=== PATIENT | female | born 1940 | race Caucasian/White ===

== ENCOUNTER 2020-02-23 18:15 | Emergency (ER) | payer MEDICARE, SELFPAY ==
[2020-02-23 18:31] VITALS: BP 157/77; PULSE 94; RESP 16; TEMP 36.9; O2SAT 96
--- NOTE | 2020-02-23 18:51 | ED.SKABFB ---
HPI - Skin/Abscess/Foreign Bdy General Chief complaint: Skin/Abscess/Foreign Body Stated complaint: right leg rash Time Seen by Provider: 02/23/20 18:40 Source: patient, family and RN notes reviewed Mode of arrival: wheelchair Limitations: dementia History of Present Illness HPI narrative: Son presents patient today complaining of wounds to the right lower leg that have been chronically present for the past 2 months. Patient states wounds initially started due to cat scratches, but son cannot confirm this. Patient has type 2 diabetes. Early on, patient contacted her PCP and was told to stop using the Vaseline and Neosporin, but were given no further instructions. Patient denies pain. MD complaint: other (Wounds) Related Data Home Medications Medication Instructions Recorded Confirmed aspirin 325 mg PO DAILY 02/23/20 02/23/20 cholecalciferol (vitamin D3) 125 mcg PO DAILY 02/23/20 02/23/20 [Vitamin D3] citalopram [Celexa] 10 mg PO DAILY 02/23/20 02/23/20 lutein 20 mg PO DAILY 02/23/20 02/23/20 metformin [Glucophage] 250 mg PO BID 02/23/20 02/23/20 simvastatin 20 mg PO DAILY 02/23/20 02/23/20 triamterene-hydrochlorothiazid 4 tablet PO DAILY 02/23/20 02/23/20 Allergies Allergy/AdvReac Type Severity Reaction Status Date / Time Penicillins Allergy Unknown Verified 02/23/20 18:46 Review of Systems Review of Systems: Narrative: CONSTITUTIONAL: Denies body aches, fever, chills, or sweats. EYES: Denies visual changes, redness, or discharge. ENT: Denies rhinorrhea, congestion, sore throat, or otalgia. CARDIOVASCULAR: Denies chest pain, palpitations, or edema. RESPIRATORY: Denies cough or dyspnea. GASTROINTESTINAL: Denies abdominal pain, nausea, vomiting, or diarrhea. GENITOURINARY: Denies dysuria or hematuria. SKIN: Denies rash, itching. + Wounds to the right lower leg MUSCULOSKELETAL: Denies back pain, joint pain, or myalgia. NEUROLOGIC: Denies headache, numbness, tingling, or weakness. PSYCH: Denies depression or anxiety. [facility] Past Medical History Medical History (Updated 02/23/20 @ 19:14 by HUE Barton, ) Depression Hypercholesterolemia Type 2 diabetes mellitus Social History Social History Gender identity (if verbalized by the patient): Female Comments At time of signature, I have reviewed and agree with nursing past medical, surgical, social and family history unless otherwise noted. Please see nursing chart for further information. There is no relevant family history pertinent to the presenting complaint Exam Narrative: Exam Narrative: GENERAL: Chronically ill-appearing, over-nourished, and in no acute distress. HEAD: Normocephalic, atraumatic. EYES: EOMI. No redness or drainage. Conjunctivae normal. ENT: Mucous membranes pink and moist. NECK: Normal AROM. CHEST: No respiratory distress. EXTREMITIES: Right lower leg: Multiple superficial open wounds with yellow purulent material. Some wounds are weeping clear yellow fluid. Patient has 1 small area of tenderness to the anterior mid lower leg, but is otherwise nontender. 2+ pitting throughout the lower leg. Distal sensation intact. Capillary refill normal. Pedal pulse normal. Left leg is also edematous and very dry. SKIN: Warm, dry, no rash. Capillary refill normal. Normal skin turgor. NEURO: No focal deficits. Alert and oriented x3. Gait steady. PSYCH: Normal affect. No signs of depression or anxiety. Course Vital Signs Vital signs: Vital Signs Temperature 98.4 F 02/23/20 18:31 Pulse Rate 94 02/23/20 18:31 Respiratory Rate 16 02/23/20 18:31 Blood Pressure 157/77 H 02/23/20 18:31 Pulse Oximetry 96 02/23/20 18:31 Temperature 98.4 F 02/23/20 18:31 Pulse Rate 94 02/23/20 18:31 Respiratory Rate 16 02/23/20 18:31 Blood Pressure 157/77 H 02/23/20 18:31 Pulse Oximetry 96 02/23/20 18:31 Reviewed. Pt has been instructed to follow up with her PCP regarding her elevated blood pressure today.
== END 2020-02-23 18:56 | disposition home or self-care (01) ==
PROVIDERS: Emergency Provider Nurse Practitioner
DX: L03.115 Cellulitis of right lower limb (principal); S81.801A Unspecified open wound, right lower leg, initial encounter; E78.00 Pure hypercholesterolemia, unspecified; E11.9 Type 2 diabetes mellitus without complications; F32.9 Major depressive disorder, single episode, unspecified; Z79.82 Long term (current) use of aspirin; Z79.84 Long term (current) use of oral hypoglycemic drugs; W55.03XA Scratched by cat, initial encounter
CPT/HCPCS: 87070; 87147; 87186; 87205; 99213; G0463

== ENCOUNTER 2020-05-05 12:10 | Emergency (ER) | payer MEDICARE, SELFPAY ==
--- NOTE | ~2020-05-05 | XR_ITS ---
EXAMINATION: XR chest 1V portable DATE: 05/05/2020 13:29 INDICATION: Shortness of breath. TECHNIQUE: A single frontal view of the chest was obtained. COMPARISON: None. FINDINGS: Sensitivity is decreased by obesity. The chest demonstrates clear lungs without pneumonia, pleural effusion, or pneumothorax. The heart size is normal. IMPRESSION: 1. No acute cardiopulmonary disease. Reviewed, dictated and finalized at location A.
[2020-05-05 12:15] VITALS: BP 157/79; PULSE 85; RESP 20; TEMP 36.6; O2SAT 97
--- NOTE | 2020-05-05 13:04 | ED.GENADULT ---
HPI - General Adult General Chief complaint: Extremity Injury, Lower Stated complaint: my legs are messed up Time Seen by Provider: 05/05/20 12:27 Source: patient and family Mode of arrival: ambulatory History of Present Illness HPI narrative: 79 years old white female, morbidly obese referred to our emergency room by her family physician because failure of lower extremity wound management over the last few months. Patient is asymptomatic, denying any new symptoms compared to the last few days or weeks. Patient reports chronic ulcerations and wounds of the lower extremity bilaterally with intermittent leaking clear fluid. History of diabetes, peripheral neuropathy and chronic stasis dermatitis. Related Data Home Medications Medication Instructions Recorded Confirmed aspirin 325 mg PO DAILY 02/23/20 02/23/20 cholecalciferol (vitamin D3) 125 mcg PO DAILY 02/23/20 02/23/20 [Vitamin D3] citalopram [Celexa] 10 mg PO DAILY 02/23/20 02/23/20 lutein 20 mg PO DAILY 02/23/20 02/23/20 metformin [Glucophage] 250 mg PO BID 02/23/20 02/23/20 simvastatin 20 mg PO DAILY 02/23/20 02/23/20 triamterene-hydrochlorothiazid 4 tablet PO DAILY 02/23/20 02/23/20 Allergies Allergy/AdvReac Type Severity Reaction Status Date / Time Penicillins Allergy Unknown Verified 05/05/20 13:15 Review of Systems Review of Systems: Narrative: CONSTITUTIONAL: Denies fever, chills, or sweats. EYES: Denies visual changes, redness, or discharge. ENT: Denies rhinorrhea, congestion, sore throat, or otalgia. CARDIOVASCULAR: Denies chest pain, palpitations, or edema. RESPIRATORY: Denies cough or dyspnea. GASTROINTESTINAL: Denies abdominal pain, nausea, vomiting, or diarrhea. GENITOURINARY: Denies dysuria or hematuria. SKIN: Denies rash or itching. MUSCULOSKELETAL: Denies back pain, joint pain, or myalgia. NEUROLOGIC: Denies headache, numbness, or weakness. PSYCHIATRIC: Denies anxiety or depression. [facility] Past Medical History Medical History Depression Hypercholesterolemia Type 2 diabetes mellitus Social History Social History (Updated 05/05/20 @ 13:07 by Gregorio Monge MD) Smoking status: Smoker, status unknown Alcohol intake: unknown Substance use: unknown Gender identity (if verbalized by the patient): Female Exam Narrative: Exam Narrative: General appearance: Well-developed, well-nourished Skin: Normal color. Lower extremity showed chronic stasis dermatitis with superficial ulcerations with different sizes, some of them covered with yellow crust, no active leaking of fluid at this time, no warmth, pink skin, no tenderness, 2+ edema Head: Normocephalic, nontraumatic Eyes: Clear conjunctiva ENT: Oropharynx normal, ears normal, nose normal Neck: Supple, nontender Chest and respiratory: Airway patent, no respiratory distress, no accessory muscle use Heart: Regular rate/rhythm Abdomen: Soft, nontender, no organomegaly, quiet bowel sounds Vascular: Normal peripheral pulses, normal capillary refill. Musculoskeletal: Normal range of motion, nontender back Neurologic: Alert and oriented ?3, FRAME FEEDER is normal as tested, no gross motor deficit Course Course Emergency Course: Stable Reevaluation(s) Reevaluation #1: Wound care nurse came to the emergency room, evaluated the patient and advised her to avoid salt, use compression stocking and keep leg elevated. And she needs to follow-up with wound care clinic of [facility] because patient does not have a family physician in our hospital. Date: 05/05/20 Time: 13:56 Vital Signs Vital signs: Vital Signs Temperature 36.6 C 05/05/20 12:15 Pulse Rate 85 05/05/20 12
[2020-05-05 13:08] LABS: Basophils Absolute Auto 0.1 K/mm3 (0.0-0.1); Basophils Percent Auto 0.4 % (0.2-1.2); Eosinophils Absolute Auto 0.2 K/mm3 (0-0.3); Eosinophils Percent Auto 1.6 % (0-4.4); Hematocrit 44.3 % (37.0-47.0); Hemoglobin 14.9 g/dL (12.0-15.0); Immature Granulocyte Absolute 0.11 K/mm3 (0.00-0.031); Immature Granulocyte Percent A 0.8 % (0-0.5); Lymphocytes Percent Auto 19.7 % (18.3-44.2); Mean Corpuscular HGB Conc 33.6 g/dl (32-36); Mean Corpuscular Volume 98.2 fl (80-100); Monocytes Absolute Auto 0.9 K/mm3 (0.1-0.6); Monocytes Percent Auto 6.3 % (2.6-8.5); Neutrophils Absolute Auto 9.8 K/mm3 (1.3-6.7); Neutrophils Percent Auto 71.2 % (45.5-73.1); Platelet Count Result 316 k/mm3 (150-375); Red Blood Count 4.51 M/mm3 (4.2-5.4); Red Cell Distribution Width 12.4 % (11.5-14.5); White Blood Count 13.7 K/mm3 (4.5-10.0)
[2020-05-05 13:20] LABS: Alanine Aminotransferase 20 U/L (4-35); Albumin Level 3.9 g/dL (3.5-5.1); Alkaline Phosphatase 72 U/L (38-126); Anion Gap 7 mmol/L (8-16); Aspartate Amino Transferase 28 U/L (14-36); Bilirubin,Total 0.7 mg/dL (0.2-1.3); Blood Urea Nitrogen 16 mg/dL (7-17); Calcium 9.5 mg/dL (8.4-10.2); Carbon Dioxide 28 mmol/L (22-30); Chloride 100 mmol/L (98-107); Estimated CRCL calculation 82 ml/min; Estimated Glomerular Filt Rate > 60; Glucose 145 mg/dL (65-105); Potassium 4.2 mmol/L (3.4-5.0); Sodium 135 mmol/L (137-145)
[2020-05-05 13:29] LABS: NT Pro B Type Natriuretic Pept 106 PG/ML (5-100)
[2020-05-05 14:08] VITALS: BP 156/65; PULSE 86; RESP 16; O2SAT 97
== END 2020-05-05 14:20 | disposition home or self-care (01) ==
PROVIDERS: Emergency Provider Emergency Medicine; PCP Family Medicine
DX: L97.902 Non-pressure chronic ulcer of unspecified part of unspecified lower leg with fat layer exposed (principal); F32.9 Major depressive disorder, single episode, unspecified; E78.5 Hyperlipidemia, unspecified; E11.9 Type 2 diabetes mellitus without complications; Z79.84 Long term (current) use of oral hypoglycemic drugs
CPT/HCPCS: 36415; 71045; 80053; 83880; 85025; 87040; 87077; 87186; 99283

== ENCOUNTER 2020-12-23 09:07 | Observation (INO) | payer MEDICARE, MEDICAID, SELFPAY ==
[2020-12-23] VITALS (38 sets, daily range): BP systolic 89–140; BP diastolic 49–90; PULSE 68–95; RESP 14–24; TEMP 35.9–36.8; O2SAT 92–100; BMI 42.3
--- NOTE | ~2020-12-23 | CT_ITS ---
EXAMINATION: CT foot LT wo con DATE: 12/25/2020 12:42 INDICATION: Pain and swelling at the left first metatarsal TECHNIQUE: Computed tomography (CT) of the left foot was performed without intravenous contrast. The dose-length product (DLP) was 466.06 mGy-cm. Automated exposure control and iterative reconstruction technique were employed. COMPARISON: None FINDINGS: No fracture is identified. Bone alignment is normal. There is mild osteoarthritis at the fi rst metatarsophalangeal joint. There is dorsal soft tissue swelling of the foot. IMPRESSION: 1. Soft tissue swelling of the foot without acute osseous findings identified. Reviewed, dictated and finalized at location A.
--- NOTE | ~2020-12-23 | CT_ITS ---
EXAMINATION: CT abdomen pelvis wo con DATE: 12/26/2020 09:47 INDICATION: Intermittent hematuria TECHNIQUE: Computed tomography (CT) of the abdomen and pelvis was performed without intravenous contr ast. The dose-length product (DLP) was 711.74 mGy-cm. Automated exposure control and iterative recons truction technique were employed. COMPARISON: None FINDINGS: Minimal dependent atelectasis is present in the lung bases. The heart size is normal. Stone s are present in the nondistended gallbladder. The liver, spleen, pancreas, and adrenal glands are no rmal. Within the limitations of noncontrast examination, the kidneys are unremarkable. No stones are identified in the kidneys, ureters, or bladder. There is no hydronephrosis or hydroureter. No patholo gically enlarged abdominal or pelvic lymph nodes are identified. There is no free intraperitoneal gas or evidence of bowel obstruction. The appendix is normal. There is mild lumbar spondylosis. There is enlargement of the uterus. A fat-containing umbilical hernia is noted. IMPRESSION: 1. No CT correlate for the patient's symptoms. 2. Uterine enlargement, likely related to fibroids. 3. Cholelithiasis. Reviewed, dictated and finalized at location B.
--- NOTE | ~2020-12-23 | CT_ITS ---
EXAMINATION: CT brain wo con, CT cervical spine wo con EXAM DATE: 12/23/2020 10:08 INDICATION: Dizziness, possible head injury. Right-sided neck pain. TECHNIQUE: Spiral CT of the head was performed without contrast. Axial, coronal and sagittal images were reviewed. Spiral CT of the cervical spine was performed without contrast. Axial images were rev iewed. Coronal and sagittal reformatted images were also reviewed. The dose-length product (DLP) fo r this examination was 605.33 (accession [id number]), 440.79 (accession [id number]) mGy-cm. The exposure was tailored according to patient size, and iterative reconstruction (ASIR) was used as additional dose reduction technique. There is no prior study for comparison. FINDINGS: HEAD CT: There is no acute intraparenchymal hemorrhage. No evidence of intraparenchymal brain mass l esion. No evidence of acute infarction. There is mild to moderate periventricular and subcortical hy podensity, nonspecific but probably related to small vessel ischemic disease. There is mild to mode rate prominence of the sulci and ventricles related to cerebral atrophy. There is intracranial francis tid arteriosclerosis. There is no mass effect or midline shift. There is no obstructive hydrocephal us suspected. There are no extra-axial collections. There are no acute calvarial fractures. The or bits are unremarkable. Left-sided scalp sebaceous cyst measuring 2 cm. The visualized sinuses and ma stoid air cells are well aerated. CERVICAL CT: There is no evidence of acute cervical fracture. The odontoid process is intact. Pre- dens space is normal. Prevertebral soft tissue is widened due to midline course of carotid arteries. There are no soft tissue abnormalities identified. There is no disc space widening or traumatic ve rtebral body subluxation suspected. Moderate to severe disc disease C5-T1. There is severe left-side d facet arthropathy C2-C5 with significant left neural foraminal stenosis at C4-5 more than C3-4. A detailed level by level evaluation of spondylosis can be added as addendum if requested. IMPRESSION: 1. No acute intracranial findings or cervical fracture. 2. Age-related intracranial findings. 3. Cervical spondylosis. Reviewed, dictated and finalized at location A. IMPRESSION: 1. No acute intracranial findings or cervical fracture. 2. Age-related intracranial findings. 3. Cervical spondylosis.
--- NOTE | ~2020-12-23 | US_ITS ---
EXAMINATION: US venous doppler LE EXAM DATE: 12/24/2020 12:54 INDICATION: Lower extremity swelling and pain. TECHNIQUE: Multiple grayscale, color flow and Doppler images of the lower extremity deep venous syste ms bilaterally were obtained and reviewed. There is no prior study for comparison. FINDINGS: Right side: The right common femoral, femoral and profunda veins demonstrate normal color flow, respi ratory variation, augmentation and compressibility. Compressibility, color flow confirmed within the right popliteal, posterior tibial, peroneal, and greater saphenous veins. Left side: The left common femoral, femoral and profunda veins demonstrate normal color flow, respira tory variation, augmentation and compressibility. Compressibility, color flow confirmed within the l eft popliteal, posterior tibial, peroneal, and greater saphenous veins. IMPRESSION: No lower extremity deep venous thrombosis bilaterally. Reviewed, dictated and finalized at location A.
--- NOTE | ~2020-12-23 | XR_ITS ---
EXAMINATION: XR shoulder RT min 2V EXAM DATE: 12/23/2020 10:24 INDICATION: Initial encounter following injury, with pain of the right shoulder. Fall. TECHNIQUE: The following right shoulder projections obtained: frontal projection with internal rotati on, frontal projection with external rotation, Grashey, and scapular Y view (4+ views). There is no prior study for comparison. FINDINGS: There are no acute right shoulder fractures or dislocations identified. There is no subcut aneous gas. The soft tissue is unremarkable. There are no radiopaque foreign bodies. There is mod erate acromioclavicular joint primary osteoarthritis. IMPRESSION: 1. Right shoulder exam without acute osseous findings. Reviewed, dictated and finalized at location A.
--- NOTE | ~2020-12-23 | XR_ITS ---
EXAMINATION: XR wrist RT min 3V DATE: 12/23/2020 10:24 INDICATION: Right wrist pain post fall TECHNIQUE: Posteroanterior, ulnar deviation, oblique, and lateral views of the right wrist were obtai anna. COMPARISON: none FINDINGS: Alignment is normal. No fracture. Mild polyarticular osteoarthritis including the distal radioulnar, midcarpal, triscaphe, first carpometacarpal and at all of the profiled metacarpophalangeal and interp halangeal joints. Soft tissue swelling about the distal forearm. IMPRESSION: 1. 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 No acute osseous abnormalit y. Reviewed, dictated and finalized at location B. IMPRESSION: 1. 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 No ac leesa osseous abnormality.
--- NOTE | ~2020-12-23 | XR_ITS ---
EXAMINATION: XR foot LT min 3V DATE: 12/23/2020 10:24 INDICATION: Left foot pain. TECHNIQUE: Dorsoplantar, two oblique and lateral views of the left foot were obtained. COMPARISON: None. FINDINGS: Prominent soft tissue swelling about the distal lower leg and extending over the dorsum of the foot. Bone alignment is normal. There is flattening of the articular surface at the head of the second meta tarsal with subtle underlying subarticular sclerosis consistent with chronic osteonecrosis (Freiberg infraction). No acute fracture. 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 Moderate-sized plantar calcaneal spur. Small enthesopathic ossicles at the distal Achilles tendon. IMPRESSION: 1. No acute osseous abnormality. 2. 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 3. Degenerative skeletal changes including minimal to mild polyarticular osteoarthritis in the mid an d forefoot and enthesopathic changes at the posterior calcaneus. Reviewed, dictated and finalized at location B. IMPRESSION: 1. No acute osseous abnormality. 2. 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 3. Degenerative skeletal changes including minimal to mild polyarticular osteoa rthritis in the mid and forefoot and enthesopathic changes at the posterior travis caneus.
--- NOTE | ~2020-12-23 | XR_ITS ---
EXAMINATION: XR foot RT min 3V EXAM DATE: 12/25/2020 08:22 INDICATION: Right foot swelling. TECHNIQUE: Right foot dorsoplantar, lateral and oblique projections obtained and reviewed. There is no prior study for comparison. FINDINGS: Right metatarsal bones unremarkable. There are no acute fractures or dislocations identifi ed. There is no subcutaneous gas. There is soft tissue swelling over the entire foot. There are no radiopaque foreign bodies. There are no bony erosions identified. There is mild polyarticular prim jeremias osteoarthritis. IMPRESSION: 1. Right foot exam without acute osseous findings. 2. Soft tissue swelling. Reviewed, dictated and finalized at location A.
--- NOTE | ~2020-12-23 | XR_ITS ---
EXAMINATION: XR chest 1V EXAM DATE: 12/23/2020 10:24 INDICATION: Dizziness, fall. TECHNIQUE: Portable AP frontal chest x-ray was obtained. Comparison is made to prior examination from 05/05/2020. FINDINGS: Some limitations from underpenetration. The lungs are clear. There are no pleural effusion s. The cardiomediastinal silhouette is within normal limits. There is no pneumothorax suspected. T he bones and soft tissues are unremarkable. IMPRESSION: No acute cardiopulmonary findings. Reviewed, dictated and finalized at location A.
--- NOTE | 2020-12-23 09:48 | ECG_ITS ---
Measurements Intervals [place] Rate: 83 P: 32 WA: 174 QRS: -11 QRSD: 106 T: 42 QT: 381 QTc: 448 Interpretive Statements SINUS RHYTHM INCOMPLETE RIGHT BUNDLE BRANCH BLOCK DELAYED PRECORDIAL R/S TRANSITION LOW QRS VOLTAGE IN PRECORDIAL LEADS BORDERLINE ECG Electronically Signed On 12-23-2020 10:52:31 CDT by Jesús Almaguer D.O.
--- NOTE | 2020-12-23 10:09 | ED.FALL ---
HPI - Fall General Chief Complaint: Fall Stated Complaint: Fall weakness Time Seen by Provider: 12/23/20 09:19 Source: patient Mode of arrival: EMS Limitations: no limitations History of Present Illness HPI Narrative: PAtient is a 80 year old female with history of DM, hyperlipidemia and hypertension who presents for evaluation of left foot pain , neck pain and right shoulder pain. She was trying to walk her dog but once she stepped on her left foot she had pain and she fell. She states the top of her left foot started hurting last night. She also has right shoulder pain, neck pain, right wrist pain after fall. She states she is unsure if she hit her head but she is having dizziness after her fall. She denies chest pain, nausea, vomiting, shortness of breath. Related Data Home Medications Medication Instructions Recorded Confirmed aspirin [Abdias Aspirin] 325 mg PO DAILY 02/23/20 12/23/20 citalopram [Celexa] 10 mg PO DAILY 02/23/20 12/23/20 lutein 20 mg PO DAILY 02/23/20 12/23/20 metformin [Glucophage] 1,000 mg PO BID 02/23/20 12/23/20 simvastatin 20 mg PO DAILY 02/23/20 12/23/20 triamterene-hydrochlorothiazid 4 tablet PO DAILY 02/23/20 12/23/20 oxybutynin chloride 5 mg PO BID 12/23/20 12/23/20 sitagliptin [Januvia] 100 mg PO DAILY 12/23/20 12/23/20 Allergies Allergy/AdvReac Type Severity Reaction Status Date / Time Penicillins Allergy Unknown Verified 12/23/20 16:35 Review of Systems Review of Systems: All systems reviewed & are unremarkable except as noted in HPI and below Constitutional: Constitutional: Denies chills and Denies fever(s) ENT: Denies sore throat Cardiovascular: Cardiovascular: Denies chest pain and Denies radiating jaw, neck or arm pain Respiratory: Respiratory: Denies cough and Denies dyspnea Gastrointestinal: Gastrointestinal: Denies abdominal pain, Denies nausea and Denies vomiting Musculoskeletal: Musculoskeletal: Reports back pain Integumentary/Breasts: Skin/Breast: Reports erythema Neurologic: Reports dizziness and Denies focal weakness [facility] Past Medical History Medical History (Updated 12/23/20 @ 17:59 by Sindi Pyle MD) Cataract Left eye Depression HTN (hypertension) with goal to be determined Hypercholesterolemia Type 2 diabetes mellitus Surgical History Surgical History (Updated 12/23/20 @ 17:33 by Natalie Erickson NP) History of arthroscopic knee surgery Repair of right knee cartilage Family History Family History (Updated 12/23/20 @ 17:35 by Natalie Erickson NP) Mother Acute myocardial infarction Several times Migraines Father Cancer Social History Social History (Updated 12/23/20 @ 17:35 by Natalie Erickson NP) Social History: The patient is single and lives with her son. 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 The patient stated she would choose her son as a durable power commercial real estate attorney for healthcare. The patient desires to be a full code. Lifelong nonsmoker does not use any alcohol marijuana or illicit drugs. Smoking status: Never smoker Second hand tobacco smoke exposure: No Alcohol intake: former Substance use: never Substance use type: does not use Gender identity (if verbalized by the patient): Female Spiritual care concerns: No Exam Const: General: alert Nutritional Appearance: obese Orientation/consciousness: patient oriented x3 HENMT: Head: normocephalic and atraumatic Face and sinus: normal facial exam, sinuses nontender and face symmetric Mouth: Yes Normal oral and palatal mucosa present, Yes lip normal, Yes oropharynx normal and Yes moist mucous membranes Throat: uvula midline Chest: Chest palpation & inspection: normal inspection of the chest Resp: Effort & Inspection: normal respiratory effort and no retractions Auscultation: clear to auscultation bilaterally Cardio: Rate: regular rate Rhythm: regular rhythm Heart sounds: no murmurs GI: GI Palp: Yes Soft to pa
[2020-12-23 10:54] LABS: Basophils Absolute Auto 0.1 K/mm3 (0.0-0.1); Basophils Percent Auto 0.4 % (0.2-1.2); Eosinophils Absolute Auto 0.4 K/mm3 (0-0.3); Hematocrit 46.7 % (37.0-47.0); Hemoglobin 15.7 g/dL (12.0-15.0); Immature Granulocyte Absolute 0.16 K/mm3 (0.00-0.031); Immature Granulocyte Percent A 0.8 % (0-0.5); Lymphocytes Percent Auto 6.7 % (18.3-44.2); Mean Corpuscular HGB Conc 33.6 g/dl (32-36); Mean Corpuscular Hemoglobin 32.5 pg (26-34); Mean Corpuscular Volume 96.7 fl (80-100); Mean Platelet Volume 9.9 fl (7.4-10.4); Neutrophils Absolute Auto 16.6 K/mm3 (1.3-6.7); Neutrophils Percent Auto 85.1 % (45.5-73.1); Platelet Count Result 273 k/mm3 (150-375); Red Blood Count 4.83 M/mm3 (4.2-5.4); Red Cell Distribution Width 13.4 % (11.5-14.5); White Blood Count 19.5 K/mm3 (4.5-10.0)
[2020-12-23 11:05] LABS: Uric Acid 9.2 mg/dL (2.5-7.5)
[2020-12-23 11:10] LABS: Alanine Aminotransferase 10 U/L (4-35); Albumin Level 4.2 g/dL (3.5-5.1); Alkaline Phosphatase 77 U/L (38-126); Anion Gap 6 mmol/L (8-16); Aspartate Amino Transferase 22 U/L (14-36); Bilirubin,Total 0.8 mg/dL (0.2-1.3); Blood Urea Nitrogen 21 mg/dL (7-17); CRP 5.1 mg/dL (<1.0); Calcium 9.7 mg/dL (8.4-10.2); Carbon Dioxide 31 mmol/L (22-30); Chloride 101 mmol/L (98-107); Estimated CRCL calculation 57 ml/min; Estimated Glomerular Filt Rate > 60; Glucose 167 mg/dL (65-105); Sodium 138 mmol/L (137-145)
[2020-12-23 11:13] LABS: INR 0.9; Partial Thromboplastin Time 25.8 SECONDS (22.3-36.8); Prothrombin Time 12.4 Seconds (11.1-14.7)
[2020-12-23 11:16] LABS: NT Pro B Type Natriuretic Pept 74 PG/ML (5-100)
[2020-12-23 11:36] LABS: Potassium 3.7 mmol/L (3.4-5.0)
[2020-12-23 12:38] LABS: Add Urine Microscopic? YES; Appearance Urine Cloudy (Clear); Bacteria Urine 4+ /hpf; Bilirubin Urine Negative (Negative); Blood Urine Negative (Negative); Color Urine Yellow (Yellow); Glucose Urine UA Negative (Negative); Ketones Urine Negative (Negative); Leukocyte Esterase Ur 1+ LEU/UL (Negative); Mucus Urine Rare /lpf; Nitrate Urine Negative (Negative); Protein Urine Negative (Negative); RBC Urine 0-2 /hpf (0-2); Specific Grav Ur 1.016 (1.001-1.035); Squamous Epithelial Cell Urine Occasional /hpf (Few); WBC Urine 16-20 /hpf
[2020-12-23] MEDS: LACTATED RINGERS 1,000 ML 999 ML IV CONT (12:39)
[2020-12-23] MEDS: INDOMETHACIN 25 MG CAPSULE PO ×2 (14:48→18:11)
--- NOTE | 2020-12-23 16:52 | PC.NURSE ---
This patient, Kimberly Rodriguez, was admitted to [facility]- on 12/23/2020 at 15:50. Patient/family oriented to hospital policies and general routines including ID bracelet, bed and alarms, visiting hours, pain management, procedures, bathroom and other care routines, personal items, smoking policy, room service/diet, and visiting hours. Information on how to activate the Rapid Response Team has been discussed. Patient/Family are encouraged to report perceived risks to care and to ask questions if they do not understand what they are told or what they should do.
--- NOTE | 2020-12-23 17:18 | PM.IMHP ---
H&P: HPI History of Present Illness Date/Time: 12/23/20 17:18Female patient who resides with her son. The patient does have a history of diabetes, hyperlipidemia and hypertension. The patient stated that her foot on the left side was hurting her all night she did not fall asleep until 3:00 a.m. this morning. The patient stated that she went to sleep and a lift chair. She stated she did not take anything for this left foot pain. The patient stated that this morning when she woke up she went to get up out of the chair to get the dog outside to the bathroom. However once the patient was lifted in the chair she said that she turned wrong and fell on the floor. She called for her son to come help her and he called for an ambulance. She complained of right shoulder pain, neck pain, and right wrist pain after the fall. She does not remember hitting her head. She did not feel dizzy before or after the fall. No nausea vomiting or diarrhea. No shortness of breath. The patient had no previous history of having gout. Her white count was noted to be 19.5 and she was positive for UTI. The patient was started on Rocephin. Her blood glucose is 167. A boot was applied to her left foot her CRP is 5.1 her left foot x-ray was read as 1. No acute osseous abnormality. 2. 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 3. Degenerative skeletal changes including minimal to mild polyarticular osteoarthritis in the mid and forefoot and enthesopathic changes at the posterior calcaneus. Ortho had been called concerning these readings and he suspected that the patient just has gout and that she may follow-up with him in the outpatient setting. The patient had been given indomethacin. Her chest x-ray was read as nothing acute. Wrist x-ray on the right was read as mild polyarticular osteoarthritis throughout the right wrist and hand no acute osseous abnormality. Shoulder x-ray was read as right shoulder exam without acute osseous findings. Head CT was read as nothing acute. She has cervical spondylosis and age-related intracranial findings. Cervical spine CT was read as nothing acute age-related intracranial finding cervical spondylosis. The patient was given IV Tylenol, lactated Ringer's Rocephin and indomethacin in the emergency room. The patient is being admitted to observation status on 12/23/2020. Chief Complaint: Left foot pain Review of Systems Review of Systems: All systems reviewed & are unremarkable except as noted in HPI and below Constitutional: Constitutional: Reports as per HPI and Reports no additional constitutional complaints Eyes: Eyes: Reports as per HPI and Reports no additional eye complaints ENT: Reports system reviewed and no additional complaints, except as documented and Reports Normal hearing present Cardiovascular: Cardiovascular: Reports no additional cardiovascular complaints Respiratory: Respiratory: Reports no additional respiratory complaints and Reports no additional respiratory complaints Gastrointestinal: Gastrointestinal: Reports as per HPI and Reports no additional gastrointestinal complaints Musculoskeletal: Musculoskeletal: Reports no additional musculoskeletal complaints Integumentary/Breasts: Skin/Breast: Reports system reviewed and no additional complaints, except as docu and Reports as per HPI Neurologic: Reports system reviewed and no additional complaints, except as documented, Reports as per HPI and Reports Normal hearing present Psychiatric: Psychiatric: Reports no additional psychiatric complaints and Reports as per HPI Endocrine: Endocrine: Reports no additional endocrine complaints Hematologic/Lymphatic: Hematologic/Lymphatic: Reports no additional hematologic/lymphatic complaints Allergic/Immunologic: Allergic/Immunologic: Reports no additional allergic/immunologic complaints [facility] Past Medical History Medical History (Updated 12/23/20
[2020-12-23 17:41] LABS: Glucose Point of Care 163 (65-105)
[2020-12-23] MEDS: OXYBUTYNIN CHLORIDE 5 MG TABLET PO (18:13)
[2020-12-23] MEDS: SIMVASTATIN 20 MG TABLET PO (20:37)
[2020-12-23] MEDS: CITALOPRAM HYDROBROMIDE 10 MG TABLET PO (20:37)
[2020-12-23 21:22] LABS: Glucose Point of Care 199 (65-105)
[2020-12-24 05:55] LABS: Basophils Absolute Auto 0.1 K/mm3 (0.0-0.1); Basophils Percent Auto 0.4 % (0.2-1.2); Eosinophils Absolute Auto 0.6 K/mm3 (0-0.3); Eosinophils Percent Auto 3.8 % (0-4.4); Hematocrit 40.5 % (37.0-47.0); Hemoglobin 13.7 g/dL (12.0-15.0); Immature Granulocyte Percent A 0.7 % (0-0.5); Lymphocytes Absolute Auto 2.14 K/mm3 (0.9-3.2); Lymphocytes Percent Auto 14.6 % (18.3-44.2); Mean Corpuscular HGB Conc 33.8 g/dl (32-36); Mean Corpuscular Volume 94.6 fl (80-100); Monocytes Absolute Auto 0.8 K/mm3 (0.1-0.6); Monocytes Percent Auto 5.7 % (2.6-8.5); Neutrophils Percent Auto 74.8 % (45.5-73.1); Platelet Count Result 227 k/mm3 (150-375); Red Blood Count 4.28 M/mm3 (4.2-5.4); Red Cell Distribution Width 13.2 % (11.5-14.5); White Blood Count 14.7 K/mm3 (4.5-10.0)
[2020-12-24 06:00] VITALS: BP 130/50; PULSE 67; RESP 18; TEMP 36.6; O2SAT 94
[2020-12-24 06:08] LABS: Alanine Aminotransferase 9 U/L (4-35); Albumin Level 3.7 g/dL (3.5-5.1); Alkaline Phosphatase 62 U/L (38-126); Anion Gap 3 mmol/L (8-16); Aspartate Amino Transferase 18 U/L (14-36); Bilirubin,Total 0.8 mg/dL (0.2-1.3); Blood Urea Nitrogen 22 mg/dL (7-17); Calcium 9.2 mg/dL (8.4-10.2); Carbon Dioxide 32 mmol/L (22-30); Chloride 101 mmol/L (98-107); Estimated CRCL calculation 51 ml/min; Estimated Glomerular Filt Rate > 60; Glucose 143 mg/dL (65-105); Potassium 3.3 mmol/L (3.4-5.0); Sodium 136 mmol/L (137-145); Uric Acid 9.2 mg/dL (2.5-7.5)
[2020-12-24 06:51] LABS: Hemoglobin A1C 6.5 % (<5.7)
[2020-12-24] MEDS: OXYBUTYNIN CHLORIDE 5 MG TABLET PO ×2 (08:04→16:50)
[2020-12-24] MEDS: INDOMETHACIN 25 MG CAPSULE PO ×3 (08:04→16:50)
[2020-12-24] MEDS: ENOXAPARIN 40 MG/0.4 ML SYRINGE SUB-Q (08:04)
[2020-12-24] MEDS: metFORMIN HCL 500 MG TABLET 1000 MG PO ×2 (08:04→16:50)
[2020-12-24] MEDS: HYDROcodone/acetaminophen (*CRX) 5-325 MG TABLET 1 TAB PO (08:09)
[2020-12-24 08:17] LABS: Glucose Point of Care 143 (65-105)
[2020-12-24 08:40] VITALS: PULSE 74; RESP 18; O2SAT 95
--- NOTE | 2020-12-24 11:17 | PM.IMPN ---
Progress Note: A&P Assessment and Plan (1) UTI (urinary tract infection): Code(s): N39.0 - Urinary tract infection, site not specified Status: Acute Assessment and Plan: Urinalysis w/ 4+ bacteria, leukocyte esterase, WBC. She notes increased urinary frequency. WBC elevated at 19,500 yesterday but improving. Preliminary cultures demonstrate >100,000 CFU gram negative bacilli. Continue IV ceftriaxone Await final urine and blood cultures (2) Gout: Code(s): M10.9 - Gout, unspecified Status: Acute Assessment and Plan: She notes acute onset of severe pain in the left foot/great toe. The right foot is also hurting. Uric acid elevated at 9.2. Continue indomethacin, treat for 5 days total Pantoprazole added since she is on NSAID Continue analgesics as needed (3) Hypercholesterolemia: Code(s): E78.00 - Pure hypercholesterolemia, unspecified Status: Chronic Assessment and Plan: LFTs are normal. Continue simvastatin (4) Depression: Code(s): F32.9 - Major depressive disorder, single episode, unspecified Status: Chronic Assessment and Plan: Mood is stable. Continue citalopram (5) Type 2 diabetes mellitus: Code(s): E11.9 - Type 2 diabetes mellitus without complications Status: Chronic Assessment and Plan: Hemoglobin A1c 6.5% 12/24/20. Blood sugars are at target. Continue ACHS glucose monitoring, sliding scale insulin, and hypoglycemia protocol Continue metformin and januvia (6) Hypertension: Code(s): I10 - Essential (primary) hypertension Status: Acute Assessment and Plan: Blood pressures are acceptable with some soft readings yesterday. Most recent 106/46. Furosemide and triamterene-HCTZ held due to soft pressures. Will monitor overnight and consider resuming tomorrow based on trend. (7) Osteonecrosis: Code(s): M87.9 - Osteonecrosis, unspecified Status: Acute Assessment and Plan: She notes acute onset of left foot pain two days ago and did not sleep all night due to the pain. The morning of 12/23, she suffered a mechanical fall. 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 Dr. Brown with orthopedic surgery was consulted from the emergency department and recommended outpatient follow-up which she will need to schedule at discharge Continue walking shoe (8) Fall: Code(s): W19.XXXA - Unspecified fall, initial encounter Status: Acute Assessment and Plan: Likely provoked by left foot pain from gout. Pt is also deconditioned. PT/OT evaluation appreciated Fall precautions Rehab placement anticipated Check plain films of the right foot (9) Leukocytosis: Code(s): D72.829 - Elevated white blood cell count, unspecified Status: Acute Assessment and Plan: Likely secondary to UTI. I do not see any evidence of lower extremity cellulitis on physical exam. Continue IV ceftriaxone for treatment of UTI Follow CBC daily Subjective Date/time seen: 12/24/20 11:17 Mrs. Rodriguez is a 80 y.o. female with PMH significant for hypertension, hyperlipidemia, and T2DM who is seen in follow-up for urinary tract infection and gout. She relates that she is doing a little bit better today. She still has pain in both feet but the pain is better compared to yesterday. Appetite is good. She denies chest pain and shortness of breath. She denies nausea, vomiting, and abdominal pain. She notes increased urinary frequency but denies dysuria. She denies dizziness and lightheadedness. She did get up to walk with PT today but her feet are still hurting. She is wearing the walking shoe. Review of Systems Review of Systems: All systems reviewed & are unremarkable except as noted in HPI and below
[2020-12-24 12:27] LABS: Glucose Point of Care 120 (65-105)
[2020-12-24 14:00] VITALS: BP 106/46; PULSE 68; RESP 20; TEMP 36.6; O2SAT 95
[2020-12-24 17:17] LABS: Glucose Point of Care 174 (65-105)
[2020-12-24] MEDS: PANTOPRAZOLE 40 MG TABLET PO (18:12)
[2020-12-24] MEDS: CITALOPRAM HYDROBROMIDE 10 MG TABLET PO (21:00)
[2020-12-24] MEDS: SIMVASTATIN 20 MG TABLET PO (21:00)
[2020-12-24 21:22] LABS: Glucose Point of Care 134 (65-105)
[2020-12-24 22:00] VITALS: BP 118/53; PULSE 72; RESP 18; TEMP 35.7; O2SAT 100
[2020-12-25 06:00] VITALS: BP 147/66; PULSE 83; RESP 18; TEMP 36.2; O2SAT 95
[2020-12-25 06:12] LABS: Basophils Absolute Auto 0.1 K/mm3 (0.0-0.1); Basophils Percent Auto 0.4 % (0.2-1.2); Eosinophils Absolute Auto 0.8 K/mm3 (0-0.3); Eosinophils Percent Auto 4.9 % (0-4.4); Hematocrit 41.5 % (37.0-47.0); Hemoglobin 13.9 g/dL (12.0-15.0); Immature Granulocyte Absolute 0.12 K/mm3 (0.00-0.031); Immature Granulocyte Percent A 0.7 % (0-0.5); Lymphocytes Percent Auto 18.1 % (18.3-44.2); Mean Corpuscular HGB Conc 33.5 g/dl (32-36); Mean Corpuscular Hemoglobin 31.7 pg (26-34); Mean Corpuscular Volume 94.5 fl (80-100); Mean Platelet Volume 10.1 fl (7.4-10.4); Monocytes Absolute Auto 0.7 K/mm3 (0.1-0.6); Monocytes Percent Auto 4.6 % (2.6-8.5); Neutrophils Absolute Auto 11.4 K/mm3 (1.3-6.7); Neutrophils Percent Auto 71.3 % (45.5-73.1); Platelet Count Result 257 k/mm3 (150-375); Red Blood Count 4.39 M/mm3 (4.2-5.4); Red Cell Distribution Width 13.1 % (11.5-14.5)
[2020-12-25 06:35] LABS: Anion Gap 7 mmol/L (8-16); Blood Urea Nitrogen 29 mg/dL (7-17); CRP 7.3 mg/dL (<1.0); Calcium 9.4 mg/dL (8.4-10.2); Carbon Dioxide 30 mmol/L (22-30); Chloride 101 mmol/L (98-107); Estimated CRCL calculation 43 ml/min; Estimated Glomerular Filt Rate 48; Glucose 139 mg/dL (65-105); Magnesium 1.5 mg/dL (1.6-2.3); Potassium 3.7 mmol/L (3.4-5.0); Sodium 138 mmol/L (137-145)
[2020-12-25 08:07] LABS: Glucose Point of Care 148 (65-105)
[2020-12-25] MEDS: ASPIRIN 81 MG ENTERIC TABLET PO (08:17)
[2020-12-25] MEDS: INDOMETHACIN 25 MG CAPSULE PO (08:17)
[2020-12-25] MEDS: OXYBUTYNIN CHLORIDE 5 MG TABLET PO ×2 (08:18→16:55)
[2020-12-25] MEDS: ENOXAPARIN 40 MG/0.4 ML SYRINGE SUB-Q (08:18)
[2020-12-25] MEDS: PANTOPRAZOLE 40 MG TABLET PO (08:18)
[2020-12-25] MEDS: metFORMIN HCL 500 MG TABLET 1000 MG PO (08:18)
[2020-12-25] MEDS: SODIUM CHLORIDE 0.9% IV 1,000 ML 75 ML IV CONT (08:59)
[2020-12-25] MEDS: MAGNESIUM OXIDE 400 MG TABLET PO (09:31)
[2020-12-25 11:56] LABS: Glucose Point of Care 104 (65-105)
--- NOTE | 2020-12-25 12:05 | P.PNIM_ITS ---
Progress Note: A&P Assessment and Plan (1) UTI (urinary tract infection): Code(s): N39.0 - Urinary tract infection, site not specified Status: Acute Assessment and Plan: Urinalysis w/ 4+ bacteria, leukocyte esterase, WBC. She notes increased urinary frequency. WBC elevated with slight increase from yesterday. Urine culture demonstrates Klebsiella pneumoniae susceptible to ceftriaxone. * Continue IV ceftriaxone (initiated 12/24/20) * Blood cultures are ordered with preliminary results demonstrating NGTD * She notes blood in the urine however urinalysis is negative for RBCs. Plan to repeat urinalysis. * Follow CBC daily (2) Gout: Code(s): M10.9 - Gout, unspecified Status: Acute Assessment and Plan: She notes acute onset of severe pain in the left foot/great toe. Uric acid elevated at 9.2. Pain has improved substantially with indomethacin. * Stop indomethacin and start colchicine due to increase in creatinine * Pantoprazole added due to NSAID therapy but will not likely need continued at discharge since NSAID discontinued * Start allopurinol for tomorrow * Continue analgesics as needed * She will need close outpatient follow-up (3) Leukocytosis: Code(s): D72.829 - Elevated white blood cell count, unspecified Status: Acute Assessment and Plan: Likely secondary to UTI. I do not see any evidence of lower extremity cellulitis on physical exam. Slight increase in WBC today. * Continue IV ceftriaxone for treatment of UTI * CT of the left foot ordered with results pending * Follow CBC daily (4) SAMANTHA (acute kidney injury): Code(s): N17.9 - Acute kidney failure, unspecified Status: Acute Assessment and Plan: Cr increased from 0.8 on admission to 1.1 today. May be secondary to NSAID therapy. She appears euvolemic and has chronic lower extremity edema. * Stop indomethacin (initiated for gout) * She was given gentle IV fluids. Will stop since she is eating and drinking well and has chronic lower extremity swelling. * Avoid nephrotoxins and renally dose medications * Continue to monitor with repeat BMP tomorrow (5) Hypertension: Code(s): I10 - Essential (primary) hypertension Status: Acute Assessment and Plan: Blood pressures reviewed and reasonable. Most recent 132/66. * Triamterene-HCTZ held initially due to soft pressure. Plan to resume for tomorrow if renal function has improved. (6) Hypercholesterolemia: Code(s): E78.00 - Pure hypercholesterolemia, unspecified Status: Chronic Assessment and Plan: LFTs are normal. * Continue simvastatin (7) Osteonecrosis: Code(s): M87.9 - Osteonecrosis, unspecified Status: Acute Assessment and Plan: She notes acute onset of left foot pain two days ago and did not sleep all night due to the pain. The morning of 12/23, she suffered a mechanical fall. 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 * Dr. Brown with orthopedic surgery was consulted from the emergency department and recommended outpatient follow-up which she will need to schedule at discharge * Continue walking shoe * CT of the left foot ordered with results pending (8) Depression: Code(s): F32.9 - Major depressive disorder, single episode, unspecified Status: Chronic Assessment and Plan: Mood is stable.
--- NOTE | 2020-12-25 12:05 | PM.IMPN ---
Progress Note: A&P Assessment and Plan (1) UTI (urinary tract infection): Code(s): N39.0 - Urinary tract infection, site not specified Status: Acute Assessment and Plan: Urinalysis w/ 4+ bacteria, leukocyte esterase, WBC. She notes increased urinary frequency. WBC elevated with slight increase from yesterday. Urine culture demonstrates Klebsiella pneumoniae susceptible to ceftriaxone. Continue IV ceftriaxone (initiated 12/24/20) Blood cultures are ordered with preliminary results demonstrating NGTD She notes blood in the urine however urinalysis is negative for RBCs. Plan to repeat urinalysis. Follow CBC daily (2) Gout: Code(s): M10.9 - Gout, unspecified Status: Acute Assessment and Plan: She notes acute onset of severe pain in the left foot/great toe. Uric acid elevated at 9.2. Pain has improved substantially with indomethacin. Stop indomethacin and start colchicine due to increase in creatinine Pantoprazole added due to NSAID therapy but will not likely need continued at discharge since NSAID discontinued Start allopurinol for tomorrow Continue analgesics as needed She will need close outpatient follow-up (3) Leukocytosis: Code(s): D72.829 - Elevated white blood cell count, unspecified Status: Acute Assessment and Plan: Likely secondary to UTI. I do not see any evidence of lower extremity cellulitis on physical exam. Slight increase in WBC today. Continue IV ceftriaxone for treatment of UTI CT of the left foot ordered with results pending Follow CBC daily (4) SAMANTHA (acute kidney injury): Code(s): N17.9 - Acute kidney failure, unspecified Status: Acute Assessment and Plan: Cr increased from 0.8 on admission to 1.1 today. May be secondary to NSAID therapy. She appears euvolemic and has chronic lower extremity edema. Stop indomethacin (initiated for gout) She was given gentle IV fluids. Will stop since she is eating and drinking well and has chronic lower extremity swelling. Avoid nephrotoxins and renally dose medications Continue to monitor with repeat BMP tomorrow (5) Hypertension: Code(s): I10 - Essential (primary) hypertension Status: Acute Assessment and Plan: Blood pressures reviewed and reasonable. Most recent 132/66. Triamterene-HCTZ held initially due to soft pressure. Plan to resume for tomorrow if renal function has improved. (6) Hypercholesterolemia: Code(s): E78.00 - Pure hypercholesterolemia, unspecified Status: Chronic Assessment and Plan: LFTs are normal. Continue simvastatin (7) Osteonecrosis: Code(s): M87.9 - Osteonecrosis, unspecified Status: Acute Assessment and Plan: She notes acute onset of left foot pain two days ago and did not sleep all night due to the pain. The morning of 12/23, she suffered a mechanical fall. 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 Dr. Brown with orthopedic surgery was consulted from the emergency department and recommended outpatient follow-up which she will need to schedule at discharge Continue walking shoe CT of the left foot ordered with results pending (8) Depression: Code(s): F32.9 - Major depressive disorder, single episode, unspecified Status: Chronic Assessment and Plan: Mood is stable. Continue citalopram (9) Type 2 diabetes mellitus: Code(s): E11.9 - Type 2 diabetes mellitus without complications Status: Chronic Assessment and Plan: Hemoglobin A1c 6.5% 12/24/20. Blood sugars are at target. Continue ACHS glucose monitoring, sliding scale insulin, and hypoglycemia protocol Hold metformin and januvia (10) Fall: Code(s): W19.XXXA - Unspecified fall, initial encounter Stat
[2020-12-25 14:00] VITALS: BP 132/66; PULSE 77; RESP 20; TEMP 36.3; O2SAT 97
[2020-12-25] MEDS: COLCHICINE 0.6 MG TABLET PO ×2 (14:26→20:13)
[2020-12-25 16:56] LABS: Glucose Point of Care 134 (65-105)
[2020-12-25 18:09] LABS: Add Urine Microscopic? YES; Appearance Urine Cloudy (Clear); Bacteria Urine Trace /hpf; Bilirubin Urine Negative (Negative); Blood Urine 2+ (Negative); Color Urine Yellow (Yellow); Glucose Urine UA Negative (Negative); Ketones Urine Negative (Negative); Leukocyte Esterase Ur 2+ LEU/UL (Negative); Mucus Urine Rare /lpf; Nitrate Urine Negative (Negative); Protein Urine 2+ mg/dL (Negative); RBC Urine 21-50 /hpf (0-2); Specific Grav Ur 1.012 (1.001-1.035); Squamous Epithelial Cell Urine Few /hpf (Few); Transitional Epi Cells Urine Rare /hpf (None Seen); Urobilinogen Urine Negative mg/dL (<2.0); WBC Urine 51-75 /hpf
[2020-12-25] MEDS: CITALOPRAM HYDROBROMIDE 10 MG TABLET PO (20:13)
[2020-12-25] MEDS: SIMVASTATIN 20 MG TABLET PO (20:13)
[2020-12-25 20:31] LABS: Glucose Point of Care 159 (65-105)
[2020-12-25 22:00] VITALS: BP 104/49; PULSE 65; RESP 20; TEMP 36.6; O2SAT 97
[2020-12-26 06:00] VITALS: BP 111/45; PULSE 78; RESP 20; TEMP 36.7; O2SAT 93
[2020-12-26 06:19] LABS: Basophils Absolute Auto 0.1 K/mm3 (0.0-0.1); Basophils Percent Auto 0.5 % (0.2-1.2); Eosinophils Absolute Auto 0.8 K/mm3 (0-0.3); Hematocrit 38.7 % (37.0-47.0); Hemoglobin 13.1 g/dL (12.0-15.0); Immature Granulocyte Absolute 0.11 K/mm3 (0.00-0.031); Immature Granulocyte Percent A 0.7 % (0-0.5); Lymphocytes Absolute Auto 2.82 K/mm3 (0.9-3.2); Lymphocytes Percent Auto 17.5 % (18.3-44.2); Mean Corpuscular HGB Conc 33.9 g/dl (32-36); Mean Corpuscular Hemoglobin 32.2 pg (26-34); Mean Corpuscular Volume 95.1 fl (80-100); Mean Platelet Volume 10.2 fl (7.4-10.4); Monocytes Absolute Auto 0.8 K/mm3 (0.1-0.6); Monocytes Percent Auto 5.1 % (2.6-8.5); Neutrophils Absolute Auto 11.5 K/mm3 (1.3-6.7); Neutrophils Percent Auto 71.2 % (45.5-73.1); Platelet Count Result 264 k/mm3 (150-375); Red Blood Count 4.07 M/mm3 (4.2-5.4); Red Cell Distribution Width 13.2 % (11.5-14.5); White Blood Count 16.1 K/mm3 (4.5-10.0)
[2020-12-26 06:35] LABS: Alanine Aminotransferase 9 U/L (4-35); Albumin Level 3.1 g/dL (3.5-5.1); Alkaline Phosphatase 67 U/L (38-126); Anion Gap 4 mmol/L (8-16); Aspartate Amino Transferase 17 U/L (14-36); Bilirubin,Total 0.3 mg/dL (0.2-1.3); Blood Urea Nitrogen 23 mg/dL (7-17); CRP 3.8 mg/dL (<1.0); Calcium 8.9 mg/dL (8.4-10.2); Carbon Dioxide 32 mmol/L (22-30); Chloride 105 mmol/L (98-107); Estimated CRCL calculation 51 ml/min; Estimated Glomerular Filt Rate > 60; Glucose 124 mg/dL (65-105); Magnesium 1.5 mg/dL (1.6-2.3); Potassium 3.4 mmol/L (3.4-5.0); Sodium 141 mmol/L (137-145)
[2020-12-26 07:54] LABS: Glucose Point of Care 126 (65-105)
[2020-12-26] MEDS: HYDROcodone/acetaminophen (*CRX) 5-325 MG TABLET 1 TAB PO (09:13)
[2020-12-26] MEDS: MAGNESIUM OXIDE 400 MG TABLET PO ×2 (09:15→18:12)
[2020-12-26] MEDS: COLCHICINE 0.6 MG TABLET PO (09:15)
[2020-12-26] MEDS: ASPIRIN 325 MG TABLET PO (09:15)
[2020-12-26] MEDS: allopurinoL 100 MG TABLET PO (09:16)
[2020-12-26] MEDS: PANTOPRAZOLE 40 MG TABLET PO (09:16)
[2020-12-26] MEDS: OXYBUTYNIN CHLORIDE 5 MG TABLET PO ×2 (09:16→18:12)
[2020-12-26] MEDS: ENOXAPARIN 40 MG/0.4 ML SYRINGE SUB-Q (09:16)
--- NOTE | 2020-12-26 09:32 | P.PNIM_ITS ---
Progress Note: A&P Assessment and Plan (1) UTI (urinary tract infection): Code(s): N39.0 - Urinary tract infection, site not specified Status: Acute Assessment and Plan: Urinalysis w/ 4+ bacteria, leukocyte esterase, WBC. She notes increased urinary frequency. WBC elevated with slight increase from yesterday. Urine culture demonstrates Klebsiella pneumoniae susceptible to ceftriaxone. * Continue IV ceftriaxone (initiated 12/24/20) * Blood cultures are ordered with preliminary results demonstrating NGTD * She notes blood in the urine however urinalysis is negative for RBCs. Plan to repeat urinalysis. * Follow CBC daily * URINE cultures pending. * WBC remained the same today = 16.0 and 16.1, but improved from admission or 19.5. * monitor I/Os (2) Gout: Code(s): M10.9 - Gout, unspecified Status: Acute Assessment and Plan: She notes acute onset of severe pain in the left foot/great toe. Uric acid elevated at 9.2. Pain has improved substantially with indomethacin. * Stop indomethacin and start colchicine due to increase in creatinine - Creatinine improved with this change. * Pantoprazole added due to NSAID therapy but will not likely need continued at discharge since NSAID discontinued * Start allopurinol for tomorrow * Continue analgesics as needed * She will need close outpatient follow-up (3) Leukocytosis: Code(s): D72.829 - Elevated white blood cell count, unspecified Status: Acute Assessment and Plan: Secondary to UTI, possibly to Cellulitis and/or Gout. Tenderness and redness to anterior LLE. WBC remained the same today = 16.0 and 16.1, but improved from admission or 19.5. She may need Vanc. - monitoring. Continue to monitor anterior of LLE and for pain improvement. * Continue IV ceftriaxone for treatment of UTI * CT of the left foot showed no osseous concerns. * Follow CBC daily (4) SAMANTHA (acute kidney injury): Code(s): N17.9 - Acute kidney failure, unspecified Status: Acute Assessment and Plan: Cr increased from 0.8 on admission to 1.1 today. May be secondary to NSAID therapy. She appears euvolemic and has chronic lower extremity edema. * Stop indomethacin (initiated for gout) * She was given gentle IV fluids. Will stop since she is eating and drinking well and has chronic lower extremity swelling. * Avoid nephrotoxins and renally dose medications * restarting HCTZ * Continue to monitor with repeat BMP tomorrow (5) Hypertension: Code(s): I10 - Essential (primary) hypertension Status: Acute Assessment and Plan: Blood pressures reviewed and reasonable. Most recent 132/66. * Triamterene-HCTZ held initially due to soft pressure. Plan to resume for tomorrow if renal function has improved. (6) Hypercholesterolemia: Code(s): E78.00 - Pure hypercholesterolemia, unspecified Status: Chronic Assessment and Plan: LFTs are normal. * Continue simvastatin (7) Osteonecrosis: Code(s): M87.9 - Osteonecrosis, unspecified Status: Acute Assessment and Plan: She notes acute onset of left foot pain two days ago and did not sleep all night due to the pain. The morning of 12/23, she suffered a mechanical fall. 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 * Dr. Brown with orthopedic surgery was consulted from the emergency department and recom
--- NOTE | 2020-12-26 09:32 | PM.IMPN ---
Progress Note: A&P Assessment and Plan (1) UTI (urinary tract infection): Code(s): N39.0 - Urinary tract infection, site not specified Status: Acute Assessment and Plan: Urinalysis w/ 4+ bacteria, leukocyte esterase, WBC. She notes increased urinary frequency. WBC elevated with slight increase from yesterday. Urine culture demonstrates Klebsiella pneumoniae susceptible to ceftriaxone. Continue IV ceftriaxone (initiated 12/24/20) Blood cultures are ordered with preliminary results demonstrating NGTD She notes blood in the urine however urinalysis is negative for RBCs. Plan to repeat urinalysis. Follow CBC daily URINE cultures pending. WBC remained the same today = 16.0 and 16.1, but improved from admission or 19.5. monitor I/Os (2) Gout: Code(s): M10.9 - Gout, unspecified Status: Acute Assessment and Plan: She notes acute onset of severe pain in the left foot/great toe. Uric acid elevated at 9.2. Pain has improved substantially with indomethacin. Stop indomethacin and start colchicine due to increase in creatinine - Creatinine improved with this change. Pantoprazole added due to NSAID therapy but will not likely need continued at discharge since NSAID discontinued Start allopurinol for tomorrow Continue analgesics as needed She will need close outpatient follow-up (3) Leukocytosis: Code(s): D72.829 - Elevated white blood cell count, unspecified Status: Acute Assessment and Plan: Secondary to UTI, possibly to Cellulitis and/or Gout. Tenderness and redness to anterior LLE. WBC remained the same today = 16.0 and 16.1, but improved from admission or 19.5. She may need Vanc. - monitoring. Continue to monitor anterior of LLE and for pain improvement. Continue IV ceftriaxone for treatment of UTI CT of the left foot showed no osseous concerns. Follow CBC daily (4) SAMANTHA (acute kidney injury): Code(s): N17.9 - Acute kidney failure, unspecified Status: Acute Assessment and Plan: Cr increased from 0.8 on admission to 1.1 today. May be secondary to NSAID therapy. She appears euvolemic and has chronic lower extremity edema. Stop indomethacin (initiated for gout) She was given gentle IV fluids. Will stop since she is eating and drinking well and has chronic lower extremity swelling. Avoid nephrotoxins and renally dose medications restarting HCTZ Continue to monitor with repeat BMP tomorrow (5) Hypertension: Code(s): I10 - Essential (primary) hypertension Status: Acute Assessment and Plan: Blood pressures reviewed and reasonable. Most recent 132/66. Triamterene-HCTZ held initially due to soft pressure. Plan to resume for tomorrow if renal function has improved. (6) Hypercholesterolemia: Code(s): E78.00 - Pure hypercholesterolemia, unspecified Status: Chronic Assessment and Plan: LFTs are normal. Continue simvastatin (7) Osteonecrosis: Code(s): M87.9 - Osteonecrosis, unspecified Status: Acute Assessment and Plan: She notes acute onset of left foot pain two days ago and did not sleep all night due to the pain. The morning of 12/23, she suffered a mechanical fall. 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 Dr. Brown with orthopedic surgery was consulted from the emergency department and recommended outpatient follow-up which she will need to schedule at discharge Continue walking shoe CT of the left foot with no osseous concerns (8) Depression: Code(s): F32.9 - Major depressive disorder, single episode, unspecified Status: Chronic Assessment and Plan: Mood is stable. Continue citalopram (9) Type 2 diabetes mellitus: Code(s): E11.9 - Type 2 diabetes mellitus without complic
[2020-12-26 13:12] LABS: Glucose Point of Care 180 (65-105)
[2020-12-26 14:00] VITALS: BP 94/71; PULSE 69; RESP 18; TEMP 36.1; O2SAT 97
[2020-12-26 17:34] LABS: Glucose Point of Care 133 (65-105)
[2020-12-26 19:42] LABS: SARS-CoV-2 RNA PCR Negative
[2020-12-26] MEDS: CITALOPRAM HYDROBROMIDE 10 MG TABLET PO (19:59)
[2020-12-26] MEDS: SIMVASTATIN 20 MG TABLET PO (19:59)
[2020-12-26 22:00] VITALS: BP 123/53; PULSE 69; RESP 20; TEMP 36.1; O2SAT 97
[2020-12-27 01:15] LABS: Glucose Point of Care 116 (65-105)
[2020-12-27 06:00] VITALS: BP 120/73; PULSE 79; RESP 18; TEMP 37.3; O2SAT 95
[2020-12-27 06:27] LABS: Basophils Absolute Auto 0.1 K/mm3 (0.0-0.1); Basophils Percent Auto 0.5 % (0.2-1.2); Eosinophils Absolute Auto 0.8 K/mm3 (0-0.3); Eosinophils Percent Auto 5.2 % (0-4.4); Immature Granulocyte Percent A 0.7 % (0-0.5); Lymphocytes Absolute Auto 2.52 K/mm3 (0.9-3.2); Lymphocytes Percent Auto 17.2 % (18.3-44.2); Mean Corpuscular HGB Conc 33.3 g/dl (32-36); Mean Corpuscular Volume 96.1 fl (80-100); Monocytes Absolute Auto 0.9 K/mm3 (0.1-0.6); Monocytes Percent Auto 6.4 % (2.6-8.5); Neutrophils Absolute Auto 10.2 K/mm3 (1.3-6.7); Platelet Count Result 263 k/mm3 (150-375); Red Blood Count 4.06 M/mm3 (4.2-5.4); Red Cell Distribution Width 13.2 % (11.5-14.5); White Blood Count 14.6 K/mm3 (4.5-10.0)
[2020-12-27 06:38] LABS: Alanine Aminotransferase 10 U/L (4-35); Albumin Level 3.3 g/dL (3.5-5.1); Alkaline Phosphatase 75 U/L (38-126); Anion Gap 1 mmol/L (8-16); Aspartate Amino Transferase 18 U/L (14-36); Bilirubin,Total 0.3 mg/dL (0.2-1.3); Blood Urea Nitrogen 19 mg/dL (7-17); Calcium 8.4 mg/dL (8.4-10.2); Carbon Dioxide 34 mmol/L (22-30); Chloride 104 mmol/L (98-107); Estimated CRCL calculation 51 ml/min; Estimated Glomerular Filt Rate > 60; Glucose 137 mg/dL (65-105); Potassium 3.6 mmol/L (3.4-5.0); Sodium 139 mmol/L (137-145)
[2020-12-27 08:28] LABS: Glucose Point of Care 135 (65-105)
[2020-12-27] MEDS: PANTOPRAZOLE 40 MG TABLET PO (08:44)
[2020-12-27] MEDS: ASPIRIN 325 MG TABLET PO (08:44)
[2020-12-27] MEDS: allopurinoL 100 MG TABLET PO (08:44)
[2020-12-27] MEDS: ENOXAPARIN 40 MG/0.4 ML SYRINGE SUB-Q (08:44)
[2020-12-27] MEDS: COLCHICINE 0.6 MG TABLET PO (08:44)
[2020-12-27] MEDS: MAGNESIUM OXIDE 400 MG TABLET PO ×2 (08:44→17:13)
[2020-12-27] MEDS: OXYBUTYNIN CHLORIDE 5 MG TABLET PO ×2 (08:45→17:13)
--- NOTE | 2020-12-27 10:59 | PM.IMPN ---
Progress Note: A&P Assessment and Plan (1) UTI (urinary tract infection): Code(s): N39.0 - Urinary tract infection, site not specified Status: Acute Assessment and Plan: Urinalysis w/ 4+ bacteria, leukocyte esterase, WBC. She noted increased urinary frequency. She is afebrile. Leukocytosis improving. Urine culture demonstrates Klebsiella pneumoniae susceptible to ceftriaxone. She received 3 doses of IV Rocephin. Will transition to Bactrim for concurrent coverage of UTI and cellulitis, based on susceptibility report Preliminary blood cultures with no growth to date. Monitor final cultures (2) Cellulitis of foot, left: Code(s): L03.116 - Cellulitis of left lower limb Status: Acute Assessment and Plan: She has increased erythema and edema of left foot and anterior mcdowell. Area is tender to palpation and slightly warm. She has been afebrile. CT of the left foot showed no osseous concerns. Leukocytosis is slowly improving. No purulent drainage or exudate. No evidence of abscess. Will begin Bactrim for concurrent coverage of UTI and cellulitis. Monitor clinically. Hopeful discharge home tomorrow on PO antibiotics if clinical improvement. (3) Gout: Code(s): M10.9 - Gout, unspecified Status: Acute Assessment and Plan: She noted acute onset of severe pain in the left foot/great toe. Uric acid elevated at 9.2. She had improvement in pain with indomethacin. Indomethacin discontinued due to increase in creatinine. Continue colchicine. Creatinine improved with this change. Continue allopurinol Analgesics available as needed She will need close outpatient follow-up (4) SAMANTHA (acute kidney injury): Code(s): N17.9 - Acute kidney failure, unspecified Status: Acute Assessment and Plan: Cr increased from 0.8 on admission to 1.1 on 12/25/20, which may have been secondary to NSAID therapy. She appears euvolemic and has chronic lower extremity edema. Renal function has returned to baseline. Indomethacin discontinued. Avoid nephrotoxins and renally dose medications Home HCTZ has been resumed as renal function has returned to baseline. Continue to monitor with daily BMP (5) Hypertension: Code(s): I10 - Essential (primary) hypertension Status: Acute Assessment and Plan: Blood pressures reviewed and reasonable. Most recent 120/73 Continue triamterene-HCTZ (6) Osteonecrosis: Code(s): M87.9 - Osteonecrosis, unspecified Status: Acute Assessment and Plan: She notes acute onset of left foot pain two days prior to presentation and did not sleep all night due to the pain. The morning of 12/23, she suffered a mechanical fall. 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 CT of left foot with no osseous concerns. Dr. Brown with orthopedic surgery was consulted from the emergency department and recommended outpatient follow-up. Will refer for outpatient follow-up at discharge Continue walking shoe (7) Type 2 diabetes mellitus: Code(s): E11.9 - Type 2 diabetes mellitus without complications Status: Chronic Assessment and Plan: Hemoglobin A1c 6.5% 12/24/20. Blood sugars are fairly well controlled Continue ACHS glucose monitoring, sliding scale insulin, and hypoglycemia protocol Hold metformin and januvia (8) Fall: Code(s): W19.XXXA - Unspecified fall, initial encounter Status: Acute Assessment and Plan: Likely provoked by left foot pain from gout. Pt is also deconditioned. No fracture of the right foot. PT/OT evaluation appreciated Fall precautions Planning for SNF at discharge. Care coordination following. (9) Lower extremity edema: Code(s): R60.0 - Localized edema Status: Acute Assessment
[2020-12-27] MEDS: hydroCHLOROthiazide 12.5 MG CAPSULE PO (11:23)
[2020-12-27 12:15] LABS: Glucose Point of Care 159 (65-105)
[2020-12-27 14:00] VITALS: BP 107/62; PULSE 71; RESP 18; TEMP 36.4; O2SAT 96
[2020-12-27 17:14] LABS: Glucose Point of Care 161 (65-105)
[2020-12-27] MEDS: CITALOPRAM HYDROBROMIDE 10 MG TABLET PO (20:54)
[2020-12-27] MEDS: SIMVASTATIN 20 MG TABLET PO (20:55)
[2020-12-27 21:12] LABS: Glucose Point of Care 172 (65-105)
[2020-12-27 22:00] VITALS: BP 147/89; PULSE 79; RESP 20; TEMP 36.3; O2SAT 97
[2020-12-27 22:50] VITALS: PULSE 67; O2SAT 96
[2020-12-28 06:00] VITALS: BP 136/69; PULSE 80; RESP 20; TEMP 36.6; O2SAT 94
[2020-12-28 06:20] LABS: Hematocrit 40.2 % (37.0-47.0); Hemoglobin 13.5 g/dL (12.0-15.0); Mean Corpuscular HGB Conc 33.6 g/dl (32-36); Mean Corpuscular Hemoglobin 32.1 pg (26-34); Mean Corpuscular Volume 95.7 fl (80-100); Mean Platelet Volume 9.9 fl (7.4-10.4); Platelet Count Result 277 k/mm3 (150-375); Red Cell Distribution Width 13.2 % (11.5-14.5); White Blood Count 14.1 K/mm3 (4.5-10.0)
[2020-12-28 06:33] LABS: Anion Gap 3 mmol/L (8-16); Blood Urea Nitrogen 19 mg/dL (7-17); Calcium 8.9 mg/dL (8.4-10.2); Carbon Dioxide 33 mmol/L (22-30); Chloride 104 mmol/L (98-107); Estimated CRCL calculation 51 ml/min; Estimated Glomerular Filt Rate > 60; Glucose 149 mg/dL (65-105); Magnesium 1.7 mg/dL (1.6-2.3); Potassium 3.6 mmol/L (3.4-5.0); Sodium 140 mmol/L (137-145)
[2020-12-28 07:54] LABS: Glucose Point of Care 175 (65-105)
[2020-12-28 08:03] VITALS: O2SAT 95
[2020-12-28] MEDS: hydroCHLOROthiazide 12.5 MG CAPSULE PO (09:55)
[2020-12-28] MEDS: PANTOPRAZOLE 40 MG TABLET PO (09:55)
[2020-12-28] MEDS: OXYBUTYNIN CHLORIDE 5 MG TABLET PO (09:55)
[2020-12-28] MEDS: MAGNESIUM OXIDE 400 MG TABLET PO (09:55)
[2020-12-28] MEDS: ASPIRIN 325 MG TABLET PO (09:55)
[2020-12-28] MEDS: ENOXAPARIN 40 MG/0.4 ML SYRINGE SUB-Q (09:55)
[2020-12-28] MEDS: allopurinoL 100 MG TABLET PO (09:56)
[2020-12-28] MEDS: COLCHICINE 0.6 MG TABLET PO (09:56)
[2020-12-28 11:29] LABS: Glucose Point of Care 207 (65-105)
--- NOTE | 2020-12-28 11:29 | PM.DS ---
DS: Admitting Diagnosis Admitting Diagnosis Admitting Diagnosis: Urinary tract infection DS: Discharge Diagnosis Discharge Diagnosis (1) UTI (urinary tract infection): Code(s): N39.0 - Urinary tract infection, site not specified Status: Acute Assessment and Plan: Presented with complaints of increased urinary frequency. Urinalysis w/ 4+ bacteria, leukocyte esterase, WBC. She was started on IV ceftriaxone. She remained afebrile. Leukocytosis slowly improved. Urine culture demonstrated growth of Klebsiella pneumoniae. Preliminary blood cultures with no growth to date and final cultures will be monitored. IV Rocephin was continued based on susceptibility reports and then was transitioned to Bactrim for concurrent coverage of cellulitis. She will continue a course of p.o. Bactrim as an outpatient. (2) Cellulitis of foot, left: Code(s): L03.116 - Cellulitis of left lower limb Status: Acute Assessment and Plan: Dorsum of left lateral foot. Area was tender to palpation with erythema and warmth. She remained afebrile. CT of the left foot showed dorsal soft tissue swelling without any acute osseous findings. No purulent drainage or exudate. No evidence of abscess formation. She was started on Bactrim and had prompt clinical improvement. She will continue Bactrim as an outpatient to complete a 7 day course of antibiotics. She was instructed to monitor the left foot daily for changes and follow-up with PCP for further evaluation (3) Gout: Code(s): M10.9 - Gout, unspecified Status: Acute Assessment and Plan: She noted acute onset of severe pain in the left foot/great toe. Uric acid was elevated at 9.2. She was started on indomethacin and had improvement in pain. Indomethacin was discontinued due to increase in creatinine levels, and at that time colchicine was started. Her creatinine improved with this change. Colchicine was discontinued at time of discharge as she had resolution of symptoms. She was initiated on allopurinol which she will continue. (4) SAMANTHA (acute kidney injury): Code(s): N17.9 - Acute kidney failure, unspecified Status: Acute Assessment and Plan: Cr increased from 0.8 on admission to 1.1 on 12/25/20, which was likely secondary to NSAID therapy. HCTZ was held at that time. Renal function returned to baseline. HCTZ was resumed. (5) Hypertension: Code(s): I10 - Essential (primary) hypertension Status: Acute Assessment and Plan: Blood pressures reviewed daily and were reasonably well controlled. Continue triamterene-HCTZ (6) Osteonecrosis: Code(s): M87.9 - Osteonecrosis, unspecified Status: Acute Assessment and Plan: She complained of acute onset of left foot pain two days prior to presentation, that began after a mechanical fall. 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 Foot CT reviewed which did not demonstrate any acute osseous findings. Case was discussed with orthopedic surgeon, Dr. Brown, who recommended outpatient follow-up. She has referred for outpatient appointment. Continue walking shoe. (7) Type 2 diabetes mellitus: Code(s): E11.9 - Type 2 diabetes mellitus without complications Status: Chronic Assessment and Plan: Hemoglobin A1c is 6.5% 12/24/20. Blood sugars were fairly well controlled and manage with sliding scale insulin during her stay. Continue home regimen of metformin and Januvia. (8) Fall: Code(s): W19.XXXA - Unspecified fall, initial encounter Status: Acute Assessment and Plan: Likely provoked by left foot pain from gout and likely deconditioning. No fracture of left or right foot. She was evaluated by PT/OT and will continue therapy at SNF. (9) Lower extremity [place]
[2020-12-28] MEDS: INSULIN ASPART (*BKC) 100 UNITS/ML SUB-Q (12:42)
[2020-12-28 14:00] VITALS: BP 119/63; PULSE 63; RESP 20; TEMP 36.9; O2SAT 99
== END 2020-12-28 16:11 ==
LOC: ANHED 09:46 → ANH3MEDSUR 15:22
PROVIDERS: Nurse Practitioner; Physician Assistant; Admitting Provider Internal Medicine; Emergency Provider General Practice; PCP Family Medicine; Visit Provider Physician Assistant
DX: N39.0 Urinary tract infection, site not specified (principal); B96.1 Klebsiella pneumoniae [K. pneumoniae] as the cause of diseases classified elsewhere; L03.116 Cellulitis of left lower limb; N17.9 Acute kidney failure, unspecified; M10.9 Gout, unspecified; M79.672 Pain in left foot; M87.9 Osteonecrosis, unspecified; D72.829 Elevated white blood cell count, unspecified; R42 Dizziness and giddiness; R60.0 Localized edema; I10 Essential (primary) hypertension; E78.00 Pure hypercholesterolemia, unspecified; E11.9 Type 2 diabetes mellitus without complications; F32.9 Major depressive disorder, single episode, unspecified; M25.511 Pain in right shoulder; M54.2 Cervicalgia; M25.531 Pain in right wrist; W18.39XA Other fall on same level, initial encounter; H26.9 Unspecified cataract; Z79.82 Long term (current) use of aspirin; Z79.84 Long term (current) use of oral hypoglycemic drugs
CPT/HCPCS: 36415; 70450; 71045; 72125; 73030; 73110; 73630; 73700; 74176; 80048; 80053; 81001; 82948; 83036; 83735; 83880; 84550; 85025; 85027; 85610; 85730; 86140; 87040; 87077; 87086; 87088; 87186; 93005; 93970; 96361; 96365; 96366; 96367; 96372; 96375; 96376; 97110; 97116; 97161; 97165; 97530; 97535; 99285; A9270; C9803; G0378; J0131; J0696; J1650; J1815; J7030; J7060; J7120; U0003; U0005

== ENCOUNTER 2021-07-26 08:23 | Emergency (ER) | payer MEDICARE, MEDICAID, SELFPAY ==
--- NOTE | ~2021-07-26 | US_ITS ---
EXAMINATION: US venous doppler LE RT DATE: 07/26/2021 10:18 INDICATION: Right lower limb swelling TECHNIQUE: Sutherland scale images without and with compression and Doppler images of the right lower extre mity veins were obtained. COMPARISON: 12/24/2020 FINDINGS: The right common femoral vein, profunda femoral vein, femoral vein, popliteal vein, peronea l trunk, posterior tibial veins, and greater saphenous vein are patent. IMPRESSION: 1. Patent right lower extremity veins. No evidence of deep venous thrombosis. Reviewed, dictated and finalized at location B. ON GRAPHICS ARTIST
--- NOTE | ~2021-07-26 | XR_ITS ---
XR foot RT min 3V 07/26/2021 09:39 Indication: Right foot pain Procedure: 4 views right foot Comparison: 12/25/2020 Findings: Mild osteoarthritis of the first MTP joint. Lisfranc joint intact. No erosive changes. Ther e are mild degenerative changes of multiple interphalangeal joints. No focal soft tissue abnormality. There is a degenerative calcaneal enthesophyte at the plantar surface. No foreign bodies. Mild diffu se soft tissue swelling. Impression: 1: Mild polyarticular osteoarthritis. Reviewed, dictated and finalized at location A. NE REPAIR SUPERVISOR Impression: 1: Mild polyarticular osteoarthritis.
[2021-07-26 08:32] VITALS: BP 131/55; PULSE 76; RESP 18; O2SAT 96
--- NOTE | 2021-07-26 09:37 | ED.EXTPRO ---
HPI - Extremity Problem General Chief complaint: Extremity Problem,Nontraumatic <Libra Chavira PA-C - Last Filed: 07/26/21 11:34> Stated complaint: leg redness/swelling <HALEY Pineda Last Filed: 07/26/21 11:34> Time Seen by Provider: 07/26/21 09:06 <HALEY Pineda Last Filed: 07/26/21 11:34> Source: patient <HALEY Pineda Last Filed: 07/26/21 11:34> Mode of arrival: EMS <HALEY Pineda Last Filed: 07/26/21 11:34> Limitations: no limitations <HALEY Pineda Last Filed: 07/26/21 11:34> History of Present Illness HPI Narrative: This is a 80-year-old female that presents to the emergency department for right great toe pain present over the last 2 days. Reports redness and swelling of the area. Does report history of gout. She has not been taking anything for pain. Also reports some redness and swelling of her right lower extremity. Denies fever, chest pain, or shortness of breath. <HALEY Pineda Last Filed: 07/26/21 11:34> Related Data Home medications: Home Medications Medication Instructions Recorded Confirmed aspirin [Abdias Aspirin] 325 mg PO DAILY 02/23/20 12/23/20 citalopram [Celexa] 10 mg PO DAILY 02/23/20 12/23/20 lutein 20 mg PO DAILY 02/23/20 12/23/20 metformin [Glucophage] 1,000 mg PO BID 02/23/20 12/23/20 simvastatin 20 mg PO DAILY 02/23/20 12/23/20 triamterene-hydrochlorothiazid 4 tablet PO DAILY 02/23/20 12/23/20 Januvia 100 mg PO DAILY 12/23/20 12/23/20 oxybutynin chloride 5 mg PO BID 12/23/20 12/23/20 <HALEY Pineda Last Filed: 07/26/21 11:34> Allergies/Adverse reactions: Allergies Allergy/AdvReac Type Severity Reaction Status Date / Time Penicillins Allergy Unknown Verified 12/23/20 16:35 <Libra Chavira PA-C - Last Filed: 07/26/21 11:34> Review of Systems Review of Systems: CONSTITUTIONAL: Denies fever CARDIOVASCULAR: Denies chest pain RESPIRATORY: Denies dyspnea. SKIN: Denies rash MUSCULOSKELETAL: Reports joint pain, and myalgia. NEUROLOGIC: Denies numbness <Libra Chavira PA-C - Last Filed: 07/26/21 11:34> All systems reviewed & are unremarkable except as noted in HPI and below <Libra Chavira PA-C - Last Filed: 07/26/21 11:34> [facility] Past Medical History Medical History: Medical History (Updated 07/26/21 @ 11:22 by Libra Chavira PA-C) Cataract Left eye Depression HTN (hypertension) with goal to be determined Hypercholesterolemia Type 2 diabetes mellitus <Libra Chaviar PA-C - Last Filed: 07/26/21 11:34> Surgical History Surgical History: Surgical History (Updated 12/23/20 @ 17:33 by Natalie Erickson NP) History of arthroscopic knee surgery Repair of right knee cartilage <Libra Chavira PA-C - Last Filed: 07/26/21 11:34> Family History Family History: Family History (Updated 12/23/20 @ 17:35 by Natalie Erickson NP) Mother Acute myocardial infarction Several times Migraines Father Cancer <Libra Chavira PA-C - Last Filed: 07/26/21 11:34> Social History Social History: Social History (Updated 12/23/20 @ 17:35 by Natalie Erickson NP) Social History: The patient is single and lives with her son. 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 The patient stated she would choose her son as a durable power contracts attorney for healthcare. The patient desires to be a full code. Lifelong nonsmoker does not use any alcohol marijuana or illicit drugs. Smoking status: Never smoker Second hand tobacco smoke exposure: No Alcohol intake: former Substance use: never Substance use type: does not use Gender identity (if verbalized by the patient): Female Spiritual care concerns: No <Libra Chavira PA-C - Last Filed: 07/26/21 11:34> Exam Narrative: GENERAL: Well-appearing, well-nourished, and in no acute distress. HEAD: Normocephalic, atraumatic. EYES: EOMI. CHEST: Clear to auscultati
[2021-07-26 09:38] LABS: Basophils Absolute Auto 0.1 K/mm3 (0.0-0.1); Basophils Percent Auto 0.5 % (0.2-1.2); Eosinophils Absolute Auto 0.5 K/mm3 (0-0.3); Eosinophils Percent Auto 2.7 % (0-4.4); Hematocrit 44.5 % (37.0-47.0); Hemoglobin 15.5 g/dL (12.0-15.0); Immature Granulocyte Absolute 0.13 K/mm3 (0.00-0.031); Immature Granulocyte Percent A 0.7 % (0-0.5); Lymphocytes Percent Auto 9.8 % (18.3-44.2); Mean Corpuscular HGB Conc 34.8 g/dl (32-36); Mean Corpuscular Hemoglobin 33.3 pg (26-34); Mean Corpuscular Volume 95.5 fl (80-100); Mean Platelet Volume 9.2 fl (7.4-10.4); Monocytes Absolute Auto 0.8 K/mm3 (0.1-0.6); Monocytes Percent Auto 4.4 % (2.6-8.5); Neutrophils Absolute Auto 15.1 K/mm3 (1.3-6.7); Neutrophils Percent Auto 81.9 % (45.5-73.1); Platelet Count Result 280 k/mm3 (150-375); Red Blood Count 4.66 M/mm3 (4.2-5.4); Red Cell Distribution Width 12.6 % (11.5-14.5); White Blood Count 18.4 K/mm3 (4.5-10.0)
[2021-07-26 09:54] LABS: Anion Gap 9 mmol/L (8-16); Blood Urea Nitrogen 20 mg/dL (7-17); CRP 1.1 mg/dL (<1.0); Calcium 10.2 mg/dL (8.4-10.2); Carbon Dioxide 28 mmol/L (22-30); Chloride 101 mmol/L (98-107); Estimated CRCL calculation 50 ml/min; Estimated Glomerular Filt Rate > 60; Glucose 123 mg/dL (65-110); Sodium 138 mmol/L (137-145); Uric Acid 8.2 mg/dL (2.5-7.5)
--- NOTE | 2021-07-26 09:55 | PC.NURSE ---
Pt gone to imaging
[2021-07-26] MEDS: COLCHICINE 0.6 MG TABLET 1.2 MG PO (10:20)
[2021-07-26] MEDS: INDOMETHACIN 25 MG CAPSULE PO (10:20)
[2021-07-26 10:28] LABS: Erythrocyte Sedimentation Rate 19 mm/hr (0-20)
--- NOTE | 2021-07-26 11:27 | PC.NURSE ---
Spoke with pt son(Shashi) updated him on status
[2021-07-26] MEDS: COLCHICINE 0.6 MG TABLET PO (12:10)
--- NOTE | 2021-07-26 12:50 | PC.NURSE ---
Informed son that pt is being discharged, son is on his way and bringing her correct size depends
[2021-07-26 12:54] VITALS: BP 124/70; PULSE 63; RESP 16
[2021-07-26 13:45] VITALS: TEMP 36.7
[2021-07-26 14:00] VITALS: BP 111/70; PULSE 63; RESP 16; TEMP 36.7; O2SAT 99
== END 2021-07-26 14:00 | disposition home or self-care (01) ==
PROVIDERS: Physician Assistant; Emergency Provider Emergency Medicine; PCP Family Medicine
DX: M10.9 Gout, unspecified (principal); L03.115 Cellulitis of right lower limb; M19.90 Unspecified osteoarthritis, unspecified site; F32.9 Major depressive disorder, single episode, unspecified; I10 Essential (primary) hypertension; E78.5 Hyperlipidemia, unspecified; E11.9 Type 2 diabetes mellitus without complications; Z79.84 Long term (current) use of oral hypoglycemic drugs
CPT/HCPCS: 36415; 73630; 80048; 84550; 85025; 85652; 86140; 93971; 99284; A9270

== ENCOUNTER 2021-09-29 10:32 | Outpatient (CLI) | payer MEDICARE, MEDICAID, SELFPAY ==
--- NOTE | ~2021-09-29 | CT_ITS ---
EXAMINATION: CT abdomen pelvis wo/w con EXAM DATE: 09/29/2021 11:41 INDICATION: Gross hematuria. TECHNIQUE: Spiral CT of the abdomen and pelvis was performed without contrast. The patient was then injected with small bolus intravenous Omnipaque 350, followed by delay of approximately 10 minutes to allow collecting system to opacify. A post contrast scan abdomen and pelvis was performed during inj ection of remaining contrast. A total of 130 cc intravenous contrast was administered. The dose-ester th product (DLP) for this examination was 2198.23 mGy-cm. The exposure was tailored according to pat ient size (auto mA exposure control), and iterative reconstruction (ASIR) was used as additional dose reduction technique. Comparison is made to prior examination from 12/26/2020. FINDINGS: Again there is fundal fibroid measuring 6.4 cm. Interval development of hypodensity which i s suspected to be abnormally thickened endometrium up to about 5 cm, could indicate cervical or endom etrial cancer; pelvic sonogram recommended. There is no hydronephrosis or nephrolithiasis. The kidne ys enhance symmetrically. There are no suspicious renal lesions. The calyces and opacified portions of ureters are unremarkable, without filling defects or focal suspicious strictures. The bladder is unremarkable. The liver, spleen, adrenal glands and pancreas are unremarkable. There are gallstones within an othe rwise unremarkable gallbladder. No evidence of obstructive biliary disease. There is no retroperito baldomero or pelvic lymphadenopathy. There is mild scattered arteriosclerotic disease. Small to moderate -sized umbilical fat-containing hernia. The appendix is normal. The stomach and small bowel are unremarkable. There is expected amount of c olonic stool. No free intraperitoneal gas. The heart is normal in size. There are no pericardial or pleural effusions. The lung bases are unremarkable. There are no osteoblastic or osteolytic les ions identified. IMPRESSION: 1. Severely thickened endometrium, could be endometrial or cervical cancer; pelvic sonogram recommen ded prior to histologic correlation. GOAT FARMER consult. 2. Large anterior myometrial fibroid. 3. Small to moderate-sized umbilical fat-containing hernia. 4. Cholelithiasis. Reviewed, dictated and finalized at location A. L VBA DEVELOPER IMPRESSION: 1. Severely thickened endometrium, could be endometrial or cervical cancer; pe lvic sonogram recommended prior to histologic correlation. GOAT FARMER consult. 2. Large anterior myometrial fibroid. 3. Small to moderate-sized umbilical fat-containing hernia. 4. Cholelithiasis.
[2021-09-29 11:21] LABS: Estimated Glomerular Filt Rate 53
== END 2021-09-29 10:33 | disposition home or self-care (01) ==
LOC: ANHIMG 10:33
PROVIDERS: PCP Family Medicine; Visit Provider Urology
DX: R31.0 Gross hematuria (principal); R93.89 Abnormal findings on diagnostic imaging of other specified body structures; D25.9 Leiomyoma of uterus, unspecified; K42.9 Umbilical hernia without obstruction or gangrene; K80.20 Calculus of gallbladder without cholecystitis without obstruction
CPT/HCPCS: 74178; Q9967

== ENCOUNTER 2022-01-25 12:24 | Outpatient (CLI) | payer MEDICARE, MEDICAID, SELFPAY ==
--- NOTE | ~2022-01-25 | US_ITS ---
EXAMINATION: US pelvic complete w TV DATE: 01/25/2022 13:55 INDICATION: Postmenopausal bleeding. TECHNIQUE: Multiple transabdominal and transvaginal sonographic images of the pelvis were obtained. COMPARISON: CT abdomen and pelvis 09/29/2021 FINDINGS: TRANSABDOMINAL ULTRASOUND: The uterus measures 13.4 x 7.6 x 7.6 cm. There is no free fluid in the pelvis. TRANSVAGINAL ULTRASOUND: The endometrial complex measures 5.3 cm in thickness. There is a 6.8 cm subserosal fibroid. The ovari es are not visualized. IMPRESSION: 1. Severely thickened endometrial complex suspicious for malignancy. 2. Subserosal fibroid. Reviewed, dictated and finalized at location A.
== END 2022-01-25 12:25 | disposition home or self-care (01) ==
PROVIDERS: PCP Family Medicine; Visit Provider Obstetrics & Gynecology
DX: N95.0 Postmenopausal bleeding (principal); D25.2 Subserosal leiomyoma of uterus
CPT/HCPCS: 76830; 76856

== ENCOUNTER 2022-03-27 17:03 | Emergency (ER) | payer MEDICARE, MEDICAID, SELFPAY ==
[2022-03-27] VITALS (8 sets, daily range): BP systolic 114–124; BP diastolic 63–82; PULSE 75–85; RESP 18; TEMP 36.8; O2SAT 93–96
--- NOTE | ~2022-03-27 | CT_ITS ---
EXAMINATION: CT brain wo con DATE: 03/27/2022 17:26 INDICATION: Syncope TECHNIQUE: Computed tomography (CT) of the head was performed without intravenous contrast. The dose- length product was 529.67 mGy-cm. Automated exposure control and iterative reconstruction technique w ere employed. COMPARISON: CT dated 12/23/2020 FINDINGS: No acute intracranial hemorrhage, infarction, mass or mass effect. Generalized atrophy. The re are scattered mild periventricular and subcortical white matter changes, most likely related to sm all vessel ischemic disease (microangiopathy). There is a left frontal scalp sebaceous cyst. There is intracranial atherosclerosis. Paranasal sinuses and mastoids are pneumatized. No depressed skull fra ctures. IMPRESSION: 1. No acute intracranial abnormality. 2: Chronic age-related findings. Reviewed, dictated and finalized at location A.
--- NOTE | ~2022-03-27 | XR_ITS ---
XR chest 1V DATE: 03/27/2022 17:33 INDICATION: Syncope TECHNIQUE: AP chest COMPARISON and 05/05/2020 portable AP chest radiographs FINDINGS: Normal heart size. There is mild aortic tortuosity. No hilar or mediastinal enlargement. No pulmonary infiltrate or consolidation, pleural effusion or pulmonary vascular congestion or pneumo thorax is detected. There is dextroscoliosis of the thoracic spine. Osteopenia. IMPRESSION: No active cardiopulmonary disease Reviewed, dictated and finalized at location A.
--- NOTE | ~2022-03-27 | CT_ITS ---
EXAMINATION: CT cervical spine wo con DATE: 03/27/2022 17:26 INDICATION: Neck pain after fall TECHNIQUE: Computed tomography (CT) of the cervical spine was performed without intravenous contrast. The dose-length product was 513 mGy-cm. Automated exposure control and iterative reconstruction tech Leapque were employed. COMPARISON: CT dated 12/23/2020 FINDINGS: there is advanced degenerative disc disease extending from C4-5 through T1-2. There is mode rate multilevel uncinate hypertrophy. Lung apices are unremarkable. No significant paraspinal soft ti ssue abnormality. Lung apices are normal. Craniovertebral junction is unremarkable. No evidence for p erched facet. Normal cervical lordosis. IMPRESSION: 1. No acute abnormality of the cervical spine. 2: Moderate cervical spondylosis. Reviewed, dictated and finalized at location A.
--- NOTE | 2022-03-27 17:10 | ECG_ITS ---
Measurements Intervals [place] Rate: 76 P: -1 RI: 154 QRS: -9 QRSD: 83 T: 43 QT: 396 QTc: 448 Interpretive Statements SINUS RHYTHM RSR' IN V1 OR V2, PROBABLY NORMAL VARIANT POOR R WAVE PROGRESSION, CONSIDER ANTEROLATERAL INFARCT MINIMAL Q WAVES- HIGH LATERAL LEADS ABNORMAL ECG Electronically Signed On 03-27-2022 21:22:51 CDT by Jesús Almaguer D.O.
--- NOTE | 2022-03-27 17:11 | ED.SYNCOPE ---
HPI - Syncope General Chief Complaint: Syncope Stated Complaint: glf hit head, on blood thinners - syncopal Time Seen by Provider: 03/27/22 17:03 History of Present Illness HPI narrative: 81-year-old female brought in by EMS secondary to syncopal episode. She was in [facility] for approximately 2 weeks and just got back to the half-way late last night. She was at the toilet had a syncopal episode woke up after having fallen off the toilet striking her head. Patient does not remember any events surrounding that. She is currently anticoagulated. She was treated at [facility] secondary to uterine cancer her hysterectomy. She is unsure what the follow-up treatment will be. This time she is complaining some mild dizziness and a headache as well as some pain to her neck. She not hit her chest and denies any chest pain or shortness of breath. Denies any pain to her extremities. She normally walks with a walker. Related Data Home Medications Medication Instructions Recorded Confirmed aspirin 325 mg tablet (Abdias 325 mg PO DAILY 02/23/20 01/02/22 Aspirin) citalopram 10 mg tablet (Celexa) 10 mg PO DAILY 02/23/20 01/02/22 metformin 500 mg tablet 1,000 mg PO BID 02/23/20 01/02/22 (Glucophage) simvastatin 20 mg tablet 20 mg PO DAILY 02/23/20 01/02/22 triamterene 37.5 4 tablet PO DAILY 02/23/20 01/02/22 mg-hydrochlorothiazide 25 mg tablet oxybutynin chloride 5 mg tablet 5 mg PO BID 12/23/20 01/02/22 sitagliptin 100 mg tablet (Januvia) 100 mg PO DAILY 12/23/20 01/02/22 Allergies Allergy/AdvReac Type Severity Reaction Status Date / Time Penicillins Allergy Unknown Verified 01/02/22 10:16 Review of Systems Review of Systems: CONSTITUTIONAL: Denies fever, chills, or sweats. EYES: Denies visual changes, redness, or discharge. ENT: Denies rhinorrhea, congestion, sore throat, or otalgia. CARDIOVASCULAR: Denies chest pain, palpitations, or edema. RESPIRATORY: Denies cough or dyspnea. GASTROINTESTINAL: Denies abdominal pain, nausea, vomiting, or diarrhea. GENITOURINARY: Denies dysuria or hematuria. SKIN: Denies rash or itching. MUSCULOSKELETAL: Denies back pain, joint pain, or myalgia. NEUROLOGIC: Complaining of a mild headache but denies any numbness or weakness to her arms or legs. PSYCHIATRIC: Denies anxiety or depression. PMFSH Past Medical History Medical History Abnormal vaginal bleeding in postmenopausal patient Cataract Left eye Depression HTN (hypertension) with goal to be determined Hypercholesterolemia Type 2 diabetes mellitus Uterine cancer Surgical History Surgical History History of arthroscopic knee surgery Repair of right knee cartilage Family History Family History Mother Acute myocardial infarction Several times Migraines Father Cancer Social History Social History Social History: The patient is single and lives with her son. 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 The patient stated she would choose her son as a durable power collections attorney for healthcare. The patient desires to be a full code. Lifelong nonsmoker does not use any alcohol marijuana or illicit drugs. Smoking status: Never smoker Second hand tobacco smoke exposure: No Alcohol intake: former Substance use: never Substance use type: does not use Gender identity (if verbalized by the patient): Female Spiritual care concerns: No Exam Narrative: APPEARANCE: Well appearing, no pain or distress, well-nourished. Patient is obese Head Normocephalic and atraumatic. EYES: PERRLA/EOMI, conjunctivae clear. NOSE: Normal with no drainage EARS:TMS clear with Sutherland, with good light reflex. THROAT: Pharynx clear, no exudate. NECK: Supple. No adenopathy, no masses. Mild tenderness to p
[2022-03-27 18:18] LABS: Basophils Absolute Auto 0.1 K/mm3 (0.0-0.1); Basophils Percent Auto 0.4 % (0.2-1.2); Eosinophils Absolute Auto 0.1 K/mm3 (0-0.3); Eosinophils Percent Auto 0.4 % (0-4.4); Hematocrit 39.2 % (37.0-47.0); Hemoglobin 12.5 g/dL (12.0-15.0); Immature Granulocyte Absolute 0.09 K/mm3 (0.00-0.031); Immature Granulocyte Percent A 0.5 % (0-0.5); Lymphocytes Absolute Auto 0.35 K/mm3 (0.9-3.2); Lymphocytes Percent Auto 1.9 % (18.3-44.2); Mean Corpuscular HGB Conc 31.9 g/dl (32-36); Mean Corpuscular Hemoglobin 32.7 pg (26-34); Mean Corpuscular Volume 102.6 fl (80-100); Mean Platelet Volume 9.2 fl (7.4-10.4); Monocytes Absolute Auto 0.5 K/mm3 (0.1-0.6); Monocytes Percent Auto 2.5 % (2.6-8.5); Neutrophils Absolute Auto 17.9 K/mm3 (1.3-6.7); Neutrophils Percent Auto 94.3 % (45.5-73.1); Platelet Count Result 429 k/mm3 (150-375); Red Blood Count 3.82 M/mm3 (4.2-5.4); White Blood Count 18.9 K/mm3 (4.5-10.0)
[2022-03-27] MEDS: SODIUM CHLORIDE 0.9% IV 1,000 ML 250 ML IV CONT (18:21)
[2022-03-27] MEDS: ONDANSETRON INJ 4 MG/2 ML VIAL IV PUSH (18:21)
[2022-03-27 18:28] LABS: Alanine Aminotransferase 28 U/L (6-35); Albumin Level 4.3 g/dL (3.5-5.1); Alkaline Phosphatase 100 U/L (38-126); Anion Gap 5 mmol/L (8-16); Aspartate Amino Transferase 26 U/L (14-36); Bilirubin,Total 0.3 mg/dL (0.2-1.3); Blood Urea Nitrogen 21 mg/dL (7-17); Calcium 9.7 mg/dL (8.4-10.2); Carbon Dioxide 29 mmol/L (22-30); Chloride 105 mmol/L (98-107); Estimated CRCL calculation 37 ml/min; Estimated Glomerular Filt Rate 43; Glucose 155 mg/dL (65-110); Potassium 4.5 mmol/L (3.4-5.0); Sodium 139 mmol/L (137-145)
--- NOTE | 2022-03-27 19:02 | PC.NURSE ---
Attempted to contact [facility] to notify of pt being returned. No answer
== END 2022-03-27 20:10 ==
PROVIDERS: Emergency Provider Emergency Medicine; PCP Family Medicine
DX: R55 Syncope and collapse (principal); S09.90XA Unspecified injury of head, initial encounter; C55 Malignant neoplasm of uterus, part unspecified; I10 Essential (primary) hypertension; E78.00 Pure hypercholesterolemia, unspecified; E11.9 Type 2 diabetes mellitus without complications; Z79.84 Long term (current) use of oral hypoglycemic drugs; Z79.82 Long term (current) use of aspirin; R94.31 Abnormal electrocardiogram [ECG] [EKG]; M47.812 Spondylosis without myelopathy or radiculopathy, cervical region; W18.11XA Fall from or off toilet without subsequent striking against object, initial encounter
CPT/HCPCS: 36415; 70450; 71045; 72125; 80053; 85025; 93005; 96365; 96375; 99284; J0131; J2405; J7030

== ENCOUNTER 2022-12-26 18:30 | Emergency (ER) | payer MEDICARE, MEDICAID, SELFPAY ==
[2022-12-26 19:06] VITALS: BP 143/63; PULSE 84; RESP 18; TEMP 36.6; O2SAT 99
[2022-12-26 19:43] LABS: Basophils Absolute Auto 0.1 K/mm3 (0.0-0.1); Basophils Percent Auto 0.6 % (0.2-1.2); Eosinophils Absolute Auto 0.5 K/mm3 (0-0.3); Eosinophils Percent Auto 5.2 % (0-4.4); Hematocrit 40.7 % (37.0-47.0); Hemoglobin 13.3 g/dL (12.0-15.0); Immature Granulocyte Absolute 0.04 K/mm3 (0.00-0.031); Immature Granulocyte Percent A 0.5 % (0-0.5); Lymphocytes Absolute Auto 2.19 K/mm3 (0.9-3.2); Lymphocytes Percent Auto 25.5 % (18.3-44.2); Mean Corpuscular HGB Conc 32.7 g/dl (32-36); Mean Corpuscular Hemoglobin 31.9 pg (26-34); Mean Corpuscular Volume 97.6 fl (80-100); Mean Platelet Volume 9.4 fl (7.4-10.4); Monocytes Absolute Auto 0.6 K/mm3 (0.1-0.6); Monocytes Percent Auto 6.8 % (2.6-8.5); Neutrophils Absolute Auto 5.3 K/mm3 (1.3-6.7); Neutrophils Percent Auto 61.4 % (45.5-73.1); Platelet Count Result 249 k/mm3 (150-375); Red Blood Count 4.17 M/mm3 (4.2-5.4); Red Cell Distribution Width 13.3 % (11.5-14.5); White Blood Count 8.6 K/mm3 (4.5-10.0)
[2022-12-26 19:53] LABS: Alanine Aminotransferase 16 U/L (6-35); Albumin Level 4.2 g/dL (3.5-5.1); Alkaline Phosphatase 68 U/L (38-126); Anion Gap 8 mmol/L (8-16); Aspartate Amino Transferase 18 U/L (14-36); Bilirubin,Total 0.5 mg/dL (0.2-1.3); Blood Urea Nitrogen 20 mg/dL (7-17); Calcium 9.6 mg/dL (8.4-10.2); Carbon Dioxide 30 mmol/L (22-30); Chloride 102 mmol/L (98-107); Estimated Glomerular Filt Rate 60; Glucose 118 mg/dL (65-110); Sodium 140 mmol/L (137-145)
[2022-12-26 19:54] LABS: INR 1.1; Prothrombin Time 14.1 Seconds (11.1-14.7)
[2022-12-27] VITALS (11 sets, daily range): BP systolic 133–145; BP diastolic 64–91; PULSE 70–89; RESP 12–21; O2SAT 94–100
--- NOTE | 2022-12-27 00:05 | ECG_ITS ---
Measurements Intervals [place] Rate: 72 P: 63 [place]: 195 QRS: -15 QRSD: 96 T: 36 QT: 386 QTc: 422 Interpretive Statements SINUS RHYTHM LOW-VOLTAGE QRS IN PRECORDIAL LEADS CANNOT RULE OUT LATERAL INFARCTION, AGE INDETERMINATE ABNORMAL ECG COMPARED TO ECG 03/27/2022 17:10:02 NO SIGNIFICANT CHANGES Electronically Signed On 12-28-2022 16:11:15 CDT by Mervin Gabriel M.D.
[2022-12-27 00:32] LABS: NT Pro B Type Natriuretic Pept < 20 pg/mL (19.9-100); Troponin I < 0.012 ng/mL (0.000-0.034)
--- NOTE | 2022-12-27 02:19 | ED.GENADULT ---
HPI - General Adult General Chief complaint: Extremity Problem,Nontraumatic Stated complaint: leg swelling Time Seen by Provider: 12/26/22 23:55 History of Present Illness HPI narrative: Patient 82-year-old female who presents the emergency department chief complaint of redness to lower extremities and weeping fluid from her lower extremities. The patient reports that she sleeps on a recliner and reports that she has noticed that her legs have become more red and have become swollen and have had some blisters that developed and weeping from the blisters. Patient denies fever denies trauma reports that she is on a DOAC for blood clots and has not missed any doses of her medication. Patient denies chest pain denies shortness of breath denies history of congestive heart failure. Patient does report that she has history of diabetes. Related Data Home Medications Medication Instructions Recorded Confirmed aspirin 325 mg tablet (Abdias 325 mg PO DAILY 02/23/20 01/02/22 Aspirin) citalopram 10 mg tablet (Celexa) 10 mg PO DAILY 02/23/20 01/02/22 metformin 500 mg tablet 1,000 mg PO BID 02/23/20 01/02/22 (Glucophage) simvastatin 20 mg tablet 20 mg PO DAILY 02/23/20 01/02/22 triamterene 37.5 4 tablet PO DAILY 02/23/20 01/02/22 mg-hydrochlorothiazide 25 mg tablet oxybutynin chloride 5 mg tablet 5 mg PO BID 12/23/20 01/02/22 sitagliptin phosphate 100 mg 100 mg PO DAILY 12/23/20 01/02/22 tablet (Januvia) Allergies Allergy/AdvReac Type Severity Reaction Status Date / Time Penicillins Allergy Unknown Verified 01/02/22 10:16 Review of Systems Review of Systems: A 10 system review of systems was completed on the patient and is negative except for what is stated in the HPI. Nursing and ancillary documentation was reviewed. [facility] Past Medical History Medical History Abnormal vaginal bleeding in postmenopausal patient Cataract Left eye Depression HTN (hypertension) with goal to be determined Hypercholesterolemia Type 2 diabetes mellitus Uterine cancer Surgical History Surgical History History of arthroscopic knee surgery Repair of right knee cartilage Family History Family History Mother Acute myocardial infarction Several times Migraines Father Cancer Social History Social History Social History: The patient is single and lives with her son. 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 The patient stated she would choose her son as a durable power assistant prosecuting attorney for healthcare. The patient desires to be a full code. Lifelong nonsmoker does not use any alcohol marijuana or illicit drugs. Smoking status: Never smoker Second hand tobacco smoke exposure: No Alcohol intake: former Substance use: never Substance use type: does not use Gender identity (if verbalized by the patient): Female Spiritual care concerns: No Exam Narrative: GENERAL: Well-appearing, well-nourished, and in no acute distress. HEAD: Normocephalic, atraumatic. EYES: PERRLA and EOMI. ENT: Nares clear, no rhinorrhea or epistaxis. Mucous membranes moist. NECK: Supple. CHEST: Clear to auscultation. No respiratory distress. HEART: Regular rate and rhythm. No murmur heard. Normal peripheral pulses. ABDOMEN: Soft, nontender, nondistended, normal active bowel sounds. EXTREMITIES: Normal range of motion. +1 edema. SKIN: Warm, dry, there is redness present to the lower extremities, this is below the knee there are some small blisters and weeping from the areas of erythema. There is no fluctuance there is no purulent drainage there is no necrotic tissue there is no subcutaneous emphysema.. NEURO: No focal deficits. Alert and oriented x3. PSYCH: Normal mood and affect. Course Vi
[2022-12-27] MEDS: DOXYCYCLINE HYCLATE 100 MG TABLET PO (02:42)
[2022-12-27] MEDS: FUROSEMIDE 20 MG TABLET PO (03:05)
== END 2022-12-27 03:50 | disposition home or self-care (01) ==
PROVIDERS: Emergency Medicine; Emergency Provider Emergency Medicine
DX: L03.116 Cellulitis of left lower limb (principal); L03.115 Cellulitis of right lower limb; I10 Essential (primary) hypertension; E78.00 Pure hypercholesterolemia, unspecified; E11.9 Type 2 diabetes mellitus without complications; F32.A Depression, unspecified; Z85.42 Personal history of malignant neoplasm of other parts of uterus; Z79.84 Long term (current) use of oral hypoglycemic drugs; Z79.82 Long term (current) use of aspirin; Z79.01 Long term (current) use of anticoagulants; R94.31 Abnormal electrocardiogram [ECG] [EKG]
CPT/HCPCS: 36415; 80053; 83880; 84484; 85025; 85610; 93005; 99284; A9270

== ENCOUNTER 2025-03-01 09:30 | Inpatient (IN) | payer MEDICARE, MEDICAID, SELFPAY ==
[2025-03-01] VITALS (10 sets, daily range): BP systolic 100–145; BP diastolic 44–81; PULSE 68–90; RESP 13–20; TEMP 35.9–36.7; O2SAT 92–97; BMI 45.8
--- NOTE | ~2025-03-01 | XR_ITS ---
XR chest 1V portable Ordering provider: Adriano Singh MD History: 84 years Female with . edema . Comparison: March 27, 2022 FINDINGS: MEDIASTINUM: The cardiac silhouette is not enlarged. LUNGS: No infiltrates, effusions or pneumothorax. OTHER: No free air under the diaphragm. Degenerative changes of the spine with dextroscoliosis. IMPRESSION: No acute cardiopulmonary pathology. Reviewed, dictated and finalized at location A.
--- NOTE | ~2025-03-01 | US_ITS ---
EXAMINATION: US venous doppler [facility] DATE: 03/01/2025 21:13 INDICATION: Edema TECHNIQUE: Grayscale ultrasound images without and with compression and Doppler ultrasound images of the bilateral lower extremity veins were obtained. COMPARISON: None. FINDINGS: The visualized portions of right common femoral vein, profunda (deep) femoral vein, femoral vein, pop liteal vein, and greater saphenous vein outflow are patent. The visualized portions of left common femoral vein, profunda femoral vein, femoral vein, popliteal v ein, and greater saphenous vein outflow are patent. IMPRESSION: 1. No deep venous thrombosis. Reviewed, dictated and finalized at location A.
--- NOTE | 2025-03-01 09:48 | ED_ITS ---
HPI - General Adult General Chief complaint: Fall Stated complaint: fall out of chair History of Present Illness HPI narrative: 84-year-old female with history of type 2-5 diabetes hypertension high, cholesterol, chronic lower extremity edema presenting to the emergency department from home for evaluation for having a slide from her wheelchair. Patient states that her piece that up from underneath her and she did land on her bottom. Patient denies striking head denies loss conscious. Patient states she has had worsening lower extremity edema. Patient denies any recent cough colds or fevers. Patient denies any pain or injury from the fall. Patient did not express any worsening weakness but states that she fell simply because her feet slipped out from beneath her. Alert and appropriate. Patient lives at home with her son and he is her primary caregiver. Related Data Home Medications ?Medication ?Instructions ?Recorded ?Confirmed ?Last Taken ?Type citalopram 10 mg tablet (Celexa) 10 mg PO DAILY 02/23/20 03/01/25 02/28/25 History metformin 500 mg tablet 1,000 mg PO BID 02/23/20 03/01/25 02/28/25 History (Glucophage) simvastatin 20 mg tablet 20 mg PO DAILY 02/23/20 03/01/25 02/28/25 History oxybutynin chloride 5 mg tablet 5 mg PO BID 12/23/20 03/01/25 02/28/25 History apixaban 5 mg tablet (Eliquis) 5 mg PO Q12H 03/01/25 03/01/25 02/28/25 History aspirin 81 mg capsule 81 mg PO DAILY 03/01/25 03/01/25 02/28/25 History carboxymethylcellulose sodium 0.5 1 drp EACH EYE BID dry eye 03/01/25 03/01/25 02/28/25 History % eye drops (Refresh Tears) Allergies Allergy/AdvReac Type Severity Reaction Status Date / Time Penicillins Allergy Unknown Verified 01/02/22 10:16 Review of Systems 2 Review of Systems: All systems reviewed & are unremarkable except as noted in HPI and below PMFSH Past Medical History Medical History Abnormal vaginal bleeding in postmenopausal patient Cataract Left eye Depression HTN (hypertension) with goal to be determined Hypercholesterolemia Type 2 diabetes mellitus Uterine cancer Surgical History Surgical History History of arthroscopic knee surgery Repair of right knee cartilage Family History Family History Mother Acute myocardial infarction Several times Migraines Father Cancer Social History Social History Social History: The patient is single and lives with her son. 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 The patient stated she would choose her son as a durable power slitter scorer cut off operator for healthcare. The patient desires to be a full code. Lifelong nonsmoker does not use any alcohol marijuana or illicit drugs. Smoking status: Never smoker Second hand tobacco smoke exposure: No Alcohol intake: former Substance use: never Substance use type: does not use Do You Feel Safe in your Home?: Yes Lack of Transportation: No Lack of Food: Never True Current Housing: I Have Housing Concerned About Future Housing: No Difficulty Paying Gas/Electric Bills: No Difficulty Paying for Meds: No Currently Unemployed: No Education: High School Diploma/GED Difficulty w/ Childcare or Family Care: No Gender identity (if verbalized by the patient): Female Spiritual care concerns: No Exam 2 Narrative: APPEARANCE: Unkempt appearing HEAD: normocephalic, atraumatic. EYES: PERRLA/EOMI, conjunctivae clear. NOSE: Normal no drainage EARS:TMS clear with good light reflex. THROAT: Pharynx clear, no exudate. NECK: Supple. No adenopathy, no masses. RESPIRATORY: Airway patent, respirations nonlabored. Clear to auscultation bilaterally, no rales, rhonchi, wheezing. CARDIOVASCULAR: Regular rate and rhythm without murmurs rubs or gallops. ABDOMINAL: Soft, nontender, nondistended, normal bowel sounds MUSCULOSKELETAL: Lower extremity edema NEURO: Alert. Cranial nerves II through XII intact. Grossly intact SKIN: Warm, dry. Normal Color Course Vital Signs Vital signs: Vital Signs Temperature 98.0 F 03/01/25 09:27 Pulse Rate 79 03/01/25 09:27 Respiratory Rate 20 03/01/25 09:27 Blood Pressure 145/81 H 03/01/25 09:27 Pulse Oximetry 94 03/01/25 09:27 Oxygen Delivery Room Air 06/16/25 09:27 Temperature 96.7 F L 03/01/25 14:00 Pulse Rate 90 03/01/25 14:00 Respiratory Rate 14 03/01/25 14:00 Blood Pressure 122/68 03/01/25 14:00 Pulse Oximetry 94 03/01/25 14:00 Oxygen Delivery Room Air 03/01/25 11:22 Medical Decision Making MDM Narrative Medical decision making narrative: 84-year-old female present to the emergency department for evaluation after having a slip from her wheelchair. Patient declined any injury but states she does have increased lower extremity swelling. Patient reports he does live at home with her son and he is her primary caregiver. Patient was unkempt upon arrival emergency department and did have a large amount of urine within her depends which she states she does change on her own. Patient is currently afebrile with no leukocytosis and hemoglobin of 14.2. Patient's INR is 1.2. No significant acute abnormalities on the patient's CMP. Patient's UA was positive for nitrates leukocyte esterase greater than 100 white blood cells +4 for bacteria. Chest x-ray showed no acute cardiopulmonary abnormality. Patient does have increased generalized weakness is unable to trans for herself at home. Patient is usually able stand and pivot. Patient is willing to be admitted for treatment but patient states she does not want to be discharged to a care facility. Care coordination order for home health was placed. Differential Diagnosis Differential Diagnosis: Failure to thrive, lymphedema, urinary tract infection, COVID, RSV, influenza, pneumonia, cellulitis, DVT Vital Signs Vital Signs: Vital Signs Temperature 98.0 F 03/01/25 09:27 Pulse Rate 79 03/01/25 09:27 Respiratory Rate 20 03/01/25 09:27 Blood Pressure 145/81 H 03/01/25 09:27 Pulse Oximetry 94 03/01/25 09:27 Oxygen Delivery Room Air 03/01/25 09:27 Temperature 96.7 F L 03/01/25 14:00 Pulse Rate 90 03/01/25 14:00 Respiratory Rate 14 03/01/25 14:00 Blood Pressure 122/68 03/01/25 14:00 Pulse Oximetry 94 03/01/25 14:00 Oxygen Delivery Room Air 03/01/25 11:22 Lab Data Lab results reviewed: Yes I reviewed the patient's lab results. 03/01/25 09:51 03/01/25 09:51 Labs: Lab Results 03/01/25 03/01/25 03/01/25 Range/Units 09:51 10:00 10:22 WBC 7.8 (4.5-10.0) K/mm3 RBC 4.32 (4.2-5.4) M/mm3 Hgb 14.2 (12.0-15.0) g/dL Hct 43.4 (37.0-47.0) % MCV 100.5 H (80-100) fl MCH 32.9 (26-34) pg MCHC 32.7 (32-36) g/dl RDW 12.3 (11.5-14.5) % Plt Count 248 (150-375) k/mm3 MPV 9.3 (7.4-10.4) fl Immature Gran % (Auto) 0.4 (0-0.5) % Neut % (Auto) 66.6 (45.5-73.1) % Lymph % (Auto) 23.3 (18.3-44.2) % [place] % (Auto) 5.9 (2.6-8.5) % Eos % (Auto) 3.2 (0-4.4) % Baso % (Auto) 0.6 (0.2-1.2) % Lymph # (Auto) 1.82 (0.9-3.2) K/mm3 [place] # (Auto) 0.5 (0.1-0.6) K/mm3 Eos # (Auto) 0.3 (0-0.3) K/mm3 Baso # (Auto) 0.1 (0.0-0.1) K/mm3 Abs Immat Gran (auto) 0.03 (0.00-0.031) K/mm3 Absolute Neuts (auto) 5.2 (1.3-6.7) K/mm3 Absolute Nucleated RBC 0.000 (0.0-0.012) K/mm3 Nucleated RBC % 0.0 (0.0-0.2) % PT 15.4 H (11.1-14.7) Seconds INR 1.2 APTT 32.8 (22.3-36.8) Seconds Sodium 138 (137-145) mmol/L Potassium 4.5 (3.4-5.0) mmol/L Chloride 103 (98-107) mmol/L Carbon Dioxide 26 (22-30) mmol/L Anion Gap 9 (4-12) mmol/L BUN 15 D (7-17) mg/dL Creatinine 0.99 (0.7-1.0) mg/dL Estim Creat Clear Calc 50 ml/min Estimated GFR 54 L (59 - ) Glucose 140 H (65-110) mg/dL Hemoglobin A1c 6.6 H (<5.7) % Calcium 9.6 (8.4-10.2) mg/dL Total Bilirubin 0.6 (0.2-1.3) mg/dL AST 21 (14-36) U/L ALT 17 (6-35) U/L Alkaline Phosphatase 60 (38-126) U/L NT-Pro-B Natriuret Pep < 20 (19.9-100) pg/mL Total Protein 7.2 (6.3-8.2) g/dL Albumin 4.1 (3.5-5.1) g/dL Urine Color Yellow (Yellow) Urine Appearance Cloudy H (Clear) Urine pH 5.5 (5.0-9.0) Ur Specific [place] 1.012 (1.001-1.035) Urine Protein Trace (Negative) mg/dL Urine Glucose (UA) Negative (Negative) mg/dL Urine Ketones Negative (Negative) mg/dL Ur Blood (Man) Trace (Negative) Urine Nitrate Positive H (Negative) Urine Bilirubin Negative (Negative) Urine Urobilinogen 1.0 (<2.0) mg/dL Add Ur Microanalysis Reviewed Leukocyte Esterase Rfl 3+ H (Negative) CECIL/UL Urine RBC 0-2 (0-2) /hpf Urine WBC >100 H (0-3) /hpf Ur Squamous Epith Cells None seen (Few) /hpf Urine Bacteria 4+ H /hpf Urine Casts 3-5 Influenza A (RT-PCR) Negative (Negative) Influenza B (RT-PCR) Negative (Negative) RSV (RT-PCR) Negative (Negative) SARS-CoV-2 RNA (RT-PCR) Negative (Negative) Imaging Data Radiologist's impression: Impressions Chest X-Ray 03/01/25 10:21 IMPRESSION: No acute cardiopulmonary pathology. Discharge Plan Discharge Clinical Impression: Acute UTI, Adult failure to thrive Patient Disposition: Still a Patient Condition: Serious
[2025-03-01 09:59] LABS: Basophils Absolute Auto 0.1 K/mm3 (0.0-0.1); Basophils Percent Auto 0.6 % (0.2-1.2); Eosinophils Absolute Auto 0.3 K/mm3 (0-0.3); Eosinophils Percent Auto 3.2 % (0-4.4); Hematocrit 43.4 % (37.0-47.0); Hemoglobin 14.2 g/dL (12.0-15.0); Immature Granulocyte Absolute 0.03 K/mm3 (0.00-0.031); Immature Granulocyte Percent A 0.4 % (0-0.5); Lymphocytes Absolute Auto 1.82 K/mm3 (0.9-3.2); Lymphocytes Percent Auto 23.3 % (18.3-44.2); Mean Corpuscular HGB Conc 32.7 g/dl (32-36); Mean Corpuscular Hemoglobin 32.9 pg (26-34); Mean Corpuscular Volume 100.5 fl (80-100); Mean Platelet Volume 9.3 fl (7.4-10.4); Monocytes Absolute Auto 0.5 K/mm3 (0.1-0.6); Monocytes Percent Auto 5.9 % (2.6-8.5); Neutrophils Absolute Auto 5.2 K/mm3 (1.3-6.7); Neutrophils Percent Auto 66.6 % (45.5-73.1); Platelet Count Result 248 k/mm3 (150-375); Red Blood Count 4.32 M/mm3 (4.2-5.4); Red Cell Distribution Width 12.3 % (11.5-14.5); White Blood Count 7.8 K/mm3 (4.5-10.0)
--- NOTE | 2025-03-01 10:03 | PC.NURSE ---
this RN and tech were doing a cath on pt and changing her depends when noticed bilateral posterior bruising to pt thighs. pt also had a small wound on her L labia majora. pt depends from home was soaked in urine, this RN asked pt who helps take care of her at home, pt said her son and [id number], this RN asked pt when the last time her family changed her depends and pt says she changes her own depends and changed it last night as the last time it was changed
[2025-03-01 10:10] LABS: Alanine Aminotransferase 17 U/L (6-35); Albumin Level 4.1 g/dL (3.5-5.1); Alkaline Phosphatase 60 U/L (38-126); Anion Gap 9 mmol/L (4-12); Aspartate Amino Transferase 21 U/L (14-36); Bilirubin,Total 0.6 mg/dL (0.2-1.3); Blood Urea Nitrogen 15 mg/dL (7-17); Calcium 9.6 mg/dL (8.4-10.2); Carbon Dioxide 26 mmol/L (22-30); Chloride 103 mmol/L (98-107); Estimated CRCL calculation 50 ml/min; Estimated Glomerular Filt Rate 54; Glucose 140 mg/dL (65-110); Potassium 4.5 mmol/L (3.4-5.0); Sodium 138 mmol/L (137-145); Total Protein 7.2 g/dL (6.3-8.2)
[2025-03-01 10:11] LABS: INR 1.2; Prothrombin Time 15.4 Seconds (11.1-14.7)
[2025-03-01 10:12] LABS: Partial Thromboplastin Time 32.8 Seconds (22.3-36.8)
[2025-03-01 10:17] LABS: Add Urine Microscopic? YES; Appearance Urine Cloudy (Clear); Bacteria Urine 4+ /hpf; Bilirubin Urine Negative (Negative); Blood Urine Trace (Negative); Color Urine Yellow (Yellow); Glucose Urine UA Negative (Negative); Ketones Urine Negative (Negative); Leukocyte Esterase Ur 3+ LEU/UL (Negative); Need Manual Microscopic Reviewed; Nitrate Urine Positive (Negative); Protein Urine Trace mg/dL (Negative); RBC Urine 0-2 /hpf (0-2); Specific Grav Ur 1.012 (1.001-1.035); Squamous Epithelial Cell Urine None Seen /hpf (Few); WBC Urine >100 /hpf (0-3); pH Urine 5.5 (5.0-9.0)
[2025-03-01 10:19] LABS: NT Pro B Type Natriuretic Pept < 20 pg/mL (19.9-100)
--- OUTSIDE RECORDS SUMMARY | 2025-03-01 10:50 | XMS_ITS | Encounter Summary ---
Author Organization [facility] Healthcare Address [address] [place] [address] Care Team Providers Care Plaster Block Layer Name Role Phone Denice Santiago Primary Care Provider + Encounter Details Date Type Department Care Team (Late st Contact Info) Description 06/12/2022 Completion of Therapy [facility] Advanced Medicine Radiation Oncology [facility] [place] [address] Brooklynn Torres MD [address] [facility] [address] [place] [address] Social History Tobacco Use Types Packs/Day Years Used Date Smoking Tobacco: Never Smokeless Tobacco: Never AUDIT-C Answer Date Recorded Q1: How often do you have a drink containing alcohol? Never 03/15/2022 Q2: How many drinks containi ng alcohol do you have on a typical day when you are drinking? Patient does not drink Q3: How often do you have si x or more drinks on one occasion? Never 03/15/2022 Comments No Sex and Gender Information Value Date Recorded Sex Assigned at Not on file Legal Sex Female 10:30 AM CDT Gender Identity Not on file Sexual Orientation Not on file documented as of this encounter Progress Notes * Frank Anthony MD PhD - 06/12/2022 11:59 PM CDT Radiation Oncologist: No care steam drier operator to display Primary Care Physician: Denice Santiago PA Medical Oncologist: No care steam drier operator to display Surgeon: No care steam drier operator to display Referring Provider: No ref. provider found Date of Service: 06/12/2022 RADIATION ONCOLOGY COMPLETION OF THERAPY (COT) Identifying Data: Cancer Staging Adenocarcinoma of endometrium (CMS/HCC) (HCC) Staging form: Corpus Uteri - Carcinoma and Carcinosarcoma, AJCC 8th Edition - Pathologic stage from 03/15/2022: FIGO Stage IB (pT1b, pN0, cM0) - Unsigned 81 y.o. 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 Arellano showing 6.5 cm, grade 1 tumor (invasive adenocarcinoma with focal squamous differentiation), 8/15 cm MMI, focal LVSI, superficial lower uterine segment involvement, MMR deficient, 0/3 LN, pT1bN0 cM0. Surgery was complicated by PE requiring AC with Eliquis. Plan: VC 12 Gy x 3 Treatment Delivered: Start Date: 05/29/22 End Date: 06/12/22 Radiation Treatments No active radiation treatments to show. Radiation Treatments No historical radiation treatments to show. HDR Brachytherapy, Vaginal Cylinder Fraction 1 of 3 (1200 cGy of 3600 cGy) Fraction 2 of 3 (2400 cGy of 3600 cGy) Fraction 3 of 3 (3600 cGy of 3600 cGy) Concurrent Therapy: None Pain Plan: RAD ONC PAIN PLAN: The patient's pain is currently being managed by [facility]. Tolerance to Treatment: Ms. Rodriguez tolerated the treatment well. Disposition: Follow up in clinic in 6 weeks. Post treatment skin care instructions given. Patient was instructed to call with any concerns prior to scheduled follow up visit. No care steam drier operator to display supervised the patient???s radiation treatment as summarized. Frank Anthony MD, PhD Radiation Oncology Resident 07/15/2022 7:15 PM Cosigned by Brooklynn Torres MD at 07/16/2022 12:06 PM CDT Associated attestation - Brooklynn Torres MD - 07/16/2022 12:06 PM CDT Kimberly Rodriguez was evaluated with the resident, Dr. Anthony, throughout the course of treatmentalong with my colleagues, and agree with the resident???s note. The patient will follow-up as scheduled and call with any questions or concerns in the interim. Brooklynn Torres MD 07/16/2022 12:06 PM documented in this encounter Plan of Treatment Not on file documented as of this encounter Visit Diagnoses Not on filedocumented in this encounter Care Teams Plaster Block Layer Relationship Specialty Start Date End Date Denice Santiago PA PCP - General Physician Cardiac Rehabilitation Program Director 07/13/21 documented as of this encounter
--- OUTSIDE RECORDS SUMMARY | 2025-03-01 10:50 | XMS_ITS | Encounter Summary ---
Author Organization [facility] Address [address] [place] [address] Phone Care Team Providers Care Sponge Fisherman Name Role Phone Denice Santiago Primary Care Provider + Encounter Details Date Type Department Care Team (Latest Contact Info) Description 03/21/2022 Orders Only [facility] SLEEP Scanning, Provider Social History Tobacco Use Types Packs/Day Years [...] on file documented as of this encounter Plan of Treatment Not on file documented as of this encounter Procedures Procedure Name Priority Date/Time Associated Diagnosis Comments SLEEP LAB/STUDY - RESULT 03/21/2022 12:00 AM CDT documented in this encounter Results * SLEEP LAB/STUDY - RESULT (03/21/2022 12:00 AM CDT) us Provider Scanning Final Result documented in this encounter Visit Diagnoses Not on filedocumented in this encounter Care Teams Sponge Fisherman Relationship Specialty Start Date End Date Dneice Santiago PA PCP - General Physician Pipe Caulker 07/13/21 documented as of this encounter
--- OUTSIDE RECORDS SUMMARY | 2025-03-01 10:50 | XMS_ITS | Clinical Summary ---
Author Organization [facility] Virtual Care Address [facility] [place] [address] Phone Care Team Providers Care Machinist Helper Name Role Phone Denice Santiago Primary Care Provider + Allergies Active Allergy Reactions Criticality Noted Date Comments Penicillins Unknown 07/28/2021 Medications metFORMIN (GLUCOPHAGE) 500 mg tabletIndications: type 2 diabetes mellitus Take 1 tablet (500 mg total) by mouth 2 (two) times a day with meals Active aspirin 325 mg tabletIndications: prevention of thrombosis Take 1 tablet (325 mg total) by mouth every morning Active citalopram (CeleXA) 10 mg tabletIndications: Generalized Anxiety Disorder Take 1 tablet (10 mg total) by mouth every morning Active simvastatin (ZOCOR) 20 mg tabletIndications: hyperlipidemia Take 1 tablet (20 mg total) by mouth nightly Active triamterene-hydroC HLOROthiazide (MAXZIDE,DYAZIDE) 37.5-25 mg per tablet/capsule Take 1 tablet/capsule by mouth every morning Active oxybutynin (DITROPAN) 5 mg tabletIndications: Increased Urinary Frequency Take 1 tablet (5 mg total) by mouth 2 (two) times a day Active Refresh Liquigel 1 % ophthalmic liquid gel dropsIndications:D ry Eye Administer 1 drop into both eyes 4 (four) times a day 07/31/20 21 Active acetaminophen (TYLENOL) 500 mg tablet Take 2 tablets (1,000 mg total) by mouth every 6 (six) hours as needed for pain 20 tablet 03/15/20 22 Active Additional Information Patient not taking.Reported on 01/11/2023 polyethylene glycol (MIRALAX) 17 gram packetIndications: constipation Take 1 packet (17 g total) by mouth 2 (two) times a day 60 packet 3 03/15/20 22 Active Additional Information Patient not taking.Reported on 01/11/2023 diphenhydrAMINE-zi nc acetate creamIndications:P ruritus of Skin Apply topically 2 (two) times a day as needed for itching 28.4 g 03/26/20 22 Active ondansetron ODT (ZOFRAN-ODT) 4 mg disintegrating tabletIndications: Nausea and Vomiting Take 1 tablet (4 mg total) by mouth every 6 (six) hours as needed for nausea or vomiting 30 tablet 03/26/20 22 Active Additional Information Patient not taking.Reported on 01/11/2023 docusate sodium (COLACE) 100 mg capsuleIndications :constipation Take 1 capsule (100 mg total) by mouth 2 (two) times a day 60 capsule 3 03/26/20 22 Active Additional Information Patient not taking.Reported on 01/11/2023 oxyCODONE (ROXICODONE) 5 mg immediate release tabletIndications: Pain Take 1 tablet (5 mg total) by mouth every 4 (four) hours as needed for pain 15 tablet 03/26/20 22 Active Additional Information Patient not taking.Reported on 01/11/2023 furosemide (LASIX) 20 mg tablet 04/13/20 Active Januvia 100 mg tablet 04/13/20 Active Eliquis 5 mg tabletIndications: Pulmonary embolism, unspecified chronicity, unspecified pulmonary embolism type, unspecified whether acute cor pulmonale present (HCC) TAKE 1 TABLET BY MOUTH TWICE A DAY 60 tablet 11 04/13/20 24 Active Active Problems Problem Noted Date Diagnosed Date Mild recurrent major depression 10/04/2022 01/11/2023 Urinary incontinence 10/02/2022 01/11/2023 Encounter for postoperative care 03/15/2022 Adenocarcinoma of endometrium 02/27/2022 Cancer Staging:Pathologic stage from 03/15/2022:FIGO Stage IB(pT1b, pN0, cM0) - Unsigned Postmenopausal bleeding 02/09/2022 Overview (02/09/2022): Added automatically from request for surgery [id number] Vaginal bleeding 02/09/2022 Overview (03/23/2022): Added automatically from request for surgery [id number] Edema of both lower extremities 08/17/2021 Assessment & Plan (08/17/2021 1:08 PM POLITICAL SCIENCE INSTRUCTOR): Impression: Chronic lower extremity edema and associated hyperpigmentation with recurrent ulcerations and soft tissue infections. She is minimally ambulatory, morbidly obese Plan: Will formally evaluate her lower extremity venous vasculature to evaluate for edema source. In the interim I recommended daily compression regimen with Tubigrip and Piter wrap for edema control and ulcer prevention. Patient to follow-up in 6 weeks for re-evaluation and discussion of test results. Other hyperlipidemia 08/17/2021 Assessment & Plan (08/17/2021 1:07 PM POLITICAL SCIENCE INSTRUCTOR): Impression: Stable chronic hyperlipidemia. Plan: Medications reviewed I recommend continuing daily statin regimen as directed by patient's primary care physician. Diabetes mellitus 03/17/2018 Essential hypertension 03/17/2018 Resolved Problems Problem Noted Date Diagnosed Date Resolved Date Varicose veins of bilateral lower extremities with pain 08/17/2021 08/17/2021 Encounters Date Type Department Care Team Description 01/15/2025 Telephone Obstetrics and Gynecology Clinic [address] [facility] 3rd Floor [address] [place] [address] Sienna Covarrubias RN from Last 3 Months Immunizations Immunization Administration Dates Next Due Influenza, Quadrivalent, Hig h Dose, Preservative Free, Intrr 07/11/2021 Influenza, Quadrivalent, Spl it, Preservative Free, Intramuscular 06/23/2018 Pneumococcal Conjugate PCV 13 08/26/2017 Pneumococcal Polysaccharide PPV23 10/20/2018 Surgical History Surgery Date Site/Laterality Comments NO PAST SURGERIES Medical History Medical History Date Comments DM (diabetes mellitus) (HCC) HTN (hypertension) Bleeding disorder Family History Medical History Relation Name Comments Alcohol abuse Father Heart attack Mother Heart disease Mother Hypertension Mother Anesthesia problems Neg Hx Relation Name Status Comments Father Mother Social History Tobacco Use Types Packs/Day Years Used Date Smoking Tobacco: Never Smokeless Tobacco: Never Tobacco Cessation:Counseling Given: Not Answered AUDIT-C Answer Date Recorded Q1: How often [...] on file Sexual Orientation Not on file Obstetrics History Para Term AB IAB SAB Ectopic Multiple Livin g Live Births Date Outcome GA Total Labor Labor/10/19 Weight Sex Type Anes PTL Onelia A1 A5 Name Clin Term Last Filed Vital Signs Vital Sign Reading Time Taken Comments Blood Pressure 130/84 01/11/2023 4:26 PM CDT Pulse 71 01/11/2023 4:26 PM CDT Temperature 36.9 C (98.5 F) 01/11/2023 4:26 PM CDT Respiratory Rate 18 01/11/2023 4:26 PM CDT Oxygen Saturation 93% 01/11/2023 4:26 PM CDT Inhaled Oxygen Concentration - - Weight 102.3 kg (225 lb 9.6 oz) 022 10:15 AM CDT Height 152.4 cm (5') 05/15/2022 12:03 PM CDT Body Mass Index 44.06 05/15/2022 12:03 PM CDT Plan of Treatment Health Maintenance Due Date Last Done Comments Albumin Creatinine Ratio, Urine 1942 Depression Screening 1942 Dilated Eye Exam 1942 Foot Exam 1942 Lipid Panel 1942 DTaP/Tdap/Td Vaccine (1 - Tdap) 1953 Hepatitis B Screening 1960 Zoster Vaccine (1 of 2) 1992 Well Visit 65+ 2007 Hemoglobin A1C 08/25/2022 02/23/2022 eGFR 03/25/2023 03/25/2022, 07/0 05/2022, 03/23/2022, Additional history exists Fall Risk Assessment 05/15/2023 05/15/2022, 03/26/20 Covid-19 Vaccine (3 - 2023-2 5 season) 2024 02/02/2021, 01/25/2021 Osteoporosis Screening-Bone Density Scan 06/07/2024 06/07/2022 Influenza Vaccine (Season Ended) 2025 07/11/20 21, 06/23/2018 Pneumococcal vaccine 65+ Completed 10/20/2018, 08/16 Procedures Procedure Name Priority Date/Time Associated Diagnosis Comments EGFR Routine 03/25/2022 9:38 PM CDT POCT HEMOGLOBIN A1C Routine 02/23/2022 2 :29 PM CDT from Last 3 Months or Most Recently Relevant to Health Maintenance Results * (ABNORMAL) eGFR (03/25/2022 9:38 PM CDT) eGFR 41(L) 90 - 130 mL/min/1. [address] Comment: Interpretive Data Reference Interval Normal >/= 90 mL/min/1.73m2 Mildly decreased* 60 - 89 mL/min/1.73m2 Mildly to moderately decreased 45 - 59 mL/min/1.73m2 Moderately to severely decreased 30 - 44 mL/min/1.73m2 Severely decreased 15 - 29 mL/min/1.73m2 Kidney Failure < 15 mL/min/1.73m2 *Relative to young adult level Estimated glomerular filtration rate is determined by the 2020 CKD-EPI equation recommended by the National Kidney Foundation (A Unifying Approach to GFR Estimation: Recommendations of the NKF-ASK Task Force on Reassessing the Inclusion of Race in Diagnosing Kidney Disease, JASN 2020). The CKD-EPI equation should not be used for patients with unstable renal function and has not been validated in children and those over 70. Current interpretive data was last reviewed 2021. Blood 03/25/2022 9:38 PM CDT 03/25/2022 10:17 PM CDT Mamta Arellano MD LAB BLOOD ORDERABLES Fi nal Result Performing Organization Address City/State/[facility] de Phone Number [facility] Department [place] [address] * POCT hemoglobin A1c (02/23/2022 2:29 PM CDT) Hgb A1C, POC 5.6 4.0 - 5.6 % [facility] Est Average Gluc POC 114 mg/dL [facility] Comment: The ADA recommends reporting an estimated Average Glucose (eAG) with all Hemoglobin A1c results using the equation derived from a study of 507 normal and diabetic adults. Minority populations were underrepresented and children were not included. (Diabetes Care 31:1520-3465, 2008). The eAG is not equivalent to a fasting glucose. Blood 02/23/2022 2:29 PM CDT 02/23/2022 2:29 PM CDT us Notinfile Unknown POINT OF CARE TEST ORDERABLES Final Result Performing Organization Address [facility] de Phone Number [facility] Department [place] [address] from Last 3 Months or Most Recently Relevant to Health Maintenance Insurance [facility] IDPA [employer] [place] [address] Advance Directives For more information, please contact: [phone] * Full Code (Latest Code Status on File) Date Activated Date Inactivated Comments 03/15/2022 7:47 PM 03/27/2022 3:43 AM Care Teams Machinist Helper Relationship Specialty Start Date End Date Denice Santiago PA PCP - General Physician Peer Educator 07/13/21
--- OUTSIDE RECORDS SUMMARY | 2025-03-01 10:50 | XMS_ITS | CONTINUITY OF CARE DOCUMENT ---
Author Name pepper pabon Address Unknown Organization [facility] Address [id number] [place] [address] [address] [place] [address] Phone [phone] Care Team Providers Care Microbiological Analyst Name Role Phone Reynold ESPINOSA, Juliana Unavailable MERLINE GAXIOLA MD Unavailable MERLINE GAXIOLA MD Unavailable INSURANCE PROVIDERS Payer name Policy type / Coverage type [place] red libertarian ID [facility] [facility] Other [id number]
--- OUTSIDE RECORDS SUMMARY | 2025-03-01 10:50 | XMS_ITS ---
Author Organization [facility] Virtual Care Address [address] [place] [address] Phone Care Team Providers Care Automotive Parts Counterperson Name Role Phone Denice Santiago Primary Care Provider + Active Problems Problem Noted Date Diagnosed Date Mild recurrent major depression 10/04/2022 01/11/2023 Urinary incontinence 10/02/2022 01/11/2023 Encounter for postoperative care 03/15/2022 Adenocarcinoma of endometrium 02/27/2022 Cancer Staging:Pathologic stage from 03/15/2022:FIGO Stage IB(pT1b, pN0, cM0) - Unsigned Postmenopausal bleeding 02/09/2022 Overview (02/09/2022): Added automatically from request for surgery [id number] Vaginal bleeding 02/09/2022 Overview (03/23/2022): Added automatically from request for surgery [id number] Edema of both lower extremities 08/17/2021 Assessment & Plan (08/17/2021 1:08 PM WATCH LEADER): Impression: Chronic lower extremity edema and associated [...] 08/17/2021 Assessment & Plan (08/17/2021 1:07 PM WATCH LEADER): Impression: Stable chronic hyperlipidemia. Plan: Medications reviewed I recommend continuing daily statin regimen as directed by patient's primary care physician. Diabetes mellitus 03/17/2018 Essential hypertension 03/17/2018 Current Treatment and Therapy Plans No current plan information found. Past Treatment and Therapy Plans No past plan information found. Lifetime Dose Tracking * Chemical Lifetime Dose Automatic Entry Manual Entr y DLP 706 mGycm 706 mGycm 0 mGycm Resolved Problems Problem Noted Date Diagnosed Date Resolved Date Varicose veins of bilateral lower extremities with pain 08/17/2021 08/17/2021
--- OUTSIDE RECORDS SUMMARY | 2025-03-01 10:50 | XMS_ITS | Clinical Summary ---
Author Organization [facility] Address [facility] [place] [address] Care Team Providers Care Pipe Smoking Machine Offbearer Name Role Phone Reina Luna MD Primary Care Provider [phone] Denice Santiago PA-C Unavailable [phone] Social History Tobacco Use Types Packs/Day Years Used Date Smoking Tobacco: Never Assessed Comments Unknown Sex and Gender Information Value Date Recorded Sex Assigned at Not on file Legal Sex Female 9:21 AM CDT Gender Identity Not on file Sexual Orientation Not on file Plan of Treatment Health Maintenance Due Date Last Done Comments DTaP, Tdap and Td Vaccines ( 1 - Tdap) 1961 Zoster Vaccines (1 of 2) 1992 Annual Medicare Wellness Visit 2007 Dexa Scan (General) 2007 RSV Immunization or 60+ Years (1 - 1-dose 75+ series) 2017 Pneumococcal Vaccine: 50+ Ye ars (2 of 2 - PPSV23) 08/26/2018 08/26/2017 COVID-19 Vaccine ( - 2023-2 5 season) 2024 Meningococcal B Vaccine Aged Out No l onger eligible based on patient's age to complete this topic Meningococcal Vaccine Aged Out No naya latasha eligible based on patient's age to complete this topic RSV Immunizations Under 20 Months Aged Out No longer eligible based on patient's age to complete this topic Insurance AET[employer] Care Teams Pipe Smoking Machine Offbearer Relationship Specialty Start Date End Date Reina Luna MD [facility] [address] [place] [address] PCP - General FAMILY PRACTICE 05/06/20 Denice Santiago PA-C [facility] [place] [address] NURSE PRACTITIONER 05/12/20
--- OUTSIDE RECORDS SUMMARY | 2025-03-01 10:50 | XMS_ITS | Referral Summary ---
Author Organization [facility] Virtual Care Address [address] [place] [address] Phone Care Team Providers Care Field Scout Name Role Phone Denice Santiago Primary Care Provider + Encounters Date Type Department Care Team Description 01/15/2025 Telephone Obstetrics and Gynecology Clinic [address] [facility] Outpatient Health 3rd Floor [address] [place] [address] Sienna Covarrubias RN from Last 3 Months Allergies Active Allergy Reactions Criticality Noted Date [...] 01/11/2023 furosemide (LASIX) 20 mg tablet 04/13/20 22 Active Januvia 100 mg tablet 04/13/20 22 Active Eliquis 5 mg tabletIndications: Pulmonary embolism, [...] (02/09/2022): Added automatically from request for surgery [id number] Vaginal bleeding 02/09/2022 Overview (03/23/2022): Added automatically from request for surgery [id number] Edema of both lower extremities 08/17/2021 Assessment & Plan (08/17/2021 1:08 PM METAL CAN INSPECTOR): Impression: Chronic lower extremity edema and associated [...] 08/17/2021 Assessment & Plan (08/17/2021 1:07 PM METAL CAN INSPECTOR): Impression: Stable chronic hyperlipidemia. Plan: Medications reviewed I recommend continuing daily statin regimen as directed by patient's primary care physician. Diabetes mellitus 03/17/2018 Essential hypertension 03/17/2018 Resolved Problems Problem Noted Date Diagnosed Date Resolved Date Varicose veins of bilateral lower extremities with pain 08/17/2021 08/17/2021 Immunizations Immunization Administration Dates Next Due Influenza, Quadrivalent, Hig h Dose, Preservative Free, Intrr 07/11/2021 Influenza, Quadrivalent, Spl it, Preservative Free, Intramuscular 06/23/2018 Pneumococcal Conjugate PCV 13 08/26/2017 Pneumococcal Polysaccharide PPV23 10/20/2018 Social History Tobacco Use Types Packs/Day Years [...] on file Sexual Orientation Not on file Last Filed Vital Signs Vital Sign Reading [...] 05/15/2022 12:03 PM CDT Plan of Treatment Not on file Procedures Procedure Name Priority Date/Time Associated Diagnosis Comments EGFR Routine 03/25/2022 9:38 PM CDT POCT HEMOGLOBIN A1C Routine 02/23/2022 2 :29 PM CDT from Last 3 Months or Most Recently Relevant to Health Maintenance Results * (ABNORMAL) eGFR (03/25/2022 9:38 PM CDT) eGFR 41(L) 90 - 130 mL/min/1. 73 m2 [facility] Comment: Interpretive Data Reference Interval Normal >/= [...] of Race in Diagnosing Kidney Disease, JASN 202). The CKD-EPI equation should not be used for patients with unstable renal function and has not been validated in children and those over 70. Current interpretive data was last reviewed 2021. Blood 03/25/2022 9:38 PM CDT 03/25/2022 10:17 PM CDT Mamta Arellano MD LAB BLOOD ORDERABLES Fi nal Result Performing Organization Address [facility] de Phone Number [facility] [place] [address] * POCT hemoglobin A1c (02/23/2022 2:29 PM CDT) Hgb A1C, POC 5.6 4.0 - 5.6 % [facility] Est Average Gluc POC 114 mg/dL [facility] Comment: The ADA recommends reporting an estimated Average Glucose (eAG) with all Hemoglobin A1c results using the equation derived from a study of 507 normal and diabetic adults. Minority populations were underrepresented and children were not included. (Diabetes Care 31:5435-8031, 2008). The eAG is not equivalent to a fasting glucose. Blood 02/23/2022 2:29 PM CDT 02/23/2022 2:29 PM CDT us Notinfile Unknown POINT OF CARE TEST ORDERABLES Final Result Performing Organization Address City/[facility] Co de Phone Number [facility] [place] [address] from Last 3 Months or Most Recently Relevant to Health Maintenance Insurance [employer] [facility] IDPA AETNA MEDICARE GOLD IDPA AETNA MEDICARE GOLD IDPA Advance Directives For more information, please contact: [phone] * Full Code (Latest Code Status on File) Date Activated Date Inactivated Comments 03/15/2022 7:47 PM 03/27/2022 3:43 AM Care Teams Field Scout Relationship Specialty Start Date End Date Denice Santiago PA PCP - General Physician Lean Manufacturing Specialist 07/13/21
--- OUTSIDE RECORDS SUMMARY | 2025-03-01 10:50 | XMS_ITS | Data Portability ---
Author Organization [facility] Christine [facility] Address [address] [place] [address] Care Team Providers Care Assistant Family Teacher Name Role Phone ANNAMARIE PUCKETT Primary Care Provider [phone] Assessment Encounter Date Assessment Date Assessment LastModified by Organization Details LastModified Time 12/24/2024 12/24/2024 Kimberly is here following up on chronic conditions. She is very limited in her walking in self-care. Family members are helping her with bathing and toileting. She is sedentary mostly today. I discussed with family importance of considering putting her in a care facility that will best meet her needs. They have a hard time moving her out of the house for appointments due to her immobility. Not available 01/15/2025 05:58:14 Plan of Treatment Reminders Order Date Submit Date Provider Last Modified By Organization Details Last Modified Time Details Appointments ANY 30 2024 03:45P KAM LUCIA Not available Not available Not available Lab HbA1c (hemoglob in A1c), blood 2024 025 JADEN Gruber, [address], [place], [address], 12/26/2024 09:38:41 lipid panel, serum 2024 025 JADEN Gruber, [address], [place], [address], 12/26/2024 09:38:39 CMP, serum or plasma 2024 025 JADEN Labradha, [address], [place], [address], 12/26/2024 09:38:40 albumin/c reatinine , mass ratio, urine 2024 025 JADENFRANCISCO J Ruffin, [address], [place], [address], 12/26/2024 09:38:38 HbA1c (hemoglob in A1c), blood 2022 023 [email or web address] In-Office Order, Internal Use Only DO Not Attach Compendium DO Not Attach Compendium, Do Not Delete/merge, [id number] 01/02/2023 09:15:48 albumin/c reatinine , mass ratio, urine 2021 022 JADEN Gruber, [address], [place], [address], 05/29/2022 16:12:00 HbA1c (hemoglob in A1c), blood 2021 022 JADEN Gruber, [address], [address], [place], [address], 05/29/2022 16:12:01 lipid panel, serum 2021 022 JADEN Gruber, [address], [place], [address], 05/29/2022 16:11:59 CMP, serum or plasma 2021 022 JADEN Gruber, [address], [place], [address], 05/29/2022 16:11:58 [facility]erral [facility] [address], [place], [address], 12/25/2024 14:20:38 wound care referral 2024 025 [email or web address] [facility], [facility], [place], [address], 01/07/2025 08:09:33 gynecolog ic oncologis t referral [address] [facility] [facility] Oncology, [facility], [place], [address], 12/24/2024 17:41:05 wound care referral 2022 023 [facility], [facility], [place], [address], 03/01/2023 09:22:37 wound care referral 2022 023 [facility], [facility], [place], [address], 04/02/2023 08:45:34 Procedures None recorded. Surgeries None recorded. Imaging DEXA 2021 022 [facility], [address], [address] [address], [place], [address], 06/07/2022 11:25:26 Medication Orders citalopra m 10 mg tablet [address] [facility]armacy #[id number], [address], [place], [address], 10/02/2022 12:28:41 oxybutyni n chloride 5 mg tablet [address]/Pharmacy #[id number], [address], [place], [address], 10/04/2022 19:31:03 Patient TargetsNo targets recorded. Patient Instructions Encounter Date Encounter Id Patient Instructions Last Modified By Organization Details Last Modified Time 05/28/2022 [id number] A healthy lifestyle: care instructions Not available 06/07/2022 11:08:16 Reason for Referral Referring Physician: General Dre Schroeder, Encounter Date: 01/01/2023 Referring Physician: General Dre Schroeder, Encounter Date: 02/05/2023 Referring Physician: General Dre Schroeder, Encounter Date: 12/24/2024 Gynecologic Oncologist Refer ral for Endometrial carcinoma Referring Physician: General Dre Lechuga, Encounter Date: 12/24/2024 Physical Therapist Referral for Difficulty walking Referring Physician: Annamarie Puckett Dam Attendant, Encounter Date: 12/24/2024 Results Created Date Observation Date Name Description Value Unit Range Abnormal Flag Note LastModifiedBy Organization Detail LastModifiedTime 05/28/20 22 05/29/2022 COMP. METAB OLIC PANEL (14) glucose 99 mg/dL 65-99 Not Available [facility] ([facility]) [address] [place], [address], 05/29/2022 16:11:58 05/28/20 22 05/29/2022 COMP. METAB OLIC PANEL (14) BUN 22 mg/dL 8-27 Not Available [facility] ([facility]) [address] [place], [address], 05/29/2022 16:11:58 05/28/20 22 05/29/2022 COMP. METAB OLIC PANEL (14) creatinine 0.97 mg/dL 0.57-1 .00 Not Available [facility] ([facility]) [address] [place], [address], 05/29/2022 16:11:58 05/28/20 22 05/29/2022 COMP. METAB OLIC PANEL (14) eGFR 59 mL/mi n/1.7 3 >59 below low normal Not Available [facility] ([facility]) [address] [place], [address], 05/29/2022 16:11:58 05/28/20 22 05/29/2022 COMP. METAB OLIC PANEL (14) BUN/creatini ne ratio 23 12-28 Not Available [facility] ([facility]) [address] [place], [address], 05/29/2022 16:11:58 05/28/20 22 05/29/2022 COMP. METAB OLIC PANEL (14) sodium 140 mmol/ L 134-14 4 Not Available [facility] ([facility]) [address] [place], [address], 05/29/2022 16:11:58 05/28/20 22 05/29/2022 COMP. METAB OLIC PANEL (14) potassium 4.3 mmol/ L 3.5-5. 2 Not Available [facility] ([facility]) [address] [place], [address], 05/29/2022 16:11:58 05/28/20 22 05/29/2022 COMP. METAB OLIC PANEL (14) chloride 100 mmol/ L 96-106 Not Available [facility] ([facility]) [address] [place], [address], 05/29/2022 16:11:58 05/28/20 22 05/29/2022 COMP. METAB OLIC PANEL (14) carbon dioxide, total 27 mmol/ L 20-29 Not Available [facility] ([facility]) [address] [place], [address], 05/29/2022 16:11:58 05/28/20 22 05/29/2022 COMP. METAB OLIC PANEL (14) calcium 10.0 mg/dL 8.7-10 .3 Not Available [facility] ([facility]) [address] [place], [address], 05/29/2022 16:11:58 05/28/20 22 05/29/2022 COMP. METAB OLIC PANEL (14) protein, total 6.9 g/dL 6.0-8. 5 Not Available [facility] ([facility]) [address] [facility] [place], [address], 05/29/2022 16:11:58 05/28/20 22 05/29/2022 COMP. METAB OLIC PANEL (14) albumin 4.1 g/dL 3.7-4. 7 Not Available [facility] ([facility]) [address] [facility], [place], [address], 05/29/2022 16:11:58 05/28/20 22 05/29/2022 COMP. METAB OLIC PANEL (14) globulin, total 2.8 g/dL 1.5-4. 5 Not Available [facility] ([facility]) [address], [place], [address], 05/29/2022 16:11:58 05/28/20 22 05/29/2022 COMP. METAB OLIC PANEL (14) A/G ratio 1.5 1.2-2. 2 Not Available [facility] ([facility]) [address] [facility] [place], [address], 05/29/2022 16:11:58 05/28/20 22 05/29/2022 COMP. METAB OLIC PANEL (14) bilirubin, total 0.2 mg/dL 0.0-1. 2 Not Available [facility] ([facility]) [address] [facility] [place], [address], 05/29/2022 16:11:58 05/28/20 22 05/29/2022 COMP. METAB OLIC PANEL (14) alkaline phosphatase 80 IU/L 44-121 Not Available [facility] ([facility]) [address] [facility], [place], [address], 05/29/2022 16:11:58 05/28/20 22 05/29/2022 COMP. METAB OLIC PANEL (14) AST (SGOT) 11 IU/L 0-40 Not Available [facility] ([facility]) [address] [facility], [place], [address], 05/29/2022 16:11:58 05/28/20 22 05/29/2022 COMP. METAB OLIC PANEL (14) ALT (SGPT) 9 IU/L 0-32 Not Available [facility] ([facility]) [address] [facility], [place], [address], 05/29/2022 16:11:58 05/28/20 22 05/29/2022 LIPID PANEL cholesterol, total 184 mg/dL 100-19 9 Not Available [facility] ([facility]) [address] [place], [address], 05/29/2022 16:11:59 05/28/20 22 05/29/2022 LIPID PANEL triglyceride s 155 mg/dL 0-149 above high normal Not Available [facility] ([facility]) [address] [place], [address], 05/29/2022 16:11:59 05/28/20 22 05/29/2022 LIPID PANEL HDL cholesterol 65 mg/dL >39 Not Available [facility] ([facility]) [address] [facility], [place], [address], 05/29/2022 16:11:59 05/28/20 22 05/29/2022 LIPID PANEL VLDL cholesterol travis 27 mg/dL 5-40 Not Available [facility] ([facility]) [address] [place], [address], 05/29/2022 16:11:59 05/28/20 22 05/29/2022 LIPID PANEL LDL chol calc ([facility]) 92 mg/dL 0-99 Not Available [facility] ([facility]) [address] [place], [address], 05/29/2022 16:11:59 05/28/20 22 05/29/2022 LIPID PANEL 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 No urine speci men recei vanessa. 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 6 above high normal Predi abete s: 5.7 - 6.4 Diabe axel: >6.4 Glyce nikolai contr ol for adult s with diabe axel: <7.0 Not Available [facility] ([facility]) [address] [facility], [place], [address], 05/29/2022 16:12:01 05/28/20 22 05/29/2022 SPECI MEN STATU S REPOR T specimen status report TNP Test not perfo rmed. No urine speci men recei vanessa. TEST: [id number] Album in/Cr eatin ine Ratio ,Urin e Not Available [facility] ([facility]) [address] [place], [address], 05/29/2022 16:12:04 01/02/20 23 01/01/2023 HbA1c (hemo globi n A1c), blood HbA1c 5.9 Not Available In-Office Order Internal Use Only DO Not Attach Compendium DO Not Attach Compendium, Do Not Delete/merge, [id number] 01/01/2023 16:25:21 12/25/19 25 12/26/2024 ALBUM IN/CR EATIN INE RATIO ,URIN E creatinine, urine - mg/dL Test not perfo rmed. No urine speci men recei vanessa. Not Available [facility] ([facility]) [address] [facility], [place], [address], 12/26/2024 09:38:38 12/25/19 25 12/26/2024 ALBUM IN/CR EATIN INE RATIO ,URIN E albumin, urine - Test not perfo rmed Not Available [facility] ([facility]) [address] [place], [address], 12/26/2024 09:38:38 12/25/19 25 12/26/2024 LIPID PANEL cholesterol, total 167 mg/dL 100-19 9 Not Available [facility] ([facility]) [address] [place], [address], 12/26/2024 09:38:39 12/25/19 25 12/26/2024 LIPID PANEL triglyceride s 203 mg/dL 0-149 above high normal Not Available [facility] ([facility]) [address] [facility], [place], [address], 12/26/2024 09:38:39 12/25/19 25 12/26/2024 LIPID PANEL HDL cholesterol 62 mg/dL >39 Not Available [facility] ([facility]) [address] [place], [address], 12/26/2024 09:38:39 12/25/19 25 12/26/2024 LIPID PANEL VLDL cholesterol travis 33 mg/dL 5-40 Not Available [facility] ([facility]) [address] [facility], [place], [address], 12/26/2024 09:38:39 12/25/19 25 12/26/2024 LIPID PANEL LDL chol calc ([facility]) 72 mg/dL 0-99 Not Available [facility] ([facility]) [address] [place], [address], 12/26/2024 09:38:39 12/25/19 25 12/26/2024 COMP. METAB OLIC PANEL (14) glucose 180 mg/dL 70-99 above high normal Not Available [facility] ([facility]) [address] [place], [address], 12/26/2024 09:38:40 12/25/19 25 12/26/2024 COMP. METAB OLIC PANEL (14) BUN 14 mg/dL 8-27 Not Available [facility] ([facility]) [address] [place], [address], 12/26/2024 09:38:40 12/25/19 25 12/26/2024 COMP. METAB OLIC PANEL (14) creatinine 1.10 mg/dL 0.57-1 .00 above high normal Not Available [facility] ([facility]) [address] [place], [address], 12/26/2024 09:38:40 12/25/19 25 12/26/2024 COMP. METAB OLIC PANEL (14) eGFR 50 mL/mi n/1.7 3 >59 below low normal Not Available [facility] ([facility]) [address] [place], [address], 12/26/2024 09:38:40 12/25/19 25 12/26/2024 COMP. METAB OLIC PANEL (14) BUN/creatini ne ratio 13 12-28 Not Available [facility] ([facility]) [address] [place], [address], 12/26/2024 09:38:40 12/25/19 25 12/26/2024 COMP. METAB OLIC PANEL (14) sodium 141 mmol/ L 134-14 4 Not Available [facility] ([facility]) [address] [facility], [place], [address], 12/26/2024 09:38:40 12/25/19 25 12/26/2024 COMP. METAB OLIC PANEL (14) potassium 3.8 mmol/ L 3.5-5. 2 Not Available [facility] ([facility]) [address] [facility], [place], [address], 12/26/2024 09:38:40 12/25/19 25 12/26/2024 COMP. METAB OLIC PANEL (14) chloride 103 mmol/ L 96-106 Not Available [facility] ([facility]) [address] [facility], [place], [address], 12/26/2024 09:38:40 12/25/19 25 12/26/2024 COMP. METAB OLIC PANEL (14) carbon dioxide, total 22 mmol/ L 20-29 Not Available [facility] ([facility]) [address] [place], [address], 12/26/2024 09:38:40 12/25/19 25 12/26/2024 COMP. METAB OLIC PANEL (14) calcium 9.5 mg/dL 8.7-10 .3 Not Available [facility] ([facility]) [address] [facility], [place], [address], 12/26/2024 09:38:40 12/25/19 25 12/26/2024 COMP. METAB OLIC PANEL (14) protein, total 6.8 g/dL 6.0-8. 5 Not Available [facility] ([facility]) [address] [place], [address], 12/26/2024 09:38:40 12/25/19 25 12/26/2024 COMP. METAB OLIC PANEL (14) albumin 4.1 g/dL 3.7-4. 7 Not Available [facility] ([facility]) [address] [place], [address], 12/26/2024 09:38:40 12/25/19 25 12/26/2024 COMP. METAB OLIC PANEL (14) globulin, total 2.7 g/dL 1.5-4. 5 Not Available [facility] ([facility]) [address] [place], [address], 12/26/2024 09:38:40 12/25/19 25 12/26/2024 COMP. METAB OLIC PANEL (14) bilirubin, total 0.4 mg/dL 0.0-1. 2 Not Available [facility] ([facility]) [address] [place], [address], 12/26/2024 09:38:40 12/25/19 25 12/26/2024 COMP. METAB OLIC PANEL (14) alkaline phosphatase 73 IU/L 44-121 Not Available [facility]) [address] [place], [address], 12/26/2024 09:38:40 12/25/19 25 12/26/2024 COMP. METAB OLIC PANEL (14) AST (SGOT) 10 IU/L 0-40 Not Available [facility] ([facility]) [address] [place], [address], 12/26/2024 09:38:40 12/25/19 25 12/26/2024 COMP. METAB OLIC PANEL (14) ALT (SGPT) 10 IU/L 0-32 Not Available [facility] ([facility]) [address] [place], [address], 12/26/2024 09:38:40 12/25/19 25 12/26/2024 HEMOG LOBIN A1C hemoglobin A1C 7.6 % 4.8-5. 6 above high normal Predi abete s: 5.7 - 6.4 Diabe axel: >6.4 Glyce nikolai contr ol for adult s with diabe axel: <7.0 Not Available [facility] ([facility]) [address] [facility], [place], [address], 12/26/2024 09:38:41 Result Notes None recorded. 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 KAM LECHUGA Attn: Accounting ,[address] [place], [address] , [place] [facility] 3 19:33:39 Venous stasis ulcer with edema of right lower leg 1970534053263 9106 Active 2022 KAM LECHUGA Attn: Accounting ,[address] [facility], [place], [address] , [place] [facility] 3 16:25:32 Venous stasis ulcer with edema of left lower leg [id number] 9101 Active 2022 KAM LECHUGA Attn: Accounting ,[address] [facility], [place], [address] , [place] [facility] 3 16:25:32 Problem Notes Documentation Provider Name and Address Organization Details Recorded Time This document () was received from [email or web address], [email or web address] Newsy on 06/21/2022 through Direct Message along with the following message body content: Patient Name: KIMBERLY REED Patient : 1940. Patient . Kia najera, [facility] 06/25/2022 12:25:07 Medical Equipment None Reported. Allergies Allergen ID Allergen Name Allergen Category Reaction Reaction Severity Criticality Documentation Date Start Date Code Code System Note Provider Name and Address Organization Details Recorded Time 642395 Product containin g penicilli n (product) medicatio n Not available Not available Not available 03/17/2018 78657 8001 SNOMED Terri Giron MA null, [place] - [facility] 8 12:10:38 980786 oxybutyni n medicatio n Not available Not available Not available 12/30/2019 21471 RxNorm Faye Gibson MA null, [place] - [facility] 0 12:16:55 Medications Name Sig Start Date Stop Date Status Note LastModified by Organization Details LastModified Time Prescript ion - Prior Authoriza tion Request active Not Available Not Available Not Available furosemid e 40 mg tablet 07/11 completed Not Available Not Available Not Available metformin 500 mg tablet TAKE 2 TABLETS BY MOUTH TWICE A DAY 2024 active Not Available Not Available Not Avai lable potassium chloride ER 10 mEq capsule,e xtended release TAKE 1 CAPSULE BY MOUTH EVERY DAY 03/09 completed Not Available Not Available Not Available doxycycli ne hyclate 100 mg capsule TAKE 1 CAPSULE BY MOUTH TWICE A DAY active Not Available Not Available No t Available oxybutyni n chloride ER 10 mg tablet,ex tended release 24 hr TAKE 1 TABLET BY MOUTH EVERY DAY 03/09 completed Not Available Not Available Not Available aspirin 325 mg tablet Take 1 tablet every day by oral route. active Not Available Not Available No t Available ofloxacin 0.3 % eye drops INSTILL 1 DROP INTO AFFECTED EYE(S) BY OPHTHALM IC ROUTE 4 TIMES PER DAY 01/01 completed Not Available Not Available Not Available citalopra m 10 mg tablet TAKE 1 TABLET BY MOUTH EVERY DAY active Not Available Not Available No t Available potassium chloride ER 10 mEq tablet,ex tended release 07/11 completed Not Available Not Available Not Available allopurin ol 100 mg tablet TAKE 1 TABLET BY MOUTH EVERY DAY 07/11 completed Not Available Not Available Not Available sulfameth oxazole 800 mg-trimet hoprim 160 mg tablet TAKE 1 TABLET BY MOUTH EVERY 12 HOURS 05/28 completed Not Available Not Available Not Available acetamino phen 500 mg tablet TAKE 2 TABLETS BY MOUTH EVERY 6 HOURS NEEDED FOR PAIN 05/28 completed Not Available Not Available Not Available triamcino lone acetonide 0.1 % topical cream 03/17 completed Not Available Not Available Not Available prednisol one acetate 1 % eye drops,her[employer] pension INSTILL 1 DROP INTO LEFT EYE 4 TIMES PER DAY 05/28 completed Not Available Not Available Not Available OneTouch Ultra Test strips USE TO TEST TWICE DAILY active Not Available Not Available No t Available simvastat in 20 mg tablet TAKE 1 TABLET BY MOUTH EVERY DAY IN THE EVENING active Not Available Not Available No t Available metformin 1,000 mg tablet TAKE 1 TABLET BY MOUTH TWICE DAILY 06/30 completed Not Available Not Available Not Available hydrochlo rothiazid e 12.5 mg capsule 05/16 completed Not Available Not Available Not Available docusate sodium 100 mg capsule TAKE 1 CAPSULE BY MOUTH TWICE A DAY active Not Available Not Available No t Available oxybutyni n chloride ER 5 mg tablet,ex tended release 24 hr TAKE 1 TABLET BY MOUTH EVERY DAY 08/18 completed Not Available Not Available Not Available triamtere ne 37.5 mg-hydroc hlorothia zide 25 mg tablet TAKE 1 TABLET BY MOUTH EVERY DAY active Not Available Not Available No t Available lisinopri l 5 mg tablet Take 1 tablet every day by oral route for 90 days. 04/28 completed Not Available Not Available Not Available hydrochlo rothiazid e 25 mg tablet 07/11 completed Not Available Not Available Not Available furosemid e 20 mg tablet TAKE 1 TABLET BY MOUTH EVERY DAY IN THE MORNING active Not Available Not Available No t Available colchicin e 0.6 mg tablet 05/28 completed Not Available Not Available Not Available oxybutyni n chloride 5 mg tablet TAKE 1 TABLET BY MOUTH TWICE A DAY X90 DAYS active Not Available Not Available No t Available ondansetr on 4 mg disintegr ating tablet DISSOLVE 1 TABLET ON TONGUE EVERY 6 HOURS NEEDED FOR NAUSEA AND VOMITING 01/01 completed Not Available Not Available Not Available doxycycli ne hyclate 100 mg tablet TAKE 1 TABLET BY MOUTH TWICE DAILY active Not Available Not Available No t Available gentamici n 0.1 % topical ointment 10/02 completed Wound Care-Dr. Naresh Mandel Not Available Not Available Not Available oxycodone 5 mg tablet TAKE 1 TABLET BY MOUTH ONCE EVERY 4 HOURS NEEDED FOR PAIN 06/04 completed Not Available Not Available Not Available Refresh Liquigel 1 % eye liquid gel drops INSTILL 1 DROP INTO THE AFFECTED EYE(S) 4 TIMES DAILY active Not Available Not Available No t Available enoxapari n 30 mg/0.3 mL subcutane ous syringe INJECT THE CONTENTS OF 1 SYRINGE SUBCUTAN EOUSLY EVERY DAY 05/28 completed Not Available Not Available Not Available Magnesium (oxide/AA chelate) 300 mg capsule Take 1 capsule every day by oral route. 07/11 completed Not Available Not Available Not Available Alcohol Prep Pads 03/17 completed Not Available Not Available Not Available nitrofura ntoin monohydra te/macroc rystals 100 mg capsule TAKE 1 CAPSULE BY MOUTH EVERY 12 HOURS FOR 5 DAYS 05/28 completed Not Available Not Available Not Available lutein 20 mg capsule Take 1 capsule every day by oral route. 02/24 completed Not Available Not Available Not Available Januvia 50 mg tablet TAKE 2 TABLETS BY MOUTH EVERY DAY 05/28 completed Not Available Not Available Not Available Januvia 100 mg tablet TAKE 1 TABLET BY MOUTH EVERY DAY. MUST MAKE OFFICE APPOINTM ENT FOR REFILLS active Not Available Not Available No t Available hydrochlo rothiazid e 12.5 mg tablet TAKE 1 TABLET BY MOUTH EVERY DAY IN THE MORNING 03/09 completed Not Available Not Available Not Available Prevnar 13 (PF) 0.5 mL intramusc ular syringe 03/17 completed Not Available Not Available Not Available lutein 20 mg tablet Take 1 mg every day by oral route in the morning. active Not Available Not Available No t Available Eliquis 5 mg tablet TAKE 1 TABLET BY MOUTH TWICE A DAY active Not Available Not Available No t Available Fluzone High-Dose [id number] (PF) 180 mcg/0.5 mL intramusc ular syringe 03/17 completed Not Available Not Available Not Available OneTouch Ultra Blue Test Strip USE TO TEST BLOOD SUGAR TWICE DAILY active Not Available Not Available No t Available OneTouch Ultra2 Meter active Not Available Not Available Not Available OneTouch Delica Plus Lancet 33 gauge USE TO TEST TWICE DAILY active Not Available Not Available No t Available Flucelvax Quad 60 mcg (15 mcg x 4)/0.5 mL intramusc ular susp PHARMACY ADMINIST ERED 03/03 completed Not Available Not Available Not Available Vitals Date Recorded Body height Body mass index (BMI) Body weight Heart rate Oxygen saturation Oxygen saturation in Arterial blood by Pulse oximetry Systolic blood pressure Diastolic blood pressure Provider Name and Address Organization Details Last Updated DateTime 5 157.48 cm 49.8 kg/m2 611095. 22 g 84 /min 94 % 94 % 152 mm[Hg] 91 mm[Hg] Faye Gibson MA [facility] 5 17:04:42 Date Recorded Body height Heart rate Oxygen saturation Oxygen saturation in Arterial blood by Pulse oximetry Body mass index (BMI) Body weight Systolic blood pressure Diastolic blood pressure Provider Name and Address Organization Details Last Updated DateTime 3 157.48 cm 71 /min 95 % 95 % 46.2 kg/m2 524368. 08 g 124 mm[Hg] 70 mm[Hg] KAM LECHUGA Attn: Frankie phan,[address] [place], [address], [place] - [facility] 3 16:08:41 Date Recorded Body height Body mass index (BMI) Body weight Heart rate Oxygen saturation Oxygen saturation in Arterial blood by Pulse oximetry Systolic blood pressure Diastolic blood pressure Provider Name and Address Organization Details Last Updated DateTime 3 157.48 cm 49.2 kg/m2 926104. 35 g 71 /min 93 % 93 % 134 mm[Hg] 72 mm[Hg] Faye Gibson MA [place] [facility] 3 15:51:25 Date Recorded Body height Body mass index (BMI) Body weight Heart rate Oxygen saturation Oxygen saturation in Arterial blood by Pulse oximetry Systolic blood pressure Diastolic blood pressure Provider Name and Address Organization Details Last Updated DateTime 2 157.48 cm 41.4 kg/m2 806197. 68 g 72 /min 95 % 95 % 126 mm[Hg] 76 mm[Hg] Faye Gibson MA [place] [facility] 2 11:08:26 Social History Question Answer Notes LastModified by SocialPandasat ion Details LastModified Time Tobacco Smoking Status Never Smoker Not Available [facility]2020 03:39:30 Do You Have An Advance Directive? Yes Information not available 10/26/2020 Do You Have A Basement? No Information not available 10/26/2020 Is Blood Transfusion Acceptable In An Emergency? No Information not available 10/26/2020 What Is Your Level Of Caffeine Consumption? None Hasn't For A Long Time. Information not available 10/26/2020 Are You A Caregiver? No Information not available 10/26/2020 How Much Tobacco Do You Chew? None [id number] Information not available 07/19/2020 In The 14 Days Before Symptom Onset, Have You Had Close Contact With A Laboratory-confi rmed COVID-19 While That Case Was Ill? No Information not available 10/26/2020 In The 14 Days Before Symptom Onset, Have You Had Close Contact With A Person Who Is Under Investigation For COVID-19 While That Person Was Ill? No Information not available 10/26/2020 Have You Been To An Area Known To Be High Risk For COVID-19? No Information not available 10/26/2020 What Type Of Diet Are You Following? REGULAR Information not available 10/26/2020 Have You Processed Blood Or Body Fluids From An Ebola Virus Disease Patient Without Appropriate PPE? No Information not available 10/26/2020 Do You Reside In Or Have You Traveled To An Area Where Ebola Virus Transmission Is Active? No Information not available 10/26/2020 What Is The Highest Grade Or Level Of School You Have Completed Or The Highest Degree You Have Received? [id number] Information not available 10/26/2020 Have There Been Any Changes To Your Family Or Social Situation? No Information not available 10/26/2020 What Is The Fluoride Status Of Your Home? Unknown Information not available 10/26/2020 Are There Any Guns Present In Your Home? No Information not available 10/26/2020 Which Of Your Hands Is Dominant? Right Information not available 10/26/2020 Have You Recently Or Are You Planning To Travel To An Area With Zika Virus? No Information not available 10/26/2020 Where Do You Live? SingleLevelHouse Information not available 10/26/2020 Live Alone Or With Others? With Others [email or web address] Information not available 05/16/2020 Do You Have A High School Diploma Or Higher Education? Yes Information not available 10/26/2020 Do You Sometimes Have To Miss Your Medical Appointments Due To Difficult Getting Transportation? No Information not available 10/26/2020 Do You Feel Unfairly Treated Due To Things Such As Race, Age, Gender, Disability Or Some Other Reason? No Information not available 10/26/2020 Do You Feel Physically And Emotionally Safe While Living At Home? Yes Information not available 10/26/2020 Do You Feel Physically And Emotionally Safe In Your Neighborhood Or Other Public Places? Yes Information not available 10/26/2020 How Long Have You Lived There? 60 Years. Information not available 10/26/2020 Do You Have A Medical Power Of Data Processing Clerk? Yes Information not available 10/26/2020 What Was The Date Of Your Most Recent Tobacco Screening? 07/11/2021 Information not available 07/11/2021 Do You Have Any Pets? Yes 1 Dog, 2 Kittens, 2 Birds. Information not available 10/26/2020 What Is Your Relationship Status? Single Information not available 03/03/2021 Do You Use Your Seat Belt Or Car Seat Routinely? Yes Information not available 10/26/2020 Are You Sexually Active? No Information not available 03/03/2021 Do You Have Smoke And Carbon Monoxide Detectors In Your Home? Yes Information not available 03/03/2021 Are You Passively Exposed To Smoke? No Information not available 10/26/2020 Are There Any Smokers In Your House? Yes Information not available 10/26/2020 How Much Tobacco Do You Smoke? No [id number] Information not available 07/19/2020 General Stress Level Low Information not available 05/05/2020 Has Tobacco Cessation Counseling Been Provided? Yes Information not available 10/26/2020 On What Date Was Tobacco Cessation Counseling Provided? 07/11/2021 Information not available 07/11/2021 How Many Years Have You Smoked Tobacco? 0 [id number] Information not available 07/19/2020 Have You Recently Traveled Abroad? No Information not available 10/26/2020 Do You Have Difficulty Walking Or Climbing Stairs? Yes Information not available 10/26/2020 Do You Have Any Dietary Restrictions? No Information not available 10/26/2020 Sex: Female Functional Status Question Answer Note LastModified by Organizat ion Details LastModified Time Do you use any illicit or recreational drugs? No Information not available 03/03/2021 What is your level of alcohol consumption? None [id number] Information not available 07/19/2020 Do you or have you ever used smokeless tobacco? Never used smokeless tobacco [id number] Information not available 07/19/2020 Are you currently employed? No [id number] Information not available 07/19/2020 Have you been exposed to heavy metals? No Information not available 10/26/2020 Have you been exposed to chemicals or toxins? No Information not available 10/26/2020 Do you have transportation difficulties? Yes Information not available 10/26/2020 Are you able to walk? YESLIMIT Information not available 10/26/2020 Are you able to care for yourself? No [id number] Information n ot available 07/19/2020 Do you have difficulty dressing or bathing? Yes Bathing, ladkurt comes in and helps her bathe. Information not available 10/26/2020 Do you or have you ever used e-cigarettes or vape? Never used electronic cigarettes [id number] Information not available 07/19/2020 Mental Status Question Answer Note LastModified by Organizat ion Details LastModified Time Do you feel stressed (tense, restless, nervous, or anxious, or unable to sleep at night)? [id number] Yes, due to her chair issues. Sleeps in chair. Information not available 10/26/2020 Do you have difficulty concentrating, remembering or making decisions? No Information not available 10/26/2020 Family History Relationship Description Onset Age of this Age Resolved Age Notes LastModified by Organization Details LastModified Time Father Alcoholism [email or web address] Not availa ble 03/17/2018 12:13:05 Mother Cerebrovascu lar accident [email or web address] Not available 10/2017 12:13:16 Mother Heart disease [email or web address] Not available 2017 12:13:28 Mother Hypertensive disorder [email or web address] Not available 2017 12:13:48 Medical History Condition Response Coronary Artery Disease N Other N Atrial Fibrillation N High Blood Pressure Y Depression Y COPD N Blood Clots N Anxiety Disorder N Muscle, Joint, or Bone Problems N Acid Reflux (GERD) N Cancer N Stroke N High Cholesterol N Liver Disease N Headaches N Kidney or Bladder Problems Y Thyroid Problems N GI Problems N Skin Problems N Anemia N Heart Attack (NM) N Diabetes Y Seizures/Epilepsy N Asthma N Allergies N Hepatitis N Heart Failure N Osteoporosis N Gynecological HistoryNo gynecological history recorded. Obstetrics History GPAL:G 0 P 0 0 0 0 Immunizations Vaccine Type Date Status Note Provider Nam e and Address Organization Details Recorded Time COVID-19, mRNA, LNP-S, PF, 100 mcg/0.5mL dose or 50 mcg/0.25mL dose 1 completed Denise Rubio RN null, [place] - [facility] 03/03/2021 15:35:13 Influenza, split virus, quadrivalent, PF 8 completed Not Available [facility] 10/03/2019 02:47:59 pneumococcal polysaccharide PPV23 9 completed Not Available [facility] 10/03/2019 02:49:09 Influenza, high-dose, quadrivalent, PF 1 completed Faye Gibson MA null, [place] - [facility] 07/11/2021 17:19:42 Pneumococcal conjugate PCV 13 7 completed ISMAEL Bustamante NP Attn: [employer] [place], [address], [facility] [place] 06/23/2018 11:57:41 Past Encounters Encounter ID Performer Location Encounter Start Date Encounter Closed Date Diagnosis/Indication Diagnosis SNOMED-CT Code Diagnosis ICD10 Code Diagnosis Note [id number] ISMAEL Bustamante NP [facility] [address] [place] [address] 03/17/2018 11:48:25 03/24/2018 17:29:49 Diabetes mellitus 03763482 E11.9 -Obtain labs Edema of l ower extremity 194547922 R60.0 -Check BNP Increased frequency of urination 158158576 R35.0 -Urine dipstick with leukocytes -Send urine for culture -Discussed kegal excercises [id number] ISMAEL Bustamante NP [facility] [address] [place] [address] 04/28/2018 11:39:04 04/28/2018 15:52:12 Edema of lower extremity 870490688 R60.0 -D/c lisinopril due to cough-D/c lasix due to increased urination- Start HCTZ-F/u 1 month Diabetes mellitus 038392 09 E11.9 -Continue metformin [id number] ISMAEL Bustamante NP [facility] [address] [place] [address] 05/26/2018 11:31:38 05/26/2018 17:06:47 Urinary incontinence 567111945 R32 - UA negative-S tart oxybutynin as directed-F /u 1 month Edema of l ower extremity 250114203 R60.0 -Continue HCTZ-BNP neg-Compre ssion stockings, avoid sodium, elevate BLE Muscle weakness 85814853 M62.81 -Start home health PT [id number] ISMAEL Bustamante NP [facility] [address] [place] [address] 06/23/2018 10:37:29 06/23/2018 12:10:22 Urinary incontinence 939625564 R32 -Increase oxybutynin as directed-F /u 3 month Edema of l ower extremity 657506707 R60.0 -Continue HCTZ-BNP neg-Compre ssion stockings, avoid sodium, elevate BLE Muscle weakness 78347994 M62.81 -Pt has home health physical therapy coming to home-Repor ts improvemen t with physical strength [id number] ISMAEL Bustamante NP [facility] [address] [place] [address] 08/18/2018 10:07:15 08/18/2018 11:15:03 Edema of lower extremity 058400469 R60.0 -D/c HCTZ-F/u 2 weeks to assess if dizziness has improved-C ontinue compressio n stockings, avoid sodium, elevate BLE [id number] ISMAEL Bustamante NP [facility] [address] [place] [address] 10/20/2018 10:06:56 10/20/2018 10:52:56 Type 2 diabetes mellitus 01444466 E11.9 -Obtain labs-Mark nue medication s-DM diet and exercise Active or passive immunization 273267304 Z23 [id number] Reina Luna MD [facility] [address] [place] [address] 03/09/2019 09:58:30 03/14/2019 13:20:56 Diabetes mellitus 43122103 E11.59 Hypertriglyceridemia 302 741554 E78.1 Bladder mu scle dysfunction - overactive 624049046 N32.81 Mild recur rent major depression 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 refill on metformin. - f/u in 3 months- continue DM diet- increase walking as tolerated to increase physical activity Dysuria 47715612 R30.9 Patient having blood in urine when she wiped. She is to see gynecology to r/o telephone operator sources of blood. She says blood is from urine. afebrile, BP 134/68.- *Not enough urine collected for culture-UA postive for nitrates and blood.- take macrobid 2x day x 5 days- f/u in one week Mild recur rent major depression 36050494 F33.0 Patient states medication was making her drowsy in the morning so she quit taking it. She would like to try taking it at night - continue medication as prescribed but try at night time- if SI/HI develop please go to ER and notify office- f/u in 4-6 weeks or prn [id number] KAM LECHUGA [facility] [address] [place] [address] 02/25/2020 09:18:05 02/26/2020 06:25:33 Diabetes mellitus 95223757 E11.9 Last A1C controlled at 6.7. refill on metformin. patient has not been complaint with diet, checking sugars or f/u appointmen ts. - check sugars daily; goal fasting <130 and 1-2 hours after meal <180. call office if sugars falling under 70. Patient aware of hypoglycem ia symptoms. - discussed diet: avoid sugars, pasta, tortillas, bread, rice, potatoes - Excercise 30 min 5x week - diabetic eye exam - foot exam at next visit- f/u in 3 months Mild recur rent major depression 21063747 F33.0 Patient doing well on medication . No side effects. will refill - continue medication as prescribed but try at night time- if SI/HI develop please go to ER and notify office- f/u in 4-6 weeks or prn Hypertriglyceridemia 302 838339 E78.1 refill. Essential hypertension 71862069 I10 refill. Needs office visit to check BP as she does not check at home Advised to check BP regularly with a goal of <140/90, if BP consistent ly >140/90, advised to contact clinic Discussed DASH diet Advised weight loss and diet is best way to control BP Advised 30 minutes of exercise minimum daily Advised tobacco, alcohol, caffeine all increase BP Advised goal for BP is <140/90 Cellulitis 802700798 L03 .90 patient went to urgent care on the for skin wound on leg. She is on day 3 of doxycyclin e and states leg is looking a little better. tolerating antibiotic well. - keep area clean- continue medication as prescribed - if fever, chills, streaks go back to urgent care of f/u here [id number] KAM LECHUGA [facility] [address] [place] [address] 05/05/2020 12:06:50 05/05/2020 20:40:40 Cellulitis of lower limb 563482415 L03.119 patient sent to hospital due to bilateral swelling of legs, erythema, weeping ulcers. Need to r/o DVT. [id number] KAM LECHUGA [facility] [address] [place] [address] 05/16/2020 13:50:03 05/17/2020 14:28:32 Diabetes mellitus 45226684 E11.59 Last A1C controlled at 11, not WNL and has improved to 7.9 today. refill on metformin. patient has not been complaint with diet, checking sugars or f/u appointmen ts. - adding januvia 100mg qd,- check sugars daily; goal fasting <130 and 1-2 hours after meal <180. call office if sugars falling under 70. Patient aware of hypoglycem ia symptoms. - discussed diet: avoid sugars, pasta, tortillas, bread, rice, potatoes - Excercise 30 min 5x week - diabetic eye exam - foot exam at next visit- f/u in 1 month Venous sta sis ulcer with edema of right lower leg [id number] 9729082 L97.836 [id number] KAM LECHUGA [facility] [address] [place] [address] 06/30/2020 15:26:22 07/01/2020 13:06:34 Gouty arthritis of great toe 04120798 M10.9 PAtient started having pain on left first toe this week casuing her to wake up during the night. Touching the toe hurt and it was swollen and red. Her vascular doctor massaged it and it feels much better. Currently at level 0/10 pain. -f/u prn- low purine diet [id number] KAM LECHUGA [facility] [address] [place] [address] 10/26/2020 08:00:26 10/27/2020 20:08:55 Difficulty standing from sitting 492562988 R26.89 Patient presents for new chair lift Patient uses electric recliner to her help her get up from sitting position. without help she has been unable to get out of chair on her own. Her current chair is no longer working. It taked help from one person and about 20 minutes to get her up on her feet from sitting. patient has moderate edema of lower edema and needs to keep legs elevated as much as possible. without chair she cannot be independen t. - recliner chair- chair would greatly help patient and family members taking care of patient Edema of l ower extremity 716562926 R60.0 patient has moderate edema of lower edema and needs to keep legs elevated as much as possible to avoid ulceration s similar to that of last year. [id number] KAM LECHUGA [facility] [address] [place] [address] 03/03/2021 08:01:53 03/10/2021 12:14:29 Difficulty walking 799013789 R26.2 Patient recently came home from [facility] facility where she received PT. She is now home and able to move around with her walker. Painless hematuria 8000 R31.9 patient continues having heamturia [id number] KAM LECHUGA [facility] [address] [place] [address] 07/11/2021 11:04:49 07/12/2021 10:44:08 Painless hematuria 605711348 R31.9 patient continues having heamturia? uncertain of where blood is coming from. Unable to perform exam today. given urology order to son today. Labs obtained. Diabetes mellitus 788743 09 E11.59 Last A1C 7.9 on 04/2020. refill on metformin. patient has been complaint with diet, checking sugars but not f/u appointmen ts. medication regiment: metformin 500mg two tabs bid, januvia 100mg, simvastati n 20mg, compliant - check sugars daily; goal fasting <130 and 1-2 hours after meal <180. call office if sugars falling under 70. Patient aware of hypoclycem ic symptoms. - discussed diet: avoid sugars, pasta, tortillas, bread, rice, potatoes - exercise 30 min 5x week - diabetic eye exam - foot exam at next visit- f/u in 3 months Essential hypertension 51972029 I10 BP 110/66, wnl medication regiment: triametere ne 27.5-hcz 25- compliaint Advised to check BP regularly with a goal of <140/90, if BP consistent ly >140/90, advised to contact clinic Discussed DASH diet Advised weight loss and diet is best way to control BP Advised 30 minutes of exercise minimum daily Advised tobacco, alcohol, caffeine all increase BP Advised goal for BP is <140/90 Abnormal u terine bleeding 5658806933 9100 N93.9 Patient with possible abnormal vaginal bleeding. Does not know where blood is coming from. We tried to get patient on exam table today but she was unable to due to mobility and patient balance. She needs to be seen by obgyn with better access to exam table. Sent referral today and given to nikolas, her son. Also gave number to [facility] to see who can get her in sooner. Ordered US. 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 se nile cataract 372065764 H25.13 [id number] Danika Banerjee MD [facility] [address] [place] [address] 09/27/2021 12:28:00 09/28/2021 15:42:10 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 8131376908 77236 H16.213 Abnormal r etraction of bilateral eyelids 3806287402 2007488 H02.535 Punctal ectropion 675223 001 H02.109 Nuclear se nile cataract 476760338 H25.13 Ectropion of lower eyelid with retraction 742186033 H02.918 [id number] Jg cramer MD [facility] [address] [place] [address] 01/08/2022 11:36:29 01/10/2022 07:49:58 Viral pharyngitis 5516677 B34.9 PVx2 daysa/w dry coughpain with swallowing family member with similar sxincreasi ng fluid intakehas not tried any meds for symptomstr ial NSAIDS for sore throat, throat lozenges, cough drops/medi cinef/u in 4 days if symptoms don't improve Patient was advised to go to the ED for worsening signs or symptoms including chest pain, SOB, fever, or unable to keep down food or liquids. - Drink lots of fluids, water, gatorade.- Run a cool-mist humidifier in your room at night.- For sore throat, gargle warm salt water.- Get extra rest and do not over-exert yourself.- Do not mix multiple medication s with similar ingredient s (for instance Theraflu Non-drowsy and Tylenol Sinus). Doubling up on acetaminop hen and/or decongesta nts such as pseudephed rine can be dangerous. - Robitussin DM at bed time only (if cough keeps you awake) (and if not or on SSRI antidepres sants. [id number] KAM LECHUGA [facility] [address] [place] [address] 05/28/2022 10:56:04 06/07/2022 12:32:38 Diabetes mellitus 81443611 E11.59 Last A1C 7.9 on 04/2020. refill on metformin. patient has been complaint with diet, checking sugars but not f/u appointmen ts. medication regiment: metformin 500mg two tabs bid, januvia 100mg, simvastati n 20mg, compliant - check sugars daily; goal fasting <130 and 1-2 hours after meal <180. call office if sugars falling under 70. Patient aware of hypoclycem ic symptoms. - discussed diet: avoid sugars, pasta, tortillas, bread, rice, potatoes - exercise 30 min 5x week - diabetic eye exam - foot exam at next visit- f/u in 3 months Difficulty walking 69745 2003 R26.2 patient would benefit from wheelchair as she has trouble moving around house. She has to be helped in shower and transferri ng her there would be helpful. would also help her get to appointmen ts. Morbid obesity 095598750 E66.01 Osteoporosis 94871100 M8 1.0 [id number] KAM LECHUGA [facility] [address] [place] [address] 10/02/2022 11:26:35 10/08/2022 14:57:27 Urinary incontinence 928774927 R32 incontinen ce. uses [employer] [facility].has been going on for >5 years90 supplies Bladder mu scle dysfunction - overactive 670127189 N32.81 Mild recur rent major depression 39204989 F33.0 Patient doing well on medication . No side effects. will refill - continue medication as prescribed but try at night time- if SI/HI develop please go to ER and notify office- f/u in 4-6 weeks or prn [id number] KAM LECHUGA [facility] [address] [place] [address] 01/01/2023 15:49:06 01/01/2023 17:10:56 Prediabetes 139540934 R73.03 controlled Venous sta sis ulcer with edema of right lower leg 0212991259 7915662 L97.919 b/l venous stasis ulcers, weeping. Did go to ER and was treated with abx. She has seen improvemen t PEX: b/l ulcers with drainage. - encouraged wound care- continue wrapping- elevate legs- control DM- F/U 3 weeks Venous sta sis ulcer with edema of left lower leg 6444044599 5699181 L97.929 as above [id number] KAM LECHUGA [facility] [address] [place] [address] 02/05/2023 15:34:43 02/12/2023 14:44:02 Venous stasis ulcer with edema of right lower leg 8994197440 1059616 L97.919 b/l venous stasis ulcers, weeping. Did go to ER and was treated with abx. She has seen improvemen t PEX: b/l ulcers with drainage. - encouraged wound care- continue wrapping- elevate legs- control DM- F/U 3 weeks Venous sta sis ulcer with edema of left lower leg 6033818278 0447260 L97.929 as above [id number] Yvon Mendez MD [facility] [address] [place] [address] 12/24/2024 16:47:24 01/15/2025 07:27:20 Diabetes mellitus 32032908 E11.59 Last A1C 7.6% (01/2025) 7.9% (04/2020). refill on metformin. Kimberly has not been compliant with glucose checks, diet, or follow up appointmen ts. medication regiment: metformin 500mg two tabs bid, januvia 100mg, simvastati n 20mg, compliant - check sugars daily; goal fasting <130 and 1-2 hours after meal <180. call office if sugars falling under 70. Patient aware of hypoclycem ic symptoms. - discussed diet: avoid sugars, pasta, tortillas, bread, rice, potatoes - exercise 30 min 5x week - diabetic eye exam - foot exam at next visit- f/u in 3 months Edema of l ower extremity [id number] R60.0 patient has moderate edema of lower edema and needs to keep legs elevated as much as possible. We will also be important to continue compressio n socks today on examinatio n she has weeping wounds on bilateral legs on the left side the wounds are shallow with clear fluid drainage but are mostly in her posterior leg and in her Popliteal space. Wound referral is given to family today. Difficulty walking [id number] R26.2 patient would benefit from wheelchair as she has trouble moving around house. She has to be helped in shower and transferri ng her there would be helpful. would also help her get to appointmen ts. After discussion with family they agree to physical therapy to help strengthen her legs and allow her to be more independen t. We will order a wheelchair with elevated leg rests as she has edema when sitting for long periods of time. Kimberly was examined today and she does not have a decubitus ulcer on her backside from sitting all day. It will be important to have patient stand up for periods of time to avoid ulcers. Endometrial carcinoma 25 [id number] C54.1 Patient has a history of endometria l carcinoma and has not follow up with her gynecologi st. Distressed to family home for note is to go to follow up visits. I will place referral as it has been more than 2 years since she has been back. Health Concerns Section Related Observation LastModified by Organization Detai ls LastModified Time None Recorded Concern Status LastModified by Organization Details LastModified Time None Recorded Advance Directives Directive Y: Payers Insurance Date Sequence Insurance Name Policy Number Policy Núñez Covered Member ID Núñez Member ID Guarantor Name 12/24/2024 1 [facility] Kimberly Rodriguez [id number] Kimberly Rodriguez 01/15/2025 1 [employer] (MEDICARE REPLACEMENT/A DVANTAGE - HMO) [id number] Kimberly Rodriguez [id number] Kimberly Rodriguez 12/24/2024 1 [facility] (MEDICARE REPLACEMENT HMO) [id number] Kimberly Rodriguez [id number] Kimberly Rodriguez 02/29/2020 2 *SELF PAY* Jose Rodriguez Notes Date Note Type Note Provider Name and Address Organization Details Recorded Time 05/28/2022 text/html Kimberly is a 81 Y O F presenting for F/U on cancer stage 1B gr1 endometrial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
[2025-03-01 11:09] LABS: Influenza A QL RT-PCR Negative (Negative); Influenza B QL RT-PCR Negative (Negative); RSV RNA, RT-PCR Negative (Negative); SARS-CoV-2 RNA PCR Negative (Negative)
--- NOTE | 2025-03-01 12:52 | ADMGEN ---
This patient, Kimberly Rodriguez, was admitted to [facility] Surg Room 314-02 at 1155. Patient/family oriented to hospital policies and general routines including ID bracelet, bed and alarms, visiting hours, pain management, procedures, bathroom and other care routines, personal items, smoking policy, room service/diet, and visiting hours. Information on how to activate the Rapid Response Team has been discussed. Patient/Family are encouraged to report perceived risks to care and to ask questions if they do not understand what they are told or what they should do.
--- NOTE | 2025-03-01 15:30 | PM.IMHP ---
H&P: HPI History of Present Illness Date/Time: 03/01/25 15:30 Chief Complaint: weakness Narrative: 84-year-old female with history of type 2-5 diabetes hypertension high, cholesterol, chronic lower extremity edema presenting to the emergency department from home for evaluation for having a slide from her wheelchair. Patient states that her piece that up from underneath her and she did land on her bottom. Patient denies striking head denies loss conscious. Patient states she has had worsening lower extremity edema. Patient denies any recent cough colds or fevers. Patient denies any pain or injury from the fall. Patient did not express any worsening weakness but states that she fell simply because her feet slipped out from beneath her. Alert and appropriate. Patient lives at home with her son and he is her primary caregiver. Review of Systems Review of Systems: - CONSTITUTIONAL: Denies weight loss, fever and chills. Generalized weakness - HEENT: Denies changes in vision and hearing - RESPIRATORY: Denies SOB and cough. - CV: Denies palpitations and CP. - GI: Denies abdominal pain, nausea, vomiting and diarrhea. - : Denies dysuria and urinary frequency. - MSK: Denies myalgia and joint pain. - SKIN: Denies rash and pruritus. - NEUROLOGICAL: Denies headache and syncope. Reports fall - PSYCHIATRIC: Denies recent changes in mood. Denies anxiety and depression. FORMERLY [facility], [facility] Past Medical History Medical History Abnormal vaginal bleeding in postmenopausal patient Cataract Left eye Depression HTN (hypertension) with goal to be determined Hypercholesterolemia Type 2 diabetes mellitus Uterine cancer Surgical History Surgical History History of arthroscopic knee surgery Repair of right knee cartilage Family History Family History Mother Acute myocardial infarction Several times Migraines Father Cancer Social History Social History Social History: The patient is single and lives with her son. 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 The patient stated she would choose her son as a durable power county attorney for healthcare. The patient desires to be a full code. Lifelong nonsmoker does not use any alcohol marijuana or illicit drugs. Smoking status: Never smoker Second hand tobacco smoke exposure: No Alcohol intake: former Substance use: never Substance use type: does not use Do You Feel Safe in your Home?: Yes Lack of Transportation: No Lack of Food: Never True Current Housing: I Have Housing Concerned About Future Housing: No Difficulty Paying Gas/Electric Bills: No Difficulty Paying for Meds: No Currently Unemployed: No Education: High School Diploma/GED Difficulty w/ Childcare or Family Care: No Gender identity (if verbalized by the patient): Female Spiritual care concerns: No Meds Home Medications and Allergies Home Medications ?Medication ?Instructions ?Recorded ?Confirmed ?Type citalopram 10 mg tablet (Celexa) 10 mg PO DAILY 02/23/20 03/01/25 History metformin 500 mg tablet 1,000 mg PO BID 02/23/20 03/01/25 History (Glucophage) simvastatin 20 mg tablet 20 mg PO DAILY 02/23/20 03/01/25 History oxybutynin chloride 5 mg tablet 5 mg PO BID 12/23/20 03/01/25 History apixaban 5 mg tablet (Eliquis) 5 mg PO Q12H 03/01/25 03/01/25 History aspirin 81 mg capsule 81 mg PO DAILY 03/01/25 03/01/25 History carboxymethylcellulose sodium 0.5 1 drp EACH EYE BID dry eye 03/01/25 03/01/25 History % eye drops (Refresh Tears) Allergies Allergy/AdvReac Type Severity Reaction Status Date / Time Penicillins Allergy Unknown Verified 01/02/22 10:16 Vital Signs Vital Signs - 24 hr 03/01/25 09:27 03/01/25 09:35 03/01/25 10:04 Temperature 98.0 F Pulse Rate 79 81 73 Respiratory Rate 20 17 16 Blood Pressure 145/81 H 145/81 H 114/80 Pulse Oximetry 94 96 92 Oxygen Delivery Room Air 03/01/25 10:31 03/01/25 11:14 03/01/25 11:22 Temperature Pulse Rate 77 68 Respiratory Rate 15 13 Blood Pressure 139/75 125/62 Pulse Oximetry 95 97 93 Oxygen Delivery Room Air 03/01/25 11:29 Temperature Pulse Rate 69 Respiratory Rate 18 Blood Pressure 125/62 Pulse Oximetry 93 Oxygen Delivery Exam Narrative: APPEARANCE: Well appearing, no pain, no distress, well-nourished. HEAD: normocephalic, atraumatic. EYES: PERRLA/EOMI, conjunctivae clear. NOSE: Normal no drainage EARS:TMS clear with good light reflex. THROAT: Pharynx clear, no exudate. NECK: Supple. No adenopathy, no masses. RESPIRATORY: Airway patent, respirations nonlabored. Clear to auscultation bilaterally, no rales, rhonchi, wheezing. CARDIOVASCULAR: Regular rate and rhythm without murmurs rubs or gallops. ABDOMINAL: Soft, nontender, nondistended, normal bowel sounds MUSCULOSKELETAL: Lower extremity edema NEURO: Alert. Cranial nerves II through XII intact. Grossly intact SKIN: Warm, dry. Normal Color H&P: Results Labs Labs: Short CBC 03/01/25 Range/Units 09:51 WBC 7.8 (4.5-10.0) K/mm3 Hgb 14.2 (12.0-15.0) g/dL Hct 43.4 (37.0-47.0) % Plt Count 248 (150-375) k/mm3 BMP 03/01/25 09:51 Sodium 138 Potassium 4.5 Chloride 103 Carbon Dioxide 26 BUN 15 D Creatinine 0.99 Glucose 140 H Calcium 9.6 Liver Function 03/01/25 Range/Units 09:51 Total Bilirubin 0.6 (0.2-1.3) mg/dL AST 21 (14-36) U/L ALT 17 (6-35) U/L Alkaline Phosphatase 60 (38-126) U/L Albumin 4.1 (3.5-5.1) g/dL Urine 03/01/25 Range/Units 10:00 Urine Color Yellow (Yellow) Urine Appearance Cloudy H (Clear) Urine pH 5.5 (5.0-9.0) Ur Specific [place] 1.012 (1.001-1.035) Urine Protein Trace (Negative) mg/dL Urine Glucose (UA) Negative (Negative) mg/dL Assessment and Plan Assessment and plan (1) Depression: Code(s): F32.9 - Major depressive disorder, single episode, unspecified Status: Chronic (2) Hypertension: Code(s): I10 - Essential (primary) hypertension Status: Acute (3) Hypercholesterolemia: Code(s): E78.00 - Pure hypercholesterolemia, unspecified Status: Chronic (4) Type 2 diabetes mellitus: Code(s): E11.9 - Type 2 diabetes mellitus without complications Status: Chronic (5) Adult failure to thrive: Code(s): R62.7 - Adult failure to thrive Status: Acute (6) UTI (urinary tract infection): Code(s): N39.0 - Urinary tract infection, site not specified Status: Acute (7) Gout: Qualifiers: Chronicity: acute Gout etiology: unspecified cause Gout site: toe Laterality: right Qualified Code(s): M10.9 - Gout, unspecified Code(s): M10.9 - Gout, unspecified Status: Acute (8) Fall: Code(s): W19.XXXA - Unspecified fall, initial encounter Status: Acute (9) Lower extremity edema: Code(s): R60.0 - Localized edema Status: Acute Plan 84-year-old female with history of type 2-5 diabetes hypertension hyperlipidemia, chronic lower extremity edema presenting to the emergency department from home for evaluation for having a slide from her wheelchair. Patient states that her piece that up from underneath her and she did land on her bottom. Patient denies striking head denies loss of consciousness. Patient states she has had worsening lower extremity edema. Patient denies any recent cough colds or fevers. Patient denies any pain or injury from the fall. Patient did not express any worsening weakness but states that she fell simply because her feet slipped out from beneath her. Alert and appropriate. Patient lives at home with her son and he is her primary caregiver. In the ED her vitals were stable. Laboratory evaluation showed no leukocytosis hemoglobin of 14.2 INR was 1.2 Chem panel was unremarkable. BNP less than 20 urinalysis with more than 100 urine WBC 3 +leukocyte esterase. Suggestive UTI. Chest x-ray showed no acute cardiopulmonary abnormality. She is admitted in the setting for further treatment Generalized weakness Fall UTI Hypertension Hyperlipidemia Type 2 diabetes Chronic lower extremity edema no reported history of congestive heart failure History of uterine cancer DVT prophylaxis on apixaban apixaban for unclear reason. Code status full code Hospitalist MIPS Advance Care Plan I have confirmed that the patient's Advanced Care Plan is present, code status is documented, or surrogate decision maker is listed in patient medical record.: Yes Medication Reconciliation I have utilized all available resources to obtain, update and review the patients current medications (includes all prescriptions, OTC, herbals, cannabis, and nutritional supplements).: Yes
[2025-03-01 16:38] LABS: Hemoglobin A1C 6.6 % (<5.7)
[2025-03-01] MEDS: metFORMIN HCL 500 MG TABLET 1000 MG PO (17:18)
[2025-03-01] MEDS: oxyBUTYnin CHLORIDE 5 MG TABLET PO (17:18)
[2025-03-01 17:22] LABS: Glucose Point of Care 189 mg/dl (65-105)
[2025-03-01 20:12] LABS: Glucose Point of Care 166 mg/dl (65-105)
[2025-03-01] MEDS: APIXABAN 5 MG TABLET PO (21:48)
[2025-03-02 06:00] VITALS: BP 116/52; PULSE 79; RESP 13; TEMP 36.6; O2SAT 93
[2025-03-02 07:35] LABS: Glucose Point of Care 184 mg/dl (65-105)
[2025-03-02] MEDS: metFORMIN HCL 500 MG TABLET 1000 MG PO ×2 (09:07→16:43)
[2025-03-02] MEDS: APIXABAN 5 MG TABLET PO ×2 (09:07→21:27)
[2025-03-02] MEDS: CITALOPRAM HYDROBROMIDE 10 MG TABLET PO (09:08)
[2025-03-02] MEDS: SIMVASTATIN 20 MG TABLET PO (09:08)
[2025-03-02] MEDS: oxyBUTYnin CHLORIDE 5 MG TABLET PO ×2 (09:08→16:43)
[2025-03-02] MEDS: ASPIRIN 81 MG ENTERIC TABLET PO (09:08)
--- NOTE | 2025-03-02 11:57 | PM.IMPN ---
Progress Note: A&P Assessment and Plan (1) Depression: Code(s): F32.9 - Major depressive disorder, single episode, unspecified Status: Chronic (2) Hypertension: Code(s): I10 - Essential (primary) hypertension Status: Acute (3) Hypercholesterolemia: Code(s): E78.00 - Pure hypercholesterolemia, unspecified Status: Chronic (4) Type 2 diabetes mellitus: Code(s): E11.9 - Type 2 diabetes mellitus without complications Status: Chronic (5) Adult failure to thrive: Code(s): R62.7 - Adult failure to thrive Status: Acute (6) UTI (urinary tract infection): Code(s): N39.0 - Urinary tract infection, site not specified Status: Acute (7) Gout: Qualifiers: Chronicity: acute Gout etiology: unspecified cause Gout site: toe Laterality: right Qualified Code(s): M10.9 - Gout, unspecified Code(s): M10.9 - Gout, unspecified Status: Acute (8) Fall: Code(s): W19.XXXA - Unspecified fall, initial encounter Status: Acute (9) Lower extremity edema: Code(s): R60.0 - Localized edema Status: Acute Plan 84-year-old female with history of type 2-5 diabetes hypertension hyperlipidemia, chronic lower extremity edema presenting to the emergency department from home for evaluation for having a slide from her wheelchair. Patient states that her piece that up from underneath her and she did land on her bottom. Patient denies striking head denies loss of consciousness. Patient states she has had worsening lower extremity edema. Patient denies any recent cough colds or fevers. Patient denies any pain or injury from the fall. Patient did not express any worsening weakness but states that she fell simply because her feet slipped out from beneath her. Alert and appropriate. Patient lives at home with her son and he is her primary caregiver. In the ED her vitals were stable. Laboratory evaluation showed no leukocytosis hemoglobin of 14.2 INR was 1.2 Chem panel was unremarkable. BNP less than 20 urinalysis with more than 100 urine WBC 3 +leukocyte esterase. Suggestive UTI. Chest x-ray showed no acute cardiopulmonary abnormality. She is admitted in the setting for further treatment Generalized weakness PT OT to see Fall UTI on ceftriaxone. Follow urine culture Hypertension Hyperlipidemia Type 2 diabetes Chronic lower extremity edema no reported history of congestive heart failure venous duplex negative for DVT History of a DVT as reported by the patient. On chronic anticoagulation with apixaban History of uterine cancer DVT prophylaxis on apixaban Code status full code Subjective Date/time seen: 03/02/25 11:57 Interval history: No new complaints. Denies any chest pain or shortness of breath. Review of Systems Review of Systems: All systems reviewed & are unremarkable except as noted in HPI and below Exam Narrative: APPEARANCE: Well appearing, no pain, no distress, well-nourished. HEAD: normocephalic, atraumatic. EYES: PERRLA/EOMI, conjunctivae clear. NOSE: Normal no drainage EARS:TMS clear with good light reflex. THROAT: Pharynx clear, no exudate. NECK: Supple. No adenopathy, no masses. RESPIRATORY: Airway patent, respirations nonlabored. Clear to auscultation bilaterally, no rales, rhonchi, wheezing. CARDIOVASCULAR: Regular rate and rhythm without murmurs rubs or gallops. ABDOMINAL: Soft, nontender, nondistended, normal bowel sounds MUSCULOSKELETAL: Lower extremity edema NEURO: Alert. Cranial nerves II through XII intact. Grossly intact SKIN: Warm, dry. Normal Color Objective Data Vital Signs Vital Signs: Vital Signs - 24 hr 03/01/25 13:00 03/01/25 14:00 03/01/25 20:00 Temperature 96.7 F L Pulse Rate 90 Respiratory Rate 14 Blood Pressure 122/68 Pulse Oximetry 94 94 Oxygen Delivery Room Air Room Air 03/01/25 21:00 03/02/25 06:00 03/02/25 08:00 Temperature 97.7 F 97.9 F Pulse Rate 79 79 Respiratory Rate 14 13 Blood Pressure 100/44 L 116/52 L Pulse Oximetry 94 93 Oxygen Delivery Room Air 03/02/25 09:26 03/02/25 09:50 Temperature Pulse Rate Respiratory Rate Blood Pressure Pulse Oximetry Oxygen Delivery Room Air Room Air Intake/Output Intake/Output: Intake & Output 02/27/25 02/28/25 03/01/25 03/02/25 23:59 23:59 23:59 23:59 Intake Total 450 800 Output Total 75 900 Balance 375 -100 Meds/Results Medications: Active Medications Generic Name Dose Route Start Last Admin Trade Name Freq PRN Reason Stop Dose Admin Apixaban 5 mg 03/01/25 21:00 03/02/25 09:07 Apixaban 5 Mg Tablet PO 5 mg Q12H KEITH Administration Artificial Tears 1 drop 03/01/25 15:49 Artificial Tears Ophth Soln 15 Ml Bottle EACH EYE BID PRN Dry Eye(s) Aspirin 81 mg 03/02/25 09:00 03/02/25 09:08 Aspirin 81 Mg Enteric Tablet PO 81 mg QAM KEITH Administration Citalopram Hydrobromide 10 mg 03/02/25 09:00 03/02/25 09:08 Citalopram Hydrobromide 10 Mg Tablet PO 10 mg DAILY KEITH Administration Dextrose 12.5 gm 03/01/25 15:54 Dextrose 50% 25 Gm/50 Ml Syringe IV PUSH PRN PRN Hypoglycemia Protocol Glucagon 1 mg 03/01/25 15:54 Glucagon For Inj 1 Mg Vial IM PRN PRN Hypoglycemia Protocol Glucose 15 gm 03/01/25 15:54 Glucose Oral Gel 15 Gm Of Glucse In 37.5 Gm Tube PO PRN PRN Hypoglycemia Protocol Ceftriaxone Sodium 1 gm in 50 mls @ 100 mls/hr 03/02/25 09:00 03/02/25 09:08 Rocephin 1 Gm/Ns 50 Ml IVPB 100 mls/hr Q24H KEITH Administration Dextrose 1,000 mls @ 100 mls/hr 03/01/25 15:54 Dextrose 5% 1,000 Ml IVPB PRN PRN Hypoglycemia Protocol Insulin Aspart 2 - 5 units 03/01/25 17:00 03/02/25 08:36 Insulin Aspart (*Bkc) 100 Units/Ml SUB-Q Not Given TIDWM KEITH Protocol Insulin Aspart 1 - 2 units 03/01/25 21:00 03/01/25 21:49 Insulin Aspart (*Bkc) 100 Units/Ml SUB-Q Not Given HS KEITH Protocol Metformin HCl 1,000 mg 03/01/25 17:00 03/02/25 09:07 Metformin Hcl 500 Mg Tablet PO 1,000 mg BID KEITH Administration Oxybutynin Chloride 5 mg 03/01/25 17:00 03/02/25 09:08 Oxybutynin Chloride 5 Mg Tablet PO 5 mg BID KEITH Administration Simvastatin 20 mg 03/02/25 09:00 03/02/25 09:08 Simvastatin 20 Mg Tablet PO 20 mg DAILY KEITH Administration Radiology Results: ITS Impressions Chest X-Ray 03/01/25 10:21 IMPRESSION: No acute cardiopulmonary pathology. Venous Doppler Study 03/01/25 21:14 IMPRESSION: 1. No deep venous thrombosis. Labs Labs: Laboratory Results - last 24 hr 03/01/25 03/01/25 03/01/25 09:51 16:55 19:58 POC Capillary Glucose 189 H 166 H Hemoglobin A1c 6.6 H 03/02/25 07:30 POC Capillary Glucose 184 H Hemoglobin A1c
[2025-03-02 12:06] LABS: Glucose Point of Care 148 mg/dl (65-105)
[2025-03-02 14:00] VITALS: BP 129/81; PULSE 96; RESP 18; TEMP 36.7; O2SAT 96
[2025-03-02 16:37] LABS: Glucose Point of Care 160 mg/dl (65-105)
[2025-03-02 20:39] LABS: Glucose Point of Care 178 mg/dl (65-105)
[2025-03-02 21:20] VITALS: O2SAT 94
[2025-03-02 21:28] VITALS: BP 142/77; PULSE 91; RESP 20; TEMP 36.6; O2SAT 94
[2025-03-03] MEDS: ACETAMINOPHEN 500 MG TABLET 1000 MG PO (01:54)
[2025-03-03 05:39] VITALS: BP 123/69; PULSE 72; RESP 20; TEMP 36.8; O2SAT 95
[2025-03-03 07:51] LABS: Glucose Point of Care 160 mg/dl (65-105)
[2025-03-03] MEDS: oxyBUTYnin CHLORIDE 5 MG TABLET PO ×2 (08:50→17:12)
[2025-03-03] MEDS: ASPIRIN 81 MG ENTERIC TABLET PO (08:50)
[2025-03-03] MEDS: SIMVASTATIN 20 MG TABLET PO (08:50)
[2025-03-03] MEDS: metFORMIN HCL 500 MG TABLET 1000 MG PO ×2 (08:50→17:12)
[2025-03-03] MEDS: APIXABAN 5 MG TABLET PO ×2 (08:50→20:52)
[2025-03-03] MEDS: CITALOPRAM HYDROBROMIDE 10 MG TABLET PO (08:50)
--- NOTE | 2025-03-03 10:41 | P.CDI_ITS ---
CDI Query Clarification Request Patient with a BMI of 45.8 please provide a diagnosis to accompany this finding: * Overweight * Obesity * Morbid Obesity * Other/Unknown <Narda Andrade RN - Last Filed: 03/03/25 10:41> Clarified Diagnosis Clarified Diagnosis: * Morbid Obesity <Mykel Torrez MD - Last Filed: 03/03/25 11:18>
--- NOTE | 2025-03-03 10:41 | WPDCDIQUERY2 ---
CDI Query Clarification Request Patient with a BMI of 45.8 please provide a diagnosis to accompany this finding: Overweight Obesity Morbid Obesity Other/Unknown <Narda Andrade RN - Last Filed: 03/03/25 10:41> Clarified Diagnosis Clarified Diagnosis: Morbid Obesity <Mykel Torrez MD - Last Filed: 03/03/25 11:18>
[2025-03-03 11:57] LABS: Glucose Point of Care 134 mg/dl (65-105)
[2025-03-03 14:00] VITALS: BP 142/63; PULSE 79; RESP 20; TEMP 36.5; O2SAT 95
[2025-03-03 17:10] LABS: Glucose Point of Care 131 mg/dl (65-105)
--- NOTE | 2025-03-03 18:07 | PM.IMPN ---
Progress Note: A&P Assessment and Plan (1) Depression: Code(s): F32.9 - Major depressive disorder, single episode, unspecified Status: Chronic (2) Hypertension: Code(s): I10 - Essential (primary) hypertension Status: Acute (3) Hypercholesterolemia: Code(s): E78.00 - Pure hypercholesterolemia, unspecified Status: Chronic (4) Type 2 diabetes mellitus: Code(s): E11.9 - Type 2 diabetes mellitus without complications Status: Chronic (5) Adult failure to thrive: Code(s): R62.7 - Adult failure to thrive Status: Acute (6) UTI (urinary tract infection): Code(s): N39.0 - Urinary tract infection, site not specified Status: Acute (7) Gout: Qualifiers: Chronicity: acute Gout etiology: unspecified cause Gout site: toe Laterality: right Qualified Code(s): M10.9 - Gout, unspecified Code(s): M10.9 - Gout, unspecified Status: Acute (8) Fall: Code(s): W19.XXXA - Unspecified fall, initial encounter Status: Acute (9) Lower extremity edema: Code(s): R60.0 - Localized edema Status: Acute Plan 84-year-old female with history of type 2-5 diabetes hypertension hyperlipidemia, chronic lower extremity edema presenting to the emergency department from home for evaluation for having a slide from her wheelchair. Patient states that her piece that up from underneath her and she did land on her bottom. Patient denies striking head denies loss of consciousness. Patient states she has had worsening lower extremity edema. Patient denies any recent cough colds or fevers. Patient denies any pain or injury from the fall. Patient did not express any worsening weakness but states that she fell simply because her feet slipped out from beneath her. Alert and appropriate. Patient lives at home with her son and he is her primary caregiver. Fall Slipped from a chair no Loss of consciousness Continue PT/OT UTI on ceftriaxone Urine culture grew E coli sensitive to Rocephin Hypertension Hyperlipidemia Type 2 diabetes Chronic lower extremity edema no reported history of congestive heart failure venous duplex negative for DVT History of a DVT as reported by the patient. On chronic anticoagulation with apixaban History of uterine cancer DVT prophylaxis on apixaban Code status full code Subjective Date/time seen: 03/03/25 18:07 Interval history: comfortbale at bedside Review of Systems Review of Systems: All systems reviewed & are unremarkable except as noted in HPI and below Exam Narrative: APPEARANCE: Well appearing, no pain, no distress, well-nourished. HEAD: normocephalic, atraumatic. EYES: PERRLA/EOMI, conjunctivae clear. NOSE: Normal no drainage EARS:TMS clear with good light reflex. THROAT: Pharynx clear, no exudate. NECK: Supple. No adenopathy, no masses. RESPIRATORY: Airway patent, respirations nonlabored. Clear to auscultation bilaterally, no rales, rhonchi, wheezing. CARDIOVASCULAR: Regular rate and rhythm without murmurs rubs or gallops. ABDOMINAL: Soft, nontender, nondistended, normal bowel sounds MUSCULOSKELETAL: Lower extremity edema NEURO: Alert. Cranial nerves II through XII intact. Grossly intact SKIN: Warm, dry. Normal Color Objective Data Vital Signs Vital Signs: Vital Signs - 24 hr 03/02/25 20:00 03/02/25 21:20 03/02/25 21:28 Temperature 97.8 F Pulse Rate 91 Respiratory Rate 20 Blood Pressure 142/77 H Pulse Oximetry 94 94 Oxygen Delivery Room Air Room Air 03/03/25 05:39 03/03/25 08:00 03/03/25 14:00 Temperature 98.2 F 97.7 F Pulse Rate 72 79 Respiratory Rate 20 20 Blood Pressure 123/69 142/63 H Pulse Oximetry 95 95 Oxygen Delivery Room Air Intake/Output Intake/Output: Intake & Output 02/28/25 03/01/25 03/02/25 03/03/25 23:59 23:59 23:59 23:59 Intake Total 450 1250 798 Output Total 75 1700 1200 Balance 778 -[phone] -784 Meds/Results Medications: Active Medications Generic Name Dose Route Start Last Admin Trade Name Freq PRN Reason Stop Dose Admin Acetaminophen 650 mg 03/03/25 01:45 Acetaminophen 325 Mg Tablet PO Q4H PRN Pain Rated 1-7 or Fever Hydrocodone Bitart/Acetaminophen 1 tab 03/03/25 01:45 Hydrocodone/Acetaminophen (*Crx) 5-325 Mg Tablet PO Q4H PRN Pain Rated 8-10 Apixaban 5 mg 03/01/25 21:00 03/03/25 08:50 Apixaban 5 Mg Tablet PO 5 mg Q12H KEITH Administration Artificial Tears 1 drop 03/01/25 15:49 Artificial Tears Ophth Soln 15 Ml Bottle EACH EYE BID PRN Dry Eye(s) Aspirin 81 mg 03/02/25 09:00 03/03/25 08:50 Aspirin 81 Mg Enteric Tablet PO 81 mg QAM KEITH Administration Cefdinir 300 mg 03/04/25 09:00 Cefdinir 300 Mg Capsule PO 03/05/25 21:01 Q12HR KEITH Citalopram Hydrobromide 10 mg 03/02/25 09:00 03/03/25 08:50 Citalopram Hydrobromide 10 Mg Tablet PO 10 mg DAILY KEITH Administration Dextrose 12.5 gm 03/01/25 15:54 Dextrose 50% 25 Gm/50 Ml Syringe IV PUSH PRN PRN Hypoglycemia Protocol Glucagon 1 mg 03/01/25 15:54 Glucagon For Inj 1 Mg Vial IM PRN PRN Hypoglycemia Protocol Glucose 15 gm 03/01/25 15:54 Glucose Oral Gel 15 Gm Of Glucse In 37.5 Gm Tube PO PRN PRN Hypoglycemia Protocol Dextrose 1,000 mls @ 100 mls/hr 03/01/25 15:54 Dextrose 5% 1,000 Ml IVPB PRN PRN Hypoglycemia Protocol Insulin Aspart 2 - 5 units 03/01/25 17:00 03/03/25 17:11 Insulin Aspart (*Bkc) 100 Units/Ml SUB-Q Not Given TIDWM COUNTS INCLUDE 234 BEDS AT THE [facility] Protocol Insulin Aspart 1 - 2 units 03/01/25 21:00 03/02/25 21:34 Insulin Aspart (*Bkc) 100 Units/Ml SUB-Q Not Given HS COUNTS INCLUDE 234 BEDS AT THE [facility] Protocol Metformin HCl 1,000 mg 03/01/25 17:00 03/03/25 17:12 Metformin Hcl 500 Mg Tablet PO 1,000 mg BID KEITH Administration Oxybutynin Chloride 5 mg 03/01/25 17:00 03/03/25 17:12 Oxybutynin Chloride 5 Mg Tablet PO 5 mg BID KEITH Administration Simvastatin 20 mg 03/02/25 09:00 03/03/25 08:50 Simvastatin 20 Mg Tablet PO 20 mg DAILY KEITH Administration Radiology Results: ITS Impressions Chest X-Ray 03/01/25 10:21 IMPRESSION: No acute cardiopulmonary pathology. Venous Doppler Study 03/01/25 21:14 IMPRESSION: 1. No deep venous thrombosis. Labs Labs: Laboratory Results - last 24 hr 03/02/25 03/03/25 03/03/25 20:36 07:42 11:52 POC Capillary Glucose 178 H 160 H 134 H 03/03/25 17:05 POC Capillary Glucose 131 H
[2025-03-03 20:00] VITALS: PULSE 79; RESP 20; O2SAT 95
[2025-03-03 20:45] LABS: Glucose Point of Care 178 mg/dl (65-105)
[2025-03-03] MEDS: HYDROcodone/acetaminophen (*CRX) 5-325 MG TABLET 1 TAB PO (20:52)
[2025-03-03 21:48] VITALS: BP 130/53; PULSE 76; RESP 20; TEMP 36.6; O2SAT 94
[2025-03-04 05:56] VITALS: BP 139/68; PULSE 77; RESP 16; TEMP 36.5; O2SAT 92
[2025-03-04 08:05] LABS: Glucose Point of Care 140 mg/dl (65-105)
[2025-03-04] MEDS: APIXABAN 5 MG TABLET PO (09:14)
[2025-03-04] MEDS: SIMVASTATIN 20 MG TABLET PO (09:14)
[2025-03-04] MEDS: CITALOPRAM HYDROBROMIDE 10 MG TABLET PO (09:14)
[2025-03-04] MEDS: CEFDINIR 300 MG CAPSULE PO (09:14)
[2025-03-04] MEDS: oxyBUTYnin CHLORIDE 5 MG TABLET PO (09:14)
[2025-03-04] MEDS: metFORMIN HCL 500 MG TABLET 1000 MG PO (09:14)
[2025-03-04] MEDS: ASPIRIN 81 MG ENTERIC TABLET PO (09:14)
[2025-03-04 11:56] LABS: Glucose Point of Care 140 mg/dl (65-105)
--- NOTE | 2025-03-04 13:12 | PM.DS ---
DS: Admitting Diagnosis Discharge Date 03/04/25 Admitting Diagnosis weakness DS: Discharge Diagnosis Discharge Diagnosis (1) Fall: Code(s): W19.XXXA - Unspecified fall, initial encounter Status: Acute (2) UTI (urinary tract infection): Code(s): N39.0 - Urinary tract infection, site not specified Status: Acute DS: Summary Hospital Course Hospital Course: 84-year-old female with history of type 2-5 diabetes hypertension hyperlipidemia, chronic lower extremity edema presenting to the emergency department from home for evaluation for having a slide from her wheelchair and landed on her bottom. Patient denies striking head denies loss of consciousness. Patient was amanged for UTI, urine culture grew E coli pansensitive, treat with Rocpehin and discharged on Cefdinir 2 more days. Also PT/OT was consulted, evaluated patient and recommended SNF. Patient discharged to SNF, f/u with PCP in 3-5 days Time Spent with Patient Time attestation: Total time spent providing and/or coordinating discharge services: DS: Data Data Completed and Pending Labs on day of discharge: Labs from last 24 hours 03/04/25 03/04/25 03/03/25 11:53 07:54 19:44 POC Capillary Glucose 140 H 140 H 178 H 03/03/25 17:05 POC Capillary Glucose 131 H Preliminary micro results at discharge 03/01/25 11:08 Blood Culture - Preliminary Blood 03/01/25 10:57 Blood Culture - Preliminary Blood Discharge Plan Discharge Attending physician on discharge: Mykel Torrez Discharging Clinician: Mykel Torrez Anticipated Discharge Date/Time: 03/04/25 13:07 Patient Disposition: SNF Activity: as tolerated Diet: as tolerated and diabetic Patient Instructions: Antibiotic Form, Apixaban (By mouth) Patient Language: Kinyarwanda Stand Alone Forms: General Discharge Information Follow-up/Referrals: Jack,KAM Simpson [Primary Care Provider] - (F/u with PCP in 3-5 days ) Discharge Medications: New cefdinir 300 mg Capsule 300 mg PO Q12HR 2 Days Qty: 4 0RF Continued metformin [Glucophage] 500 mg Tablet 1,000 mg PO BID citalopram [Celexa] 10 mg Tablet 10 mg PO DAILY Rx Instructions: PM-Bedtime simvastatin 20 mg Tablet 20 mg PO DAILY Rx Instructions: PM-Bedtime Eliquis 5 mg tablet 5 mg PO Q12H aspirin 81 mg capsule 81 mg PO DAILY carboxymethylcellulose sodium [Refresh Tears] 0.5 % drops 1 drp EACH EYE BID oxybutynin chloride 5 mg Tablet 5 mg PO BID Date of admission: 03/02/25 14:41 Primary Care Provider: JackDenice Admitting Provider: Allen Ambrocio Attending physician on admission: Allen Ambrocio Condition: Serious
== END 2025-03-04 14:35 | DRG 690 ==
LOC: ANHED 10:05 → ANH3MEDSUR 11:40
PROVIDERS: Admitting Provider Internal Medicine; Emergency Provider Emergency Medicine; PCP Physician Assistant; Visit Provider Internal Medicine
DX: N39.0 Urinary tract infection, site not specified (principal); Z68.42 Body mass index [BMI] 45.0-49.9, adult; I10 Essential (primary) hypertension; E78.5 Hyperlipidemia, unspecified; B96.20 Unspecified Escherichia coli [E. coli] as the cause of diseases classified elsewhere; E11.9 Type 2 diabetes mellitus without complications; E66.01 Morbid (severe) obesity due to excess calories; R62.7 Adult failure to thrive; F32.9 Major depressive disorder, single episode, unspecified; R60.0 Localized edema; M10.9 Gout, unspecified; Z85.42 Personal history of malignant neoplasm of other parts of uterus; W05.0XXA Fall from non-moving wheelchair, initial encounter; Z86.718 Personal history of other venous thrombosis and embolism; Z79.01 Long term (current) use of anticoagulants
CPT/HCPCS: 36415; 71045; 80053; 81001; 82948; 83036; 83880; 85025; 85610; 85730; 87040; 87077; 87086; 87186; 87637; 93970; 96365; 97110; 97161; 97166; 97530; 97535; 99285; A9270; G0378; J0696

== ENCOUNTER 2025-04-07 23:57 | Emergency (ER) | payer MEDICARE, MEDICAID, SELFPAY ==
--- NOTE | ~2025-04-07 | XR_ITS ---
XR chest 1V portable 04/08/2025 00:27 Indication: Cough Procedure: AP portable chest Comparison: Comparison to multiple prior studies sequentially, with oldest reviewed study dated 05/05. Findings: Heart size normal. Shallow inspiration. Left basilar atelectasis. No focal pneumonia, edema or pleural effusion. No pneumothorax. No acute osseous abnormality. Impression: 1: Left basilar atelectasis. Reviewed, dictated and finalized at location A. Impression: 1: Left basilar atelectasis.
--- NOTE | ~2025-04-07 | CT_ITS ---
EXAMINATION: CTA chest PE protocol DATE: 04/08/2025 8:16 CDT INDICATION: Shortness of breath TECHNIQUE: Computed tomographic angiography (CTA) of the chest was performed with 100 mL Omnipaque-35 0 intravenous contrast. The dose-length product was 965.70 mGy-cm. Maximum intensity projection 3D-re constructions of the aorta and other arteries were constructed by the technologist on a separate work station. COMPARISON: None. FINDINGS: Small right pleural effusion. Dependent atelectasis. Study technically adequate without irwin dence for large central pulmonary embolism. Evaluation of peripheral pulmonary arteries limited by mo tion artifact and contrast bolus timing. Small right pleural effusion. Cardiomegaly. There is right l ower lobe dependent atelectasis. No endobronchial lesions. There is left lower lobe dependent atelect asis. There is left upper lobe atelectasis/scarring. Moderate thoracic spondylosis. There is dextrosc oliosis. Moderate thoracic spondylosis. Gallstones. IMPRESSION: 1. No large central pulmonary embolism. Evaluation of peripheral pulmonary arteries limited by motion artifact. 2: Small right pleural effusion with dependent atelectasis. 3: Cardiomegaly. 4.: Cholelithiasis. Reviewed, dictated and finalized at location A. IMPRESSION: 1. No large central pulmonary embolism. Evaluation of peripheral pulmonary gabriele brea limited by motion artifact. 2: Small right pleural effusion with dependent atelectasis. 3: Cardiomegaly. 4.: Cholelithiasis.
[2025-04-07 23:58] VITALS: BP 147/91; PULSE 89; RESP 18; TEMP 36.8; O2SAT 95
[2025-04-08] VITALS (14 sets, daily range): BP systolic 146–186; BP diastolic 82–95; PULSE 77–92; RESP 16–29; TEMP 36.7–36.9; O2SAT 91–95
--- NOTE | 2025-04-08 00:05 | ECG_ITS ---
Test Date: 2025-04-08 01:37:28 Measurements Intervals [place] Rate: 90 P: 21 IN: 168 QRS: -5 QRSD: 103 T: 31 QT: 379 QTc: 464 Interpretive Statements SINUS RHYTHM LOW QRS VOLTAGE IN PRECORDIAL LEADS [QRS DEFLECTION < 1.0 mV IN CHEST LEADS] POSSIBLE ANTERIOR MYOCARDIAL INFARCTION , PROBABLY OLD [30 ms Q WAVE IN V3/V4, OR R < 0.2 mV IN V4] No previous ECG available for comparison Electronically Signed On 04-09-2025 15:40:53 CDT by Chase Hearn M.D.
[2025-04-08 00:46] LABS: Alanine Aminotransferase 17 U/L (6-35); Albumin Level 3.4 g/dL (3.5-5.1); Alkaline Phosphatase 64 U/L (38-126); Anion Gap 7 mmol/L (4-12); Aspartate Amino Transferase 24 U/L (14-36); Bilirubin,Total 0.4 mg/dL (0.2-1.3); Blood Urea Nitrogen 13 mg/dL (7-17); Calcium 8.3 mg/dL (8.4-10.2); Carbon Dioxide 29 mmol/L (22-30); Chloride 101 mmol/L (98-107); Estimated CRCL calculation 67 ml/min; Estimated Glomerular Filt Rate > 60; Glucose 162 mg/dL (65-110); Potassium 3.1 mmol/L (3.4-5.0); Sodium 137 mmol/L (137-145); Total Protein 6.3 g/dL (6.3-8.2)
[2025-04-08 02:18] LABS: Strep Group A RT-PCR NOT DETECTED (Negative)
--- OUTSIDE RECORDS SUMMARY | 2025-04-08 07:22 | XMS_ITS | Clinical Summary ---
Author Organization [facility] Virtual Care Address [facility] [place] [address] Phone Care Team Providers Care Offset Label Rewinder Name Role Phone Denice Santiago Primary Care [...] (02/09/2022): Added automatically from request for surgery [id number] Vaginal bleeding 02/09/2022 Overview (03/23/2022): Added automatically from request for surgery [id number] Edema of both lower extremities 08/17/2021 Assessment & Plan (08/17/2021 1:08 PM BRANCH SERVICE ASSOCIATE): Impression: Chronic lower extremity edema and associated [...] 08/17/2021 Assessment & Plan (08/17/2021 1:07 PM BRANCH SERVICE ASSOCIATE): Impression: Stable chronic hyperlipidemia. Plan: Medications reviewed I recommend continuing daily statin regimen as directed by patient's primary care physician. Diabetes mellitus 03/17/2018 Essential hypertension 03/17/2018 Resolved Problems Problem Noted Date Diagnosed Date Resolved Date Varicose veins of bilateral lower extremities with pain 08/17/2021 08/17/2021 Encounters Date Type Department Care Team Description 01/15/2025 Telephone Obstetrics and Gynecology Clinic [address] [facility] [address] [place] [address] Sienna Covarrubias RN from Last [...] 90 - 130 mL/min/1. 73 m2 [facility] Comment: Interpretive Data Reference Interval Normal [...] Fi nal Result Performing Organization Address City/State/[facility] de Phone Number [facility] Department [place] [address] * POCT hemoglobin A1c (02/23/2022 2:29 PM CDT) Hgb A1C, POC 5.6 4.0 - 5.6 % [facility] Est Average Gluc POC 114 mg/dL [facility] Comment: The ADA recommends reporting an estimated Average Glucose (eAG) with all Hemoglobin A1c results using the equation derived from a study of 507 normal and diabetic adults. Minority populations were underrepresented and children were not included. (Diabetes Care 31:1985-7512, 2008). The eAG is not equivalent to a fasting glucose. Blood 02/23/2022 2:29 PM CDT 02/23/2022 2:29 PM CDT us Notinfile Unknown POINT OF CARE TEST ORDERABLES Final Result Performing Organization Address [facility] de Phone Number [facility] [place] [address] from Last 3 Months or Most Recently Relevant to Health Maintenance Insurance [facility] IDPA AET[employer] MEDICARE GOLD [employer]VA IDPA Advance Directives For more information, please contact: [phone] * Full Code (Latest Code Status on File) Date Activated Date Inactivated Comments 03/15/2022 7:47 PM 03/27/2022 3:43 AM Care Teams Offset Label Rewinder Relationship Specialty Start Date End Date Denice Santiago PA PCP - General Physician Unit Manager [employer] 07/13/21
--- OUTSIDE RECORDS SUMMARY | 2025-04-08 07:22 | XMS_ITS | Encounter Summary ---
Author Organization [facility] Address [address] [place] [address] Phone Care Team Providers Care Levi Maker Name Role Phone Denice Santiago Primary Care [...] on filedocumented in this encounter Care Teams Levi Maker Relationship Specialty Start Date End Date Denice Santiago PA PCP - General Physician Supervisor Properties 07/13/21 documented as of this encounter
--- OUTSIDE RECORDS SUMMARY | 2025-04-08 07:22 | XMS_ITS | Referral Summary ---
Author Organization [facility] Virtual Care Address [address] [place] [address] Phone Care Team Providers Care Main Line Assembler Name Role Phone Denice Santiago Primary Care Provider + Encounters Date Type Department Care Team Description 01/15/2025 Telephone Obstetrics and Gynecology Clinic [address] [facility] 3[address] [place] [address] Sienna Covarrubias RN from Last [...] (02/09/2022): Added automatically from request for surgery [id number] Vaginal bleeding 02/09/2022 Overview (03/23/2022): Added automatically from request for surgery [id number] Edema of both lower extremities 08/17/2021 Assessment & Plan (08/17/2021 1:08 PM FOLLOW UP SPECIALIST): Impression: Chronic lower extremity edema and associated [...] 08/17/2021 Assessment & Plan (08/17/2021 1:07 PM FOLLOW UP SPECIALIST): Impression: Stable chronic hyperlipidemia. Plan: Medications reviewed [...] 90 - 130 mL/min/1. 73 m2 [facility] Comment: Interpretive Data Reference Interval [...] ORDERABLES Fi nal Result Performing Organization Address [facility] de Phone Number [facility] [place] [address] * POCT hemoglobin A1c (02/23/2022 2:29 PM CDT) Hgb A1C, POC 5.6 4.0 - 5.6 % [facility] Est Average Gluc POC 114 mg/dL [facility] Comment: The ADA recommends reporting an estimated Average Glucose (eAG) with all Hemoglobin A1c results using the equation derived from a study of 507 normal and diabetic adults. Minority populations were underrepresented and children were not included. (Diabetes Care 31:6980-8430, 2008). The eAG is not equivalent to a fasting glucose. Blood 02/23/2022 2:29 PM CDT 02/23/2022 2:29 PM CDT us Notinfile Unknown POINT OF CARE TEST ORDERABLES Final Result Performing Organization Address City/[facility] de Phone Number [facility] [place] [address] from Last 3 Months or Most Recently Relevant to Health Maintenance Insurance [employer] [facility] IDPA AETNA MEDICARE GOLD IDPA AETNA MEDICARE GOLD IDPA Advance Directives For more information, please contact: [phone] * Full Code (Latest Code Status on File) Date Activated Date Inactivated Comments 03/15/2022 7:47 PM 03/27/2022 3:43 AM Care Teams Main Line Assembler Relationship Specialty Start Date End Date Denice Santiago PA PCP - General Physician Tile Machine Operator 07/13/21
--- OUTSIDE RECORDS SUMMARY | 2025-04-08 07:22 | XMS_ITS | Encounter Summary ---
Author Organization [facility] Healthcare Address [address] [place] [address] Care Team Providers Care Database Development Project Manager Name Role Phone Denice Santiago Primary Care Provider + Encounter Details Date Type Department Care Team (Late st Contact Info) Description 06/12/2022 Completion of Therapy [facility] Advanced Medicine Radiation Oncology [facility] [facility] [place] [address] Brooklynn Torres MD [address] [facility] [address] [place] [address] Social History Tobacco Use Types Packs/Day Years [...] PM CDT Radiation Oncologist: No care steam and power supervisor to display Primary Care Physician: Denice Santiago PA Medical Oncologist: No care steam and power supervisor to display Surgeon: No care steam and power supervisor to display Referring Provider: No ref. provider [...] patient's pain is currently being managed by [facility]. Tolerance to Treatment: Ms. Rodriguez tolerated the treatment well. Disposition: Follow up in clinic in 6 weeks. Post treatment skin care instructions given. Patient was instructed to call with any concerns prior to scheduled follow up visit. No care steam and power supervisor to display supervised the patient???s radiation treatment [...] on filedocumented in this encounter Care Teams Database Development Project Manager Relationship Specialty Start Date End Date Denice Santiago PA PCP - General Physician Power System Operator 07/13/21 documented as of this encounter
--- OUTSIDE RECORDS SUMMARY | 2025-04-08 07:22 | XMS_ITS ---
Author Organization [facility] Virtual Care Address [facility] [place] [address] Phone Care Team Providers Care Channel Cementer Insole Machine Name Role Phone Denice Santiago Primary Care Provider + Active Problems Problem Noted Date Diagnosed Date Mild recurrent major depression 10/04/2022 01/11/2023 Urinary incontinence 10/02/2022 01/11/2023 Encounter for postoperative care 03/15/2022 Adenocarcinoma of endometrium 02/27/2022 Cancer Staging:Pathologic stage from 03/15/2022:FIGO Stage IB(pT1b, pN0, cM0) - Unsigned Postmenopausal bleeding 02/09/2022 Overview (02/09/2022): Added automatically from request for surgery [id number] Vaginal bleeding 02/09/2022 Overview (03/23/2022): Added automatically from request for surgery [id number] Edema of both lower extremities 08/17/2021 Assessment & Plan (08/17/2021 1:08 PM PHOTOGRAPHIC EQUIPMENT MECHANIC): Impression: Chronic lower extremity edema and associated [...] 08/17/2021 Assessment & Plan (08/17/2021 1:07 PM PHOTOGRAPHIC EQUIPMENT MECHANIC): Impression: Stable chronic hyperlipidemia. Plan: Medications reviewed [...]
--- OUTSIDE RECORDS SUMMARY | 2025-04-08 07:22 | XMS_ITS | Clinical Summary ---
Author Organization [facility] Address [facility] [place] [address] Care Team Providers Care Novelties Sales Representative Name Role Phone Reina Luna MD Primary Care Provider [phone] Denice Santiago PA-C Unavailable [phone] Social History Tobacco Use Types Packs/Day Years [...] complete this topic Insurance AETNA Care Teams Novelties Sales Representative Relationship Specialty Start Date End Date Reina Luna MD [facility] [address] [place] [address] PCP - General FAMILY PRACTICE 05/06/20 Denice Santiago PA-C [facility] [place] [address] NURSE PRACTITIONER 05/12/20
--- OUTSIDE RECORDS SUMMARY | 2025-04-08 07:23 | XMS_ITS | Data Portability ---
Author Organization [facility]ine Address [address] [facility] [place] [address] Care Team Providers Care Bonderizer Operator Name Role Phone ANNAMARIE PUCKETT Primary Care Provider [phone] Assessment Encounter Date Assessment Date Assessment LastModified [...] house for appointments due to her immobility. [email or web address] Not available 01/15/2025 05:58:14 Plan of Treatment Reminders Order Date Submit Date Provider Last Modified By Organization Details Last Modified Time Details Appointments None recorded. Lab HbA1c (hemoglobi n A1c), blood 2024 025 [facility], [address], [place], [address], 5 09:38:41 lipid panel, serum 2024 025 J[facility], [address], [place], [address], 5 09:38:39 CMP, serum or plasma 2024 025 [facility], [address], [place], [address], 5 09:38:40 albumin/cr eatinine, mass ratio, urine 2024 025 [facility], [address], [place], [address], 5 09:38:38 HbA1c (hemoglobi n A1c), blood 2022 023 [email or web address] In-Office Order, Internal Use Only DO Not Attach Compendium DO Not Attach Compendium, Do Not Delete/merge, [id number] 3 09:15:48 albumin/cr eatinine, mass ratio, urine 2021 022 [facility], [address], [place], [address], 2 16:12:00 HbA1c (hemoglobi n A1c), blood 2021 022 [facility], [address], [place], [address], 2 16:12:01 lipid panel, serum 2021 022 [facility], [address], [address], [place], [address], 2 16:11:59 CMP, serum or plasma 2021 022 [facility], [address], [place], [address], 2 16:11:58 Referral physical therapist referral 2024 025 [facility], [address], [place], [address], 5 14:20:38 wound care referral 2024 025 [facility], [facility], [place], [address], 5 08:09:33 gynecologi c oncologist referral [email or web address] [facility], [facility], [place], [address], 5 17:41:05 wound care referral 2022 023 [facility], [facility], [place], [address], 3 09:22:37 wound care referral 2022 023 [facility], [facility], [place], [address], 3 08:45:34 Procedures None recorded. Surgeries None recorded. Imaging DEXA 2021 022 [facility], [address] [address], [place], [address], 2 11:25:26 Medication Orders citalopram 10 mg tablet 2022 023 [facility]/Pharmacy #[id number], [address], [place], [address], 3 12:28:41 oxybutynin chloride 5 mg tablet [address]/Pharmacy #[id number], [address], [place], [address], 3 19:31:03 Patient TargetsNo targets recorded. Patient Instructions Encounter Date Encounter Id Patient Instructions Last Modified By Organization Details Last Modified Time 05/28/2022 [id number] A healthy lifestyle: care [facility] Not available 06/07/2022 11:08:16 Reason for Referral Referring Physician: General Dre Schroeder, Encounter Date: 01/01/2023 Referring Physician: General Dre Schroeder, Encounter Date: 02/05/2023 Referring Physician: General Dre Schroeder, Encounter Date: 12/24/2024 Gynecologic Oncologist Refer ral for Endometrial carcinoma Referring Physician: General Dre Lechuga, Encounter Date: 12/24/2024 Physical Therapist Referral for Difficulty walking Referring Physician: General Dre Lechuga, Encounter Date: 12/24/2024 Results Created Date Observation Date Name Description Value Unit Range Abnormal Flag Note LastModifiedBy Organization Detail LastModifiedTime 05/28/20 22 05/29/2022 COMP. METAB OLIC PANEL (14) glucose 99 mg/dL 65-99 Not Available [facility] ([facility]) [address] [place], [address], 05/29/2022 16:11:58 05/28/20 22 05/29/2022 COMP. METAB OLIC PANEL (14) BUN 22 mg/dL 8-27 Not Available [facility] ([facility]) [address] [place], [address], 05/29/2022 16:11:58 05/28/20 22 05/29/2022 COMP. METAB OLIC PANEL (14) creatinine 0.97 mg/dL 0.57-1 .00 Not Available [facility] ([facility]) [address] [place], [address], 05/29/2022 16:11:58 05/28/20 22 05/29/2022 COMP. METAB OLIC PANEL (14) eGFR 59 mL/mi n/1.7 3 >59 below low normal Not Available [facility] ([facility]) [address] [place], [address], 05/29/2022 16:11:58 05/28/20 22 05/29/2022 COMP. METAB OLIC PANEL (14) BUN/creatini ne ratio 23 12-28 Not Available [facility] ([facility]) [address] [place], [address], 05/29/2022 16:11:58 05/28/20 22 05/29/2022 COMP. METAB OLIC PANEL (14) sodium 140 mmol/ L 134-14 4 Not Available [facility] ([facility]) [address] [place], [address], 05/29/2022 16:11:58 05/28/20 22 05/29/2022 COMP. METAB OLIC PANEL (14) potassium 4.3 mmol/ L 3.5-5. 2 Not Available [facility] ([facility]) [address] [place], [address], 05/29/2022 16:11:58 05/28/20 22 05/29/2022 COMP. METAB OLIC PANEL (14) chloride 100 mmol/ L 96-106 Not Available [facility] ([facility]) [address] [place], [address], 05/29/2022 16:11:58 05/28/20 22 05/29/2022 COMP. METAB OLIC PANEL (14) carbon dioxide, total 27 mmol/ L 20-29 Not Available [facility] ([facility]) [address] [place], [address], 05/29/2022 16:11:58 05/28/20 22 05/29/2022 COMP. METAB OLIC PANEL (14) calcium 10.0 mg/dL 8.7-10 .3 Not Available [facility] ([facility]) [address] [place], [address], 05/29/2022 16:11:58 05/28/20 22 05/29/2022 COMP. METAB OLIC PANEL (14) protein, total 6.9 g/dL 6.0-8. 5 Not Available [facility] ([facility]) [address] [place], [address], 05/29/2022 16:11:58 05/28/20 22 05/29/2022 COMP. METAB OLIC PANEL (14) albumin 4.1 g/dL 3.7-4. 7 Not Available [facility] ([facility]) [address] [place], [address], 05/29/2022 16:11:58 05/28/20 22 05/29/2022 COMP. METAB OLIC PANEL (14) globulin, total 2.8 g/dL 1.5-4. 5 Not Available [facility] ([facility]) [address] [place], [address], 05/29/2022 16:11:58 05/28/20 22 05/29/2022 COMP. METAB OLIC PANEL (14) A/G ratio 1.5 1.2-2. 2 Not Available [facility] ([facility]) [address] [place], [address], 05/29/2022 16:11:58 05/28/20 22 05/29/2022 COMP. METAB OLIC PANEL (14) bilirubin, total 0.2 mg/dL 0.0-1. 2 Not Available [facility] ([facility]) [address] [place], [address], 05/29/2022 16:11:58 05/28/20 22 05/29/2022 COMP. METAB OLIC PANEL (14) alkaline phosphatase 80 IU/L 44-121 Not Available [facility] ([facility]) [address] [place], [address], 05/29/2022 16:11:58 05/28/20 22 05/29/2022 COMP. METAB OLIC PANEL (14) AST (SGOT) 11 IU/L 0-40 Not Available [facility] ([facility]) [address] [place], [address], 05/29/2022 16:11:58 05/28/20 22 05/29/2022 COMP. METAB OLIC PANEL (14) ALT (SGPT) 9 IU/L 0-32 Not Available [facility] ([facility]) [address] [place], [address], 05/29/2022 16:11:58 05/28/20 22 05/29/2022 LIPID PANEL cholesterol, total 184 mg/dL 100-19 9 Not Available [facility] ([facility]) [address] [place], [address], 05/29/2022 16:11:59 05/28/20 22 05/29/2022 LIPID PANEL triglyceride s 155 mg/dL 0-149 above high normal Not Available [facility] ([facility]) [address] [place], [address], 05/29/2022 16:11:59 05/28/20 22 05/29/2022 LIPID PANEL HDL cholesterol 65 mg/dL >39 Not Available [facility] ([facility]) [address] [place], [address], 05/29/2022 16:11:59 05/28/20 22 05/29/2022 LIPID PANEL VLDL cholesterol travis 27 mg/dL 5-40 Not Available [facility] ([facility]) [address] [place], [address], 05/29/2022 16:11:59 05/28/20 22 05/29/2022 LIPID PANEL LDL chol calc ([facility]) 92 mg/dL 0-99 Not Available [facility] ([facility]) [address] [place], [address], 05/29/2022 16:11:59 05/28/20 22 05/29/2022 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 No urine speci men recei vanessa. 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 6 above high normal Predi abete s: 5.7 - 6.4 Diabe axel: >6.4 Glyce nikolai contr ol for adult s with diabe axel: <7.0 Not Available [facility] ([facility]) [address], [place], [address], 05/29/2022 16:12:01 05/28/20 22 05/29/2022 SPECI MEN STATU S REPOR T specimen status report TNP Test not perfo rmed. No urine speci men recei vanessa. TEST: [id number] Album in/Cr eatin ine Ratio ,Urin e Not Available [facility] ([facility]) [address], [place], [address], 05/29/2022 16:12:04 01/02/20 23 01/01/2023 HbA1c (hemo globi n A1c), blood HbA1c 5.9 Not Available In-Office Order Internal Use Only DO Not Attach Compendium DO Not Attach Compendium, Do Not Delete/merge, [id number] 01/01/2023 16:25:21 12/25/19 25 12/26/2024 ALBUM IN/CR EATIN INE RATIO ,URIN E creatinine, urine - mg/dL Test not perfo rmed. No urine speci men recei vanessa. Not Available [facility] ([facility]) [address] [place], [address], 12/26/2024 09:38:38 12/25/19 25 12/26/2024 ALBUM IN/CR EATIN INE RATIO ,URIN E albumin, urine - Test not perfo rmed Not Available [facility] ([facility]) [address] [place], [address], 12/26/2024 09:38:38 12/25/19 25 12/26/2024 LIPID PANEL cholesterol, total 167 mg/dL 100-19 9 Not Available [facility] ([facility]) [address] [place], [address], 12/26/2024 09:38:39 12/25/19 25 12/26/2024 LIPID PANEL triglyceride s 203 mg/dL 0-149 above high normal Not Available [facility] ([facility]) [address] [place], [address], 12/26/2024 09:38:39 12/25/19 25 12/26/2024 LIPID PANEL HDL cholesterol 62 mg/dL >39 Not Available [facility] ([facility]) [address] [place], [address], 12/26/2024 09:38:39 12/25/19 25 12/26/2024 LIPID PANEL VLDL cholesterol travis 33 mg/dL 5-40 Not Available [facility] ([facility]) [address], [place], [address], 12/26/2024 09:38:39 12/25/19 25 12/26/2024 LIPID PANEL LDL chol calc ([facility]) 72 mg/dL 0-99 Not Available [facility] ([facility]) [address] [place], [address], 12/26/2024 09:38:39 12/25/19 25 12/26/2024 COMP. METAB OLIC PANEL (14) glucose 180 mg/dL 70-99 above high normal Not Available [facility] ([facility]) [address] [place], [address], 12/26/2024 09:38:40 12/25/19 25 12/26/2024 COMP. METAB OLIC PANEL (14) BUN 14 mg/dL 8-27 Not Available [facility] ([facility]) [address] [place], [address], 12/26/2024 09:38:40 12/25/19 25 12/26/2024 COMP. METAB OLIC PANEL (14) creatinine 1.10 mg/dL 0.57-1 .00 above high normal Not Available [facility] ([facility]) [address], [place], [address], 12/26/2024 09:38:40 12/25/19 25 12/26/2024 COMP. METAB OLIC PANEL (14) eGFR 50 mL/mi n/1.7 3 >59 below low normal Not Available [facility] ([facility]) [address] [place], [address], 12/26/2024 09:38:40 12/25/19 25 12/26/2024 COMP. METAB OLIC PANEL (14) BUN/creatini ne ratio 13 12-28 Not Available [facility] ([facility]) [address] [place], [address], 12/26/2024 09:38:40 04/10/20 25 12/26/2024 COMP. METAB OLIC PANEL (14) sodium 141 mmol/ L 134-14 4 Not Available [facility] ([facility]) [address] [place], [address], 12/26/2024 09:38:40 12/25/19 25 12/26/2024 COMP. METAB OLIC PANEL (14) potassium 3.8 mmol/ L 3.5-5. 2 Not Available [facility] ([facility]) [address], [place], [address], 12/26/2024 09:38:40 12/25/19 25 12/26/2024 COMP. METAB OLIC PANEL (14) chloride 103 mmol/ L 96-106 Not Available [facility] ([facility]) [address], [place], [address], 12/26/2024 09:38:40 12/25/19 25 12/26/2024 COMP. METAB OLIC PANEL (14) carbon dioxide, total 22 mmol/ L 20-29 Not Available [facility] ([facility]) [address] [place], [address], 12/26/2024 09:38:40 12/25/19 25 12/26/2024 COMP. METAB OLIC PANEL (14) calcium 9.5 mg/dL 8.7-10 .3 Not Available [facility] ([facility]) [address] [place], [address], 12/26/2024 09:38:40 12/25/19 25 12/26/2024 COMP. METAB OLIC PANEL (14) protein, total 6.8 g/dL 6.0-8. 5 Not Available [facility] ([facility]) [address] [place], [address], 12/26/2024 09:38:40 12/25/19 25 12/26/2024 COMP. METAB OLIC PANEL (14) albumin 4.1 g/dL 3.7-4. 7 Not Available [facility] ([facility]) [address] [place], [address], 12/26/2024 09:38:40 12/25/19 25 12/26/2024 COMP. METAB OLIC PANEL (14) globulin, total 2.7 g/dL 1.5-4. 5 Not Available [facility] ([facility]) [address] [place], [address], 12/26/2024 09:38:40 12/25/19 25 12/26/2024 COMP. METAB OLIC PANEL (14) bilirubin, total 0.4 mg/dL 0.0-1. 2 Not Available [facility] ([facility]) [address] [place], [address], 12/26/2024 09:38:40 12/25/19 25 12/26/2024 COMP. METAB OLIC PANEL (14) alkaline phosphatase 73 IU/L 44-121 Not Available [facility] ([facility]) [address] [place], [address], 12/26/2024 09:38:40 12/25/19 25 12/26/2024 COMP. METAB OLIC PANEL (14) AST (SGOT) 10 IU/L 0-40 Not Available [facility] ([facility]) [address] [place], [address], 12/26/2024 09:38:40 12/25/19 25 12/26/2024 COMP. METAB OLIC PANEL (14) ALT (SGPT) 10 IU/L 0-32 Not Available [facility] ([facility]) [address] [place], [address], 12/26/2024 09:38:40 12/25/19 25 12/26/2024 HEMOG LOBIN A1C hemoglobin A1C 7.6 % 4.8-5. 6 above high normal Predi abete s: 5.7 - 6.4 Diabe axel: >6.4 Glyce nikolai contr ol for adult s with diabe axel: <7.0 Not Available [facility] ([facility]) [address], [place], [address], 12/26/2024 09:38:41 04/08/20 25 04/08/2025 imagi ng/di agnos tic resul t No observ ation record ed. [facility] [address], [place], [address], 04/08/2025 05:41:49 Result Notes None recorded. 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 KAM LECHUGA Attn: Accounting ,[address] [facility], [place], [address] , [place] [facility] 3 19:33:39 Venous stasis ulcer with edema of right lower leg 8371938191323 9106 Active 2022 KAM LECHUGA Attn: Accounting ,[address] [facility], [place], [address] , [place] [facility] 3 16:25:32 Venous stasis ulcer with edema of left lower leg 4564656708783 9101 Active 2022 KAM LECHUGA Attn: Accounting ,[address] [facility], [place], [address] , [place] [facility] 3 16:25:32 Problem Notes Documentation Provider Name and Address Organization Details Recorded Time This document () was received from [email or web address] hospitalM[facility] [employer] [employer] on 06/21/2022 through Direct Message along with the following message body content: Patient Name: KIMBERLY RODRIGUEZ. Patient : 1940. Patient . Kia Brown reinaldo, [place] - [facility] 06/25/2022 12:25:07 Medical Equipment None Reported. Allergies Allergen ID Allergen Name Allergen Category Reaction Reaction Severity Criticality Documentation Date Start Date Code Code System Note Provider Name and Address Organization Details Recorded Time 981059 Product containin g penicilli n (product) medicatio n Not available Not available Not available 03/17/2018 58396 8001 SNOMED TREVA Herrera, [place] - [place] 8 12:10:38 169528 oxybutyni n medicatio n Not available Not available Not available 12/30/2019 69809 RxNorm Faye Gibson MA null, [place] [facility] 0 12:16:55 Medications Name Sig Start Date Stop Date Status Note LastModified by Organization Details LastModified Time Prescript ion - Prior Authoriza tion Request active Not Available Not Available Not Available furosemid e 40 mg tablet 07/11 completed Not Available Not Available Not Available metformin 500 mg tablet TAKE 2 TABLETS BY MOUTH TWICE A DAY active Not Available Not Available No t Available potassium chloride ER 10 mEq capsule,e xtended [...] completed Not Available Not Available Not Available cefdinir 300 mg capsule TAKE 1 CAPSULE BY MOUTH EVERY 12 HOURS X2 DAYS active Not Available Not Available No t Available doxycycli ne hyclate 100 mg tablet TAKE 1 TABLET BY MOUTH TWICE DAILY active Not Available Not Available No t Available gentamici n 0.1 % topical ointment 10/02 completed Wound Care-Dr. Naresh lim Not Available Not Available Not Available oxycodone [...] Not Available No t Available Fluzone High-Dose 6566-8198 (PF) 180 mcg/0.5 mL intramusc ular syringe [...] in Arterial blood by Pulse oximetry Systolic And Diastolic Provider Name and Address Organization Details Last Updated DateTime 5 157.48 cm 49.8 kg/m2 569968. 22 g 84 /min 94 % 94 % 152/91 mm[Hg] Faye Gibson [place] [facility] 5 17:04:42 Date Recorded Body height Heart rate Oxygen saturation Oxygen saturation in Arterial blood by Pulse oximetry Body mass index (BMI) Body weight Systolic And Diastolic Provider Name and Address Organization Details Last Updated DateTime 3 157.48 cm 71 /min 95 % 95 % 46.2 kg/m2 946003. 08 g 124/70 mm[Hg] KAM LECHUGA Attn: Frankie sylvester,[address] [facility], [place], [address], [facility] 3 16:08:41 Date Recorded Body height Body mass index (BMI) Body weight Heart rate Oxygen saturation Oxygen saturation in Arterial blood by Pulse oximetry Systolic And Diastolic Provider Name and Address Organization Details Last Updated DateTime 3 157.48 cm 49.2 kg/m2 716879. 35 g 71 /min 93 % 93 % 134/72 mm[Hg] Faye Gibson MA [facility] 3 15:51:25 Date Recorded Body height Body mass index (BMI) Body weight Heart rate Oxygen saturation Oxygen saturation in Arterial blood by Pulse oximetry Systolic And Diastolic Provider Name and Address Organization Details Last Updated DateTime 2 157.48 cm 41.4 kg/m2 833761. 68 g 72 /min 95 % 95 % 126/76 mm[Hg] Faye Gibson MA [facility] 2 11:08:26 Social History Question Answer Notes LastModified by Cipioat ion Details LastModified Time Tobacco Smoking Status Never Smoker Not Available [facility] 07/19/2020 03:39:30 Do You Have An Advance [...] How Much Tobacco Do You Chew? None [id number] Information not available 07/19/2020 In The 14 [...] Or The Highest Degree You Have Received? [id number] Information not available 10/26/2020 Have There Been [...] Do You Have A Medical Power Of Relief Charge Nurse? Yes Information not available 10/26/2020 What Was [...] How Much Tobacco Do You Smoke? No [id number] Information not available 07/19/2020 General Stress Level Low Information not available 05/05/2020 Has Tobacco Cessation Counseling Been Provided? Yes Information not available 10/26/2020 On What Date Was Tobacco Cessation Counseling Provided? 07/11/2021 Information not available 07/11/2021 How Many Years Have You Smoked Tobacco? 0 [id number] Information not available 07/19/2020 Have You Recently [...] is your level of alcohol consumption? None [id number] Information not available 07/19/2020 Do you or have you ever used smokeless tobacco? Never used smokeless tobacco [id number] Information not available 07/19/2020 Are you currently employed? No [id number] Information not available 07/19/2020 Have you been exposed to heavy metals? No Information not available 10/26/2020 Have you been exposed to chemicals or toxins? No Information not available 10/26/2020 Do you have transportation difficulties? Yes Information not available 10/26/2020 Are you able to walk? YESLIMIT Information not available 10/26/2020 Are you able to care for yourself? No [id number] Information n ot available 07/19/2020 Do you have difficulty dressing or bathing? Yes Bathing, ladkurt comes in and helps her bathe. Information not available 10/26/2020 Do you or have you ever used e-cigarettes or vape? Never used electronic cigarettes [id number] Information not available 07/19/2020 Mental Status Question Answer Note LastModified by Organizat ion Details LastModified Time Do you feel stressed (tense, restless, nervous, or anxious, or unable to sleep at night)? [id number] Yes, due to her chair issues. Sleeps in chair. Information not available 10/26/2020 Do you have difficulty concentrating, remembering or making decisions? No Information not available 10/26/2020 Family History Relationship Description Onset Age of this Age Resolved Age Notes LastModified by Organization Details LastModified Time Father Alcoholism [email or web address] Not availa ble 03/17/2018 12:13:05 Mother Cerebrovascu lar accident [email or web address] Not available 10/2017 12:13:16 Mother Heart disease [email or web address] Not available 2017 12:13:28 Mother Hypertensive disorder [email or web address] Not available 2017 12:13:48 Medical History Condition Response Coronary Artery Disease N Other N High Blood Pressure Y Atrial Fibrillation N Kidney or Bladder Problems Y Thyroid Problems N GI Problems N Depression Y COPD N Blood Clots N Skin Problems N Anemia N Heart Attack (CA) N Anxiety Disorder N Diabetes Y Muscle, Joint, or Bone Problems N Seizures/Epilepsy N Acid Reflux (GERD) N Cancer N Stroke N Asthma N Allergies N High Cholesterol N Hepatitis N Liver Disease N Headaches N Heart Failure N Osteoporosis N Gynecological HistoryNo gynecological history recorded. Obstetrics History GPAL:G 0 P 0 0 0 0 Immunizations Vaccine Type Date Status Note Provider Nam e and Address Organization Details Recorded Time COVID-19, mRNA, LNP-S, PF, 100 mcg/0.5mL dose or 50 mcg/0.25mL dose 1 completed Denise Rubio RN null, [place] - [facility] 03/03/2021 15:35:13 Influenza, split virus, quadrivalent, PF 8 completed Not Available [facility] 10/03/2019 02:47:59 pneumococcal polysaccharide PPV23 9 completed Not Available [facility] 10/03/2019 02:49:09 Influenza, high-dose, quadrivalent, PF 1 completed Faye Gibson MA null, [place] - [facility] 07/11/2021 17:19:42 Pneumococcal conjugate PCV 13 7 completed ISMAEL Bustamante NP Attn: Accounting,[address] [facility], [place], [address], [facility] 06/23/2018 11:57:41 Past Encounters Encounter ID Performer Location Encounter Start Date Encounter Closed Date Diagnosis/Indication Diagnosis SNOMED-CT Code Diagnosis ICD10 Code Diagnosis Note [id number] ISMAEL Bustamante NP [facility] [address] [place] [address] 03/17/2018 11:48:25 03/24/2018 17:29:49 Diabetes mellitus 39320546 E11.9 -Obtain labs Edema of l ower extremity 493207278 R60.0 -Check BNP Increased frequency of urination 874944842 R35.0 -Urine dipstick with leukocytes -Send urine for culture -Discussed kegal excercises [id number] ISMAEL Bustamante NP [facility] [address] [place] [address] 04/28/2018 11:39:04 04/28/2018 15:52:12 Edema of lower extremity 421037529 R60.0 -D/c lisinopril due to cough-D/c lasix due to increased urination- Start HCTZ-F/u 1 month Diabetes mellitus 597718 09 E11.9 -Continue metformin [id number] ISMAEL Bustamante NP [facility] [address] [place] [address] 05/26/2018 11:31:38 05/26/2018 17:06:47 Urinary incontinence 191731016 R32 - UA negative-S tart oxybutynin as directed-F /u 1 month Edema of l ower extremity 845914298 R60.0 -Continue HCTZ-BNP neg-Compre ssion stockings, avoid sodium, elevate BLE Muscle weakness 16343789 M62.81 -Start home health PT [id number] ISMAEL Bustamante NP [facility] [address] [place] [address] 06/23/2018 10:37:29 06/23/2018 12:10:22 Urinary incontinence 302217125 R32 -Increase oxybutynin as directed-F /u 3 month Edema of l ower extremity 990482327 R60.0 -Continue HCTZ-BNP neg-Compre ssion stockings, avoid sodium, elevate BLE Muscle weakness 86427757 M62.81 -Pt has home health physical therapy coming to home-Repor ts improvemen t with physical strength [id number] ISMAEL Bustamante NP [facility] [address] [place] [address] 08/18/2018 10:07:15 08/18/2018 11:15:03 Edema of lower extremity 215053927 R60.0 -D/c HCTZ-F/u 2 weeks to assess if dizziness has improved-C ontinue compressio n stockings, avoid sodium, elevate BLE [id number] ISMAEL Bustamante NP [facility] [address] [place] [address] 10/20/2018 10:06:56 10/20/2018 10:52:56 Type 2 diabetes mellitus 06478502 E11.9 -Obtain labs-Mark nue medication s-DM diet and exercise Active or passive immunization 014700458 Z23 [id number] Reina Luna MD [facility] [address] [place] [address] 03/09/2019 09:58:30 03/14/2019 13:20:56 Diabetes mellitus 85996875 E11.59 Hypertriglyceridemia 302 659804 E78.1 Bladder mu scle dysfunction - overactive 267866954 N32.81 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 refill on metformin. - f/u in 3 months- continue DM diet- increase walking as tolerated to increase physical activity Dysuria 80630085 R30.9 Patient having blood in urine when she wiped. She is to see gynecology to r/o mechanical ordnance assembler sources of blood. She says blood is from urine. afebrile, BP 134/68.- *Not enough urine collected for culture-UA postive for nitrates and blood.- take macrobid 2x day x 5 days- f/u in one week Mild recur rent major depression 77807869 F33.0 Patient states medication was making her drowsy in the morning so she quit taking it. She would like to try taking it at night - continue medication as prescribed but try at night time- if SI/HI develop please go to ER and notify office- f/u in 4-6 weeks or prn [id number] KAM LECHUGA [facility] [address] [place] [address] 02/25/2020 09:18:05 02/26/2020 06:25:33 Diabetes mellitus 29196211 E11.9 Last A1C controlled at 6.7. refill [...] 3 months Mild recur rent major depression 52013391 F33.0 Patient doing well on medication . No side effects. will refill - continue medication as prescribed but try at night time- if SI/HI develop please go to ER and notify office- f/u in 4-6 weeks or prn Hypertriglyceridemia 302 499587 E78.1 refill. Essential hypertension 11691080 I10 refill. Needs office visit to check [...] Advised goal for BP is <140/90 Cellulitis 523087851 L03 .90 patient went to urgent care on the for skin wound on leg. She is on day 3 of doxycyclin e and states leg is looking a little better. tolerating antibiotic well. - keep area clean- continue medication as prescribed - if fever, chills, streaks go back to urgent care of f/u here [id number] KAM LECHUGA [facility] [address] [place] [address] 05/05/2020 12:06:50 05/05/2020 20:40:40 Cellulitis of lower limb 172197234 L03.119 patient sent to hospital due to bilateral swelling of legs, erythema, weeping ulcers. Need to r/o DVT. [id number] KAM LECHUGA [facility] [address] [place] [address] 05/16/2020 13:50:03 05/17/2020 14:28:32 Diabetes mellitus 36671415 E11.59 Last A1C controlled at 11, not [...] ulcer with edema of right lower leg 6350667215 4948583 L97.990 [id number] KAM LECHUGA [facility] [address] [place] [address] 06/30/2020 15:26:22 07/01/2020 13:06:34 Gouty arthritis of great toe 85866300 M10.9 PAtient started having pain on left first toe this week casuing her to wake up during the night. Touching the toe hurt and it was swollen and red. Her vascular doctor massaged it and it feels much better. Currently at level 0/10 pain. -f/u prn- low purine diet [id number] KAM LECHUGA [facility] [address] [place] [address] 10/26/2020 08:00:26 10/27/2020 20:08:55 Difficulty standing from sitting 271908854 R26.89 Patient presents for new chair lift [...] of patient Edema of l ower extremity 851883902 R60.0 patient has moderate edema of lower edema and needs to keep legs elevated as much as possible to avoid ulceration s similar to that of last year. [id number] KAM LECHUGA [facility] [address] [place] [address] 03/03/2021 08:01:53 03/10/2021 12:14:29 Difficulty walking 389234239 R26.2 Patient recently [facility] from [facility]. She is now home and able to move around with her walker. Painless hematuria 8000 R31.9 patient continues having heamturia [id number] KAM LECHUGA [facility] [address] [place] [address] 07/11/2021 11:04:49 07/12/2021 10:44:08 Painless hematuria 390422254 R31.9 patient continues having heamturia? uncertain of where blood is coming from. Unable to perform exam today. given urology order to son today. Labs obtained. Diabetes mellitus 150263 09 E11.59 Last A1C 7.9 on 04/2020. [...] visit- f/u in 3 months Essential hypertension 89285957 I10 BP 110/66, wnl medication regiment: triametere [...] BP is <140/90 Abnormal u terine bleeding 0096646618 9100 N93.9 Patient with possible abnormal vaginal bleeding. Does not know where blood is coming from. We tried to get patient on exam table today but she was unable to due to mobility and patient balance. She needs to be seen by obgyn with better access to exam table. Sent referral today and given to nikolas, her son. Also gave number to [facility] to see who can get her in sooner. Ordered US. 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 [id number] KAM LECHUGA [facility] [address] [place] [address] 05/28/2022 10:56:04 06/07/2022 12:32:38 Diabetes mellitus 50190287 E11.59 Last A1C 7.9 on 04/2020. refill [...] visit- f/u in 3 months Difficulty walking 54448 2003 R26.2 patient would benefit from wheelchair as she has trouble moving around house. She has to be helped in shower and transferri ng her there would be helpful. would also help her get to appointmen ts. Morbid obesity 022025961 E66.01 Osteoporosis 02492792 M8 1.0 [id number] KAM LECHUGA [facility] [address] [place] [address] 10/02/2022 11:26:35 10/08/2022 14:57:27 Urinary incontinence 380909214 R32 incontinen ce. uses [employer] inher room.has been going on for >5 years90 supplies Bladder mu scle dysfunction - overactive 671722932 N32.81 Mild recur rent major depression 14727425 F33.0 Patient doing well on medication . No side effects. will refill - continue medication as prescribed but try at night time- if SI/HI develop please go to ER and notify office- f/u in 4-6 weeks or prn [id number] KAM LECHUGA [facility] [address] [place] [address] 01/01/2023 15:49:06 01/01/2023 17:10:56 Prediabetes 232760128 R73.03 controlled Venous sta sis ulcer with edema of right lower leg 8487946895 5703112 L97.919 b/l venous stasis ulcers, weeping. Did go to ER and was treated with abx. She has seen improvemen t PEX: b/l ulcers with drainage. - encouraged wound care- continue wrapping- elevate legs- control DM- F/U 3 weeks Venous sta sis ulcer with edema of left lower leg 2239853434 0574559 L97.929 as above [id number] KAM LECHUGA [facility] [address] [place] [address] 02/05/2023 15:34:43 02/12/2023 14:44:02 Venous stasis ulcer with edema of right lower leg 8823366069 0715444 L97.919 b/l venous stasis ulcers, weeping. Did go to ER and was treated with abx. She has seen improvemen t PEX: b/l ulcers with drainage. - encouraged wound care- continue wrapping- elevate legs- control DM- F/U 3 weeks Venous sta sis ulcer with edema of left lower leg 2774768162 2807351 L97.929 as above [id number] Yvon Mendez MD [facility] [address] [place] [address] 12/24/2024 16:47:24 01/15/2025 07:27:20 Diabetes mellitus 33008600 E11.59 Last A1C 7.6% (01/2025) 7.9% (04/2020). [...] 3 months Edema of l ower extremity 281986209 R60.0 patient has moderate edema of lower [...] is given to family today. Difficulty walking 32941 2002 R26.2 patient would benefit from wheelchair [...] time to avoid ulcers. Endometrial carcinoma 25 4486669 C54.1 Patient has a history of endometria [...] Núñez Member ID Guarantor Name 12/24/2024 1 [facility] Kimberly Rodriguez [id number] Kimberly Rodriguez 03/28/2025 1 [employer] (MEDICARE REPLACEMENT/A DVANTAGE - HMO) [id number] Kimberly Rodriguez [id number] Kimberly Rodriguez 12/24/2024 1 [facility] (MEDICARE REPLACEMENT HMO) [id number] Kimberly Rodriguez [id number] Kimberly Rodriguez 02/29/2020 2 *SELF PAY* Br lizetteviviana Michael Notes Date Note Type Note Provider Name and Address Organization Details Recorded Time 05/28/2022 text/html ROS as noted in the HPI Kimberly is a 81 YO F presenting for F/U on cancer stage [...] for bathing. KAM LECHUGA Attn: Accounting,[address] [facility], [place], [address], [facility] 06/07/2022 11:08:58 10/02/2022 text/html Kimberly presents for incontinence paper work over PV as she was unable to make it in Needs aeroflow paperwork filled out. Patient has had incontinence for many years due to DM weak muscles. goes through package a moth. 90 per month. She uses jeff potty in her bedroom but does not always make it. She cahnges depends multiple times per day. She takes oxybutinin which helps some. KAM LECHUGA Attn: Accounting,[address] [facility], [place], [address], [facility] 10/04/2022 19:33:58 01/01/2023 text/html Rash/Skin LesionReported by PatientHPIFor quality, patient reportsweeping,red, andflakingbut reportsnot itchy. For location, patient reportslegs (bilateral). For severity, patient reportsmoderate. For context, patient reportsno new detergents or skin products,no one else with similar rash, andnot scratching. For associated symptoms, patient reportsno fever,no cold symptoms,no nausea,no vomiting,no diarrhea,no urinary symptoms,no chills,no fatigue, andno change in weight.ROS as noted in the HPI Patient presents for leg infection and F/U patient diagnosed at urgent care with cellulitis of leg. She was given abx. She did see improvement. fqauonae-kk-vtr Arabella has been changing dressing daily. Patient does elevate legs. DM controlled, A1C<6.5%. Son does not think she needs to see wound care. Agrees to bring her back in 3 weeks. Denies SOb, fever, CP, dizziness, nausea, diarrhea. KAM LECHUGA Attn: Accounting,[address] [place], [address], [facility] 01/17/2023 16:30:36 02/05/2023 text/html Rash/Skin LesionReported by PatientHPIFor quality, patient reportsweeping,red, andflakingbut reportsnot itchy. For location, patient reportslegs (bilateral). For severity, patient reportsmoderate. For context, patient reportsno new detergents or skin products,no one else with similar rash, andnot scratching. For associated symptoms, patient reportsno fever,no cold symptoms,no nausea,no vomiting,no diarrhea,no urinary symptoms,no chills,no fatigue, andno change in weight.ROS as noted in the HPI Patient presents for leg infection and F/U patient with hx of venous stasis with open weeping wound. miuriedc-hm-gko Arabella has been changing dressing daily, applying compression. Patient does elevate legs. DM controlled, A1C<6.5%.lst visit wound care referral was declined. They are open to referral now. Denies SOb, fever, CP, dizziness, nausea, diarrhea. KAM LECHUGA Attn: Accounting,[address] [place], [address], [facility] 02/12/2023 03:35:31 12/24/2024 text/html Kimberly is An 84-year-old female personal medical history of diabetes, endometrial cancer, hypertension, urinary incontinence brought here by son and ametqjxp-wb-kpv patient has not been seen for 2 years in the office. Son states that she has been otherwise doing well. Wkwzzcsm-oz-sdt helps care for Kimberly at their home. She helps with her cleaning and bathing. lndjwzfl-yg-gsh, Arabella states it is very hard to [...] this often. KAM LECHUGA Attn: Accounting,[address] [place], [address], [facility] 01/15/2025 05:58:56 OBGyn Episode No OBEpisode recorded.
--- OUTSIDE RECORDS SUMMARY | 2025-04-08 07:23 | XMS_ITS | Patient Health Record ---
Author Organization [facility] Address [address] [place], [place] [id number] Care Team Providers Care Manager Post Name Role Phone MIRIAM Puga Unavailable [phone] Florian Li Unavailable Unavailable Reason For Referral No Information Plan Of Treatment No Information Insurance Providers Payer Name Payer Address Payer Phone Subscriber Number Group Number Insured Name Patient Relationship to Insured Coverage Start Date Coverage End Date [facility] [address] [place] [address] [id number] CHLOÉ BLACKBURN Self - patient is the insured
--- OUTSIDE RECORDS SUMMARY | 2025-04-08 07:23 | XMS_ITS ---
Author Organization [facility] Address [address] [place] [id number] Care Team Providers Care Logistics Officer Name Role Phone CHRISTIANO IBANEZ Primary Care Provider [phone] Fredis Anisha Unavailable [phone] REASON FOR VISIT LV, SNF routine Medications Medication SIG (Take, Route, Frequency, Duration) Notes Start Date End Date Status Eliquis 5 MG Tablet 1 tablet Orally twic e a day Active metFORMIN HCl 1000 MG Tablet 1 tablet with a meal Orally twice a day Active Nystatin - Powder as directed twice a day Active Aspirin Adult Low Strength 81 MG Tablet Delayed Release 1 tablet Orally Once a day Active Citalopram Hydrobromide 10 MG Tablet 1 tablet Orally Once a day Active Refresh Tears PF 0.5-0.9 % Solution 1 drop Ophthalmic twice a day Active Silvadene 1 % Cream 1 application Externally 3 times a day As needed Active Simvastatin 20 MG Tablet 1 tablet in the evening Orally Once a day Active Melatonin 3 MG Tablet 1 tablet at bedtim e as needed Orally Once a day Active oxyBUTYnin Chloride 5 MG Tablet 1 tablet Orally twice a day Active Orajel 3X Toothache & Gum 20-0.26-0.15 % Gel as directed Mouth/Throat Active Encounters Encounter Location Date Provider Diagnosis [facility] [address] [place] [address] 04/07/2025 Anisha Mcneal Plan Of Treatment Next Appt Details Provider Name:Anisha Fredis , 04/09/2025 07:00:00 AM, [address], [place], [address], Progress Notes * Kourtney RODRIGUEZ: [birth year] (84 yo F)Acc No.[id number]:04/07/2025 Patient: Kimberly Martino Provider: HUE Rueda :1940 A ge:84 Y S ex:Female Date:04/07/2025 Address:[address] [place] [address] Pcp:CHRISTIANO IBANEZ Subjective: * Chief Complaints: * L V, SNF routine * Medications: T akingOrajel 3X Toothache & Gum 20-0.26-0.15 % Gel as directed Mouth/Throat Melatonin 3 MG Tablet 1 tablet at bedtime as needed Orally Once a day Simvastatin 20 MG Tablet 1 tablet in the evening Orally Once a day Silvadene 1 % Cream 1 application Externally 3 times a day As neededRefresh Tears PF 0.5-0.9 % Solution 1 drop Ophthalmic twice a day oxyBUTYnin Chloride 5 MG Tablet 1 tablet Orally twice a day Nystatin - Powder as directed twice a day metFORMIN HCl 1000 MG Tablet 1 tablet with a meal Orally twice a day Eliquis 5 MG Tablet 1 tablet Orally twice a day Citalopram Hydrobromide 10 MG Tablet 1 tablet Orally Once a day Aspirin Adult Low Strength 81 MG Tablet Delayed Release 1 tablet Orally Once a day Taking Orajel 3X Toothache & Gum 20-0.26-0.15 % Gel as directed Mouth/Throat Taking Melatonin 3 MG Tablet 1 tablet at bedtime as needed Orally Once a day Taking Simvastatin 20 MG Tablet 1 tablet in the evening Orally Once a day Taking Silvadene 1 % Cream 1 application Externally 3 times a day As neededTaking Refresh Tears PF 0.5-0.9 % Solution 1 drop Ophthalmic twice a day Taking oxyBUTYnin Chloride 5 MG Tablet 1 tablet Orally twice a day Taking Nystatin - Powder as directed twice a day Taking metFORMIN HCl 1000 MG Tablet 1 tablet with a meal Orally twice a day Taking Eliquis 5 MG Tablet 1 tablet Orally twice a day Taking Citalopram Hydrobromide 10 MG Tablet 1 tablet Orally Once a day Taking Aspirin Adult Low Strength 81 MG Tablet Delayed Release 1 tablet Orally Once a day * Electronic signature of TEJINDER Luna on 04/08/2025 at 07:23 AM CDT Sign off status: Pending * Provider: HUE Rueda Date: 0 04/07/2025 Generated for Gerry torres/Cris/Pablito on: 0 04/08/2025 07:23 AM CDT
--- OUTSIDE RECORDS SUMMARY | 2025-04-08 07:24 | XMS_ITS | Patient Health Record ---
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 8) Referral Organization [facility] Care Referring Provider First Name Anisha Referring Provider Last Name Fredis Referred Organization [facility] Referred Address [address],[address], Referred Provider Specialty Ophthalmolog y Referral Priority Routine Medications Medication SIG (Take, Route, Frequency, Duration) Notes Start Date End Date Status Refresh Tears PF 0.5-0.9 % Solution 1 drop Ophthalmic twice a day Active Silvadene 1 % Cream 1 application Externally 3 times a day As needed Active Simvastatin 20 MG Tablet 1 tablet in the evening Orally Once a day Active Melatonin 3 MG Tablet 1 tablet at bedtim e as needed Orally Once a day Active Eliquis 5 MG Tablet 1 tablet Orally twic e a day Active metFORMIN HCl 1000 MG Tablet 1 tablet with a meal Orally twice a day Active Nystatin - Powder as directed twice a day Active oxyBUTYnin Chloride 5 MG Tablet 1 tablet Orally twice a day Active Orajel 3X Toothache & Gum 20-0.26-0.15 % Gel as directed Mouth/Throat Active Aspirin Adult Low Strength 81 MG Tablet Delayed Release 1 tablet Orally Once a day Active Citalopram Hydrobromide 10 MG Tablet 1 tablet Orally Once a day Active Social History Tobacco Use: Social History Observation Description Date Details (start date - stop date) Never Smoker NA - NA Social History Drug/Alcohol: Social Info Question Answer Notes Drugs Have you used drugs other than those for medical reasons in the past 12 months? No AUDIT-C (Standard) Did you have a drink containing alcohol in the past year? No Points 0 Interpretation Negative Tobacco Use: Social Info Question Answer Notes Tobacco Control (Standard) Tobacco use: Nonsmoker Problems Problem Type SNOMED Code ICD Code Onset Dates Problem Status W/U Status Risk Notes Problem Tear film insufficiency (40899954) Dry eye syndrome of unspecified lacrimal gland (H04.129) Active confirmed Problem Essential hypertension (81494894) Essential (primary) hypertension (I10) Active confirmed Problem Gout (40974901) Gout, unspecifie d (M10.9) Active confirmed Problem Overactive bladder (997121408) Overactive bladder (N32.81) Active confirmed Problem Adult failure to thrive syndrome (574784188) Adult failure to thrive (R62.7) Active confirmed Problem Type II diabetes mellitus without complication (244285746) Type 2 diabetes mellitus without complication, unspecified whether long line teamster insulin use (E11.9) Active confirmed Problem Pure hypercholesterolemia (488769222) Pure hypercholesterolemia (E78.00) Active confirmed Problem Major depression, single episode (77562833) Major depressive disorder with single episode, remission status unspecified (F32.9) Active confirmed Vital Signs Heart Rate 80 /min 04/01/2025 Temperature 97.5 degrees Fahrenheit 04/01/2025 Respiratory Rate 18 /min 04/01/2025 Oximetry 94 % 04/01/2025 Blood pressure diastolic 72 mm Hg 04/01/2025 Weight-kg 117.12 kg 03/05/2025 Blood pressure systolic 123 mm Hg 04/01/2025 Weight 258.2 lbs 03/05/2025 Encounters Encounter Location Date Provider Diagnosis [facility] [address] [place] [id number] 04/07/2025 Anisha Mcneal [facility] [address] [place] [id number] 03/05/2025 CHRISTIANO IBANEZ [facility] [address] [place] [id number] 03/09/2025 Anisha Mcneal Physical decondition ing R53.81 ; Essential (primary) hypertension I10 ; Major depressive disorder with single episode, remission status unspecified F32.9 and Type 2 diabetes mellitus without complication, unspecified whether senior care insulin use E11.9 [place] [id number] 03/11/2025 Anisha Fredis Physical decondition ing R53.81 ; Essential (primary) hypertension I10 ; Major depressive disorder with single episode, remission status unspecified F32.9 and Type 2 diabetes mellitus without complication, unspecified whether senior care insulin use E11.9 [place] [id number] 03/16/2025 Anisha Fredis Physical decondition ing R53.81 ; Essential (primary) hypertension I10 ; Major depressive disorder with single episode, remission status unspecified F32.9 ; Type 2 diabetes mellitus without complication, unspecified whether long line teamster insulin use E11.9 and Bilateral lower extremity edema R60.[address] [address] 03/18/2025 Anisha Fredis Physical decondition ing R53.81 ; Essential (primary) hypertension I10 ; Major depressive disorder with single episode, remission status unspecified F32.9 ; Type 2 diabetes mellitus without complication, unspecified whether long line teamster insulin use E11.9 and Bilateral lower extremity edema R60.0 [place] [id number] 03/24/2025 Anisha Fredis Physical decondition ing R53.81 ; Essential (primary) hypertension I10 ; Major depressive disorder with single episode, remission status unspecified F32.9 ; Type 2 diabetes mellitus without complication, unspecified whether senior care insulin use E11.9 and Bilateral lower extremity edema R60.0 [place] [id number] 03/26/2025 Anisha Fredis Physical decondition ing R53.81 ; Essential (primary) hypertension I10 ; Major depressive disorder with single episode, remission status unspecified F32.9 ; Type 2 diabetes mellitus without complication, unspecified whether long line teamster insulin use E11.9 ; Bilateral lower extremity edema R60.0 and Mouth pain K13.79 [place] [id number] 03/30/2025 Anisha Fredis Physical decondition ing R53.81 ; Essential (primary) hypertension I10 ; Major depressive disorder with single episode, remission status unspecified F32.9 ; Type 2 diabetes mellitus without complication, unspecified whether long line teamster insulin use E11.9 ; Bilateral lower extremity edema R60.0 and Mouth pain K13.[address] [address] 04/01/2025 Anisha Mcneal Physical decondition ing R53.81 ; Essential (primary) hypertension I10 ; Major depressive disorder with single episode, remission status unspecified F32.9 ; Type 2 diabetes mellitus without complication, unspecified whether senior care insulin use E11.9 and Bilateral lower extremity edema R60.[address] [address] 03/05/2025 CHRISTIANO IBANEZ [address] [address] 03/05/[address] [address] 03/05/[address] [address] 03/06/2025 CHRISTIANO IBANEZ [address] [address] 03/08/[address] [address] 03/15/[address] [address] 03/16/[address] [address] 03/23/[address] [address] 03/24/2025 CHRISTIANO IBANEZ [address] [address] 03/26/2025 CHRISTIANO IBANEZ [address] [address] 03/29/2025 CHRISTIANO IBANEZ [address] [address] 04/01/2025 CHRISTIANO IBANEZ [address] [address] 04/06/2025 CHRISTIANO SHAMAR Assessments Encounter Date Diagnosis (ICD Code) Assessment Notes Treatment Notes Treatment Clinical Notes Section Notes 03/09/2025 Physical deconditioning (ICD-10 - R53.81) Patient is working with PT and OT for strengthening and mobility. Utilizes a wheelchairfor ambulation. Reports that therapy is going okay. 03/09/2025 Essential (primary) hypertension (ICD-10 - I10) BP stable. Managed well on current medications. Continue current treatment plan and monitoring. 03/11/2025 Physical deconditioning (ICD-10 - R53.81) Patient is working with PT and OT for strengthening and mobility. Utilizes a wheelchairfor ambulation. Reports that therapy is going okay. 03/16/2025 Essential (primary) hypertension (ICD-10 - I10) BP stable. Managed well on current medications. Continue current treatment plan and monitoring. 03/16/2025 Physical deconditioning (ICD-10 - R53.81) Patient is working with PT and OT for strengthening and mobility. Utilizes a wheelchairfor ambulation. Reports that therapy is going okay. 03/18/2025 Physical deconditioning (ICD-10 - R53.81) Patient is working with PT and OT for strengthening and mobility. Utilizes a wheelchairfor ambulation. Reports that therapy is going okay. 03/24/2025 Physical deconditioning (ICD-10 - R53.81) Patient is working with PT and OT for strengthening and mobility. Utilizes a wheelchairfor ambulation. Reports that therapy is going okay. 03/26/2025 Essential (primary) hypertension (ICD-10 - I10) Blood pressure is stable. Managed well on current medications. Continue treatment plan and monitoring. 03/26/2025 Physical deconditioning (ICD-10 - R53.81) Patient is working with PT and OT for strengthening and mobility. Utilizes a wheelchairfor ambulation. Reports that therapy is going okay. 03/30/2025 Physical deconditioning (ICD-10 - R53.81) Patient is working with PT and OT for strengthening and mobility. Utilizes a wheelchairfor ambulation. Reports that therapy is going okay. 04/01/2025 Essential (primary) hypertension (ICD-10 - I10) Blood pressure is stable. Managed well on current medications. Continue treatment plan and monitoring. 04/01/2025 Physical deconditioning (ICD-10 - R53.81) Patient is working with PT and OT for strengthening and mobility. Utilizes a wheelchairfor ambulation. Reports that therapy is going okay. Patient reports that she does not like to go to therapy and has been going due to not having any cloths and she does not want to go in her hospital gown. I told her consider going to therapy in order to get stronger. 04/01/2025 Major depressive disorder with single episode, remission status unspecified (ICD-10 - F32.9) Patient deniesany problems at this time. Not currently on any medications for depression atthis time. 03/26/2025 Major depressive disorder with single episode, remission status unspecified (ICD-10 - F32.9) Patient deniesany problems at this time. Not currently on any medications for depression atthis time. 03/30/2025 Essential (primary) hypertension (ICD-10 - I10) Blood pressure is stable. Managed well on current medications. Continue treatment plan and monitoring. 03/24/2025 Essential (primary) hypertension (ICD-10 - I10) Blood pressure is stable. Managed well on current medications. Continue treatment plan and monitoring. 03/16/2025 Major depressive disorder with single episode, remission status unspecified (ICD-10 - F32.9) Patient deniesany problems at this time. Not currently on any medications for depression atthis time. 03/18/2025 Essential (primary) hypertension (ICD-10 - I10) Blood pressure is sightly elevated today . Continue to monitor if continues to be elevated. 03/09/2025 Major depressive disorder with single episode, remission status unspecified (ICD-10 - F32.9) Patient deniesany problems at this time. Not currently on any medications for depression atthis time. 03/11/2025 Essential (primary) hypertension (ICD-10 - I10) BP stable. Managed well on current medications. Continue current treatment plan and monitoring. 03/11/2025 Major depressive disorder with single episode, remission status unspecified (ICD-10 - F32.9) Patient deniesany problems at this time. Not currently on any medications for depression atthis time. 03/09/2025 Type 2 diabetes mellitus without complication, unspecified whether senior care insulin use (ICD-10 - E11.9) On 03-05-25,A1c was 6.6%. Well managed on current medications. Continue current treatment plan and monitoring. 03/16/2025 Type 2 diabetes mellitus without complication, unspecified whether long line teamster insulin use (ICD-10 - E11.9) On 03-05-25,A1c was 6.6%. Well managed on current medications. Continue current treatment plan and monitoring. 03/26/2025 Type 2 diabetes mellitus without complication, unspecified whether senior care insulin use (ICD-10 - E11.9) On 03-05-25,A1c was 6.6%. Well managed on current medications. Continue current treatment plan and monitoring. 03/18/2025 Major depressive disorder with single episode, remission status unspecified (ICD-10 - F32.9) Patient deniesany problems at this time. Not currently on any medications for depression atthis time. 03/24/2025 Major depressive disorder with single episode, remission status unspecified (ICD-10 - F32.9) Patient deniesany problems at this time. Not currently on any medications for depression atthis time. 04/01/2025 Type 2 diabetes mellitus without complication, unspecified whether long line teamster insulin use (ICD-10 - E11.9) On 03-05-25,A1c was 6.6%. Well managed on current medications. Continue current treatment plan and monitoring. 03/30/2025 Major depressive disorder with single episode, remission status unspecified (ICD-10 - F32.9) Patient deniesany problems at this time. Not currently on any medications for depression atthis time. 04/01/2025 Bilateral lower extremity edema (ICD-10 - R60.0) The patient has chronic non-pitting edema to the bilateral lower extremities. The patient has allowed edema wraps to be added, swelling to the bilateral lower extremities have improved dramatically. The patient has been spending a lot of time in bed with her feet elevated. Continue to monitor and update with any changes. 03/30/2025 Type 2 diabetes mellitus without complication, unspecified whether senior care insulin use (ICD-10 - E11.9) On 03-05-25,A1c was 6.6%. Well managed on current medications. Continue current treatment plan and monitoring. 03/26/2025 Bilateral lower extremity edema (ICD-10 - R60.0) The patient has chronic non-pitting edema to the bilateral lower extremities. Legs appeared to be slightly more swollen than the last visit. Order given to get weekly weights and to update provider. 03/24/2025 Type 2 diabetes mellitus without complication, unspecified whether long line teamster insulin use (ICD-10 - E11.9) On 03-05-25,A1c was 6.6%. Well managed on current medications. Continue current treatment plan and monitoring. 03/16/2025 Bilateral lower extremity edema (ICD-10 - R60.0) The patient has chronic non-pitting edema to the bilateral lower extremities. Order given to start 40 mg of Lasix daily x4 days and KCL 20 mEq daily x4 days, update on swelling after those medications are done. 03/18/2025 Type 2 diabetes mellitus without complication, unspecified whether senior care insulin use (ICD-10 - E11.9) On 03-05-25,A1c was 6.6%. Well managed on current medications. Continue current treatment plan and monitoring. 03/11/2025 Type 2 diabetes mellitus without complication, unspecified whether long line teamster insulin use (ICD-10 - E11.9) On 03-05-25,A1c was 6.6%. Well managed on current medications. Continue current treatment plan and monitoring. 03/18/2025 Bilateral lower extremity edema (ICD-10 - R60.0) The patient has chronic non-pitting edema to the bilateral lower extremities. 03/24/2025 Bilateral lower extremity edema (ICD-10 - R60.0) The patient has chronic non-pitting edema to the bilateral lower extremities. 03/26/2025 Mouth pain (ICD-10 - K13.79) The patient hit the side of her mouth when she fell and now there is a sore inside of the mouth, order was given to start Orajel applied to the area up to four times a day as-needed. 03/30/2025 Bilateral lower extremity edema (ICD-10 - R60.0) The patient has chronic non-pitting edema to the bilateral lower extremities. The patient has allowed edema wraps to be added, swelling to the bilateral lower extremities have improved dramatically. The patient has been spending a lot of time in bed with her feet elevated. Continue to monitor and update with any changes. 03/30/2025 Mouth pain (ICD-10 - K13.79) The patient reports that Oragel is helping with the pain in her mouth when she does put it on. She thought she could only use it once a day but informed patient that she could use it up to four times a day and I suggested using it prior to eating. 03/09/2025 Other Continue current treatment plan. Staff to continue to monitor and report any changes. Patient education provided and questions/concern s addressed. Follow up in 1 week unless necessary sooner. Reviewed HIPAA Right to Privacy Practices with patient/family/ca regiver. 03/11/2025 Other Continue current treatment plan. Staff to continue to monitor and report any changes. Patient education provided and questions/concern s addressed. Follow up in 1 week unless necessary sooner. Reviewed HIPAA Right to Privacy Practices with patient/family/ca regiver. 03/16/2025 Other Continue current treatment plan. Staff to continue to monitor and report any changes. Patient education provided and questions/concern s addressed. Follow up in 1 week unless necessary sooner. Reviewed HIPAA Right to Privacy Practices with patient/family/ca regiver. 03/18/2025 Other Continue current treatment plan. Staff to continue to monitor and report any changes. Patient education provided and questions/concern s addressed. Follow up in 1 week unless necessary sooner. Reviewed HIPAA Right to Privacy Practices with patient/family/ca regiver. 03/24/2025 Other Continue current treatment plan. Staff to continue to monitor and report any changes. Patient education provided and questions/concern s addressed. Follow up in 1 week unless necessary sooner. Reviewed HIPAA Right to Privacy Practices with patient/family/ca regiver. 03/26/2025 Other Continue current treatment plan. Staff to continue to monitor and report any changes. Patient education provided and questions/concern s addressed. Follow up in 1 week unless necessary sooner. Reviewed HIPAA Right to Privacy Practices with patient/family/ca regiver. 03/30/2025 Other Continue current treatment plan. Staff to continue to monitor and report any changes. Patient education provided and questions/concern s addressed. Follow up in 1 week unless necessary sooner. Reviewed HIPAA Right to Privacy Practices with patient/family/ca regiver. 04/01/2025 Other Continue current treatment plan. Staff to continue to monitor and report any changes. Patient education provided and questions/concern s addressed. Follow up in 1 week unless necessary sooner. Reviewed HIPAA Right to Privacy Practices with patient/family/ca regiver. Plan Of Treatment Next Appt Details Provider Name:Anisha Mcneal , 04/09/2025 07:00:00 AM, [address], [place], [address], Insurance Providers Payer Name Payer Address Payer Phone Subscriber Number Group Number Insured Name Patient Relationship to Insured Coverage Start Date Coverage End Date [employer] [address] [address] [place] [address] [phone] [id number] Kimberly Rodriguez Self - patient is the insured Medical (General) History Medical History History ICD Code Urinary tract infection, site not specif ied N39.0 Type 2 diabetes mellitus wit hout complication, unspecified whether long line teamster insulin use E11.9 Dry eye syndrome of unspecified lacrimal gland H04.129 Rash and nonspecific skin eruption R21 Unspecified fall, subsequent encounter W 19.XXXD Overactive bladder N32.81 Encounter for other specified prophylact ic measures Z29.89 Pure hypercholesterolemia E78.00 Pain R52 Localized edema R60.0 Adult failure to thrive R62.7 Essential (primary) hypertension I10 Gout, unspecified M10.9 Major depressive disorder with single ep isode, remission status unspecified F32.9 Surgical History Surgery Date(Month/Year) NO PREVIOUS SURGERIES
[2025-04-08] MEDS: IPRATROPIUM 0.5 MG/ALBUTEROL SULFATE 2.5 MG AMPUL.NEB 3 ML INHALATION (07:29)
--- NOTE | 2025-04-08 07:29 | PC.NURSE ---
Assumed care of pt from Mary QUINONES. Pt resting quietly while on 3LO2. Speaks in complete sentences. No resp distress noted.
--- NOTE | 2025-04-08 11:12 | ED_ITS ---
HPI - SOB/Dyspnea General Chief Complaint: Shortness of Breath/Dyspnea Stated Complaint: HYPOXIA, NEW O2 REQUIREMENT, COUGH X 2 DAYS Time Seen by Provider: 04/08/25 07:04 History of Present Illness HPI Narrative: Pt presents with SOB. Pt not normally on oxygen and was in high 80's per EMS. Pt denies fever or CP or cough or leg swelling. Related Data Home Medications ?Medication ?Instructions ?Recorded ?Confirmed ?Last Taken ?Type citalopram 10 mg tablet (Celexa) 10 mg PO DAILY 02/23/20 03/01/25 02/28/25 History metformin 500 mg tablet 1,000 mg PO BID 02/23/20 03/01/25 02/28/25 History (Glucophage) simvastatin 20 mg tablet 20 mg PO DAILY 02/23/20 03/01/25 02/28/25 History oxybutynin chloride 5 mg tablet 5 mg PO BID 12/23/20 03/01/25 02/28/25 History apixaban 5 mg tablet (Eliquis) 5 mg PO Q12H 03/01/25 03/01/25 02/28/25 History aspirin 81 mg capsule 81 mg PO DAILY 03/01/25 03/01/25 02/28/25 History carboxymethylcellulose sodium 0.5 1 drp EACH EYE BID dry eye 03/01/25 03/01/25 02/28/25 History % eye drops (Refresh Tears) Allergies Allergy/AdvReac Type Severity Reaction Status Date / Time Penicillins Allergy Unknown Verified 03/03/25 11:54 Review of Systems 2 Review of Systems: All systems reviewed & are unremarkable except as noted in HPI and below PMFSH Past Medical History Medical History Abnormal vaginal bleeding in postmenopausal patient Cataract Left eye Depression HTN (hypertension) with goal to be determined Hypercholesterolemia Type 2 diabetes mellitus Uterine cancer Surgical History Surgical History History of arthroscopic knee surgery Repair of right knee cartilage Family History Family History Mother Acute myocardial infarction Several times Migraines Father Cancer Social History Social History Social History: The patient is single and lives with her son. 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 The patient stated she would choose her son as a durable power insurance attorney for healthcare. The patient desires to be a full code. Lifelong nonsmoker does not use any alcohol marijuana or illicit drugs. Smoking status: Never smoker Second hand tobacco smoke exposure: No Alcohol intake: former Substance use: never Substance use type: does not use Do You Feel Safe in your Home?: Yes Lack of Transportation: No Lack of Food: Never True Current Housing: I Have Housing Concerned About Future Housing: No Difficulty Paying Gas/Electric Bills: No Difficulty Paying for Meds: No Currently Unemployed: No Education: High School Diploma/GED Difficulty w/ Childcare or Family Care: No Gender identity (if verbalized by the patient): Female Spiritual care concerns: No Exam 2 Const: General: healthy appearing and no acute distress Nutritional Appearance: obese Orientation/consciousness: patient oriented x3 L imitations: no limitations HENMT: Head: normal to inspection Mouth: Yes Normal oral and palatal mucosa present Other: nasal congestion Eyes: Pupils: Equal, round and reactive pupils present EOM: EOMs intact bilaterally Neck: Neck: normal visual inspection Chest: Chest palpation & inspection: normal inspection of the chest Resp: Effort & Inspection: normal respiratory effort Auscultation: clear to auscultation bilaterally Cardio: Rate: regular rate Rhythm: regular rhythm GI: GI Palp: Yes Soft to palpation and No Tenderness to palpation present (GI) Auscultation: normal bowel sounds Skin: General skin exam: normal color Wounds: no wounds Neuro: General: patient oriented x3 and moves all extremities Cranial nerves: Yes Nystagmus not present Speech: normal speech Extrem: General: normal to inspection and no clubbing, cyanosis or edema Psych: Mental Status: mental status grossly normal Affect: normal affect Attitude: cooperative Course Vital Signs Vital signs: Vital Signs Temperature 98.3 F 04/07/25 23:58 Pulse Rate 89 04/07/25 23:58 Respiratory Rate 18 04/07/25 23:58 Blood Pressure 147/91 H 04/07/25 23:58 Pulse Oximetry 95 04/07/25 23:58 Oxygen Delivery Room Air 04/07/25 23:58 Temperature 98.1 F 04/08/25 06:52 Pulse Rate 85 04/08/25 11:27 Respiratory Rate 24 H 04/08/25 11:27 Blood Pressure 146/82 H 04/08/25 11:27 Pulse Oximetry 91 04/08/25 11:27 Oxygen Delivery Room Air 04/08/25 11:08 Oxygen Flow Rate 3 04/08/25 09:20 MDM - SOB/Dyspnea MDM Narrative Medical decision making narrative: Pt has sob and sas [place] 80's [place]. cxr and labs unremarkable nsr rate [address] or t wave changes. CTA ordered to rule out PE. no PE. turned off oxygen and sats stayed 91-94. discussed with patient and son and comfortable returning to [place] on z pack and prednisone. will return if worse. Lab Data 04/08/25 00:16 Labs: Lab Results 04/08/25 04/08/25 04/08/25 Range/Units 00:16 00:16 00:16 Sodium 137 Cancelled (137-145) mmol/L Potassium 3.1 L Cancelled (3.4-5.0) mmol/L Chloride 101 (98-107) mmol/L Carbon Dioxide (22-30) mmol/L Anion Gap (4-12) mmol/L BUN (7-17) mg/dL Creatinine (0.7-1.0) mg/dL Estim Creat Clear Calc ml/min Estimated GFR (59 - ) Glucose (65-110) mg/dL Calcium (8.4-10.2) mg/dL Total Bilirubin (0.2-1.3) mg/dL AST (14-36) U/L ALT (6-35) U/L Alkaline Phosphatase (38-126) U/L Total Protein (6.3-8.2) g/dL Albumin (3.5-5.1) g/dL Group A Strep (PCR) (Negative) 04/08/25 04/08/25 04/08/25 Range/Units 00:16 00:16 00:16 Sodium (137-145) mmol/L Potassium (3.4-5.0) mmol/L Chloride Cancelled (98-107) mmol/L Carbon Dioxide 29 Cancelled (22-30) mmol/L Anion Gap 7 Cancelled (4-12) mmol/L BUN 13 (7-17) mg/dL Creatinine (0.7-1.0) mg/dL Estim Creat Clear Calc ml/min Estimated GFR (59 - ) Glucose (65-110) mg/dL Calcium (8.4-10.2) mg/dL Total Bilirubin (0.2-1.3) mg/dL AST (14-36) U/L ALT (6-35) U/L Alkaline Phosphatase (38-126) U/L Total Protein (6.3-8.2) g/dL Albumin (3.5-5.1) g/dL Group A Strep (PCR) (Negative) 04/08/25 04/08/25 04/08/25 Range/Units 00:16 00:16 00:16 Sodium (137-145) mmol/L Potassium (3.4-5.0) mmol/L Chloride (98-107) mmol/L Carbon Dioxide (22-30) mmol/L Anion Gap (4-12) mmol/L BUN Cancelled (7-17) mg/dL Creatinine 0.72 Cancelled (0.7-1.0) mg/dL Estim Creat Clear Calc 67 Cancelled ml/min Estimated GFR > 60 (59 - ) Glucose (65-110) mg/dL Calcium (8.4-10.2) mg/dL Total Bilirubin (0.2-1.3) mg/dL AST (14-36) U/L ALT (6-35) U/L Alkaline Phosphatase (38-126) U/L Total Protein (6.3-8.2) g/dL Albumin (3.5-5.1) g/dL Group A Strep (PCR) (Negative) 04/08/25 04/08/25 04/08/25 Range/Units 00:16 00:16 00:16 Sodium (137-145) mmol/L Potassium (3.4-5.0) mmol/L Chloride (98-107) mmol/L Carbon Dioxide (22-30) mmol/L Anion Gap (4-12) mmol/L BUN (7-17) mg/dL Creatinine (0.7-1.0) mg/dL Estim Creat Clear Calc ml/min Estimated GFR Cancelled (59 - ) Glucose 162 H Cancelled (65-110) mg/dL Calcium 8.3 L Cancelled (8.4-10.2) mg/dL Total Bilirubin 0.4 (0.2-1.3) mg/dL AST 24 (14-36) U/L ALT 17 (6-35) U/L Alkaline Phosphatase 64 (38-126) U/L Total Protein 6.3 (6.3-8.2) g/dL Albumin 3.4 L (3.5-5.1) g/dL Group A Strep (PCR) (Negative) 04/08/25 Range/Units 01:47 Sodium (137-145) mmol/L Potassium (3.4-5.0) mmol/L Chloride (98-107) mmol/L Carbon Dioxide (22-30) mmol/L Anion Gap (4-12) mmol/L BUN (7-17) mg/dL Creatinine (0.7-1.0) mg/dL Estim Creat Clear Calc ml/min Estimated GFR (59 - ) Glucose (65-110) mg/dL Calcium (8.4-10.2) mg/dL Total Bilirubin (0.2-1.3) mg/dL AST (14-36) U/L ALT (6-35) U/L Alkaline Phosphatase (38-126) U/L Total Protein (6.3-8.2) g/dL Albumin (3.5-5.1) g/dL Group A Strep (PCR) Not detected (Negative) Discharge Plan Discharge Clinical Impression: Bronchitis Patient Disposition: Home Condition: Improved Instructions: Antibiotic Form, Acute Bronchitis (ED) Patient Language: Indonesian Prescriptions: New azithromycin [Zithromax Z-Gurpreet] 250 mg tablet See Rx Instructions .ROUTE .COMPLEX Qty: 6 0RF Rx Instructions: For 250 mg dose pack: take 500 mg today (day 1), then 250 mg for 4 days (days 2-5) prednisone 50 mg tablet 50 mg PO DAILY Qty: 5 0RF No Action metformin [Glucophage] 500 mg Tablet 1,000 mg PO BID citalopram [Celexa] 10 mg Tablet 10 mg PO DAILY Rx Instructions: PM-Bedtime simvastatin 20 mg Tablet 20 mg PO DAILY Rx Instructions: PM-Bedtime Eliquis 5 mg tablet 5 mg PO Q12H aspirin 81 mg capsule 81 mg PO DAILY carboxymethylcellulose sodium [Refresh Tears] 0.5 % drops 1 drp EACH EYE BID cefdinir 300 mg Capsule 300 mg PO Q12HR 2 Days Qty: 4 0RF oxybutynin chloride 5 mg Tablet 5 mg PO BID Follow-up/Referrals: Jack,KAM Simpson [Primary Care Provider] -
== END 2025-04-08 12:55 | disposition home or self-care (01) ==
PROVIDERS: Student in an Organized Health Care Education/Training Program; Emergency Provider Emergency Medicine; PCP Physician Assistant
DX: J40 Bronchitis, not specified as acute or chronic (principal); I10 Essential (primary) hypertension; E78.00 Pure hypercholesterolemia, unspecified; E11.9 Type 2 diabetes mellitus without complications; H26.9 Unspecified cataract; Z85.42 Personal history of malignant neoplasm of other parts of uterus; Z79.84 Long term (current) use of oral hypoglycemic drugs; Z79.01 Long term (current) use of anticoagulants; Z79.82 Long term (current) use of aspirin; Z79.899 Other long term (current) drug therapy; R94.31 Abnormal electrocardiogram [ECG] [EKG]
CPT/HCPCS: 36415; 71045; 71275; 80053; 87651; 93005; 94640; 99284; Q9967

== ENCOUNTER 2025-04-08 19:44 | Inpatient (IN) | payer MEDICARE, MEDICAID, SELFPAY ==
--- NOTE | ~2025-04-08 | XR_ITS ---
EXAMINATION: XR chest 1V portable DATE: 04/08/2025 20:25 INDICATION: Dyspnea TECHNIQUE: frontal view of the chest was obtained. COMPARISON: Chest CT dated 04/08/2025 FINDINGS: Airspace opacities in the bilateral lower lung zones, left greater than right which could represent a telectasis or pneumonia. Likely residual small right pleural effusion projecting over the right hemid iaphragm. No pneumothorax. The cardiomediastinal silhouette is normal. IMPRESSION: 1. Opacities at the bilateral lung bases, left greater than right which could represent atelectasis o r pneumonia. 2. Likely persistent small right pleural effusion. Reviewed, dictated and finalized at location A. IMPRESSION: 1. Opacities at the bilateral lung bases, left greater than right which could r epresent atelectasis or pneumonia. 2. Likely persistent small right pleural effusion.
--- NOTE | ~2025-04-08 | XR_ITS ---
EXAMINATION: XR chest 1V portable Exam Date/Time: 04/12/2025 14:24 CDT HISTORY: pnuemonia Comparison: 04/08/2025; RESULT: Lines, tubes, and devices: None. Lungs and pleura: Stable focal subsegmental left medial basilar airspace disease. Lungs otherwise cl ear. Cardiomediastinal silhouette: Stable. Other: No acute osseous finding. Multiple loops of dilated bowel in the upper abdomen, likely large bowel. IMPRESSION: Stable subsegmental atelectasis/consolidation in the left base. Multiple loops of dilated bowel in the upper abdomen, likely large bowel. Reviewed, dictated and finalized at location K.
[2025-04-08 19:48] VITALS: BP 160/78; PULSE 98; RESP 16; O2SAT 87
[2025-04-08 19:52] VITALS: O2SAT 92
--- OUTSIDE RECORDS SUMMARY | 2025-04-08 19:59 | XMS_ITS | Encounter Summary ---
Author Organization [facility] Healthcare Address [address] [place] [address] Care Team Providers Care Customer Service Security Officer Name Role Phone Denice Santiago Primary Care Provider + Encounter Details Date Type Department Care Team (Late st Contact Info) Description 06/12/2022 Completion of Therapy [facility] Advanced [facility] Radiation Oncology [facility] access hospital[facility] [place] [address] Brooklynn Torres MD [address] [facility] [address] [place] [address] Social History Tobacco Use Types Packs/Day Years [...] 11:59 PM CDT Radiation Oncologist: No care meat service team member to display Primary Care Physician: Denice Santiago PA Medical Oncologist: No care meat service team member to display Surgeon: No care meat service team member to display Referring Provider: No ref. provider [...] patient's pain is currently being managed by SENIOR CORPORATE ACCOUNTANT ONC. Tolerance to Treatment: Ms. Rodriguez tolerated the treatment well. Disposition: Follow up in clinic in 6 weeks. Post treatment skin care instructions given. Patient was instructed to call with any concerns prior to scheduled follow up visit. No care meat service team member to display supervised the patient???s radiation treatment [...] on filedocumented in this encounter Care Teams Customer Service Security Officer Relationship Specialty Start Date End Date Denice Santiago PA PCP - General Physician Hospice Superintendent 07/13/21 documented as of this encounter
--- OUTSIDE RECORDS SUMMARY | 2025-04-08 19:59 | XMS_ITS | Encounter Summary ---
Author Organization [facility] Address [address] [place] [address] Phone Care Team Providers Care Speaker Wirer Name Role Phone Denice Santiago Primary Care [...] on filedocumented in this encounter Care Teams Speaker Wirer Relationship Specialty Start Date End Date Denice Santiago PA PCP - General Physician Parts Counter Clerk 07/13/21 documented as of this encounter
--- OUTSIDE RECORDS SUMMARY | 2025-04-08 19:59 | XMS_ITS ---
Author Organization [facility] Virtual Care Address [facility] [place] [address] Phone Care Team Providers Care Commercial Green Building Architect Name Role Phone Denice Santiago Primary Care Provider + Active Problems Problem Noted Date Diagnosed Date Mild recurrent major depression 10/04/2022 01/11/2023 Urinary incontinence 10/02/2022 01/11/2023 Encounter for postoperative care 03/15/2022 Adenocarcinoma of endometrium 02/27/2022 Cancer Staging:Pathologic stage from 03/15/2022:FIGO Stage IB(pT1b, pN0, cM0) - Unsigned Postmenopausal bleeding 02/09/2022 Overview (02/09/2022): Added automatically from request for surgery [id number] Vaginal bleeding 02/09/2022 Overview (03/23/2022): Added automatically from request for surgery [id number] Edema of both lower extremities 08/17/2021 Assessment & Plan (08/17/2021 1:08 PM FACEPIECE LINE SUPERVISOR): Impression: Chronic lower extremity edema and associated [...] 08/17/2021 Assessment & Plan (08/17/2021 1:07 PM FACEPIECE LINE SUPERVISOR): Impression: Stable chronic hyperlipidemia. Plan: Medications reviewed [...]
--- OUTSIDE RECORDS SUMMARY | 2025-04-08 20:00 | XMS_ITS | Referral Summary ---
Author Organization [facility] Virtual Care Address [address] [place] [address] Phone Care Team Providers Care Frozen Pie Maker Name Role Phone Denice Santiago Primary Care Provider + Encounters Date Type Department Care Team Description 01/15/2025 Telephone Obstetrics and Gynecology Clinic [address] [facility] Outpatient Health 3rd Floor [address] [place] [address] Sienna Covarrubias RN from Last [...] (02/09/2022): Added automatically from request for surgery [id number] Vaginal bleeding 02/09/2022 Overview (03/23/2022): Added automatically from request for surgery [id number] Edema of both lower extremities 08/17/2021 Assessment & Plan (08/17/2021 1:08 PM ASSISTANT PROPERTY MANAGER): Impression: Chronic lower extremity edema and associated [...] 08/17/2021 Assessment & Plan (08/17/2021 1:07 PM ASSISTANT PROPERTY MANAGER): Impression: Stable chronic hyperlipidemia. Plan: Medications reviewed [...] 90 - 130 mL/min/1. 73 m2 [facility] Comment: Interpretive Data Reference Interval [...] PM CDT 03/25/2022 10:17 PM CDT Mamta Arellnao MD LAB BLOOD ORDERABLES Fi nal Result Performing Organization Address [facility] de Phone Number [facility] [employer] [place] [address] * POCT hemoglobin A1c (02/23/2022 2:29 PM CDT) Hgb A1C, POC 5.6 4.0 - 5.6 % [facility] Est Average Gluc POC 114 mg/dL [facility] Comment: The ADA recommends reporting an estimated Average Glucose (eAG) with all Hemoglobin A1c results using the equation derived from a study of 507 normal and diabetic adults. Minority populations were underrepresented and children were not included. (Diabetes Care 31:1283-1395, 2008). The eAG is not equivalent to a fasting glucose. Blood 02/23/2022 2:29 PM CDT 02/23/2022 2:29 PM CDT us Notinfile Unknown POINT OF CARE TEST ORDERABLES Final Result Performing Organization Address City[facility] Co de Phone Number [facility] [place] [employer] [address] from Last 3 Months or Most Recently Relevant to Health Maintenance Insurance [employer] [facility] IDPA AETNA MEDICARE GOLD IDPA AETNA MEDICARE GOLD IDPA Advance Directives For more information, please contact: [phone] * Full Code (Latest Code Status on File) Date Activated Date Inactivated Comments 03/15/2022 7:47 PM 03/27/2022 3:43 AM Care Teams Frozen Pie Maker Relationship Specialty Start Date End Date Denice Santiago PA PCP - General Physician Digital Asset Specialist 07/13/21
--- OUTSIDE RECORDS SUMMARY | 2025-04-08 20:00 | XMS_ITS | Clinical Summary ---
Author Organization [facility] Virtual Care Address [facility] [place] [address] Phone Care Team Providers Care Email Deployment Specialist Name Role Phone Denice Santiago Primary Care [...] (02/09/2022): Added automatically from request for surgery [id number] Vaginal bleeding 02/09/2022 Overview (03/23/2022): Added automatically from request for surgery [id number] Edema of both lower extremities 08/17/2021 Assessment & Plan (08/17/2021 1:08 PM SEWAGE PLANT SUPERVISOR): Impression: Chronic lower extremity edema and [...] 08/17/2021 Assessment & Plan (08/17/2021 1:07 PM SEWAGE PLANT SUPERVISOR): Impression: Stable chronic hyperlipidemia. Plan: Medications reviewed I recommend continuing daily statin regimen as directed by patient's primary care physician. Diabetes mellitus 03/17/2018 Essential hypertension 03/17/2018 Resolved Problems Problem Noted Date Diagnosed Date Resolved Date Varicose veins of bilateral lower extremities with pain 08/17/2021 08/17/2021 Encounters Date Type Department Care Team Description 01/15/2025 Telephone Obstetrics and Gynecology Clinic [address] [facility] Outpatient Health 3rd Floor [address] [place] [address] Sienna Covarrubias RN from Last [...] 90 - 130 mL/min/1. [address] [facility] Comment: Interpretive Data Reference Interval Normal [...] ORDERABLES Fi nal Result Performing Organization Address City/State/[facility] de Phone Number [facility] Department [place] [address] * POCT hemoglobin A1c (02/23/2022 2:29 PM CDT) Hgb A1C, POC 5.6 4.0 - 5.6 % [facility] [place] Est Average Gluc POC 114 mg/dL [facility] [place] Comment: The ADA recommends reporting an estimated Average Glucose (eAG) with all Hemoglobin A1c results using the equation derived from a study of 507 normal and diabetic adults. Minority populations were underrepresented and children were not included. (Diabetes Care 31:2819-6292, 2008). The eAG is not equivalent to a fasting glucose. Blood 02/23/2022 2:29 PM CDT 02/23/2022 2:29 PM CDT us Notinfile Unknown POINT OF CARE TEST ORDERABLES Final Result Performing Organization Address [facility] de Phone Number [facility] Department [place] [address] from Last 3 Months or Most Recently Relevant to Health Maintenance Insurance [facility] IDPA AETNA MEDICARE GOLD [place] IDPA Advance Directives For more information, please contact: [phone] * Full Code (Latest Code Status on File) Date Activated Date Inactivated Comments 03/15/2022 7:47 PM 03/27/2022 3:43 AM Care Teams Email Deployment Specialist Relationship Specialty Start Date End Date Denice Santiago PA PCP - General Physician Recreation Assistant 07/13/21
--- OUTSIDE RECORDS SUMMARY | 2025-04-08 20:00 | XMS_ITS | Clinical Summary ---
Author Organization [facility] Address [facility] [place] [address] Care Team Providers Care Plant Superintendent Name Role Phone Reina Luna MD Primary Care Provider [phone] Denice Santiago PA-C Unavailable [phone] Social History Tobacco Use Types Packs/Day Years [...] complete this topic Insurance AETNA Care Teams Plant Superintendent Relationship Specialty Start Date End Date Reina Luna MD [facility] [address] [place] [address] PCP - General FAMILY PRACTICE 05/06/20 Denice Santiago PA-C [facility] [place] [address] NURSE PRACTITIONER 05/12/20
--- NOTE | 2025-04-08 20:03 | ECG_ITS ---
Test Date: 2025-04-08 20:27:18 Measurements Intervals [place] Rate: 101 P: 23 NM: 169 QRS: -12 QRSD: 80 T: 27 QT: 355 QTc: 460 Interpretive Statements SINUS TACHYCARDIA LOW QRS VOLTAGE IN PRECORDIAL LEADS [QRS DEFLECTION < 1.0 mV IN CHEST LEADS] POSSIBLE ANTERIOR MYOCARDIAL INFARCTION , PROBABLY OLD [30 ms Q WAVE IN V3/V4, OR R < 0.2 mV IN V4] ABNORMAL RHYTHM ECG Compared to ECG 04/08/2025 01:37:28 Sinus rhythm no longer present Myocardial infarct finding still present Electronically Signed On 04-09-2025 16:10:49 CDT by Chase Hearn M.D.
--- NOTE | 2025-04-08 20:07 | ED.SOB ---
HPI - SOB/Dyspnea General Chief Complaint: Shortness of Breath/Dyspnea <Lashon Oden PA-C - Last Filed: 04/09/25 03:19> Stated Complaint: sob <Lashon Oden PA-C - Last Filed: 04/09/25 03:19> Time Seen by Provider: 04/08/25 19:52 <Lashon Oden PA-C - Last Filed: 04/09/25 03:19> History of Present Illness HPI Narrative: 84-year-old female with a history of type 2 diabetes, MDD, hypertension, hypercholesterolemia presents to the emergency department from [facility] for shortness of breath. Patient states she has been feeling short of breath for the past 3-4 days with associated productive cough. She also endorses lower extremity edema but is uncertain if this is worse from baseline. She presents wearing 2 L nasal cannula and satting 87%. On my evaluation patient is on 3 L nasal cannula satting 93%. She states she started wearing oxygen ?sometime this week?. I did speak with her son who confirms the patient was placed on O2 yesterday for hypoxia. Per chart review she was prescribed 40 mg of Lasix daily for 4 days on 03/17/2025 but has no diagnosis or known history of CHF. The patient presented to our emergency department this morning for the same complaint. She had lab work and imaging at that time including a CTA of the chest which showed no large central PE, small right pleural effusion with dependent atelectasis, cardiomegaly and cholelithiasis. The patient was sent back to [facility] with azithromycin and prednisone for presumed bronchitis. The patient states the [facility] sent her back to the emergency department because they believe she should be admitted for shortness of breath. Per patient's paper chart the patient desatted to 86-89% and was found have crackles in the left lung and right lung bases. The patient states she has had intermittent chest pain but is unable to elaborate. She currently denies any chest pain. Denies fevers, dysuria or hematuria. Per chart review patient is taking Eliquis for ?prophylactic measures. <Lashon Oden PA-C - Last Filed: 04/09/25 03:19> Related Data Home Medications: Home Medications ?Medication ?Instructions ?Recorded ?Confirmed ?Last Taken ?Type citalopram 10 mg tablet (Celexa) 10 mg PO DAILY 02/23/20 04/09/25 04/07/25 08:15 History metformin 500 mg tablet 1,000 mg PO BID 02/23/20 04/09/25 04/07/25 17:10 History (Glucophage) simvastatin 20 mg tablet 20 mg PO DAILY 02/23/20 04/09/25 04/07/25 08:15 History oxybutynin chloride 5 mg tablet 5 mg PO BID 12/23/20 04/09/25 04/07/25 17:10 History apixaban 5 mg tablet (Eliquis) 5 mg PO Q12H 03/01/25 04/09/25 04/07/25 21:45 History aspirin 81 mg capsule 81 mg PO DAILY 03/01/25 04/09/25 04/07/25 08:15 History carboxymethylcellulose sodium 0.5 1 drp EACH EYE BID dry eye 03/01/25 04/09/25 04/07/25 21:45 History % eye drops (Refresh Tears) benzocaine 20 %-menth 0.26 %-Zn 1 applic mucous membrane QID PRN 04/09/25 04/09/25 Unknown History 0.15 %-benzalkon 0.13 % mucosal mouth sore cream (Orajel 4X Toothache-Gum) nystatin 100,000 unit/gram topical 1 applic topical BID rash 04/09/25 04/09/25 Unknown History powder silver sulfadiazine 1 % topical 1 applic topical BID PRN rash 04/09/25 04/09/25 Unknown History cream (Silvadene) <Lashon Oden PA-C - Last Filed: 04/09/25 03:19> Allergies/Adverse Reactions: Allergies Allergy/AdvReac Type Severity Reaction Status Date / Time Penicillins Allergy Unknown Verified 03/03/25 11:54 <Lashon Oden PA-C - Last Filed: 04/09/25 03:19> Review of Systems Review of Systems: All systems reviewed & are unremarkable except as noted in HPI and below <Lashon Oden PA-C - Last Filed: 04/09/25 03:19> PMFSH Past Medical History Medical History: Medical History Uterine cancer Abnormal vaginal bleeding in postmenopausal patient HTN (hypertension) with goal to be determined Cataract Left eye Depression Hypercholesterolemia Type 2 diabetes mellitus <Lashon Oden PA-C - Last Filed: 04/09/25 03:19> Surgical History Surgical History: Surgical History History of arthroscopic knee surgery Repair of right knee cartilage <Lashon Oden PA-C - Last Filed: 04/09/25 03:19> Family History Family History: Family History Mother Acute myocardial infarction Several times Migraines Father Cancer <Lashon Oden PA-C - Last Filed: 04/09/25 03:19> Social History Social History: Social History Social History: The patient is single and lives with her son. 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 The patient stated she would choose her son as a durable power employee benefits attorney for healthcare. The patient desires to be a full code. Lifelong nonsmoker does not use any alcohol marijuana or illicit drugs. Smoking status: Never smoker Second hand tobacco smoke exposure: No Alcohol intake: former Substance use: never Substance use type: does not use Do You Feel Safe in your Home?: Yes Lack of Transportation: No Lack of Food: Never True Current Housing: I Have Housing Concerned About Future Housing: No Difficulty Paying Gas/Electric Bills: No Difficulty Paying for Meds: No Currently Unemployed: No Education: High School Diploma/GED Difficulty w/ Childcare or Family Care: No Gender identity (if verbalized by the patient): Female Spiritual care concerns: No <Lashon Oden PA-C - Last Filed: 04/09/25 03:19> Exam Narrative: GENERAL: Chronically ill-appearing HEAD: Normocephalic, atraumatic. EYES: PERRLA and EOMI. ENT: Nares clear, no rhinorrhea or epistaxis. Mucous membranes moist. NECK: Supple. CHEST: Rhonchi in the right upper lung field, actively coughing on exam, tachypneic with conversational dyspnea HEART: Regular rate and rhythm. No murmur heard. Normal peripheral pulses. ABDOMEN: Soft, nontender, nondistended, normal active bowel sounds. EXTREMITIES: Normal range of motion. 4+ pitting edema to bilateral lower extremities SKIN: Warm, dry, no rash. NEURO: No focal deficits. Alert and oriented x3 <Lashon Oden PA-C - Last Filed: 04/09/25 03:19> Course TRAY SERVER/PA Physician Supervision PA informed me that this patient would be admitted for the diagnoses listed. Was available for consultation while patient was in the emergency department but did not physically examine them and was not directly involved in their care. <Barbara Grant MD - Last Filed: 04/09/25 04:34> Vital Signs Vital signs: Vital Signs Pulse Rate 98 04/08/25 19:48 Respiratory Rate 16 04/08/25 19:48 Blood Pressure 160/78 H 04/08/25 19:48 Pulse Oximetry 87 L 04/08/25 19:48 Oxygen Delivery Room Air 04/08/25 19:48 Temperature 98 F 04/09/25 04:12 Pulse Rate 90 04/09/25 04:12 Respiratory Rate 20 04/09/25 04:12 Blood Pressure 146/82 H 04/09/25 04:12 Pulse Oximetry 95 04/09/25 04:12 Oxygen Delivery Nasal Cannula 04/09/25 02:57 Oxygen Flow Rate 3 04/09/25 02:57 <Lashon Oden PA-C - Last Filed: 04/09/25 03:19> Vital Signs Pulse Rate 98 04/08/25 19:48 Respiratory Rate 16 04/08/25 19:48 Blood Pressure 160/78 H 04/08/25 19:48 Pulse Oximetry 87 L 04/08/25 19:48 Oxygen Delivery Room Air 04/08/25 19:48 Temperature 98 F 04/09/25 04:12 Pulse Rate 90 04/09/25 04:12 Respiratory Rate 20 04/09/25 04:12 Blood Pressure 146/82 H 04/09/25 04:12 Pulse Oximetry 95 04/09/25 04:12 Oxygen Delivery Nasal Cannula 04/09/25 02:57 Oxygen Flow Rate 3 04/09/25 02:57 <Barbara Grant MD - Last Filed: 04/09/25 04:34> MDM - SOB/Dyspnea MDM Narrative Medical decision making narrative: 84-year-old female presents emergency department from [facility] via EMS for shortness of breath, cough, hypoxia. This patient's 2nd ED visit today for the same complaint. On my evaluation she is satting 93% on 3 L nasal cannula. She does have conversational dyspnea and rhonchi in the right upper lung field and extensive lower extremity edema. Patient unable to tell me if the edema is worsening. CBC without leukocytosis or anemia. Chemistries with hypokalemia of 3 which is been orally repleted. Hypomagnesemia of 1.2 which is been intravenously repleted. BNP is normal at 140, however patient clinically appears volume overloaded and chest x-ray shows likely persistent small right-sided pleural effusion. Patient was given a dose of Lasix for possible CHF. Chest x-ray did show only shows opacities in the bilateral lung bases which could represent atelectasis or pneumonia. Given reported productive cough and new oxygen requirement, will treat for pneumonia. Antibiotic coverage will include hospital-acquired pneumonia given patient resides at [facility]. Additionally patient's urinalysis is indicative of UTI with positive nitrites, 2+ leuk esterase and 51-100 white blood cells. Viral swabs are negative. EKG shows sinus tachycardia with a rate of 101 ppm, normal ND interval, normal QRS duration, normal QTC, no ST elevations or depressions. Troponin is undetectable. Patient updated on results. She was started on cefepime, vancomycin and Levaquin to cover UTI and HAP. Plan to admit for acute hypoxic respiratory failure, pneumonia, UTI. Discussed with hospitalist, Dr. Melissa, who agrees to admission. <Lashon Oden PA-C - Last Filed: 04/09/25 03:19> Lab Data Result diagrams: 04/08/25 20:18 04/08/25 20:18 <Lashon Oden PA-C - Last Filed: 04/09/25 03:19> Labs: Lab Results 04/08/25 04/08/25 Range/Units 20:18 21:33 WBC 9.5 (4.5-10.0) K/mm3 RBC 4.12 L (4.2-5.4) M/mm3 Hgb 13.5 (12.0-15.0) g/dL Hct 40.4 (37.0-47.0) % MCV 98.1 (80-100) fl MCH 32.8 (26-34) pg MCHC 33.4 (32-36) g/dl RDW 12.8 (11.5-14.5) % Plt Count 242 (150-375) k/mm3 MPV 9.2 (7.4-10.4) fl Immature Gran % (Auto) 0.7 H (0-0.5) % Neut % (Auto) 78.1 H (45.5-73.1) % Lymph % (Auto) 12.2 L (18.3-44.2) % Dillon % (Auto) 7.4 (2.6-8.5) % Eos % (Auto) 1.3 (0-4.4) % Baso % (Auto) 0.3 (0.2-1.2) % Lymph # (Auto) 1.16 (0.9-3.2) K/mm3 Dillon # (Auto) 0.7 H (0.1-0.6) K/mm3 Eos # (Auto) 0.1 (0-0.3) K/mm3 Baso # (Auto) 0.0 (0.0-0.1) K/mm3 Abs Immat Gran (auto) 0.07 H (0.00-0.031) K/mm3 Absolute Neuts (auto) 7.4 H (1.3-6.7) K/mm3 Absolute Nucleated RBC 0.020 H (0.0-0.012) K/mm3 Nucleated RBC % 0.2 (0.0-0.2) % PT 14.8 H (11.1-14.7) Seconds INR 1.2 APTT 35.7 (22.3-36.8) Seconds Sodium 138 (137-145) mmol/L Potassium 3.0 L (3.4-5.0) mmol/L Chloride 102 (98-107) mmol/L Carbon Dioxide 28 (22-30) mmol/L Anion Gap 8 (4-12) mmol/L BUN 11 (7-17) mg/dL Creatinine 0.66 L (0.7-1.0) mg/dL Estim Creat Clear Calc 73 ml/min Estimated GFR > 60 (59 - ) Glucose 171 H (65-110) mg/dL Calcium 8.2 L (8.4-10.2) mg/dL Magnesium 1.2 L (1.6-2.3) mg/dL Total Bilirubin 0.7 (0.2-1.3) mg/dL AST 24 (14-36) U/L ALT 16 (6-35) U/L Alkaline Phosphatase 71 (38-126) U/L Troponin I < 0.012 (0.000-0.034) ng/mL NT-Pro-B Natriuret Pep 140 H (19.9-100) pg/mL Total Protein 6.6 (6.3-8.2) g/dL Albumin 3.4 L (3.5-5.1) g/dL Urine Color Yellow (Yellow) Urine Appearance Cloudy H (Clear) Urine pH 7.0 (5.0-9.0) Ur Specific [place] 1.029 (1.001-1.035) Urine Protein 2+ H (Negative) mg/dL Urine Glucose (UA) Negative (Negative) mg/dL Urine Ketones 1+ H (Negative) mg/dL Ur Blood (Man) Negative (Negative) Urine Nitrate Positive H (Negative) Urine Bilirubin Negative (Negative) Urine Urobilinogen 2.0 H (<2.0) mg/dL Add Ur Microanalysis Reviewed Leukocyte Esterase Rfl 2+ H (Negative) CECIL/UL Urine RBC 0-2 (0-2) /hpf Urine WBC 51-100 H (0-3) /hpf Ur Squamous Epith Cells None seen (Few) /hpf Urine Bacteria 4+ /hpf Urine Casts 0-2 Urine Mucus Present /lpf Influenza A (RT-PCR) Negative (Negative) Influenza B (RT-PCR) Negative (Negative) RSV (RT-PCR) Negative (Negative) SARS-CoV-2 RNA (RT-PCR) Negative (Negative) <Lashon Oden PA-C - Last Filed: 04/09/25 03:19> Lab Results 04/08/25 04/08/25 Range/Units 20:18 21:33 WBC 9.5 (4.5-10.0) K/mm3 RBC 4.12 L (4.2-5.4) M/mm3 Hgb 13.5 (12.0-15.0) g/dL Hct 40.4 (37.0-47.0) % MCV 98.1 (80-100) fl MCH 32.8 (26-34) pg MCHC 33.4 (32-36) g/dl RDW 12.8 (11.5-14.5) % Plt Count 242 (150-375) k/mm3 MPV 9.2 (7.4-10.4) fl Immature Gran % (Auto) 0.7 H (0-0.5) % Neut % (Auto) 78.1 H (45.5-73.1) % Lymph % (Auto) 12.2 L (18.3-44.2) % Dillon % (Auto) 7.4 (2.6-8.5) % Eos % (Auto) 1.3 (0-4.4) % Baso % (Auto) 0.3 (0.2-1.2) % Lymph # (Auto) 1.16 (0.9-3.2) K/mm3 Dillon # (Auto) 0.7 H (0.1-0.6) K/mm3 Eos # (Auto) 0.1 (0-0.3) K/mm3 Baso # (Auto) 0.0 (0.0-0.1) K/mm3 Abs Immat Gran (auto) 0.07 H (0.00-0.031) K/mm3 Absolute Neuts (auto) 7.4 H (1.3-6.7) K/mm3 Absolute Nucleated RBC 0.020 H (0.0-0.012) K/mm3 Nucleated RBC % 0.2 (0.0-0.2) % PT 14.8 H (11.1-14.7) Seconds INR 1.2 APTT 35.7 (22.3-36.8) Seconds Sodium 138 (137-145) mmol/L Potassium 3.0 L (3.4-5.0) mmol/L Chloride 102 (98-107) mmol/L Carbon Dioxide 28 (22-30) mmol/L Anion Gap 8 (4-12) mmol/L BUN 11 (7-17) mg/dL Creatinine 0.66 L (0.7-1.0) mg/dL Estim Creat Clear Calc 73 ml/min Estimated GFR > 60 (59 - ) Glucose 171 H (65-110) mg/dL Calcium 8.2 L (8.4-10.2) mg/dL Magnesium 1.2 L (1.6-2.3) mg/dL Total Bilirubin 0.7 (0.2-1.3) mg/dL AST 24 (14-36) U/L ALT 16 (6-35) U/L Alkaline Phosphatase 71 (38-126) U/L Troponin I < 0.012 (0.000-0.034) ng/mL NT-Pro-B Natriuret Pep 140 H (19.9-100) pg/mL Total Protein 6.6 (6.3-8.2) g/dL Albumin 3.4 L (3.5-5.1) g/dL Urine Color Yellow (Yellow) Urine Appearance Cloudy H (Clear) Urine pH 7.0 (5.0-9.0) Ur Specific [place] 1.029 (1.001-1.035) Urine Protein 2+ H (Negative) mg/dL Urine Glucose (UA) Negative (Negative) mg/dL Urine Ketones 1+ H (Negative) mg/dL Ur Blood (Man) Negative (Negative) Urine Nitrate Positive H (Negative) Urine Bilirubin Negative (Negative) Urine Urobilinogen 2.0 H (<2.0) mg/dL Add Ur Microanalysis Reviewed Leukocyte Esterase Rfl 2+ H (Negative) CECIL/UL Urine RBC 0-2 (0-2) /hpf Urine WBC 51-100 H (0-3) /hpf Ur Squamous Epith Cells None seen (Few) /hpf Urine Bacteria 4+ /hpf Urine Casts 0-2 Urine Mucus Present /lpf Influenza A (RT-PCR) Negative (Negative) Influenza B (RT-PCR) Negative (Negative) RSV (RT-PCR) Negative (Negative) SARS-CoV-2 RNA (RT-PCR) Negative (Negative) <Barbara Grant MD - Last Filed: 04/09/25 04:34> ABG Data ABG results: 04/08/25 20:31 Puncture Site Right radial ABG pH 7.459 H ABG pCO2 41.6 ABG pO2 64.9 L ABG PO2/FiO2 Ratio 2.03 ABG HCO3 28.9 H ABG O2 Saturation 93.7 L ABG O2 Content 18.7 ABG Base Excess 4.6 A-a Gradient 114.6 Oxyhemoglobin 91.8 Total Hemoglobin 14.5 O2 Delivery Device Nasal cannula O2 Liters/Min 3.0 FiO2 32 <Lashon Oden PA-C - Last Filed: 04/09/25 03:19> 04/08/25 20:31 Puncture Site Right radial ABG pH 7.459 H ABG pCO2 41.6 ABG pO2 64.9 L ABG PO2/FiO2 Ratio 2.03 ABG HCO3 28.9 H ABG O2 Saturation 93.7 L ABG O2 Content 18.7 ABG Base Excess 4.6 A-a Gradient 114.6 Oxyhemoglobin 91.8 Total Hemoglobin 14.5 O2 Delivery Device Nasal cannula O2 Liters/Min 3.0 FiO2 32 <Barbara Grant MD - Last Filed: 04/09/25 04:34> Discharge Plan Discharge Clinical Impression: Pleural effusion, Acute hypoxic respiratory failure, Acute UTI Pneumonia Qualifiers: Pneumonia type: due to unspecified organism Laterality: bilateral Lung location: lower lobe of lung Qualified Code(s): J18.9 - Pneumonia, unspecified organism <Lashon Oden PA-C - Last Filed: 04/09/25 03:19> Patient Disposition: Still a Patient <Lashon Oden PA-C - Last Filed: 04/09/25 03:19> Condition: Stable <Lashon Oden PA-C - Last Filed: 04/09/25 03:19>
[2025-04-08 20:09] VITALS: TEMP 37.6
[2025-04-08 20:25] LABS: Hematocrit 40.4 % (37.0-47.0); Hemoglobin 13.5 g/dL (12.0-15.0); Immature Granulocyte Percent A 0.7 % (0-0.5); Lymphocytes Absolute Auto 1.16 K/mm3 (0.9-3.2); Mean Corpuscular HGB Conc 33.4 g/dl (32-36); Mean Corpuscular Hemoglobin 32.8 pg (26-34); Mean Corpuscular Volume 98.1 fl (80-100); Nucleated Red Blood Cells Absolute Auto 0.020 K/mm3 (0.0-0.012); Nucleated Red Blood Cells Perc 0.2 % (0.0-0.2); Platelet Count Result 242 k/mm3 (150-375); Red Blood Count 4.12 M/mm3 (4.2-5.4); White Blood Count 9.5 K/mm3 (4.5-10.0)
[2025-04-08 20:35] VITALS: O2SAT 93
[2025-04-08 20:35] LABS: INR 1.2; Prothrombin Time 14.8 Seconds (11.1-14.7)
[2025-04-08 20:36] LABS: Partial Thromboplastin Time 35.7 Seconds (22.3-36.8)
[2025-04-08 20:45] LABS: Alveolar/Arterial O2 Gradient 114.6 mmHg; Fractional Inspired Oxygen 32 %; HCO3 ABG 28.9 mEq/l (22.0-26.0); Oxygen Content ABG 18.7 %vol (16.0-22.0); Oxygen Saturation ABG 93.7 % (95.0-100.0); PCO2 ABG 41.6 mmHg (35.0-45.0); PO2 ABG 64.9 mmHg (80.0-100.0); PO2 FiO2 Ratio Arterial Blood 2.03 %
[2025-04-08 20:47] LABS: Liters per Minute 3.0 LPM; Modified Allen's Test Pass; Site Drawn RIGHT RADIAL
[2025-04-08 20:49] LABS: Alanine Aminotransferase 16 U/L (6-35); Albumin Level 3.4 g/dL (3.5-5.1); Alkaline Phosphatase 71 U/L (38-126); Anion Gap 8 mmol/L (4-12); Aspartate Amino Transferase 24 U/L (14-36); Bilirubin,Total 0.7 mg/dL (0.2-1.3); Blood Urea Nitrogen 11 mg/dL (7-17); Calcium 8.2 mg/dL (8.4-10.2); Carbon Dioxide 28 mmol/L (22-30); Chloride 102 mmol/L (98-107); Estimated CRCL calculation 73 ml/min; Estimated Glomerular Filt Rate > 60; Glucose 171 mg/dL (65-110); Magnesium 1.2 mg/dL (1.6-2.3); Potassium 3.0 mmol/L (3.4-5.0); Sodium 138 mmol/L (137-145); Total Protein 6.6 g/dL (6.3-8.2)
[2025-04-08 20:58] LABS: NT Pro B Type Natriuretic Pept 140 pg/mL (19.9-100)
[2025-04-08 21:02] LABS: Influenza A QL RT-PCR Negative (Negative); Influenza B QL RT-PCR Negative (Negative); RSV RNA, RT-PCR Negative (Negative); SARS-CoV-2 RNA PCR Negative (Negative)
[2025-04-08 21:17] LABS: Troponin I < 0.012 ng/mL (0.000-0.034)
[2025-04-08] MEDS: POTASSIUM CHLORIDE 20 MEQ PACKET (FOR LIQUID) 40 MEQ PO (21:46)
[2025-04-08] MEDS: MAGNESIUM SULF 2 GM/WATER 50ML 2 GM/50 ML BAG IVPB (21:46)
[2025-04-08 21:51] LABS: Add Urine Microscopic? YES; Appearance Urine Cloudy (Clear); Glucose Urine UA Negative (Negative); Leukocyte Esterase Ur 2+ LEU/UL (Negative); Need Manual Microscopic Reviewed; Nitrate Urine Positive (Negative); Non Pathogenic Casts 0-2; Specific Grav Ur 1.029 (1.001-1.035)
[2025-04-09] VITALS (9 sets, daily range): BP systolic 132–169; BP diastolic 78–89; PULSE 71–90; RESP 16–20; TEMP 36.5–37; O2SAT 94–99; BMI 50.1
--- NOTE | 2025-04-09 | ECHO_ITS ---
Patient Info Name: Kimberly Rodriguez Age: 84 years : 1940 Gender: Female Ht: 62 in Wt: 273 lbs BSA: 2.41 m2 HR: 75 bpm BP: 146 / 82 mmHg Technical Quality: Poor Exam Date: 04/09/2025 8:50 AM Patient Status: I Admit Date: 04/09/2025 Exam Type: CA echo dop color flow w con Complete two-dimensional, color flow and Doppler transthoracic echocardiogram is performed with contrast to opacify the left ventricle and to improve the deliniation of the left ventricle endocardial borders. Staff Referring Physician: Lashon Oden Lump Machine Operator: Geraldine Montgomery Attending Provider: Meme Melissa Contrast/Agitated Saline Contrast/Ag. Saline: Definity Amount: 2.00 ml Administered By: Geraldine Montgomery Summary 1. Technically suboptimal study due to poor sonographic images. 2. Definity contrast administered improved wall motion interpretation. 3. Left ventricular chamber dimension is normal. 4. Left ventricular systolic function is normal, estimated at 60-65. 5. The left ventricular diastolic function is grade I diastolic dysfunction. 6. E/e' 7 is not elevated. 7. The aortic valve is not well visualized. Cannot determine number of aortic valve leaflets. Left Ventricle Left ventricular chamber dimension is normal. Left ventricular systolic function is normal, estimated at 60-65. The left ventricular diastolic function is grade I diastolic dysfunction. Definity contrast administered improved wall motion interpretation. E/e' 7 is not elevated. Technically suboptimal study due to poor sonographic images. Right Ventricle Right ventricular chamber dimension is not well visualized. Left Atria Left atrial chamber dimension is normal. Right Atria Right atrial chamber dimension is not well visualized. Aortic Valve The aortic valve is not well visualized. Cannot determine number of aortic valve leaflets. There is no aortic valve stenosis based on normal gradients. There is no aortic valve regurgitation. Pulmonic Valve The pulmonic valve is not well visualized. Mitral Valve There is no mitral valve stenosis. There is no mitral valve regurgitation. Tricuspid Valve There is no tricuspid valve regurgitation. Pericardium/Pleural There is no pericardial effusion. Inferior Vena Cava Normal inferior vena cava with >50% collapse upon inspiration consistent with normal right atrial pressure, 5 mmHg. Aorta The aortic root size at the sinus of Valsalva is normal. Left Ventricular Outflow Tract Name Value Normal LVOT 2D LVOT Diameter 2.0 cm LVOT Doppler LVOT Peak Velocity 122 cm/s LVOT Peak Gradient 6 mmHg LVOT Mean Gradient 3 mmHg LVOT VTI 29 cm LVOT Stroke Volume 89 ml LVOT CO 6.7 l/min LVOT CI 2.8 l/min/m2 Pulmonic Valve Name Value Normal RVOT Doppler RVOT Peak Velocity 90 cm/s RVOT Peak Gradient 3 mmHg PV Doppler PV Peak Velocity 99 cm/s PV Peak Gradient 4 mmHg Mitral Valve Name Value Normal MV Diastolic Function MV E Peak Velocity 69 cm/s MV A Peak Velocity 88 cm/s MV E/A 0.8 MV Decel Time (PW) 236 ms MV Annular TDI MV E/e' (Septal) 8.8 MV E/e' (Lateral) 7.1 MV E/e' (Average) 8.0 Tricuspid Valve Name Value Normal Estimated PAP/RSVP RA Pressure 5 mmHg <=5 Aortic Valve Name Value Normal AV Doppler AV Peak Velocity 146 cm/s AV Peak Gradient 9 mmHg AV Area (Cont Eq Sal) 2.6 cm2 AV DI (Sal) 0.83 AV Regurgitation 2D LVOT Area 3.1 cm2 Ventricles Name Value Normal LV Dimensions 2D/MM IVS Diastolic Thickness (2D) 0.9 cm 0.6-1.0 LVID Diastole (2D) 4.1 cm 3.8-5.2 LVIW Diastolic Thickness (2D) 0.7 cm 0.6-0.9 LVID Systole (2D) 2.5 cm 2.2-3.5 LVOT Diameter 2.0 cm LV Mass (2D Cubed) 99.34 g 67.00-162.00 LV Mass Index (2D Cubed) 41 g/m2 43-95 Relative Wall Thickness (2D) 0.34 <=0.42 LV Fractional Shortening/Ejection Fraction 2D/MM LV Fractional Shortening (2D) 39 % 27-45 LV EF (2D Teichholz) 69 % LV Diastolic Volume (4C MOD) 96 ml LV EF (4C MOD) 55 % LV Diastolic Volume (2C MOD) 120 ml LV EF (2C MOD) 65 % LV Diastolic Volume (BP MOD) 111 ml 46-106 LV Diastolic Volume Index (BP MOD) 46 ml/m2 29-61 LV Systolic Volume (BP MOD) 42 ml 14-42 LV Systolic Volume Index (BP MOD) 18 ml/m2 8-24 LV EF (BP MOD) 62 % 54-74 LV Diastolic Length (4C) 7.8 cm LV Systolic Length (4C) 7.0 cm LV Stroke Volume (4C MOD) 53 ml Atria Name Value Normal LA Dimensions LA Volume (4C A-L) 34 ml LA Volume (BP A-L) 45 ml RA Dimensions RA Systolic Major Treece Length (4C) 5.4 cm 2.2-2.8 RA Area (4C) 18.2 cm2 <=18.0 Report Signatures
[2025-04-09 00:18] LABS: MRSA (PCR) NOT DETECTED (NOT DETECTE)
[2025-04-09] MEDS: FUROSEMIDE INJ 40 MG/4 ML VIAL IV PUSH ×3 (00:30→17:28)
[2025-04-09] MEDS: CEFEPIME 1 GM in SODIUM CHLORIDE 0.9% IV 50 ML 100 ML IVPB ×4 (00:30→23:38)
[2025-04-09] MEDS: levoFLOXacin 750 MG/D5W 150 ML 750 MG/150 ML BAG 100 MG IVPB (01:25)
--- NOTE | 2025-04-09 01:49 | ADMGEN ---
This patient, Kimberly Rodriguez, was admitted to Medical Room 346-01. Patient/family oriented to hospital policies and general routines including ID bracelet, bed and alarms, visiting hours, pain management, procedures, bathroom and other care routines, personal items, smoking policy, room service/diet, and visiting hours. Information on how to activate the Rapid Response Team has been discussed. Patient/Family are encouraged to report perceived risks to care and to ask questions if they do not understand what they are told or what they should do.
--- NOTE | 2025-04-09 03:22 | P.HP_ITS ---
H&P: HPI History of Present Illness Date/Time: 04/09/25 03:22 Chief Complaint: Shortness of breath Narrative: 84-year-old female with a history of obesity with BMI 50, [id number] type 2 diabetes mellitus, major depressive disorder, hypercholesterolemia, hypertension, presents to [facility] ER on 04/08/2025 from [facility] for shortness of breath. She has been short of breath for 3 4 days with an associated productive cough which she reports to be clear. She has also had more lower leg swelling than usual. Reportedly she was placed on 2 L nasal cannula very recently. This was for hypoxia but unclear if any associated etiology confirmed. She was prescribed Lasix as well. Earlier on the day of admission the patient presented to ER for same complaint and she was sent home with azithromycin and prednisone. Per chart review she takes Eliquis for prophylactic measures. Patient denies any prior lung pathology, illicit drug use, alcohol use, smoking. WBC 9.5, hemoglobin 13.5, INR 1.2, ABG demonstrating pH 7.45, pCO2 41.6, PO2 64.9 on 3 L nasal cannula, bicarb 28.9. Potassium 3.0, magnesium 1.2, troponin 0.012, BNP 140 urinalysis grossly cloudy, 51-100 WBC, positive nitrate and leukocyte esterase. Quad viral screen negative. A CTA chest performed which did not demonstrate PE. Small right pleural effusion with dependent atelectasis. Review of Systems Review of Systems: All systems reviewed & are unremarkable except as noted in HPI and below (HPI) PMFSH Past Medical History Medical History Uterine cancer Abnormal vaginal bleeding in postmenopausal patient HTN (hypertension) with goal to be determined Cataract Left eye Depression Hypercholesterolemia Type 2 diabetes mellitus Surgical History Surgical History History of arthroscopic knee surgery Repair of right knee cartilage Family History Family History Mother Acute myocardial infarction Several times Migraines Father Cancer Social History Social History Social History: The patient is single and lives with her son. 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 The patient stated she would choose her son as a durable power bobbin collector for healthcare. The patient desires to be a full code. Lifelong nonsmoker does not use any alcohol marijuana or illicit drugs. Smoking status: Never smoker Second hand tobacco smoke exposure: No Alcohol intake: former Substance use: never Substance use type: does not use Do You Feel Safe in your Home?: Yes Lack of Transportation: No Lack of Food: Never True Current Housing: I Have Housing Concerned About Future Housing: No Difficulty Paying Gas/Electric Bills: No Difficulty Paying for Meds: No Currently Unemployed: No Education: High School Diploma/GED Difficulty w/ Childcare or Family Care: No Gender identity (if verbalized by the patient): Female Spiritual care concerns: No Meds Home Medications and Allergies Home Medications ?Medication ?Instructions ?Recorded ?Confirmed ?Type citalopram 10 mg tablet (Celexa) 10 mg PO DAILY 02/23/20 04/09/25 History metformin 500 mg tablet 1,000 mg PO BID 02/23/20 04/09/25 History (Glucophage) simvastatin 20 mg tablet 20 mg PO DAILY 02/23/20 04/09/25 History oxybutynin chloride 5 mg tablet 5 mg PO BID 12/23/20 04/09/25 History apixaban 5 mg tablet (Eliquis) 5 mg PO Q12H 03/01/25 04/09/25 History aspirin 81 mg capsule 81 mg PO DAILY 03/01/25 04/09/25 History carboxymethylcellulose sodium 0.5 1 drp EACH EYE BID dry eye 03/01/25 04/09/25 History % eye drops (Refresh Tears) benzocaine 20 %-menth 0.26 %-Zn 1 applic mucous membrane QID PRN 04/09/25 04/09/25 History 0.15 %-benzalkon 0.13 % mucosal mouth sore cream (Orajel 4X Toothache-Gum) nystatin 100,000 unit/gram topical 1 applic topical BID rash 04/09/25 04/09/25 History powder silver sulfadiazine 1 % topical 1 applic topical BID PRN rash 04/09/25 04/09/25 History cream (Silvadene) Allergies Allergy/AdvReac Type Severity Reaction Status Date / Time Penicillins Allergy Unknown Verified 03/03/25 11:54 Vital Signs Vital Signs - 24 hr 04/08/25 19:48 04/08/25 19:52 04/08/25 20:09 Temperature 99.6 F Pulse Rate 98 Respiratory Rate 16 Blood Pressure 160/78 H Pulse Oximetry 87 L 92 Oxygen Delivery Room Air Nasal Cannula Oxygen Flow Rate 2 04/08/25 20:35 04/09/25 00:50 04/09/25 02:57 Temperature 98.4 F Pulse Rate 71 90 Respiratory Rate 18 18 Blood Pressure 169/78 H Pulse Oximetry 93 99 95 Oxygen Delivery Nasal Cannula Nasal Cannula Oxygen Flow Rate 3 3 Exam Const: General: comfortable and no acute distress Other: A&O x3 HENMT: Mouth: Yes moist mucous membranes Eyes: Pupils: Equal, round and reactive pupils present Neck: Neck: supple Resp: Effort & Inspection: normal respiratory effort Other: Crackles, coarse breath sounds Cardio: Rate: regular rate Rhythm: regular rhythm Heart sounds: no gallops, no murmurs and no rubs GI: Inspection: non-distended GI Palp: Yes Soft to palpation Neuro: Motor exam (neuro): 5/5 motor strength present throughout Extrem: General: edema H&P: Results Labs Labs: Short CBC 04/08/25 Range/Units 20:18 WBC 9.5 (4.5-10.0) K/mm3 Hgb 13.5 (12.0-15.0) g/dL Hct 40.4 (37.0-47.0) % Plt Count 242 (150-375) k/mm3 BMP 04/08/25 20:18 Sodium 138 Potassium 3.0 L Chloride 102 Carbon Dioxide 28 BUN 11 Creatinine 0.66 L Glucose 171 H Calcium 8.2 L Cardiac Enzymes 04/08/25 Range/Units 20:18 Troponin I < 0.012 (0.000-0.034) ng/mL Liver Function 04/08/25 Range/Units 20:18 Total Bilirubin 0.7 (0.2-1.3) mg/dL AST 24 (14-36) U/L ALT 16 (6-35) U/L Alkaline Phosphatase 71 (38-126) U/L Albumin 3.4 L (3.5-5.1) g/dL Urine 04/08/25 Range/Units 21:33 Urine Color Yellow (Yellow) Urine Appearance Cloudy H (Clear) Urine pH 7.0 (5.0-9.0) Ur Specific [place] 1.029 (1.001-1.035) Urine Protein 2+ H (Negative) mg/dL Urine Glucose (UA) Negative (Negative) mg/dL Assessment and Plan Assessment and plan (1) Type 2 diabetes mellitus: Code(s): E11.9 - Type 2 diabetes mellitus without complications Status: Chronic (2) UTI (urinary tract infection): Code(s): N39.0 - Urinary tract infection, site not specified Status: Acute (3) Hypomagnesemia: Code(s): E83.42 - Hypomagnesemia Status: Acute (4) Acute hypoxic respiratory failure: Code(s): J96.01 - Acute respiratory failure with hypoxia Status: Acute (5) Pleural effusion: Code(s): J90 - Pleural effusion, not elsewhere classified Status: Acute (6) Pneumonia: Qualifiers: Laterality: bilateral Lung location: lower lobe of lung Pneumonia type: due to unspecified organism Qualified Code(s): J18.9 - Pneumonia, unspecified organism Code(s): J18.9 - Pneumonia, unspecified organism Status: Acute (7) Lower extremity edema: Code(s): R60.0 - Localized edema Status: Acute (8) Hypokalemia: Code(s): E87.6 - Hypokalemia Status: Acute Plan 84-year-old female with a history of obesity with BMI 50, scb-[id number] type 2 diabetes mellitus, major depressive disorder, hypercholesterolemia, hypertension, presents to [facility] ER on 04/08/2025 from [facility] for shortness of breath. She has been short of breath for 3 4 days with an associated productive cough which she reports to be clear. She has also had more lower leg swelling than usual. Reportedly she was placed on 2 L nasal cannula very recently. This was for hypoxia but unclear if any associated etiology confirmed. She was prescribed Lasix as well. Earlier on the day of admission the patient presented to ER for same complaint and she was sent home with azithromycin and prednisone. Per chart review she takes Eliquis for prophylactic measures. Patient denies any prior lung pathology, illicit drug use, alcohol use, smoking. WBC 9.5, hemoglobin 13.5, INR 1.2, ABG demonstrating pH 7.45, pCO2 41.6, PO2 64.9 on 3 L nasal cannula, bicarb 28.9. Potassium 3.0, magnesium 1.2, troponin 0.012, BNP 140 urinalysis grossly cloudy, 51-100 WBC, positive nitrate and leukocyte esterase. Quad viral screen negative. A CTA chest performed which did not demonstrate PE. Small right pleural effusion with dependent atelectasis. ----- Empiric treatment has been initiated for community-acquired pneumonia. Order sputum culture, Legionella, mycoplasma, pneumococcal antigen. Vancomycin and levofloxacin administered. Also received Lasix 40 mg IV x1 for fluid overload. continue lasix 40mg iv bid. Check TTE. Currently resting comfortably on 2 L nasal cannula. Potassium and magnesium replaced. Continue to trend. Patient would like to be full code. Saline lock IV. SCDs. Accu-Cheks a.c. HS with low-dose insulin sliding scale. Hospitalist MIPS Advance Care Plan I have confirmed that the patient's Advanced Care Plan is present, code status is documented, or surrogate decision maker is listed in patient medical record.: Yes Medication Reconciliation I have utilized all available resources to obtain, update and review the patients current medications (includes all prescriptions, OTC, herbals, cannabis, and nutritional supplements).: Yes
[2025-04-09] MEDS: VANCOMYCIN 1,250 MG/NS 250 ML 1,250 MG/250 ML BAG 166.67 MG IVPB ×2 (03:23→05:29)
--- NOTE | 2025-04-09 03:27 | PC.NURSE ---
Marketing Traffic Manager notified pharmacy of delay in hanging antibiotics based on ED not starting IV ABX in ED
[2025-04-09 06:36] LABS: Hematocrit 38.1 % (37.0-47.0); Hemoglobin 12.5 g/dL (12.0-15.0); Immature Granulocyte Percent A 1.0 % (0-0.5); Lymphocytes Absolute Auto 1.52 K/mm3 (0.9-3.2); Mean Corpuscular HGB Conc 32.8 g/dl (32-36); Mean Corpuscular Hemoglobin 32.7 pg (26-34); Mean Corpuscular Volume 99.7 fl (80-100); Nucleated Red Blood Cells Absolute Auto 0.000 K/mm3 (0.0-0.012); Nucleated Red Blood Cells Perc 0.0 % (0.0-0.2); Platelet Count Result 243 k/mm3 (150-375); Red Blood Count 3.82 M/mm3 (4.2-5.4); White Blood Count 9.2 K/mm3 (4.5-10.0)
[2025-04-09 07:31] LABS: Alanine Aminotransferase 15 U/L (6-35); Albumin Level 3.1 g/dL (3.5-5.1); Alkaline Phosphatase 71 U/L (38-126); Anion Gap 6 mmol/L (4-12); Aspartate Amino Transferase 28 U/L (14-36); Bilirubin,Total 0.7 mg/dL (0.2-1.3); Blood Urea Nitrogen 11 mg/dL (7-17); Calcium 8.0 mg/dL (8.4-10.2); Carbon Dioxide 30 mmol/L (22-30); Chloride 102 mmol/L (98-107); Estimated CRCL calculation 72 ml/min; Estimated Glomerular Filt Rate > 60; Glucose 166 mg/dL (65-110); Magnesium 1.6 mg/dL (1.6-2.3); Potassium 2.8 mmol/L (3.4-5.0); Sodium 138 mmol/L (137-145); Total Protein 6.2 g/dL (6.3-8.2)
[2025-04-09] MEDS: POTASSIUM CHLORIDE 20 MEQ ER TABLET 40 MEQ PO ×2 (08:33→19:10)
[2025-04-09] MEDS: MAGNESIUM SULF 2 GM/WATER 50ML 2 GM/50 ML BAG IVPB (08:33)
[2025-04-09] MEDS: POTASSIUM CHLORIDE INJ 40 MEQ in SODIUM CHLORIDE 0.9% IV 500 ML 130 MEQ IVPB (10:58)
[2025-04-09] MEDS: PERFLUTREN LIPID MICROSPHERES 1.5 ML VIAL DILUTED TO 10 ML TOTAL VOLUME IV PUSH (12:20)
--- NOTE | 2025-04-09 12:20 | IVDEFINITY ---
Prior to administration of IV Definity the patient was educated on the risks and benefits of the imaging enhancing agent including potential adverse side effects. The patient verbalized understanding. Allergies were verified. No exclusion criteria were identified and at least one of the following inclusion criteria were met: 1) physician request, 2) patient technically difficult to image (per the [place] [employer] guidelines of two or more segments not discernable within the apical view), or 3) questionable left ventricular function. ?
[2025-04-09] MEDS: INSULIN ASPART (*BKC) 100 UNITS/ML SUB-Q ×2 (12:58→22:28)
[2025-04-09 15:57] LABS: Anion Gap 7 mmol/L (4-12); Blood Urea Nitrogen 12 mg/dL (7-17); Calcium 8.0 mg/dL (8.4-10.2); Carbon Dioxide 29 mmol/L (22-30); Chloride 103 mmol/L (98-107); Estimated CRCL calculation 54 ml/min; Estimated Glomerular Filt Rate > 60; Glucose 219 mg/dL (65-110); Magnesium 1.9 mg/dL (1.6-2.3); Potassium 3.6 mmol/L (3.4-5.0); Sodium 139 mmol/L (137-145)
--- NOTE | 2025-04-09 17:40 | P.PNIM_ITS ---
Progress Note: A&P Assessment and Plan (1) Type 2 diabetes mellitus: Code(s): E11.9 - Type 2 diabetes mellitus without complications Status: Chronic (2) UTI (urinary tract infection): Code(s): N39.0 - Urinary tract infection, site not specified Status: Acute (3) Hypomagnesemia: Code(s): E83.42 - Hypomagnesemia Status: Acute (4) Acute hypoxic respiratory failure: Code(s): J96.01 - Acute respiratory failure with hypoxia Status: Acute (5) Pleural effusion: Code(s): J90 - Pleural effusion, not elsewhere classified Status: Acute (6) Pneumonia: Qualifiers: Laterality: bilateral Lung location: lower lobe of lung Pneumonia type: due to unspecified organism Qualified Code(s): J18.9 - Pneumonia, unspecified organism Code(s): J18.9 - Pneumonia, unspecified organism Status: Acute (7) Lower extremity edema: Code(s): R60.0 - Localized edema Status: Acute (8) Hypokalemia: Code(s): E87.6 - Hypokalemia Status: Acute Plan 84-year-old female with a history of obesity with BMI 50, kqy-hzotpcx-[id number] type 2 diabetes mellitus, major depressive disorder, hypercholesterolemia, hypertension, presents to [facility] ER on 04/08/2025 from [facility] for shortness of breath. She has been short of breath for 3 4 days with an associated productive cough which she reports to be clear. She has also had more lower leg swelling than usual. Reportedly she was placed on 2 L nasal cannula very recently. This was for hypoxia but unclear if any associated etiology confirmed. She was prescribed Lasix as well. Earlier on the day of admission the patient presented to ER for same complaint and she was sent home with azithromycin and prednisone. Per chart review she takes Eliquis for prophylactic measures. Patient denies any prior lung pathology, illicit drug use, alcohol use, smoking. WBC 9.5, hemoglobin 13.5, INR 1.2, ABG demonstrating pH 7.45, pCO2 41.6, PO2 64.9 on 3 L nasal cannula, bicarb 28.9. Potassium 3.0, magnesium 1.2, troponin 0.012, BNP 140 urinalysis grossly cloudy, 51-100 WBC, positive nitrate and leukocyte esterase. Quad viral screen negative. A CTA chest performed which did not demonstrate PE. Small right pleural effusion with dependent atelectasis. ----- Empiric treatment has been initiated for community-acquired pneumonia. Order sputum culture, Legionella, mycoplasma, pneumococcal antigen. Vancomycin and levofloxacin administered. Also received Lasix 40 mg IV x1 for fluid overload. continue lasix 40mg iv bid. Check TTE. Currently resting comfortably on 2 L nasal cannula. Potassium and magnesium replaced. Continue to trend. patient is a resident of [place] was sent to ER with c/o shortness of breath, chest x-ray is suspicious for pneumonia patient is being treated with Levaquin, CTA of the chest is did not show PE. patient stats feels little better compared to when she arrived. will PT/OT evaluate the patient and treat, patient will benefit with rehab. Patient would like to be full code. Saline lock IV. SCDs. Accu-Cheks a.c. HS with low-dose insulin sliding scale. Subjective Date/time seen: 04/09/25 17:40 Interval history: Shortness of breath Narrative: 84-year-old female with a history of obesity with BMI 50, aub-nygtbvr-mqvngjgww type 2 diabetes mellitus, major depressive disorder, hypercholesterolemia, hypertension, presents to [facility] ER on 04/08/2025 from [facility] for shortness of breath. She has been short of breath for 3 4 days with an associated productive cough which she reports to be clear. She has also had more lower leg swelling than usual. Reportedly she was placed on 2 L nasal cannula very recently. This was for hypoxia but unclear if any associated etiology confirmed. She was prescribed Lasix as well. Earlier on the day of admission the patient presented to ER for same complaint and she was sent home with azithromycin and prednisone. Per chart review she takes Eliquis for prophylactic measures. Patient denies any prior lung pathology, illicit drug use, alcohol use, smoking. WBC 9.5, hemoglobin 13.5, INR 1.2, ABG demonstrating pH 7.45, pCO2 41.6, PO2 64.9 on 3 L nasal cannula, bicarb 28.9. Potassium 3.0, magnesium 1.2, troponin 0.012, BNP 140 urinalysis grossly cloudy, 51-100 WBC, positive nitrate and leukocyte esterase. Quad viral screen negative. A CTA chest performed which did not demonstrate PE. Small right pleural effusion with dependent atelectasis. patient is a resident of [place] was sent to ER with c/o shortness of breath, chest x-ray is suspicious for pneumonia patient is being treated with Levaquin, CTA of the chest is did not show PE. patient stats feels little better compared to when she arrived. will PT/OT evaluate the patient and treat, patient will benefit with rehab. Review of Systems Review of Systems: All systems reviewed & are unremarkable except as noted in HPI and below (HPI) Exam Narrative: Morbidly obese Patient is comfortable, NAD HEENT: eyes are clear and none icteric LUNGS:CTA HEART: RR S1S2 ABD: BS+, Soft and nontender Lower extremities: no edema SKIN: nonjaundiced Neuro: grossly intact. Objective Data Vital Signs Vital Signs: Vital Signs - 24 hr 04/08/25 19:48 04/08/25 19:52 04/08/25 20:09 Temperature 37.6 C Pulse Rate 98 Respiratory Rate 16 Blood Pressure 160/78 H Pulse Oximetry 87 L 92 Oxygen Delivery Room Air Nasal Cannula Oxygen Flow Rate 2 04/08/25 20:35 04/09/25 00:50 04/09/25 02:57 Temperature 36.9 C Pulse Rate 71 90 Respiratory Rate 18 18 Blood Pressure 169/78 H Pulse Oximetry 93 99 95 Oxygen Delivery Nasal Cannula Nasal Cannula Oxygen Flow Rate 3 3 04/09/25 04:00 04/09/25 04:12 04/09/25 08:00 Temperature 36.6 C Pulse Rate 80 90 Respiratory Rate 20 Blood Pressure 146/82 H Pulse Oximetry 95 96 Oxygen Delivery Nasal Cannula Oxygen Flow Rate 3 04/09/25 14:00 Temperature 37.0 C Pulse Rate 90 Respiratory Rate 19 Blood Pressure 132/82 Pulse Oximetry 96 Oxygen Delivery Oxygen Flow Rate Intake/Output Intake/Output: Intake & Output 04/06/25 04/07/25 04/08/25 04/09/25 23:59 23:59 23:59 23:59 Intake Total 1812 Output Total 1600 Balance 212 Meds/Results Medications: Active Medications Generic Name Dose Route Start Last Admin Trade Name Freq PRN Reason Stop Dose Admin Albuterol/Ipratropium 3 ml 04/09/25 03:32 Ipratropium 0.5 Mg/Albuterol Sulfate 2.5 Mg Ampul.Neb 3 Ml INHALATION Q6HRT PRN sob Dextrose 12.5 gm 04/09/25 03:29 Dextrose 50% 25 Gm/50 Ml Syringe IV PUSH PRN PRN Hypoglycemia Protocol Furosemide 40 mg 04/09/25 09:00 04/09/25 17:28 Furosemide Inj 40 Mg/4 Ml Vial IV PUSH 40 mg BID KEITH Administration Glucose 15 gm 04/09/25 03:29 Glucose Oral Gel 15 Gm Of Glucse In 37.5 Gm Tube PO PRN PRN Hypoglycemia Protocol Cefepime HCl 1 gm/ Sodium 50 mls @ 100 mls/hr 04/08/25 23:00 04/09/25 16:01 Chloride IVPB 100 mls/hr Q8H KEITH Administration Levofloxacin/Dextrose 750 mg in 150 mls @ 100 mls/hr 04/10/25 01:00 Levaquin 750 Mg/D5w 150 Ml IVPB Q24H KEITH Vancomycin HCl 1,500 mg in 500 mls @ 250 mls/hr 04/09/25 22:00 Vancomycin 1,500 Mg/Ns 500 Ml IVPB Q18H KIETH Dextrose 1,000 mls @ 100 mls/hr 04/09/25 03:29 Dextrose 5% 1,000 Ml IVPB PRN PRN Hypoglycemia Protocol Insulin Aspart 2 - 5 units 04/09/25 08:00 04/09/25 17:28 Insulin Aspart (*Bkc) 100 Units/Ml SUB-Q Not Given [facility] Protocol Insulin Aspart 1 - 2 units 04/09/25 21:00 Insulin Aspart (*Bkc) 100 Units/Ml SUB-Q HS [facility] Protocol Radiology Results: ITS Impressions Chest X-Ray 04/08/25 20:37 IMPRESSION: 1. Opacities at the bilateral lung bases, left greater than right which could represent atelectasis or pneumonia. 2. Likely persistent small right pleural effusion. Labs Labs: Laboratory Results - last 24 hr 04/08/25 04/08/25 04/08/25 20:18 20:31 21:33 WBC 9.5 RBC 4.12 L Hgb 13.5 Hct 40.4 MCV 98.1 MCH 32.8 MCHC 33.4 RDW 12.8 Plt Count 242 MPV 9.2 Immature Gran % (Auto) 0.7 H Neut % (Auto) 78.1 H Lymph % (Auto) 12.2 L [place] % (Auto) 7.4 Eos % (Auto) 1.3 Baso % (Auto) 0.3 Lymph # (Auto) 1.16 [place] # (Auto) 0.7 H Eos # (Auto) 0.1 Baso # (Auto) 0.0 Abs Immat Gran (auto) 0.07 H Absolute Neuts (auto) 7.4 H Absolute Nucleated RBC 0.020 H Nucleated RBC % 0.2 PT 14.8 H INR 1.2 APTT 35.7 Puncture Site Right radial ABG pH 7.459 H ABG pCO2 41.6 ABG pO2 64.9 L ABG PO2/FiO2 Ratio 2.03 ABG HCO3 28.9 H ABG O2 Saturation 93.7 L ABG O2 Content 18.7 ABG Base Excess 4.6 A-a Gradient 114.6 Oxyhemoglobin 91.8 Total Hemoglobin 14.5 O2 Delivery Device Nasal cannula O2 Liters/Min 3.0 FiO2 32 Sodium 138 Potassium 3.0 L Chloride 102 Carbon Dioxide 28 Anion Gap 8 BUN 11 Creatinine 0.66 L Estim Creat Clear Calc 73 Estimated GFR > 60 Glucose 171 H POC Capillary Glucose Lactic Acid Calcium 8.2 L Magnesium 1.2 L Total Bilirubin 0.7 AST 24 ALT 16 Alkaline Phosphatase 71 Troponin I < 0.012 NT-Pro-B Natriuret Pep 140 H Total Protein 6.6 Albumin 3.4 L Urine Color Yellow Urine Appearance Cloudy H Urine pH 7.0 Ur Specific [place] 1.029 Urine Protein 2+ H Urine Glucose (UA) Negative Urine Ketones 1+ H Ur Blood (Man) Negative Urine Nitrate Positive H Urine Bilirubin Negative Urine Urobilinogen 2.0 H Add Ur Microanalysis Reviewed Leukocyte Esterase Rfl 2+ H Urine RBC 0-2 Urine WBC 51-100 H Ur Squamous Epith Cells None seen Urine Bacteria 4+ Urine Casts 0-2 Urine Mucus Present Nasal MRSA (PCR) Influenza A (RT-PCR) Negative Influenza B (RT-PCR) Negative RSV (RT-PCR) Negative SARS-CoV-2 RNA (RT-PCR) Negative 04/08/25 04/08/25 04/09/25 22:54 23:03 05:49 WBC 9.2 RBC 3.82 L Hgb 12.5 Hct 38.1 MCV 99.7 MCH 32.7 MCHC 32.8 RDW 12.9 Plt Count 243 MPV 9.7 Immature Gran % (Auto) 1.0 H Neut % (Auto) 73.2 H Lymph % (Auto) 16.5 L [place] % (Auto) 7.9 Eos % (Auto) 1.0 Baso % (Auto) 0.4 Lymph # (Auto) 1.52 [place] # (Auto) 0.7 H Eos # (Auto) 0.1 Baso # (Auto) 0.0 Abs Immat Gran (auto) 0.09 H Absolute Neuts (auto) 6.8 H Absolute Nucleated RBC 0.000 Nucleated RBC % 0.0 PT INR APTT Puncture Site ABG pH ABG pCO2 ABG pO2 ABG PO2/FiO2 Ratio ABG HCO3 ABG O2 Saturation ABG O2 Content ABG Base Excess A-a Gradient Oxyhemoglobin Total Hemoglobin O2 Delivery Device O2 Liters/Min FiO2 Sodium 138 Potassium 2.8 L* Chloride 102 Carbon Dioxide 30 Anion Gap 6 BUN 11 Creatinine 0.65 L Estim Creat Clear Calc 72 Estimated GFR > 60 Glucose 166 H POC Capillary Glucose Lactic Acid 0.9 Calcium 8.0 L Magnesium 1.6 Total Bilirubin 0.7 AST 28 ALT 15 Alkaline Phosphatase 71 Troponin I NT-Pro-B Natriuret Pep Total Protein 6.2 L Albumin 3.1 L Urine Color Urine Appearance Urine pH Ur Specific [place] Urine Protein Urine Glucose (UA) Urine Ketones Ur Blood (Man) Urine Nitrate Urine Bilirubin Urine Urobilinogen Add Ur Microanalysis Leukocyte Esterase Rfl Urine RBC Urine WBC Ur Squamous Epith Cells Urine Bacteria Urine Casts Urine Mucus Nasal MRSA (PCR) Not detected Influenza A (RT-PCR) Influenza B (RT-PCR) RSV (RT-PCR) SARS-CoV-2 RNA (RT-PCR) 04/09/25 04/09/25 04/09/25 08:15 11:45 14:53 WBC RBC Hgb Hct MCV MCH MCHC RDW Plt Count MPV Immature Gran % (Auto) Neut % (Auto) Lymph % (Auto) [place] % (Auto) Eos % (Auto) Baso % (Auto) Lymph # (Auto) [place] # (Auto) Eos # (Auto) Baso # (Auto) Abs Immat Gran (auto) Absolute Neuts (auto) Absolute Nucleated RBC Nucleated RBC % PT INR APTT Puncture Site ABG pH ABG pCO2 ABG pO2 ABG PO2/FiO2 Ratio ABG HCO3 ABG O2 Saturation ABG O2 Content ABG Base Excess A-a Gradient Oxyhemoglobin Total Hemoglobin O2 Delivery Device O2 Liters/Min FiO2 Sodium 139 Potassium 3.6 Chloride 103 Carbon Dioxide 29 Anion Gap 7 BUN 12 Creatinine 0.88 Estim Creat Clear Calc 54 Estimated GFR > 60 Glucose 219 H POC Capillary Glucose 144 H 206 H Lactic Acid Calcium 8.0 L Magnesium 1.9 Total Bilirubin AST ALT Alkaline Phosphatase Troponin I NT-Pro-B Natriuret Pep Total Protein Albumin Urine Color Urine Appearance Urine pH Ur Specific [place] Urine Protein Urine Glucose (UA) Urine Ketones Ur Blood (Man) Urine Nitrate Urine Bilirubin Urine Urobilinogen Add Ur Microanalysis Leukocyte Esterase Rfl Urine RBC Urine WBC Ur Squamous Epith Cells Urine Bacteria Urine Casts Urine Mucus Nasal MRSA (PCR) Influenza A (RT-PCR) Influenza B (RT-PCR) RSV (RT-PCR) SARS-CoV-2 RNA (RT-PCR) 04/09/25 16:38 WBC RBC Hgb Hct MCV MCH MCHC RDW Plt Count MPV Immature Gran % (Auto) Neut % (Auto) Lymph % (Auto) [place] % (Auto) Eos % (Auto) Baso % (Auto) Lymph # (Auto) [place] # (Auto) Eos # (Auto) Baso # (Auto) Abs Immat Gran (auto) Absolute Neuts (auto) Absolute Nucleated RBC Nucleated RBC % PT INR APTT Puncture Site ABG pH ABG pCO2 ABG pO2 ABG PO2/FiO2 Ratio ABG HCO3 ABG O2 Saturation ABG O2 Content ABG Base Excess A-a Gradient Oxyhemoglobin Total Hemoglobin O2 Delivery Device O2 Liters/Min FiO2 Sodium Potassium Chloride Carbon Dioxide Anion Gap BUN Creatinine Estim Creat Clear Calc Estimated GFR Glucose POC Capillary Glucose 178 H Lactic Acid Calcium Magnesium Total Bilirubin AST ALT Alkaline Phosphatase Troponin I NT-Pro-B Natriuret Pep Total Protein Albumin Urine Color Urine Appearance Urine pH Ur Specific [place] Urine Protein Urine Glucose (UA) Urine Ketones Ur Blood (Man) Urine Nitrate Urine Bilirubin Urine Urobilinogen Add Ur Microanalysis Leukocyte Esterase Rfl Urine RBC Urine WBC Ur Squamous Epith Cells Urine Bacteria Urine Casts Urine Mucus Nasal MRSA (PCR) Influenza A (RT-PCR) Influenza B (RT-PCR) RSV (RT-PCR) SARS-CoV-2 RNA (RT-PCR)
[2025-04-09] MEDS: VANCOMYCIN 1,500 MG/NS 500 ML 1,500 MG/500 ML BAG 250 MG IVPB (21:15)
[2025-04-10] VITALS (10 sets, daily range): BP systolic 109–137; BP diastolic 59–81; PULSE 76–83; RESP 16–20; TEMP 36.4–36.9; O2SAT 95–97
[2025-04-10] MEDS: levoFLOXacin 750 MG/D5W 150 ML 750 MG/150 ML BAG 100 MG IVPB (00:41)
[2025-04-10 05:51] LABS: Hematocrit 38.0 % (37.0-47.0); Hemoglobin 12.3 g/dL (12.0-15.0); Mean Corpuscular HGB Conc 32.4 g/dl (32-36); Mean Corpuscular Hemoglobin 32.8 pg (26-34); Mean Corpuscular Volume 101.3 fl (80-100); Platelet Count Result 257 k/mm3 (150-375); Red Blood Count 3.75 M/mm3 (4.2-5.4); White Blood Count 8.1 K/mm3 (4.5-10.0)
[2025-04-10] MEDS: CEFEPIME 1 GM in SODIUM CHLORIDE 0.9% IV 50 ML 100 ML IVPB ×3 (06:07→22:05)
[2025-04-10 06:20] LABS: Anion Gap 2 mmol/L (4-12); Blood Urea Nitrogen 15 mg/dL (7-17); Calcium 8.2 mg/dL (8.4-10.2); Carbon Dioxide 32 mmol/L (22-30); Chloride 101 mmol/L (98-107); Estimated CRCL calculation 57 ml/min; Estimated Glomerular Filt Rate > 60; Glucose 177 mg/dL (65-110); Magnesium 1.8 mg/dL (1.6-2.3); Potassium 3.4 mmol/L (3.4-5.0); Sodium 135 mmol/L (137-145)
[2025-04-10] MEDS: FUROSEMIDE INJ 40 MG/4 ML VIAL IV PUSH ×2 (08:42→17:45)
[2025-04-10] MEDS: ASPIRIN 81 MG ENTERIC TABLET PO (09:16)
[2025-04-10] MEDS: POTASSIUM CHLORIDE 20 MEQ PACKET (FOR LIQUID) 40 MEQ PO (09:16)
[2025-04-10] MEDS: APIXABAN 5 MG TABLET PO ×2 (09:16→20:58)
--- NOTE | 2025-04-10 12:11 | PM.IMPN ---
Progress Note: A&P Assessment and Plan (1) Type 2 diabetes mellitus: Code(s): E11.9 - Type 2 diabetes mellitus without complications Status: Chronic (2) UTI (urinary tract infection): Code(s): N39.0 - Urinary tract infection, site not specified Status: Acute (3) Hypomagnesemia: Code(s): E83.42 - Hypomagnesemia Status: Acute (4) Acute hypoxic respiratory failure: Code(s): J96.01 - Acute respiratory failure with hypoxia Status: Acute (5) Pleural effusion: Code(s): J90 - Pleural effusion, not elsewhere classified Status: Acute (6) Pneumonia: Qualifiers: Laterality: bilateral Lung location: lower lobe of lung Pneumonia type: due to unspecified organism Qualified Code(s): J18.9 - Pneumonia, unspecified organism Code(s): J18.9 - Pneumonia, unspecified organism Status: Acute (7) Lower extremity edema: Code(s): R60.0 - Localized edema Status: Acute (8) Hypokalemia: Code(s): E87.6 - Hypokalemia Status: Acute Plan 84-year-old female with a history of obesity with BMI 50, [id number] type 2 diabetes mellitus, major depressive disorder, hypercholesterolemia, hypertension, presents to [facility] ER on 04/08/2025 from [facility] for shortness of breath. She has been short of breath for 3 4 days with an associated productive cough which she reports to be clear. She has also had more lower leg swelling than usual. Reportedly she was placed on 2 L nasal cannula very recently. This was for hypoxia but unclear if any associated etiology confirmed. She was prescribed Lasix as well. Earlier on the day of admission the patient presented to ER for same complaint and she was sent home with azithromycin and prednisone. Per chart review she takes Eliquis for prophylactic measures. Patient denies any prior lung pathology, illicit drug use, alcohol use, smoking. WBC 9.5, hemoglobin 13.5, INR 1.2, ABG demonstrating pH 7.45, pCO2 41.6, PO2 64.9 on 3 L nasal cannula, bicarb 28.9. Potassium 3.0, magnesium 1.2, troponin 0.012, BNP 140 urinalysis grossly cloudy, 51-100 WBC, positive nitrate and leukocyte esterase. Quad viral screen negative. A CTA chest performed which did not demonstrate PE. Small right pleural effusion with dependent atelectasis. ----- Empiric treatment has been initiated for community-acquired pneumonia. Order sputum culture, Legionella, mycoplasma, pneumococcal antigen. Vancomycin and levofloxacin administered. Also received Lasix 40 mg IV x1 for fluid overload. continue lasix 40mg iv bid. Check TTE. Currently resting comfortably on 2 L nasal cannula. Potassium and magnesium replaced. Continue to trend. patient is a resident of [place] was sent to ER with c/o shortness of breath, chest x-ray is suspicious for pneumonia patient is being treated with Levaquin, CTA of the chest is did not show PE. patient is being diuresed, patient stats feels little better compared to when she arrived. will have PT/OT evaluate the patient and treat, patient will benefit with rehab. today patient stats she want to get better and working on it, Patient would like to be full code. Saline lock IV. SCDs. Accu-Cheks a.c. HS with low-dose insulin sliding scale. Subjective Date/time seen: 04/10/25 12:11 Interval history: Shortness of breath Narrative: 84-year-old female with a history of obesity with BMI 50, [id number] type 2 diabetes mellitus, major depressive disorder, hypercholesterolemia, hypertension, presents to [facility] ER on 04/08/2025 from [facility] for shortness of breath. She has been short of breath for 3 4 days with an associated productive cough which she reports to be clear. She has also had more lower leg swelling than usual. Reportedly she was placed on 2 L nasal cannula very recently. This was for hypoxia but unclear if any associated etiology confirmed. She was prescribed Lasix as well. Earlier on the day of admission the patient presented to ER for same complaint and she was sent home with azithromycin and prednisone. Per chart review she takes Eliquis for prophylactic measures. Patient denies any prior lung pathology, illicit drug use, alcohol use, smoking. WBC 9.5, hemoglobin 13.5, INR 1.2, ABG demonstrating pH 7.45, pCO2 41.6, PO2 64.9 on 3 L nasal cannula, bicarb 28.9. Potassium 3.0, magnesium 1.2, troponin 0.012, BNP 140 urinalysis grossly cloudy, 51-100 WBC, positive nitrate and leukocyte esterase. Quad viral screen negative. A CTA chest performed which did not demonstrate PE. Small right pleural effusion with dependent atelectasis. patient is a resident of [place] was sent to ER with c/o shortness of breath, chest x-ray is suspicious for pneumonia patient is being treated with Levaquin, CTA of the chest is did not show PE. patient is being diuresed, patient stats feels little better compared to when she arrived. will have PT/OT evaluate the patient and treat, patient will benefit with rehab. today patient stats she want to get better and working on it, Review of Systems Review of Systems: All systems reviewed & are unremarkable except as noted in HPI and below (HPI) Exam Narrative: Morbidly obese Patient is comfortable, NAD HEENT: eyes are clear and none icteric LUNGS:CTA HEART: RR S1S2 ABD: BS+, Soft and nontender Lower extremities: no edema SKIN: nonjaundiced Neuro: grossly intact. Objective Data Vital Signs Vital Signs: Vital Signs - 24 hr 04/09/25 14:00 04/09/25 16:00 04/09/25 20:00 Temperature 37.0 C Pulse Rate 90 80 80 Respiratory Rate 19 19 Blood Pressure 132/82 Pulse Oximetry 96 96 Oxygen Delivery Nasal Cannula Oxygen Flow Rate 3 04/09/25 20:00 04/09/25 22:00 04/10/25 00:00 Temperature 36.5 C Pulse Rate 79 78 80 Respiratory Rate 16 Blood Pressure 135/89 Pulse Oximetry 94 Oxygen Delivery Oxygen Flow Rate 04/10/25 04:00 04/10/25 06:00 Temperature 36.9 C Pulse Rate 79 82 Respiratory Rate 16 Blood Pressure 137/81 Pulse Oximetry 95 Oxygen Delivery Oxygen Flow Rate Intake/Output Intake/Output: Intake & Output 04/07/25 04/08/25 04/09/25 04/10/25 23:59 23:59 23:59 23:59 Intake Total 1982 890 Output Total 1600 1800 Balance 382 -910 Meds/Results Medications: Active Medications Generic Name Dose Route Start Last Admin Trade Name Freq PRN Reason Stop Dose Admin Albuterol/Ipratropium 3 ml 04/09/25 03:32 Ipratropium 0.5 Mg/Albuterol Sulfate 2.5 Mg Ampul.Neb 3 Ml INHALATION Q6HRT PRN sob Apixaban 5 mg 04/10/25 09:00 04/10/25 09:16 Apixaban 5 Mg Tablet PO 5 mg Q12HR KEITH Administration Artificial Tears 1 drop 04/10/25 10:30 Artificial Tears Ophth Soln 15 Ml Bottle EACH EYE BID KEITH Aspirin 81 mg 04/10/25 09:20 04/10/25 09:16 Aspirin 81 Mg Enteric Tablet PO 81 mg QAM KEITH Administration Benzocaine 1 applic 04/10/25 09:22 Benzocaine 20% Dental Gel 9 Gm Tube BY MOUTH QID PRN mouth sore Citalopram Hydrobromide 10 mg 04/10/25 21:00 Citalopram Hydrobromide 10 Mg Tablet PO HS KEITH Dextrose 12.5 gm 04/09/25 03:29 Dextrose 50% 25 Gm/50 Ml Syringe IV PUSH PRN PRN Hypoglycemia Protocol Furosemide 40 mg 04/09/25 09:00 04/10/25 08:42 Furosemide Inj 40 Mg/4 Ml Vial IV PUSH 40 mg BID KEITH Administration Glucose 15 gm 04/09/25 03:29 Glucose Oral Gel 15 Gm Of Glucse In 37.5 Gm Tube PO PRN PRN Hypoglycemia Protocol Cefepime HCl 1 gm/ Sodium 50 mls @ 100 mls/hr 04/08/25 23:00 04/10/25 06:07 Chloride IVPB 100 mls/hr Q8H KEITH Administration Vancomycin HCl 1,500 mg in 500 mls @ 250 mls/hr 04/09/25 22:00 04/09/25 21:15 Vancomycin 1,500 Mg/Ns 500 Ml IVPB 250 mls/hr Q18H KEITH Administration Dextrose 1,000 mls @ 100 mls/hr 04/09/25 03:29 Dextrose 5% 1,000 Ml IVPB PRN PRN Hypoglycemia Protocol Insulin Aspart 2 - 5 units 04/09/25 08:00 04/10/25 08:39 Insulin Aspart (*Bkc) 100 Units/Ml SUB-Q Not Given TIDWM KEITH Protocol Insulin Aspart 1 - 2 units 04/09/25 21:00 04/09/25 22:28 Insulin Aspart (*Bkc) 100 Units/Ml SUB-Q 1 units HS KEITH Administration Protocol Miscellaneous Information 1 each 04/11/25 00:01 Order Clarification -Nystatin 100,000 Unit/Gram Powder) XX 05/11/25 00:00 CLARIFY [facility] Non-Formulary Medication 1 applic 04/10/25 09:00 Nystatin TOPICAL 05/10/25 08:59 BID [facility] Oxybutynin Chloride 5 mg 04/10/25 09:20 04/10/25 09:16 Oxybutynin Chloride 5 Mg Tablet PO 5 mg BID [facility] Administration Silver Sulfadiazine 1 applic 04/10/25 08:47 Silver Sulfadiazine 1% Cr 400 Gm Jar (*Bkc) TOPICAL Q12HR PRN rash Simvastatin 20 mg 04/10/25 21:00 Simvastatin 20 Mg Tablet PO [facility] Radiology Results: ITS Impressions Chest X-Ray 04/08/25 20:37 IMPRESSION: 1. Opacities at the bilateral lung bases, left greater than right which could represent atelectasis or pneumonia. 2. Likely persistent small right pleural effusion. Labs Labs: Laboratory Results - last 24 hr 04/09/25 04/09/25 04/09/25 14:53 16:38 21:43 WBC RBC Hgb Hct MCV MCH MCHC RDW Plt Count MPV Sodium 139 Potassium 3.6 Chloride 103 Carbon Dioxide 29 Anion Gap 7 BUN 12 Creatinine 0.88 Estim Creat Clear Calc 54 Estimated GFR > 60 Glucose 219 H POC Capillary Glucose 178 H 205 H Calcium 8.0 L Magnesium 1.9 04/10/25 04/10/25 05:25 08:05 WBC 8.1 RBC 3.75 L Hgb 12.3 Hct 38.0 MCV 101.3 H MCH 32.8 MCHC 32.4 RDW 12.9 Plt Count 257 MPV 9.3 Sodium 135 L Potassium 3.4 Chloride 101 Carbon Dioxide 32 H Anion Gap 2 L BUN 15 Creatinine 0.83 Estim Creat Clear Calc 57 Estimated GFR > 60 Glucose 177 H POC Capillary Glucose 181 H Calcium 8.2 L Magnesium 1.8
[2025-04-10] MEDS: ARTIFICIAL TEARS OPHTH SOLN 15 ML BOTTLE 1 DROP EACH EYE (13:01)
[2025-04-10] MEDS: INSULIN ASPART (*BKC) 100 UNITS/ML SUB-Q ×2 (13:02→23:14)
[2025-04-10] MEDS: VANCOMYCIN 1,500 MG/NS 500 ML 1,500 MG/500 ML BAG 250 MG IVPB (17:45)
[2025-04-10] MEDS: CITALOPRAM HYDROBROMIDE 10 MG TABLET PO (20:58)
[2025-04-10] MEDS: SIMVASTATIN 20 MG TABLET PO (20:58)
--- NOTE | 2025-04-10 23:44 | PC.NURSE ---
Per charge nurse, contacted Dr. Melissa to D/C telemetry on PT. See worklist.
[2025-04-11] VITALS (8 sets, daily range): BP systolic 126–141; BP diastolic 42–79; PULSE 73–94; RESP 14–20; TEMP 36.1–36.9; O2SAT 91–99
[2025-04-11] MEDS: VANCOMYCIN 1,500 MG/NS 500 ML 1,500 MG/500 ML BAG 250 MG IVPB ×2 (04:26→17:09)
[2025-04-11 05:44] LABS: Hematocrit 41.3 % (37.0-47.0); Hemoglobin 13.4 g/dL (12.0-15.0); Mean Corpuscular HGB Conc 32.4 g/dl (32-36); Mean Corpuscular Hemoglobin 33.0 pg (26-34); Mean Corpuscular Volume 101.7 fl (80-100); Platelet Count Result 282 k/mm3 (150-375); Red Blood Count 4.06 M/mm3 (4.2-5.4); White Blood Count 8.9 K/mm3 (4.5-10.0)
[2025-04-11 06:07] LABS: Anion Gap 3 mmol/L (4-12); Blood Urea Nitrogen 16 mg/dL (7-17); Calcium 8.5 mg/dL (8.4-10.2); Carbon Dioxide 32 mmol/L (22-30); Chloride 98 mmol/L (98-107); Estimated CRCL calculation 59 ml/min; Estimated Glomerular Filt Rate > 60; Glucose 187 mg/dL (65-110); Magnesium 1.7 mg/dL (1.6-2.3); Potassium 3.6 mmol/L (3.4-5.0); Sodium 133 mmol/L (137-145)
[2025-04-11] MEDS: CEFEPIME 1 GM in SODIUM CHLORIDE 0.9% IV 50 ML 100 ML IVPB ×2 (06:43→22:19)
[2025-04-11] MEDS: ARTIFICIAL TEARS OPHTH SOLN 15 ML BOTTLE 1 DROP EACH EYE ×2 (10:17→17:09)
[2025-04-11] MEDS: APIXABAN 5 MG TABLET PO ×2 (10:17→20:59)
[2025-04-11] MEDS: ASPIRIN 81 MG ENTERIC TABLET PO (10:17)
[2025-04-11] MEDS: INSULIN ASPART (*BKC) 100 UNITS/ML SUB-Q ×2 (13:01→21:10)
[2025-04-11] MEDS: FUROSEMIDE INJ 40 MG/4 ML VIAL IV PUSH (17:09)
[2025-04-11] MEDS: SIMVASTATIN 20 MG TABLET PO (20:59)
[2025-04-11] MEDS: CITALOPRAM HYDROBROMIDE 10 MG TABLET PO (20:59)
[2025-04-12] VITALS (11 sets, daily range): BP systolic 119–155; BP diastolic 51–99; PULSE 70–86; RESP 18–24; TEMP 36.4–36.7; O2SAT 87–98
[2025-04-12 03:56] LABS: Hematocrit 38.7 % (37.0-47.0); Hemoglobin 12.5 g/dL (12.0-15.0); Mean Corpuscular HGB Conc 32.3 g/dl (32-36); Mean Corpuscular Hemoglobin 32.7 pg (26-34); Mean Corpuscular Volume 101.3 fl (80-100); Platelet Count Result 274 k/mm3 (150-375); Red Blood Count 3.82 M/mm3 (4.2-5.4); White Blood Count 8.0 K/mm3 (4.5-10.0)
[2025-04-12 04:25] LABS: Anion Gap 2 mmol/L (4-12); Blood Urea Nitrogen 16 mg/dL (7-17); Calcium 8.9 mg/dL (8.4-10.2); Carbon Dioxide 35 mmol/L (22-30); Chloride 98 mmol/L (98-107); Estimated CRCL calculation 52 ml/min; Estimated Glomerular Filt Rate 60; Glucose 215 mg/dL (65-110); Magnesium 1.7 mg/dL (1.6-2.3); Potassium 3.7 mmol/L (3.4-5.0); Sodium 135 mmol/L (137-145)
[2025-04-12] MEDS: VANCOMYCIN 1,500 MG/NS 500 ML 1,500 MG/500 ML BAG 150 MG IVPB (05:06)
[2025-04-12 08:08] LABS: Hematocrit 37.8 % (37.0-47.0); Hemoglobin 12.2 g/dL (12.0-15.0); Mean Corpuscular HGB Conc 32.3 g/dl (32-36); Mean Corpuscular Hemoglobin 32.7 pg (26-34); Mean Corpuscular Volume 101.3 fl (80-100); Platelet Count Result 266 k/mm3 (150-375); Red Blood Count 3.73 M/mm3 (4.2-5.4); White Blood Count 8.2 K/mm3 (4.5-10.0)
[2025-04-12 08:38] LABS: Anion Gap 4 mmol/L (4-12); Blood Urea Nitrogen 16 mg/dL (7-17); Calcium 8.7 mg/dL (8.4-10.2); Carbon Dioxide 32 mmol/L (22-30); Chloride 100 mmol/L (98-107); Estimated CRCL calculation 68 ml/min; Estimated Glomerular Filt Rate > 60; Glucose 186 mg/dL (65-110); Magnesium 1.6 mg/dL (1.6-2.3); Potassium 3.4 mmol/L (3.4-5.0); Sodium 136 mmol/L (137-145)
[2025-04-12] MEDS: CEFEPIME 1 GM in SODIUM CHLORIDE 0.9% IV 50 ML 100 ML IVPB ×3 (08:57→22:42)
[2025-04-12] MEDS: ASPIRIN 81 MG ENTERIC TABLET PO (08:58)
[2025-04-12] MEDS: ARTIFICIAL TEARS OPHTH SOLN 15 ML BOTTLE 1 DROP EACH EYE ×2 (08:58→16:03)
[2025-04-12] MEDS: APIXABAN 5 MG TABLET PO ×2 (08:58→20:38)
[2025-04-12] MEDS: FUROSEMIDE INJ 40 MG/4 ML VIAL IV PUSH ×2 (08:58→16:03)
--- NOTE | 2025-04-12 16:55 | PM.IMPN ---
Progress Note: A&P Assessment and Plan (1) Type 2 diabetes mellitus: Code(s): E11.9 - Type 2 diabetes mellitus without complications Status: Chronic (2) UTI (urinary tract infection): Code(s): N39.0 - Urinary tract infection, site not specified Status: Acute (3) Hypomagnesemia: Code(s): E83.42 - Hypomagnesemia Status: Acute (4) Acute hypoxic respiratory failure: Code(s): J96.01 - Acute respiratory failure with hypoxia Status: Acute (5) Pleural effusion: Code(s): J90 - Pleural effusion, not elsewhere classified Status: Acute (6) Pneumonia: Qualifiers: Laterality: bilateral Lung location: lower lobe of lung Pneumonia type: due to unspecified organism Qualified Code(s): J18.9 - Pneumonia, unspecified organism Code(s): J18.9 - Pneumonia, unspecified organism Status: Acute (7) Lower extremity edema: Code(s): R60.0 - Localized edema Status: Acute (8) Hypokalemia: Code(s): E87.6 - Hypokalemia Status: Acute Plan 84-year-old female with a history of obesity with BMI 50, szw-akygwro-tevazkakh type 2 diabetes mellitus, major depressive disorder, hypercholesterolemia, hypertension, presents to [facility] ER on 04/08/2025 from [facility] for shortness of breath. She has been short of breath for 3 4 days with an associated productive cough which she reports to be clear. She has also had more lower leg swelling than usual. Reportedly she was placed on 2 L nasal cannula very recently. This was for hypoxia but unclear if any associated etiology confirmed. She was prescribed Lasix as well. Earlier on the day of admission the patient presented to ER for same complaint and she was sent home with azithromycin and prednisone. Per chart review she takes Eliquis for prophylactic measures. Patient denies any prior lung pathology, illicit drug use, alcohol use, smoking. WBC 9.5, hemoglobin 13.5, INR 1.2, ABG demonstrating pH 7.45, pCO2 41.6, PO2 64.9 on 3 L nasal cannula, bicarb 28.9. Potassium 3.0, magnesium 1.2, troponin 0.012, BNP 140 urinalysis grossly cloudy, 51-100 WBC, positive nitrate and leukocyte esterase. Quad viral screen negative. A CTA chest performed which did not demonstrate PE. Small right pleural effusion with dependent atelectasis. ----- Empiric treatment has been initiated for community-acquired pneumonia. Order sputum culture, Legionella, mycoplasma, pneumococcal antigen. Vancomycin and levofloxacin administered. Also received Lasix 40 mg IV x1 for fluid overload. continue lasix 40mg iv bid. Check TTE. Currently resting comfortably on 2 L nasal cannula. Potassium and magnesium replaced. Continue to trend. patient is a resident of [place] was sent to ER with c/o shortness of breath, chest x-ray is suspicious for pneumonia patient is being treated with Levaquin, CTA of the chest is did not show PE. patient is being diuresed, patient stats feels little better compared to when she arrived. will have PT/OT evaluate the patient and treat, patient will benefit with rehab. today patient stats she want to get better and working on it, today repeat chest x-ray showed some improvement in pneumonia, will CPM and reassess tomorrow possibly discharge patient. Patient would like to be full code. Saline lock IV. SCDs. Accu-Cheks a.c. HS with low-dose insulin sliding scale. Subjective Date/time seen: 04/12/25 16:55 Interval history: Shortness of breath Narrative: 84-year-old female with a history of obesity with BMI 50, [id number]-[id number] type 2 diabetes mellitus, major depressive disorder, hypercholesterolemia, hypertension, presents to [facility] ER on 04/08/2025 from [facility] for shortness of breath. She has been short of breath for 3 4 days with an associated productive cough which she reports to be clear. She has also had more lower leg swelling than usual. Reportedly she was placed on 2 L nasal cannula very recently. This was for hypoxia but unclear if any associated etiology confirmed. She was prescribed Lasix as well. Earlier on the day of admission the patient presented to ER for same complaint and she was sent home with azithromycin and prednisone. Per chart review she takes Eliquis for prophylactic measures. Patient denies any prior lung pathology, illicit drug use, alcohol use, smoking. WBC 9.5, hemoglobin 13.5, INR 1.2, ABG demonstrating pH 7.45, pCO2 41.6, PO2 64.9 on 3 L nasal cannula, bicarb 28.9. Potassium 3.0, magnesium 1.2, troponin 0.012, BNP 140 urinalysis grossly cloudy, 51-100 WBC, positive nitrate and leukocyte esterase. Quad viral screen negative. A CTA chest performed which did not demonstrate PE. Small right pleural effusion with dependent atelectasis. patient is a resident of [place] was sent to ER with c/o shortness of breath, chest x-ray is suspicious for pneumonia patient is being treated with Levaquin, CTA of the chest is did not show PE. patient is being diuresed, patient stats feels little better compared to when she arrived. will have PT/OT evaluate the patient and treat, patient will benefit with rehab. today patient stats she want to get better and working on it, today repeat chest x-ray showed some improvement in pneumonia, will CPM and reassess tomorrow possibly discharge patient. Review of Systems Review of Systems: All systems reviewed & are unremarkable except as noted in HPI and below (HPI) Exam Narrative: Morbidly obese Patient is comfortable, NAD HEENT: eyes are clear and none icteric LUNGS:CTA HEART: RR S1S2 ABD: BS+, Soft and nontender Lower extremities: no edema SKIN: nonjaundiced Neuro: grossly intact. Objective Data Vital Signs Vital Signs: Vital Signs - 24 hr 04/11/25 20:00 04/11/25 22:19 04/11/25 22:32 Temperature 36.7 C Pulse Rate 73 76 Respiratory Rate 20 18 Blood Pressure 126/42 L Pulse Oximetry 91 93 99 Oxygen Delivery Nasal Cannula Nasal Cannula Oxygen Flow Rate 2 2 Fraction of Inspired Oxygen 04/12/25 06:00 04/12/25 07:30 04/12/25 08:53 Temperature 36.5 C Pulse Rate 70 Respiratory Rate 18 Blood Pressure 122/65 Pulse Oximetry 96 96 96 Oxygen Delivery Nasal Cannula Nasal Cannula Oxygen Flow Rate 2 2 Fraction of Inspired Oxygen 04/12/25 08:55 04/12/25 09:12 04/12/25 10:20 Temperature Pulse Rate Respiratory Rate Blood Pressure 155/99 H Pulse Oximetry 92 87 L Oxygen Delivery Room Air Room Air Oxygen Flow Rate Fraction of Inspired Oxygen 04/12/25 10:21 04/12/25 14:00 04/12/25 16:07 Temperature 36.7 C Pulse Rate 86 Respiratory Rate 24 H Blood Pressure 129/51 L 138/93 H Pulse Oximetry 93 90 Oxygen Delivery Nasal Cannula Oxygen Flow Rate 1 Fraction of Inspired Oxygen Intake/Output Intake/Output: Intake & Output 04/09/25 04/10/25 04/11/25 04/12/25 23:59 23:59 23:59 23:59 Intake Total 2482 2750 3064 1590 Output Total 1600 6511 4585 3600 Balance 216 -2647 Meds/Results Medications: Active Medications Generic Name Dose Route Start Last Admin Trade Name Freq PRN Reason Stop Dose Admin Albuterol/Ipratropium 3 ml 04/09/25 03:32 Ipratropium 0.5 Mg/Albuterol Sulfate 2.5 Mg Ampul.Neb 3 Ml INHALATION Q6HRT PRN sob Apixaban 5 mg 04/10/25 09:00 04/12/25 08:58 Apixaban 5 Mg Tablet PO 5 mg Q12HR KEITH Administration Artificial Tears 1 drop 04/10/25 10:30 04/12/25 16:03 Artificial Tears Ophth Soln 15 Ml Bottle EACH EYE 1 drop BID KEITH Administration Aspirin 81 mg 04/10/25 09:20 04/12/25 08:58 Aspirin 81 Mg Enteric Tablet PO 81 mg QAM KEITH Administration Benzocaine 1 applic 04/10/25 09:22 Benzocaine 20% Dental Gel 9 Gm Tube BY MOUTH QID PRN mouth sore Citalopram Hydrobromide 10 mg 04/10/25 21:00 04/11/25 20:59 Citalopram Hydrobromide 10 Mg Tablet PO 10 mg HS KEITH Administration Dextrose 12.5 gm 04/09/25 03:29 Dextrose 50% 25 Gm/50 Ml Syringe IV PUSH PRN PRN Hypoglycemia Protocol Furosemide 40 mg 04/09/25 09:00 04/12/25 16:03 Furosemide Inj 40 Mg/4 Ml Vial IV PUSH 40 mg BID KEITH Administration Glucose 15 gm 04/09/25 03:29 Glucose Oral Gel 15 Gm Of Glucse In 37.5 Gm Tube PO PRN PRN Hypoglycemia Protocol Cefepime HCl 1 gm/ Sodium 50 mls @ 100 mls/hr 04/08/25 23:00 04/12/25 16:03 Chloride IVPB 100 mls/hr Q8H KEITH Administration Dextrose 1,000 mls @ 100 mls/hr 04/09/25 03:29 Dextrose 5% 1,000 Ml IVPB PRN PRN Hypoglycemia Protocol Insulin Aspart 2 - 5 units 04/09/25 08:00 04/12/25 12:30 Insulin Aspart (*Bkc) 100 Units/Ml SUB-Q Not Given TIDWM KEITH Protocol Insulin Aspart 1 - 2 units 04/09/25 21:00 04/11/25 21:10 Insulin Aspart (*Bkc) 100 Units/Ml SUB-Q 1 units HS KEITH Administration Protocol Oxybutynin Chloride 5 mg 04/10/25 09:20 04/12/25 16:03 Oxybutynin Chloride 5 Mg Tablet PO 5 mg BID KEITH Administration Silver Sulfadiazine 1 applic 04/10/25 08:47 Silver Sulfadiazine 1% Cr 400 Gm Jar (*Bkc) TOPICAL Q12HR PRN rash Simvastatin 20 mg 04/10/25 21:00 04/11/25 20:59 Simvastatin 20 Mg Tablet PO 20 mg HS KEITH Administration Radiology Results: ITS Impressions Chest X-Ray 04/12/25 14:35 IMPRESSION: Stable subsegmental atelectasis/consolidation in the left base. Multiple loops of dilated bowel in the upper abdomen, likely large bowel. Labs Labs: Laboratory Results - last 24 hr 04/09/25 04/09/25 04/11/25 04:43 05:49 17:01 WBC RBC Hgb Hct MCV MCH MCHC RDW Plt Count MPV Sodium Potassium Chloride Carbon Dioxide Anion Gap BUN Creatinine Estim Creat Clear Calc Estimated GFR Glucose POC Capillary Glucose 186 H Calcium Magnesium Vancomycin Trough M.pneumoniae IgM Titer <770 Urine Pneumococcal Ag Cancelled 04/12/25 04/12/25 04/12/25 03:51 07:55 12:06 WBC 8.0 8.2 RBC 3.82 L 3.73 L Hgb 12.5 12.2 Hct 38.7 37.8 MCV 101.3 H 101.3 H MCH 32.7 32.7 MCHC 32.3 32.3 RDW 12.6 12.6 Plt Count 274 266 MPV 9.1 9.1 Sodium 135 L 136 L Potassium 3.7 3.4 Chloride 98 100 Carbon Dioxide 35 H 32 H Anion Gap 2 L 4 BUN 16 16 Creatinine 0.90 0.68 L Estim Creat Clear Calc 52 68 Estimated GFR 60 > 60 Glucose 215 H 186 H POC Capillary Glucose 214 H Calcium 8.9 8.7 Magnesium 1.7 1.6 Vancomycin Trough 18.0 M.pneumoniae IgM Titer Urine Pneumococcal Ag
[2025-04-12] MEDS: INSULIN ASPART (*BKC) 100 UNITS/ML SUB-Q ×2 (17:52→22:41)
[2025-04-12] MEDS: CITALOPRAM HYDROBROMIDE 10 MG TABLET PO (20:38)
[2025-04-12] MEDS: SIMVASTATIN 20 MG TABLET PO (20:38)
[2025-04-13 06:00] VITALS: BP 150/73; PULSE 79; RESP 16; TEMP 36.7; O2SAT 95
[2025-04-13 06:16] LABS: Hematocrit 41.1 % (37.0-47.0); Hemoglobin 13.2 g/dL (12.0-15.0); Mean Corpuscular HGB Conc 32.1 g/dl (32-36); Mean Corpuscular Hemoglobin 32.4 pg (26-34); Mean Corpuscular Volume 100.7 fl (80-100); Platelet Count Result 295 k/mm3 (150-375); Red Blood Count 4.08 M/mm3 (4.2-5.4); White Blood Count 8.7 K/mm3 (4.5-10.0)
[2025-04-13] MEDS: CEFEPIME 1 GM in SODIUM CHLORIDE 0.9% IV 50 ML 100 ML IVPB (06:17)
[2025-04-13 06:34] LABS: Anion Gap 2 mmol/L (4-12); Blood Urea Nitrogen 17 mg/dL (7-17); Calcium 9.1 mg/dL (8.4-10.2); Carbon Dioxide 37 mmol/L (22-30); Chloride 93 mmol/L (98-107); Estimated CRCL calculation 63 ml/min; Estimated Glomerular Filt Rate > 60; Glucose 193 mg/dL (65-110); Magnesium 1.7 mg/dL (1.6-2.3); Potassium 3.2 mmol/L (3.4-5.0); Sodium 132 mmol/L (137-145)
[2025-04-13 08:00] VITALS: O2SAT 97
[2025-04-13 08:04] VITALS: O2SAT 96
[2025-04-13] MEDS: FUROSEMIDE INJ 40 MG/4 ML VIAL IV PUSH (09:28)
[2025-04-13] MEDS: ASPIRIN 81 MG ENTERIC TABLET PO (09:28)
[2025-04-13] MEDS: APIXABAN 5 MG TABLET PO (09:28)
[2025-04-13] MEDS: INSULIN ASPART (*BKC) 100 UNITS/ML SUB-Q ×2 (09:28→13:47)
[2025-04-13] MEDS: ARTIFICIAL TEARS OPHTH SOLN 15 ML BOTTLE 1 DROP EACH EYE (09:41)
--- NOTE | 2025-04-13 13:33 | P.DS_ITS ---
DS: Admitting Diagnosis Discharge Date 04/13/25 Admitting Diagnosis Shortness of breath DS: Discharge Diagnosis Discharge Diagnosis (1) Type 2 diabetes mellitus: Code(s): E11.9 - Type 2 diabetes mellitus without complications Status: Chronic (2) UTI (urinary tract infection): Code(s): N39.0 - Urinary tract infection, site not specified Status: Acute (3) Hypomagnesemia: Code(s): E83.42 - Hypomagnesemia Status: Acute (4) Acute hypoxic respiratory failure: Code(s): J96.01 - Acute respiratory failure with hypoxia Status: Acute (5) Pleural effusion: Code(s): J90 - Pleural effusion, not elsewhere classified Status: Acute (6) Pneumonia: Qualifiers: Laterality: bilateral Lung location: lower lobe of lung Pneumonia type: due to unspecified organism Qualified Code(s): J18.9 - Pneumonia, unspecified organism Code(s): J18.9 - Pneumonia, unspecified organism Status: Acute (7) Lower extremity edema: Code(s): R60.0 - Localized edema Status: Acute (8) Hypokalemia: Code(s): E87.6 - Hypokalemia Status: Acute Plan 84-year-old female with a history of obesity with BMI 50, cha-enozhfj-rckokfmxb type 2 diabetes mellitus, major depressive disorder, hypercholesterolemia, hypertension, presents to [facility] ER on 04/08/2025 from [facility] for shortness of breath. She has been short of breath for 3 4 days with an associated productive cough which she reports to be clear. She has also had more lower leg swelling than usual. Reportedly she was placed on 2 L nasal cannula very recently. This was for hypoxia but unclear if any associated etiology confirmed. She was prescribed Lasix as well. Earlier on the day of admission the patient presented to ER for same complaint and she was sent home with azithromycin and prednisone. Per chart review she takes Eliquis for prophylactic measures. Patient denies any prior lung pathology, illicit drug use, alcohol use, smoking. WBC 9.5, hemoglobin 13.5, INR 1.2, ABG demonstrating pH 7.45, pCO2 41.6, PO2 64.9 on 3 L nasal cannula, bicarb 28.9. Potassium 3.0, magnesium 1.2, troponin 0.012, BNP 140 urinalysis grossly cloudy, 51-100 WBC, positive nitrate and leukocyte esterase. Quad viral screen negative. A CTA chest performed which did not demonstrate PE. Small right pleural effusion with dependent atelectasis. ----- Empiric treatment has been initiated for community-acquired pneumonia. Order sputum culture, Legionella, mycoplasma, pneumococcal antigen. Vancomycin and levofloxacin administered. Also received Lasix 40 mg IV x1 for fluid overload. continue lasix 40mg iv bid. Check TTE. Currently resting comfortably on 2 L nasal cannula. Potassium and magnesium replaced. Continue to trend. patient [place] a resident of [place] was sent to ER with c/o shortness of breath, chest x-ray is suspicious for pneumonia patient is being treated with Levaquin, CTA of the chest is did not show PE. patient is being diuresed, patient stats feels little better compared to when she arrived. will have PT/OT evaluate the patient and treat, patient will benefit with rehab. today patient stats she want to get better and working on it, today repeat chest x-ray showed some improvement in pneumonia, will CPM and reassess tomorrow possibly discharge patient. Patient would like to be full code. Saline lock IV. SCDs. Accu-Cheks a.c. HS with low-dose insulin sliding scale. DS: Summary Hospital Course Hospital Course: patient is a resident of [place] was sent to ER with c/o shortness of breath, chest x-ray is suspicious for pneumonia patient is being treated with Levaquin, CTA of the chest is did not show PE. patient is being diuresed, patient stats feels little better compared to when she arrived. will have PT/OT evaluate the patient and treat, patient will benefit with rehab. today patient stats she want to get better and working on it, today repeat chest x-ray showed some improvement in pneumonia, will CPM and reassess tomorrow possibly discharge patient. today patient is clinically stable, will discharge patient back to the [place]. Time Spent with Patient Time attestation: Total time spent providing and/or coordinating discharge services: Exam Narrative: Morbidly obese Patient is comfortable, NAD HEENT: eyes are clear and none icteric LUNGS:CTA HEART: RR S1S2 ABD: BS+, Soft and nontender Lower extremities: no edema SKIN: nonjaundiced Neuro: grossly intact. DS: Data Data Completed and Pending Labs on day of discharge: Labs from last 24 hours 04/13/25 04/13/25 04/13/25 11:51 08:06 05:36 WBC 8.7 RBC 4.08 L Hgb 13.2 Hct 41.1 MCV 100.7 H MCH 32.4 MCHC 32.1 RDW 12.6 Plt Count 295 MPV 9.2 Sodium 132 L Potassium 3.2 L Chloride 93 L Carbon Dioxide 37 H Anion Gap 2 L BUN 17 Creatinine 0.74 Estim Creat Clear Calc 63 Estimated GFR > 60 Glucose 193 H POC Capillary Glucose 255 H 204 H Calcium 9.1 Magnesium 1.7 M.pneumoniae IgM Titer 04/12/25 04/12/25 04/11/25 20:58 16:56 20:49 WBC RBC Hgb Hct MCV MCH MCHC RDW Plt Count MPV Sodium Potassium Chloride Carbon Dioxide Anion Gap BUN Creatinine Estim Creat Clear Calc Estimated GFR Glucose POC Capillary Glucose 267 H 249 H 227 H Calcium Magnesium M.pneumoniae IgM Titer 04/09/25 05:49 WBC RBC Hgb Hct MCV MCH MCHC RDW Plt Count MPV Sodium Potassium Chloride Carbon Dioxide Anion Gap BUN Creatinine Estim Creat Clear Calc Estimated GFR Glucose POC Capillary Glucose Calcium Magnesium M.pneumoniae IgM Titer <770 Preliminary micro results at discharge 04/09/25 04:43 Specimen Source - Preliminary Urine - Urine Streptococcus pneumoniae Ag Screen - Preliminary Sterile Body Fluid Culture - Preliminary Organism Identification - Preliminary 04/09/25 05:53 Blood Culture - Preliminary Blood 04/09/25 05:49 Blood Culture - Preliminary Blood 04/08/25 21:33 - Preliminary Urine Clean Catch Gram negative bacilli isolated Discharge Plan Discharge Attending physician on discharge: Meme Melissa Consulting providers: Chase Hearn; Jesús Almaguer; Hans Calvin; Ollie Seals Discharging Clinician: Tawanna Payne Patient Disposition: NH Detention/Asst Living Activity: as tolerated Diet: heart healthy Discharge Instructions: Patient to follow up with her primary care provider as soon as possible. Patient Instructions: Antibiotic Form, Apixaban (By mouth) Patient Language: Namibian Stand Alone Forms: General Discharge Information Follow-up/Referrals: Jack,KAM Simpson [Primary Care Provider] - Discharge Medications: New cefdinir 300 mg Capsule 300 mg PO Q12HR Qty: 10 0RF Continued metformin [Glucophage] 500 mg Tablet 1,000 mg PO BID citalopram [Celexa] 10 mg Tablet 10 mg PO DAILY Rx Instructions: PM-Bedtime simvastatin 20 mg Tablet 20 mg PO DAILY Rx Instructions: PM-Bedtime Eliquis 5 mg tablet 5 mg PO Q12H aspirin 81 mg capsule 81 mg PO DAILY carboxymethylcellulose sodium [Refresh Tears] 0.5 % drops 1 drp EACH EYE BID nystatin 100,000 unit/gram powder 1 applic topical BID Patient Comments: apply to abd and under breast silver sulfadiazine [Silvadene] 1 % cream 1 applic topical BID PRN (Reason: rash) Patient Comments: apply to buttocks q shift Rx Instructions: apply a 1.5 mm thickness Orajel 4X Toothache-Gum 20-0.26-0.15 % cream 1 applic mucous membrane QID PRN (Reason: mouth sore) oxybutynin chloride 5 mg Tablet 5 mg PO BID No Action polyethylene glycol 3350 [Miralax] 17 gram/dose powder 17 g PO BID PRN (Reason: constipation) Qty: 238 0RF Rx Instructions: HOLD for loose stools bisacodyl [Dulcolax (bisacodyl)] 10 mg suppository 10 mg RECTAL DAILY PRN (Reason: constipation) Qty: 12 0RF Date of admission: 04/09/25 09:03 Primary Care Provider: JackDenice Admitting Provider: Meme Melissa Attending physician on admission: Tawanna Payne Condition: Stable
[2025-04-13] MEDS: CEFDINIR 300 MG CAPSULE PO (13:46)
[2025-04-13 14:00] VITALS: BP 142/60; PULSE 83; RESP 16; TEMP 36.8; O2SAT 97
== END 2025-04-13 15:15 | DRG 193 ==
LOC: ANHED 19:57 → ANH3MED 23:35
PROVIDERS: Admitting Provider General Practice; Emergency Provider Physician Assistant; PCP Physician Assistant; Visit Provider Family Medicine
DX: J18.9 Pneumonia, unspecified organism (principal); J96.01 Acute respiratory failure with hypoxia; N39.0 Urinary tract infection, site not specified; Z68.42 Body mass index [BMI] 45.0-49.9, adult; E11.9 Type 2 diabetes mellitus without complications; E83.42 Hypomagnesemia; E87.6 Hypokalemia; F32.9 Major depressive disorder, single episode, unspecified; I10 Essential (primary) hypertension; E78.00 Pure hypercholesterolemia, unspecified; E66.01 Morbid (severe) obesity due to excess calories; Z85.42 Personal history of malignant neoplasm of other parts of uterus
CPT/HCPCS: 36415; 36600; 71045; 71275; 80048; 80053; 80202; 81001; 82805; 82948; 83605; 83735; 83880; 84484; 85018; 85025; 85027; 85610; 85730; 86738; 87040; 87086; 87449; 87637; 87641; 87651; 87899; 93005; 94640; 96365; 96366; 96367; 96375; 97110; 97161; 97166; 97530; 99285; A9270; C8929; G0378; J0692; J1815; J1938; J1956; J3373; J3475; J3480; J7040; Q9957; Q9967

== ENCOUNTER 2025-04-16 22:21 | Emergency (ER) | payer MEDICARE, MEDICAID, SELFPAY ==
--- NOTE | ~2025-04-16 | CT_ITS ---
EXAMINATION: CT abdomen pelvis wo con DATE: 04/17/2025 00:03 INDICATION: Small bowel obstruction TECHNIQUE: Computed tomography (CT) of the abdomen and pelvis was performed without intravenous contr ast. Automated exposure control and iterative reconstruction technique were employed. The dose-length product was 1395.24 mGy-cm. COMPARISON: 09/29/2021 FINDINGS: Mild dependent atelectasis in bilateral lower lobes. Heart size is normal. Atherosclerotic coronary a rtery calcification. No pericardial or pleural effusion. Gallstones within the normal decompressed ga llbladder. Liver, spleen, pancreas, bilateral adrenal glands and kidneys are normal. There is gaseous distention of predominantly the nondependent transverse colon with moderate amount of stool in the m ore proximal and distal colon. Small bowel and appendix are normal. Moderate-sized fat-containing umb ilical hernia. Bladder is normal. The uterus is not identified and has likely been surgically resecte d. No free intraperitoneal gas or fluid. No pathologically enlarged abdominal or pelvic lymphadenopat hy. IMPRESSION: 1. Gaseous distention of the nondependent portion of the colon without evident bowel obstruction. 2. Cholelithiasis. Reviewed, dictated and finalized at location A.
[2025-04-16 22:23] VITALS: BP 144/68; PULSE 66; RESP 20; TEMP 36.6; O2SAT 98
[2025-04-16 22:57] VITALS: RESP 20; O2SAT 98
--- OUTSIDE RECORDS SUMMARY | 2025-04-17 00:13 | XMS_ITS ---
Author Organization [facility] Virtual Care Address [facility] [place] [address] Phone Care Team Providers Care Assistant Produce Manager Name Role Phone Denice Santiago Primary Care Provider + Active Problems Problem Noted Date Diagnosed Date Mild recurrent major depression 10/04/2022 01/11/2023 Urinary incontinence 10/02/2022 01/11/2023 Encounter for postoperative care 03/15/2022 Adenocarcinoma of endometrium 02/27/2022 Cancer Staging:Pathologic stage from 03/15/2022:FIGO Stage IB(pT1b, pN0, cM0) - Unsigned Postmenopausal bleeding 02/09/2022 Overview (02/09/2022): Added automatically from request for surgery [id number] Vaginal bleeding 02/09/2022 Overview (03/23/2022): Added automatically from request for surgery [id number] Edema of both lower extremities 08/17/2021 Assessment & Plan (08/17/2021 1:08 PM FARM MANAGEMENT TEACHER): Impression: Chronic lower extremity edema and associated [...] 08/17/2021 Assessment & Plan (08/17/2021 1:07 PM FARM MANAGEMENT TEACHER): Impression: Stable chronic hyperlipidemia. Plan: Medications reviewed [...]
--- OUTSIDE RECORDS SUMMARY | 2025-04-17 00:13 | XMS_ITS | Encounter Summary ---
Author Organization [facility] Healthcare Address [address] [place] [address] Care Team Providers Care Rougher For Cement Name Role Phone Denice Santiago Primary Care Provider + Encounter Details Date Type Department Care Team (Late st Contact Info) Description 06/12/2022 Completion of Therapy [facility] Advanced Medicine Radiation Oncology [facility] [place] [address] Brooklynn Torres MD [address] [facility] [address] [place] [address] Social History Tobacco Use Types Packs/Day Years [...] 11:59 PM CDT Radiation Oncologist: No care production team leader to display Primary Care Physician: Denice Santiago PA Medical Oncologist: No care production team leader to display Surgeon: No care production team leader to display Referring Provider: No ref. provider [...] patient's pain is currently being managed by FRONT DESK ASSISTANT ONC. Tolerance to Treatment: Ms. Rodriguez tolerated the treatment well. Disposition: Follow up in clinic in 6 weeks. Post treatment skin care instructions given. Patient was instructed to call with any concerns prior to scheduled follow up visit. No care production team leader to display supervised the patient???s radiation treatment [...] on filedocumented in this encounter Care Teams Rougher For Cement Relationship Specialty Start Date End Date Denice Santiago PA PCP - General Physician Chip Mixing Machine Operator 07/13/21 documented as of this encounter
--- OUTSIDE RECORDS SUMMARY | 2025-04-17 00:13 | XMS_ITS | Encounter Summary ---
Author Organization [facility] Address [address] [place] [address] Phone Care Team Providers Care University Registrar Name Role Phone Denice Santiago Primary Care [...] on filedocumented in this encounter Care Teams University Registrar Relationship Specialty Start Date End Date Denice Santiago PA PCP - General Physician Street Light Mechanic 07/13/21 documented as of this encounter
--- OUTSIDE RECORDS SUMMARY | 2025-04-17 00:14 | XMS_ITS | Patient Health Record ---
Author Organization [facility] Address [address] [place], [place] [id number] Care Team Providers Care Circus Hand Name Role Phone MIRIAM Puga Unavailable [phone] Florian Li Unavailable Unavailable Reason For Referral No Information Plan Of Treatment No Information Insurance Providers Payer Name Payer Address Payer Phone Subscriber Number Group Number Insured Name Patient Relationship to Insured Coverage Start Date Coverage End Date [facility] [address] [place] [address] [id number] CHLOÉ BLACKBURN Self - patient is the insured
--- OUTSIDE RECORDS SUMMARY | 2025-04-17 00:14 | XMS_ITS ---
Author Organization [facility] Address [address] [place] [phone] Care Team Providers Care Partner Manager Name Role Phone CHRISTIANO IBANEZ Primary Care Provider Allergies Allergen (clinical drug ingredient) Drug/Non Drug Allergy documented on EMR Reaction Allergy Type Onset Date Status Penicillin Unknown Drug Allergy Active REASON FOR VISIT chart prep Medications Medication SIG (Take, Route, Frequency, Duration) Notes Start Date End Date Status Aspirin Adult Low Strength 81 MG Tablet Delayed Release 1 tablet Orally Once a day Active Eliquis 5 MG Tablet 1 tablet Orally twic e a day Active Citalopram Hydrobromide 10 MG Tablet 1 tablet Orally Once a day Active Nystatin - Powder as directed twice a day Active metFORMIN HCl 1000 MG Tablet 1 tablet with a meal Orally twice a day Active oxyBUTYnin Chloride 5 MG Tablet 1 tablet Orally twice a day Active Silvadene 1 % Cream 1 application Externally 3 times a day As needed Active Refresh Tears PF 0.5-0.9 % Solution 1 drop Ophthalmic twice a day Active Melatonin 3 MG Tablet 1 tablet at bedtim e as needed Orally Once a day Active Simvastatin 20 MG Tablet 1 tablet in the evening Orally Once a day Active Cefdinir 300 MG Capsule as directed Orally Active Social History Tobacco Use: Social History Observation Description Date Details (start date - stop date) Never Smoker NA - NA Social History Tobacco Use: Social Info Question Answer Notes Tobacco Control (Standard) Tobacco use: Nonsmoker Encounters Encounter Location Date Provider Diagnosis [facility] [address] [place] [address] 04/16/2025 CHRISTIANO IBANEZ Plan Of Treatment No Information Progress Notes * Tyler RODRIGUEZB: 9[birth year] (84 yo F)Acc No.[id number]:04/16/2025 Patient: Kimberly ECHEVARRIA :1940 A ge:84 Y S ex:Female [facility] [address] Subjective: * Chief Complaints: * C castillo prep * Medical History: Urinary tract infection, site not specified Type 2 diabetes mellitus without complication, unspecified whether alf insulin use 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 * Family History: F ather: diagnosed with Diabetes. M other: diagnosed with Diabetes. F amily History Verified.. * Social History: T obacco Use: T obacco Control (Standard) T obacco use: N onsmoker. Social History Verified. * Medications: T akingCefdinir 300 MG Capsule as directed Orally Melatonin 3 MG Tablet 1 tablet at [...] 1 tablet Orally Once a day Taking Cefdinir 300 MG Capsule as directed Orally Taking Melatonin 3 MG Tablet 1 tablet [...] Release 1 tablet Orally Once a day DiscontinuedpredniSONE 50 MG Tablet 1 tablet with food or milk Orally Once a day Azithromycin 250 MG Tablet as directed Orally Discontinued predniSONE 50 MG Tablet 1 tablet with food or milk Orally Once a day Discontinued Azithromycin 250 MG Tablet as directed Orally * Allergies: P enicillinyesAllergies Verified. * true * Date: Generated for Gerry torres/Cris/Pablito on: 0 04/17/2025 12:14 AM CDT
--- OUTSIDE RECORDS SUMMARY | 2025-04-17 00:14 | XMS_ITS | Clinical Summary ---
Author Organization [facility] Address [facility] [place] [address] Care Team Providers Care Wire Coating Operator Metal Name Role Phone Reina Luna MD Primary Care Provider [phone] Denice Santiago PA-C Unavailable [phone] Social History Tobacco Use Types Packs/Day Years [...] complete this topic Insurance [employer] Care Teams Wire Coating Operator Metal Relationship Specialty Start Date End Date Reina Luna MD [facility] [address] [place] [address] PCP - General FAMILY PRACTICE 05/06/20 Denice Santiago PA-C [facility] [place] [address] NURSE PRACTITIONER 05/12/20
--- OUTSIDE RECORDS SUMMARY | 2025-04-17 00:14 | XMS_ITS | Patient Health Record ---
Author Organization [facility] Address [address] [place] [address] [id number] Care Team Providers Care Order Department Supervisor Name Role Phone CHRISTIANO IBANEZ Primary Care Provider Anisha Mcneal Unavailable [phone] Allergies Allergen (clinical drug ingredient) Drug/Non Drug Allergy documented on EMR Reaction Allergy Type Onset Date Status Penicillin Unknown Drug Allergy Active Reason For Referral Reason Blurred vision in le ft eye Diagnosis 1 Vision blurred (H53. 8) Referral Organization [facility] Referring Provider First Name Anisha Referring Provider Last Name Fredis Referred Organization [facility] Referred Address [address],[address], Referred Provider Specialty Ophthalmolog y Referral Priority Routine Medications Medication SIG (Take, Route, Frequency, Duration) Notes Start Date End Date Status Melatonin 3 MG Tablet 1 tablet at bedtim e as needed Orally Once a day Active Cefdinir 300 MG Capsule as directed Orally Active Aspirin Adult Low Strength 81 MG [...] 1 tablet Orally twice a day Active Refresh Tears PF 0.5-0.9 % Solution 1 drop Ophthalmic twice a day Active Silvadene 1 % Cream 1 application Externally 3 times a day As needed Active Simvastatin 20 MG Tablet 1 tablet in the evening Orally Once a day Active Social History [...] Status Risk Notes Problem Tear film insufficiency (62175110) Dry eye syndrome of unspecified lacrimal gland (H04.129) Active confirmed Problem Essential hypertension (50298533) Essential (primary) hypertension (I10) Active confirmed Problem Gout (44717759) Gout, unspecifie d (M10.9) Active confirmed Problem Overactive bladder (022967641) Overactive bladder (N32.81) Active confirmed Problem Adult failure to thrive syndrome (122905837) Adult failure to thrive (R62.7) Active confirmed Problem Type II diabetes mellitus without complication (589134640) Type 2 diabetes mellitus without complication, unspecified whether penitentiary insulin use (E11.9) Active confirmed Problem Pure hypercholesterolemia (719722415) Pure hypercholesterolemia (E78.00) Active confirmed Problem Major depression, single episode (62528351) Major depressive disorder with single episode, remission status unspecified (F32.9) Active confirmed Vital Signs Heart Rate 79 /min 04/07/2025 Temperature 98.1 degrees Fahrenheit 04/07/2025 Respiratory Rate 18 /min 04/07/2025 Oximetry 93 % 04/07/2025 Blood pressure diastolic 75 mm Hg 04/07/2025 Weight-kg 117.12 kg 03/05/2025 Blood pressure systolic 142 mm Hg 04/07/2025 Weight 258.2 lbs 03/05/2025 Encounters Encounter Location Date Provider Diagnosis [facility] [address] [place] [address] 04/16/2025 Anisha Mcneal [facility] [address] [place] [address] 03/05/2025 CHRISTIANO IBANEZ [facility] [address] [place] [address] 03/09/2025 Anisha Mcneal Physical decondition ing R53.81 ; Essential (primary) hypertension I10 ; Major depressive disorder with single episode, remission status unspecified F32.9 and Type 2 diabetes mellitus without complication, unspecified whether penitentiary insulin use E11.9 [place] [id number] 03/11/2025 Anisha Fredis Physical decondition ing R53.81 ; Essential (primary) hypertension I10 ; Major depressive disorder with single episode, remission status unspecified F32.9 and Type 2 diabetes mellitus without complication, unspecified whether penitentiary insulin use E11.9 [place] [address] 03/16/2025 Anisha Fredis Physical decondition ing R53.81 ; Essential (primary) hypertension I10 ; Major depressive disorder with single episode, remission status unspecified F32.9 ; Type 2 diabetes mellitus without complication, unspecified whether emt intermediate insulin use E11.9 and Bilateral lower extremity edema R60.0 [place] [address] 03/18/2025 Anisha Fredis Physical decondition ing R53.81 ; Essential (primary) hypertension I10 ; Major depressive disorder with single episode, remission status unspecified F32.9 ; Type 2 diabetes mellitus without complication, unspecified whether emt intermediate insulin use E11.9 and Bilateral lower extremity edema R60.0 [place] [id number] 03/24/2025 Anisha Fredis Physical decondition ing R53.81 ; Essential (primary) hypertension I10 ; Major depressive disorder with single episode, remission status unspecified F32.9 ; Type 2 diabetes mellitus without complication, unspecified whether emt intermediate insulin use E11.9 and Bilateral lower extremity edema R60.0 [place] [address] 03/26/2025 Anisha Fredis Physical decondition ing R53.81 ; Essential (primary) hypertension I10 ; Major depressive disorder with single episode, remission status unspecified F32.9 ; Type 2 diabetes mellitus without complication, unspecified whether penitentiary insulin use E11.9 ; Bilateral lower extremity edema R60.0 and Mouth pain K13.79 [place] [address] 03/30/2025 Anisha Fredis Physical decondition ing R53.81 ; Essential (primary) hypertension I10 ; Major depressive disorder with single episode, remission status unspecified F32.9 ; Type 2 diabetes mellitus without complication, unspecified whether emt intermediate insulin use E11.9 ; Bilateral lower extremity edema R60.0 and Mouth pain K13.79 [place] [address] [place] [address] 04/01/2025 Anisha Mcneal Physical decondition ing R53.81 ; Essential (primary) hypertension I10 ; Major depressive disorder with single episode, remission status unspecified F32.9 ; Type 2 diabetes mellitus without complication, unspecified whether penitentiary insulin use E11.9 and Bilateral lower extremity edema R60.0 [place] [address] [place] [address] 04/07/2025 Anisha Mcneal Physical decondition ing R53.81 ; Essential (primary) hypertension I10 ; Major depressive disorder with single episode, remission status unspecified F32.9 ; Type 2 diabetes mellitus without complication, unspecified whether penitentiary insulin use E11.9 and Bilateral lower extremity edema R60.[address] [address] 03/05/2025 [place] [address] [place] [address] 03/05/2025 [place] [address] [place] [address] 03/05/2025 [place] [address] [address] 03/06/2025 [place] [address] [address] 03/08/2025 [place] [address] [address] 03/15/2025 [place] [address] [address] 03/16/2025 [place] [address] [address] 03/23/2025 [place] [address] [address] 03/24/2025 [place] [address] [address] 03/26/2025 [place] [address] [address] 03/29/2025 [place] [address] [address] 04/01/2025 CHRISTIANO IBANEZ [facility] [address] [address] 04/06/[address] [address] 04/10/[address] [address] 04/13/[address] [address] 04/14/2025 CHRISTIANO IBANEZ [address] [address] 04/16/2025 CHRISTIANO IBANEZ Assessments Encounter Date Diagnosis (ICD Code) Assessment [...] to therapy in order to get stronger. 04/07/2025 Physical deconditioning (ICD-10 - R53.81) Patient is working with PT and OT for strengthening and mobility. Utilizes a wheelchairfor ambulation. Reports that therapy is going okay. I told her consider going to therapy in order to get stronger. 04/01/2025 Major depressive disorder with single episode, remission status unspecified (ICD-10 - F32.9) Patient deniesany problems at this time. Not currently on any medications for depression atthis time. 04/07/2025 Essential (primary) hypertension (ICD-10 - I10) Blood pressure is stable. Managed well on current medications. Continue treatment plan and monitoring. 03/26/2025 Major depressive disorder with single episode, [...] 2 diabetes mellitus without complication, unspecified whether emt intermediate insulin use (ICD-10 - E11.9) On 03-05-25,A1c was 6.6%. Well managed on current medications. Continue current treatment plan and monitoring. 03/16/2025 Type 2 diabetes mellitus without complication, unspecified whether emt intermediate insulin use (ICD-10 - E11.9) On 03-05-25,A1c was 6.6%. Well managed on current medications. Continue current treatment plan and monitoring. 03/26/2025 Type 2 diabetes mellitus without complication, unspecified whether emt intermediate insulin use (ICD-10 - E11.9) On 03-05-25,A1c [...] 2 diabetes mellitus without complication, unspecified whether penitentiary insulin use (ICD-10 - E11.9) On 03-05-25,A1c was 6.6%. Well managed on current medications. Continue current treatment plan and monitoring. 03/30/2025 Major depressive disorder with single episode, remission status unspecified (ICD-10 - F32.9) Patient deniesany problems at this time. Not currently on any medications for depression atthis time. 04/07/2025 Major depressive disorder with single episode, remission status unspecified (ICD-10 - F32.9) Patient deniesany problems at this time. Not currently on any medications for depression atthis time. 04/07/2025 Type 2 diabetes mellitus without complication, unspecified whether penitentiary insulin use (ICD-10 - E11.9) On 03-05-25,A1c was 6.6%. Well managed on current medications. Continue current treatment plan and monitoring. 04/01/2025 Bilateral lower extremity edema (ICD-10 - [...] 2 diabetes mellitus without complication, unspecified whether emt intermediate insulin use (ICD-10 - E11.9) On 03-05-25,A1c [...] 2 diabetes mellitus without complication, unspecified whether emt intermediate insulin use (ICD-10 - E11.9) On 03-05-25,A1c [...] 2 diabetes mellitus without complication, unspecified whether emt intermediate insulin use (ICD-10 - E11.9) On 03-05-25,A1c was 6.6%. Well managed on current medications. Continue current treatment plan and monitoring. 03/11/2025 Type 2 diabetes mellitus without complication, unspecified whether penitentiary insulin use (ICD-10 - E11.9) On 03-05-25,A1c [...] to monitor and update with any changes. 04/07/2025 Bilateral lower extremity edema (ICD-10 - R60.0) The patient has chronic non-pitting edema to the bilateral lower extremities. JUANIS wraps are in place, patient spends a lot of her time in bed with her feet elevated to help with the swelling. Continue to monitor and update with any [...] Right to Privacy Practices with patient/family/ca regiver. 04/07/2025 Other Continue current treatment plan. Staff to continue to monitor and report any changes. Patient education provided and questions/concern s addressed. Follow up in 1 week unless necessary sooner. Plan Of Treatment No Information Insurance Providers Payer Name Payer Address Payer Phone Subscriber Number Group Number Insured Name Patient Relationship to Insured Coverage Start Date Coverage End Date [employer] [address] [address] [place] [address] [phone] [id number] Scott Rodrigueza Self - patient is the insured Medical (General) History Medical History History ICD Code Urinary tract infection, site not specif ied N39.0 Type 2 diabetes mellitus wit hout complication, unspecified whether emt intermediate insulin use E11.9 Dry eye syndrome of [...]
--- OUTSIDE RECORDS SUMMARY | 2025-04-17 00:14 | XMS_ITS ---
Author Organization [facility] Address [address] [place] [address] [phone] Care Team Providers Care Biology Intern Name Role Phone CHRISTIANO IBANEZ Primary Care Provider Anisha Mcneal Unavailable [phone] REASON FOR VISIT LV; Hosp FU, Pneumonia Medications Medication SIG (Take, Route, Frequency, Duration) Notes Start Date End Date Status Nystatin - Powder as directed twice a [...] a meal Orally twice a day Active Encounters Encounter Location Date Provider Diagnosis [facility] [address] [place] [id number] 04/16/2025 Anisha Mcneal Plan Of Treatment No Information Progress Notes * Tyler RODRIGUEZB: [birth year] (84 yo F)Acc No.[id number]:04/16/2025 Patient: Arianna Martinonda Provider: HUE Rueda :1940 A ge:84 Y S ex:Female Date:04/16/2025 Address:[address] [place] [address] Pcp:CHRISTIANO IBANEZ Subjective: * Chief Complaints: * L V; Hosp FU, Pneumonia * Medications: T akingCefdinir 300 MG Capsule [...] a day * Electronic signature of TEJINDER Lnua on 04/17/2025 at 12:14 AM CDT Sign off status: Pending * Provider: HUE Rueda Date: 04/16/2025 Generated for Gerry torres/Cris/Pablito on: 04/17/2025 12:14 AM CDT
--- OUTSIDE RECORDS SUMMARY | 2025-04-17 00:14 | XMS_ITS | Referral Summary ---
Author Organization [facility] Address [address] [place] [address] Phone Care Team Providers Care Media Clerk Name Role Phone Denice Santiago Primary Care Provider + Encounters Date Type Department Care Team Description 01/15/2025 Telephone Obstetrics and [facility]necology Clinic [address] [facility] 3rd Floor [address] [place] [address] Sienna Covarrubias RN from Last 3 Months Allergies Active Allergy Reactions Criticality Noted Date Comments Penicillins Unknown 07/28/2021 Medications metFORMIN (GLUCOPHAGE) 500 mg tabletIndications :type 2 diabetes mellitus Take 1 tablet (500 mg total) by mouth 2 (two) times a day with meals Active aspirin 325 mg tabletIndications :prevention of thrombosis Take 1 tablet (325 mg total) by mouth every morning Active citalopram (CeleXA) 10 mg tabletIndications :Generalized Anxiety Disorder Take 1 tablet (10 mg total) by mouth every morning Active simvastatin (ZOCOR) 20 mg tabletIndications :hyperlipidemia Take 1 tablet (20 mg total) by mouth nightly Active triamterene-hydro CHLOROthiazide (MAXZIDE,DYAZIDE) 37.5-25 mg per tablet/capsule Take 1 tablet/capsule by mouth every morning Active oxybutynin (DITROPAN) 5 mg tabletIndications :Increased Urinary Frequency Take 1 tablet (5 mg total) by mouth 2 (two) times a day Active Refresh Liquigel 1 % ophthalmic liquid gel dropsIndications: Dry Eye Administer 1 drop into both eyes 4 (four) times a day Active acetaminophen (TYLENOL) 500 mg tablet Take 2 tablets (1,000 mg total) by mouth every 6 (six) hours as needed for pain 20 tablet Active Additional Information Patient not taking.Reported on 01/11/2023 polyethylene glycol (MIRALAX) 17 gram packetIndications :constipation Take 1 packet (17 g total) by mouth 2 (two) times a day 60 packet 3 Active Additional Information Patient not taking.Reported on 01/11/2023 diphenhydrAMINE-z inc acetate creamIndications: Pruritus of Skin Apply topically 2 (two) times a day as needed for itching 28.4 g Active ondansetron ODT (ZOFRAN-ODT) 4 mg disintegrating tabletIndications :Nausea and Vomiting Take 1 tablet (4 mg total) by mouth every 6 (six) hours as needed for nausea or vomiting 30 tablet Active Additional Information Patient not taking.Reported on 01/11/2023 docusate sodium (COLACE) 100 mg capsuleIndication s:constipation Take 1 capsule (100 mg total) by mouth 2 (two) times a day 60 capsule 3 Active Additional Information Patient not taking.Reported on 01/11/2023 oxyCODONE (ROXICODONE) 5 mg immediate release tabletIndications :Pain Take 1 tablet (5 mg total) by mouth every 4 (four) hours as needed for pain 15 tablet Active Additional Information Patient not taking.Reported on 01/11/2023 furosemide (LASIX) 20 mg tablet Active Januvia 100 mg tablet Active Eliquis 5 mg tabletIndications :Pulmonary embolism, unspecified chronicity, unspecified pulmonary embolism type, unspecified whether acute cor pulmonale present (HCC) TAKE 1 TABLET BY MOUTH TWICE A DAY 60 tablet 11 Active Eliquis 5 mg tabletIndications :Pulmonary embolism, unspecified chronicity, unspecified pulmonary embolism type, unspecified whether acute cor pulmonale present (HCC) TAKE 1 TABLET BY MOUTH TWICE A DAY 60 tablet 11 024 2024 Discontinued Active Problems Problem Noted Date Diagnosed Date Mild recurrent major depression 10/04/2022 01/11/2023 Urinary incontinence 10/02/2022 01/11/2023 Encounter for postoperative care 03/15/2022 Adenocarcinoma of endometrium 02/27/2022 Cancer Staging:Pathologic stage from 03/15/2022:FIGO Stage IB(pT1b, pN0, cM0) - Unsigned Postmenopausal bleeding 02/09/2022 Overview (02/09/2022): Added automatically from request for surgery [id number] Vaginal bleeding 02/09/2022 Overview (03/23/2022): Added automatically from request for surgery [id number] Edema of both lower extremities 08/17/2021 Assessment & Plan (08/17/2021 1:08 PM BALLING MACHINE OPERATOR): Impression: Chronic lower extremity edema and associated [...] 08/17/2021 Assessment & Plan (08/17/2021 1:07 PM BALLING MACHINE OPERATOR): Impression: Stable chronic hyperlipidemia. Plan: Medications reviewed [...] - 130 mL/min/1. [address] [facility] Comment: Interpretive Data Reference Interval [...] 9:38 PM CDT 03/25/2022 10:17 PM CDT us Mamta Arellano MD LAB BLOOD ORDERABLES Fi nal Result Performing Organization Address [facility] Co de Phone Number [facility] [place] [address] * POCT hemoglobin A1c (02/23/2022 2:29 PM CDT) Hgb A1C, POC 5.6 4.0 - 5.6 % [facility] Est Average Gluc POC 114 mg/dL [facility] Comment: The ADA recommends reporting an estimated Average Glucose (eAG) with all Hemoglobin A1c results using the equation derived from a study of 507 normal and diabetic adults. Minority populations were underrepresented and children were not included. (Diabetes Care 31:6447-2738, 2008). The eAG is not equivalent to a fasting glucose. Blood 02/23/2022 2:29 PM CDT 02/23/2022 2:29 PM CDT us Notinfile Unknown POINT OF CARE TEST ORDERABLES Final Result Performing Organization Address City/[facility]/ZIP Co de Phone Number [facility] [place] [address] from Last 3 Months or Most Recently Relevant to Health Maintenance Insurance [facility] REF [facility] IDTN [employer] MEDICARE GOLD IDPA TNA MEDICARE GOLD IDPA Advance Directives For more information, please contact: [phone] * Full Code (Latest Code Status on File) Date Activated Date Inactivated Comments 03/15/2022 7:47 PM 03/27/2022 3:43 AM Care Teams Media Clerk Relationship Specialty Start Date End Date Denice Santiago PA PCP - General Physician Power And Recovery Superintendent 07/13/21
--- OUTSIDE RECORDS SUMMARY | 2025-04-17 00:14 | XMS_ITS | Clinical Summary ---
Author Organization [facility] Address [facility] [place] [address] Phone Care Team Providers Care Lay Out Maker Name Role Phone Denice Santiago Primary [...] both eyes 4 (four) times a day 021 Active acetaminophen (TYLENOL) 500 mg tablet Take [...] MOUTH TWICE A DAY 60 tablet 11 025 Active Eliquis 5 mg tabletIndications :Pulmonary embolism, [...] (02/09/2022): Added automatically from request for surgery [id number] Vaginal bleeding 02/09/2022 Overview (03/23/2022): Added automatically from request for surgery [id number] Edema of both lower extremities 08/17/2021 Assessment & Plan (08/17/2021 1:08 PM EDGE KITTER): Impression: Chronic lower extremity edema and associated [...] 08/17/2021 Assessment & Plan (08/17/2021 1:07 PM EDGE KITTER): Impression: Stable chronic hyperlipidemia. Plan: Medications reviewed I recommend continuing daily statin regimen as directed by patient's primary care physician. Diabetes mellitus 03/17/2018 Essential hypertension 03/17/2018 Resolved Problems Problem Noted Date Diagnosed Date Resolved Date Varicose veins of bilateral lower extremities with pain 08/17/2021 08/17/2021 Encounters Date Type Department Care Team Description 01/15/2025 Telephone Obstetrics and Gynecology Clinic [address] [facility] 3rd Floor [address] [place] [address] Sienna Covarrubias RN from Last 3 Months Immunizations Immunization Administration Dates Next Due Influenza, Quadrivalent, Hig h Dose, Preservative Free, Intrr 07/11/2021 Influenza, Quadrivalent, Spl it, Preservative Free, Intramuscular 06/23/2018 Pneumococcal Conjugate PCV 13 08/26/2017 Pneumococcal Polysaccharide PPV23 10/20/2018 Surgical History Surgery Date Site/Laterality Comments NO PAST SURGERIES Medical History Medical History Date Comments DM (diabetes mellitus) HTN (hypertension) Bleeding disorder Family History Medical [...] SAB Ectopic Multiple Livin g Live Births 1 Date Outcome GA Total Labor Labor/2nd/3rd Weight Sex Type Anes PTL Onelia A1 [...] Screening-Bone Density Scan 06/07/2024 06/07/2022 Influenza Vaccine (#1) 2025 07/11/2021, 2017 Pneumococcal vaccine 65+ Completed 10/20/2018, 08/16 Procedures Procedure Name Priority Date/Time Associated Diagnosis Comments EGFR Routine 03/25/2022 9:38 PM CDT POCT HEMOGLOBIN A1C Routine 02/23/2022 2 :29 PM CDT from Last 3 Months or Most Recently Relevant to Health Maintenance Results * (ABNORMAL) eGFR (03/25/2022 9:38 PM CDT) eGFR 41(L) 90 - 130 mL/min/1. 73 m2 [facility] Comment: Interpretive Data Reference Interval Normal >/= [...] ORDERABLES Fi nal Result Performing Organization Address [facility] Co de Phone Number [facility] [place] [address] * POCT hemoglobin A1c (02/23/2022 2:29 PM CDT) Hgb A1C, POC 5.6 4.0 - 5.6 % [facility] Est Average Gluc POC 114 mg/dL [facility] Comment: The ADA recommends reporting an estimated Average Glucose (eAG) with all Hemoglobin A1c results using the equation derived from a study of 507 normal and diabetic adults. Minority populations were underrepresented and children were not included. (Diabetes Care 31:8525-3278, 2008). The eAG is not equivalent to a fasting glucose. Blood 02/23/2022 2:29 PM CDT 02/23/2022 2:29 PM CDT us Notinfile Unknown POINT OF CARE TEST ORDERABLES Final Result Performing Organization Address [facility] de Phone Number [facility] [place] [address] from Last 3 Months or Most Recently Relevant to Health Maintenance Insurance [facility] REF [facility] IDPA [employer]ETNA MEDICARE GOLD IDPA A[employer]NA MEDICARE GOLD IDPA Advance Directives For more information, please contact: [phone] * Full Code (Latest Code Status on File) Date Activated Date Inactivated Comments 03/15/2022 7:47 PM 03/27/2022 3:43 AM Care Teams Lay Out Maker Relationship Specialty Start Date End Date Denice Santiago PA PCP - General Physician Applications Support Engineer 07/13/21
[2025-04-17 01:45] VITALS: BP 143/85; PULSE 73; RESP 21; O2SAT 95
[2025-04-17] MEDS: ACETAMINOPHEN 500 MG TABLET 1000 MG PO (01:56)
[2025-04-17 03:14] VITALS: BP 142/75; PULSE 73; RESP 21; O2SAT 95
--- NOTE | 2025-04-17 05:24 | ED_ITS ---
HPI - Abdominal Pain General Chief Complaint: Abdominal Pain Stated Complaint: POSSIBLE BOWEL OBSTRUCTION, DISTENDED ABD. Time Seen by Provider: 04/16/25 22:53 History of Present Illness HPI narrative: Patient sent here from intermediate due to their concern for bowel obstruction. Patient denies any complaints. Related Data Home Medications ?Medication ?Instructions ?Recorded ?Confirmed ?Last Taken ?Type citalopram 10 mg tablet (Celexa) 10 mg PO DAILY 02/23/20 04/09/25 04/07/25 08:15 History metformin 500 mg tablet 1,000 mg PO BID 02/23/20 04/09/25 04/07/25 17:10 History (Glucophage) simvastatin 20 mg tablet 20 mg PO DAILY 02/23/20 04/09/25 04/07/25 08:15 History oxybutynin chloride 5 mg tablet 5 mg PO BID 12/23/20 04/09/25 04/07/25 17:10 History apixaban 5 mg tablet (Eliquis) 5 mg PO Q12H 03/01/25 04/09/25 04/07/25 21:45 History aspirin 81 mg capsule 81 mg PO DAILY 03/01/25 04/09/25 04/07/25 08:15 History carboxymethylcellulose sodium 0.5 1 drp EACH EYE BID dry eye 03/01/25 04/09/25 04/07/25 21:45 History % eye drops (Refresh Tears) benzocaine 20 %-menth 0.26 %-Zn 1 applic mucous membrane QID PRN 04/09/25 04/09/25 Unknown History 0.15 %-benzalkon 0.13 % mucosal mouth sore cream (Orajel 4X Toothache-Gum) nystatin 100,000 unit/gram topical 1 applic topical BID rash 04/09/25 04/09/25 Unknown History powder silver sulfadiazine 1 % topical 1 applic topical BID PRN rash 04/09/25 04/09/25 Unknown History cream (Silvadene) Allergies Allergy/AdvReac Type Severity Reaction Status Date / Time Penicillins Allergy Unknown Verified 03/03/25 11:54 Review of Systems Review of Systems: All systems reviewed & are unremarkable except as noted in HPI and below PMFSH Past Medical History Medical History Uterine cancer Abnormal vaginal bleeding in postmenopausal patient HTN (hypertension) with goal to be determined Cataract Left eye Depression Hypercholesterolemia Type 2 diabetes mellitus Surgical History Surgical History History of arthroscopic knee surgery Repair of right knee cartilage Family History Family History Mother Acute myocardial infarction Several times Migraines Father Cancer Social History Social History Social History: The patient is single and lives with her son. 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 The patient stated she would choose her son as a durable power telecommunications line mechanic for healthcare. The patient desires to be a full code. Lifelong nonsmoker does not use any alcohol marijuana or illicit drugs. Smoking status: Never smoker Second hand tobacco smoke exposure: No Alcohol intake: former Substance use: never Substance use type: does not use Do You Feel Safe in your Home?: Yes Lack of Transportation: No Lack of Food: Never True Current Housing: I Have Housing Concerned About Future Housing: No Difficulty Paying Gas/Electric Bills: No Difficulty Paying for Meds: No Currently Unemployed: No Education: High School Diploma/GED Difficulty w/ Childcare or Family Care: No Gender identity (if verbalized by the patient): Female Spiritual care concerns: No Exam Narrative: EXAMINATION OF ORGAN SYSTEMS/BODY AREAS: Constitutional: Vital signs per nursing GENERAL:[No acute distress, non-toxic appearing.] HEAD: Normal with no signs of head trauma. EYES: EOMI, conjunctiva normal ENT: Hearing grossly intact LUNGS: Nonlabored breathing. HEART: [Regular rate and rhythm] ABD: [Soft], [nontender to palpation] EXT: Normal range of motion SKIN: [No rashes or lesions.] NEURO: [Alert.] PSYCH: Normal affect Course Vital Signs Vital signs: Vital Signs Temperature 97.8 F 04/16/25 22:23 Pulse Rate 66 04/16/25 22:23 Respiratory Rate 20 04/16/25 22:23 Blood Pressure 144/68 H 04/16/25 22:23 Pulse Oximetry 98 04/16/25 22:23 Oxygen Delivery Nasal Cannula 04/16/25 22:23 Oxygen Flow Rate 3 04/16/25 22:23 Temperature 97.8 F 04/16/25 22:23 Pulse Rate 73 04/17/25 03:14 Respiratory Rate 21 H 04/17/25 03:14 Blood Pressure 142/75 H 04/17/25 03:14 Pulse Oximetry 95 04/17/25 03:14 Oxygen Delivery Nasal Cannula 04/16/25 22:23 Oxygen Flow Rate 3 04/16/25 22:57 MDM - Abdominal Pain MDM Narrative Medical decision making narrative: Patient sent here from intermediate for SBO evaluation. CT abdomen pelvis thankfully does not show SBO, does show constipation. She will be given medications for constipation. Patient stable for discharge with return precautions and follow-up to PCP. Discharge Plan Discharge Clinical Impression: Constipation Patient Disposition: Home Condition: Stable Instructions: Constipation (ED) Additional Instructions: Your CT today shows constipation without any other serious issue thankfully. Please follow up with your doctor; you can always return for any further issues. Tried taking the medications as prescribed make sure you keep hydrated. Patient Language: Albanian Prescriptions: New polyethylene glycol 3350 [Miralax] 17 gram/dose powder 17 g PO BID PRN (Reason: constipation) Qty: 238 0RF Rx Instructions: HOLD for loose stools bisacodyl [Dulcolax (bisacodyl)] 10 mg suppository 10 mg RECTAL DAILY PRN (Reason: constipation) Qty: 12 0RF No Action metformin [Glucophage] 500 mg Tablet 1,000 mg PO BID citalopram [Celexa] 10 mg Tablet 10 mg PO DAILY Rx Instructions: PM-Bedtime simvastatin 20 mg Tablet 20 mg PO DAILY Rx Instructions: PM-Bedtime Eliquis 5 mg tablet 5 mg PO Q12H aspirin 81 mg capsule 81 mg PO DAILY carboxymethylcellulose sodium [Refresh Tears] 0.5 % drops 1 drp EACH EYE BID nystatin 100,000 unit/gram powder 1 applic topical BID Patient Comments: apply to abd and under breast silver sulfadiazine [Silvadene] 1 % cream 1 applic topical BID PRN (Reason: rash) Patient Comments: apply to buttocks q shift Rx Instructions: apply a 1.5 mm thickness Orajel 4X Toothache-Gum 20-0.26-0.15 % cream 1 applic mucous membrane QID PRN (Reason: mouth sore) cefdinir 300 mg Capsule 300 mg PO Q12HR Qty: 10 0RF oxybutynin chloride 5 mg Tablet 5 mg PO BID Follow-up/Referrals: Jack,KAM Simpson [Primary Care Provider] -
[2025-04-17 07:12] VITALS: BP 140/65; PULSE 75; RESP 15; O2SAT 97
[2025-04-17 08:02] VITALS: BP 107/59; PULSE 76; RESP 16; O2SAT 96
== END 2025-04-17 09:21 ==
PROVIDERS: Emergency Provider Emergency Medicine; PCP Physician Assistant
DX: K59.00 Constipation, unspecified (principal); I10 Essential (primary) hypertension; E78.00 Pure hypercholesterolemia, unspecified; E11.9 Type 2 diabetes mellitus without complications; Z85.42 Personal history of malignant neoplasm of other parts of uterus; H26.9 Unspecified cataract; F32.A Depression, unspecified; Z79.84 Long term (current) use of oral hypoglycemic drugs; Z79.01 Long term (current) use of anticoagulants; Z79.82 Long term (current) use of aspirin; Z79.899 Other long term (current) drug therapy
CPT/HCPCS: 74176; 99284; A9270

== ENCOUNTER 2025-09-01 19:22 | Emergency (ER) | payer MEDICARE, OTHER, SELFPAY ==
--- NOTE | ~2025-09-01 | CT_ITS ---
CT abdomen pelvis w con INDICATION:constipation, abd pain . COMPARISON: None. TECHNIQUE: Axial images of the abdomen and pelvis were obtained following infusion of 100 mL Isovue 300. Dose optimization technique was utilized. FINDINGS: The lung bases are clear. Fatty infiltration of the liver is noted. No intrahepatic mass or ductal dilatation is evident. Cholelithiasis is noted. Gallbladder wall is normal in thickness. There are no pericholecystic fluid. The pancreas and spleen are normal in appearance. The adrenal glands are symmetric in size. The kidneys demonstrate symmetric uptake and excretion of contrast. No cystic mass is evident. There is no solid mass. There is no hydronephrosis. Small bowel loops are contracted. There is marked gaseous distention of the colon suggestive of a colonic ileus. There is a small hiatal hernia. The bladder and rectum are normal. No free intraperitoneal fluid or air is evident. There is no significant retroperitoneal lymphadenopathy. The aorta, visceral vessels and renal arteries demonstrate normal caliber and patency. The lower thoracic and lumbar vertebrae are in normal alignment. IMPRESSION: Gaseous distention of the colon suggestive of a ileus. Hepatic steatosis. Cholelithiasis. All CT scans at this facility are performed using low dose modulation techniques as appropriate to perform exam including the following: automated exposure control; use of iterative reconstruction technique; adjustment of the mA and/or kV according to patient size (this includes techniques or standardized protocols for targeted exams where dose is matched to indication/reason for exam). Reviewed, dictated and finalized at location S. SSIONS CONSULTANT IMPRESSION: Gaseous distention of the colon suggestive of a ileus. Hepatic steatosis. Cholelithiasis. All CT scans at this facility are performed using low dose modulation techniqu es as appropriate to perform exam including the following: automated exposure c ontrol; use of iterative reconstruction technique; adjustment of the mA and/or kV according to patient size (this includes techniques or standardized protocol s for targeted exams where dose is matched to indication/reason for exam).
--- NOTE | ~2025-09-01 | XR_ITS ---
XR chest 1V portable INDICATION:sob . REFERENCE: None FINDINGS: A single AP of the chest demonstrates normal heart size. The lungs are clear. There is no evidence of pneumothorax or pleural effusion. IMPRESSION: No acute pulmonary findings. Reviewed, dictated and finalized at location S. OL LABORATORY TECHNICIAN
[2025-09-01 19:33] VITALS: BP 130/82; PULSE 82; RESP 28; TEMP 36.9; O2SAT 95
--- NOTE | 2025-09-01 19:43 | ECG_ITS ---
Test Date: 2025-09-01 20:23:31 Measurements Intervals [place] Rate: 83 P: 33 VA: 170 QRS: -26 QRSD: 91 T: 41 QT: 390 QTc: 459 Interpretive Statements SINUS RHYTHM LOW QRS VOLTAGE IN PRECORDIAL LEADS POSSIBLE ANTERIOR MYOCARDIAL INFARCTION , PROBABLY OLD BORDERLINE T WAVE ABNORMALITY- ANTERIOR LEADS BASELINE ARTIFACT- I, II, III, AVR, AVL BORDERLINE ECG Compared to ECG 04/08/2025 20:27:18 HEART RATE HAS DECREASED Electronically Signed On 09-02-2025 06:29:55 CHILDR[employer]'S [employer]CH[employer] SUPERVISOR by Jesús Almaguer D.O.
--- NOTE | 2025-09-01 19:57 | ED.ABDPAIN ---
HPI - Abdominal Pain General Chief Complaint: Abdominal Pain Stated Complaint: covid+, sob, abd pain, constipation Time Seen by Provider: 09/01/25 19:47 History of Present Illness HPI narrative: 85-year-old female with a past medical history including hypertension, diabetes, history of uterine cancer. Patient presents to the emergency department today with lower abdominal pain and decreased bowel movements for last few days. She has a history of constipation and been to the emergency department for this before. Of note she was recently diagnosed with COVID at her nursing facility and does have some upper respiratory tract wheezing but no difficulty breathing or chest pain. No shortness of breath noted. She was otherwise in her normal state of health. She is pointing towards her lower abdominal quadrants and stating that they are hurting her. No urinary pain or any dysuria /discharge. No bleeding. No nausea or vomiting. No fever chills. Was otherwise in her normal state of health at her skilled care facility. Related Data Home Medications ?Medication ?Instructions ?Recorded ?Confirmed ?Last Taken ?Type citalopram 10 mg tablet (Celexa) 10 mg PO DAILY 02/23/20 04/09/25 04/07/25 08:15 History metformin 500 mg tablet 1,000 mg PO BID 02/23/20 04/09/25 04/07/25 17:10 History (Glucophage) simvastatin 20 mg tablet 20 mg PO DAILY 02/23/20 04/09/25 04/07/25 08:15 History oxybutynin chloride 5 mg tablet 5 mg PO BID 12/23/20 04/09/25 04/07/25 17:10 History apixaban 5 mg tablet (Eliquis) 5 mg PO Q12H 03/01/25 04/09/25 04/07/25 21:45 History aspirin 81 mg capsule 81 mg PO DAILY 03/01/25 04/09/25 04/07/25 08:15 History carboxymethylcellulose sodium 0.5 1 drp EACH EYE BID dry eye 03/01/25 04/09/25 04/07/25 21:45 History % eye drops (Refresh Tears) benzocaine 20 %-menth 0.26 %-Zn 1 applic mucous membrane QID PRN 04/09/25 04/09/25 Unknown History 0.15 %-benzalkon 0.13 % mucosal mouth sore cream (Orajel 4X Toothache-Gum) nystatin 100,000 unit/gram topical 1 applic topical BID rash 04/09/25 04/09/25 Unknown History powder silver sulfadiazine 1 % topical 1 applic topical BID PRN rash 04/09/25 04/09/25 Unknown History cream (Silvadene) Allergies Allergy/AdvReac Type Severity Reaction Status Date / Time Penicillins Allergy Unknown Verified 03/03/25 11:54 Review of Systems Review of Systems: As reviewed above in HPI All systems reviewed & are unremarkable except as noted in HPI and below PMFSH Past Medical History Medical History Uterine cancer Abnormal vaginal bleeding in postmenopausal patient HTN (hypertension) with goal to be determined Cataract Left eye Depression Hypercholesterolemia Type 2 diabetes mellitus Surgical History Surgical History History of arthroscopic knee surgery Repair of right knee cartilage Family History Family History Mother Acute myocardial infarction Several times Migraines Father Cancer Social History Social History Social History: The patient is single and lives with her son. 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 The patient stated she would choose her son as a durable power assistant prosecuting attorney for healthcare. The patient desires to be a full code. Lifelong nonsmoker does not use any alcohol marijuana or illicit drugs. Smoking status: Never smoker Second hand tobacco smoke exposure: No Alcohol intake: former Substance use: never Substance use type: does not use Lack of Transportation: No Lack of Food: Never True Current Housing: I Have Housing Concerned About Future Housing: No Difficulty Paying Gas/Electric Bills: No Difficulty Paying for Meds: No Currently Unemployed: No Education: High School Diploma/GED Difficulty w/ Childcare or Family Care: No Gender identity (if verbalized by the patient): Female Spiritual care concerns: No Exam Narrative: GENERAL: morbidly obese but not any distress. Upper transmitted airway wheeze but no difficulty phonating or speaking. HEAD: [Normocephalic, atraumatic.] EYES: [PERRLA and EOMI.] ENT: Nares clear, no rhinorrhea or epistaxis. Mucous membranes moist. NECK: Supple. CHEST: Clear to auscultation, transmitted upper airway wheeze noted. No wheezing in the bilateral lower bases. No restricted air entry or prolonged expiratory phase. HEART: [Regular rate and rhythm]. No murmur heard. [Normal peripheral pulses.] ABDOMEN: Distended but soft abdomen. Umbilical hernia easily reduced. Tender in the bilateral lower quadrants without any rigidity, guarding or palpable masses. EXTREMITIES: Normal range of motion. [No edema.] SKIN: Warm, dry, no rash. NEURO: [No focal deficits]. Alert and oriented [x3.] PSYCH: [Normal mood and affect.] Course Vital Signs Vital signs: Vital Signs Temperature 36.9 C 09/01/25 19:33 Pulse Rate 82 09/01/25 19:33 Respiratory Rate 28 H 09/01/25 19:33 Blood Pressure 130/82 09/01/25 19:33 Pulse Oximetry 95 09/01/25 19:33 Oxygen Delivery Room Air 09/01/25 19:33 Temperature 36.9 C 09/01/25 19:33 Pulse Rate 79 09/01/25 22:54 Respiratory Rate 20 09/01/25 22:54 Blood Pressure 116/68 09/01/25 22:54 Pulse Oximetry 98 09/01/25 22:54 Oxygen Delivery Room Air 09/01/25 19:39 MDM MDM Narrative Medical decision making narrative: 85-year-old female with a past medical history including hypertension, diabetes, history of uterine cancer. Patient presents to the emergency department today with lower abdominal pain and decreased bowel movements for last few days. She has a history of constipation and been to the emergency department for this before. Of note she was recently diagnosed with COVID at her nursing facility and does have some upper respiratory tract wheezing but no difficulty breathing or chest pain. No shortness of breath noted. She was otherwise in her normal state of health. She is pointing towards her lower abdominal quadrants and stating that they are hurting her. No urinary pain or any dysuria /discharge. No bleeding. No nausea or vomiting. No fever chills. Was otherwise in her normal state of health at her skilled care facility. Patient is morbidly obese, uncomfortable from pain in her bilateral lower quadrants. States she has had decreased bowel movements. Suspect constipation, stercoral colitis, gastroenteritis, less likely bowel obstruction or volvulus. recently diagnosed with COVID and this could also be causing her symptoms. Possibility of pneumonia. Laboratory studies CT scan and a chest x-ray ordered. She is given morphine for analgesia and placed on campus monitor. Workup shows no leukocytosis or anemia. Normal platelet count. Electrolytes show some minor hypokalemia which was repleted with IV and oral potassium. Creatinine normal. Glucose unremarkable. Normal LFTs. Normal lipase. Urinalysis has evidence of UTI. She is given a dose of Rocephin for this. Culture sent. Serology tested positive for COVID. CT scan shows gaseous colonic distention consistent with ileus. Hepatic steatosis and cholelithiasis. No signs of obstruction. She was given stool softeners here and remained comfortable. Pain control at this time after several pain medicines. She remains hemodynamically stable. Saturating 98% on room air. No tachycardia. Pain improved. Safe for discharge back to [facility] care facility at this time with prescriptions for stool softeners and antibiotics for her urinary tract infection. We discussed return precautions and safe for discharge. Differential Diagnosis Differential Diagnosis: Suspect constipation, stercoral colitis, gastroenteritis, less likely bowel obstruction or volvulus. recently diagnosed with COVID and this could also be causing her symptoms. Possibility of pneumonia. Lab Data MDM Lab Attestation statement: I personally reviewed the patient's lab results. 09/01/25 20:20 09/01/25 20:20 Labs: Lab Results 09/01/25 09/01/25 Range/Units 20:20 20:30 WBC 6.1 (4.5-10.0) K/mm3 RBC 4.48 (4.2-5.4) M/mm3 Hgb 14.9 (12.0-15.0) g/dL Hct 44.1 (37.0-47.0) % MCV 98.4 (80-100) fl MCH 33.3 (26-34) pg MCHC 33.8 (32-36) g/dl RDW 13.2 (11.5-14.5) % Plt Count 250 (150-375) k/mm3 MPV 9.2 (7.4-10.4) fl Immature Gran % (Auto) 0.8 H (0-0.5) % Neut % (Auto) 54.2 (45.5-73.1) % Lymph % (Auto) 32.8 (18.3-44.2) % [place] % (Auto) 10.1 H (2.6-8.5) % Eos % (Auto) 1.6 (0-4.4) % Baso % (Auto) 0.5 (0.2-1.2) % Lymph # (Auto) 2.01 (0.9-3.2) K/mm3 [place] # (Auto) 0.6 (0.1-0.6) K/mm3 Eos # (Auto) 0.1 (0-0.3) K/mm3 Baso # (Auto) 0.0 (0.0-0.1) K/mm3 Abs Immat Gran (auto) 0.05 H (0.00-0.031) K/mm3 Absolute Neuts (auto) 3.3 (1.3-6.7) K/mm3 Absolute Nucleated RBC 0.000 (0.0-0.012) K/mm3 Nucleated RBC % 0.0 (0.0-0.2) % Sodium 138 (137-145) mmol/L Potassium 2.9 L (3.4-5.0) mmol/L Chloride 99 (98-107) mmol/L Carbon Dioxide 30 (22-30) mmol/L Anion Gap 9 (4-12) mmol/L BUN 15 (7-17) mg/dL Creatinine 0.78 (0.7-1.0) mg/dL Estim Creat Clear Calc 57 ml/min Estimated GFR > 60 (59 - ) Glucose 166 H (65-110) mg/dL Calcium 8.4 (8.4-10.2) mg/dL Total Bilirubin 0.3 (0.2-1.3) mg/dL AST 35 (14-36) U/L ALT 24 (6-35) U/L Alkaline Phosphatase 75 (38-126) U/L Total Protein 7.1 (6.3-8.2) g/dL Albumin 3.7 (3.5-5.1) g/dL Lipase 91 (23-300) U/L Urine Color Yellow (Yellow) Urine Appearance Turbid H (Clear) Urine pH 8.5 (5.0-9.0) Ur Specific [place] 1.014 (1.001-1.035) Urine Protein 1+ H (Negative) mg/dL Urine Glucose (UA) Negative (Negative) mg/dL Urine Ketones Negative (Negative) mg/dL Ur Blood (Man) Negative (Negative) Urine Nitrate Positive H (Negative) Urine Bilirubin Negative (Negative) Urine Urobilinogen 0.2 (<2.0) mg/dL Leukocyte Esterase Rfl 3+ H (Negative) CECIL/UL Urine RBC 0-2 (0-2) /hpf Urine WBC 21-50 H (0-3) /hpf Ur Squamous Epith Cells None seen (Few) /hpf Urine Bacteria 4+ H /hpf Urine Casts 3-5 Influenza A (RT-PCR) Negative (Negative) Influenza B (RT-PCR) Negative (Negative) RSV (RT-PCR) Negative (Negative) SARS-CoV-2 RNA (RT-PCR) Positive A (Negative) Imaging Data Radiologist's impression: ITS Impressions Chest X-Ray 09/01/25 20:05 IMPRESSION: No acute pulmonary findings. Abdomen/Pelvis CT 09/01/25 21:53 IMPRESSION: Gaseous distention of the colon suggestive of a ileus. Hepatic steatosis. Cholelithiasis. All CT scans at this facility are performed using low dose modulation techniques as appropriate to perform exam including the following: automated exposure control; use of iterative reconstruction technique; adjustment of the mA and/or kV according to patient size (this includes techniques or standardized protocols for targeted exams where dose is matched to indication/reason for exam). Discharge Plan Discharge Clinical Impression: Ileus, Acute UTI, COVID Patient Disposition: NH Intermediate/Asst Living Condition: Stable Instructions: Antibiotic Form, Ileus (ED), Urinary Tract Infection in Older Adults (ED), COVID-19 (Coronavirus Disease 2019) (ED) Additional Instructions: You have a urinary tract infection as well as COVID. CT scan shows ileus but no signs of mechanical obstruction. We have given you medications to help with bowel movements here as well as an antibiotic for your UTI. We have sent you prescriptions for both. Return with any emergent concerns or worsening symptoms at any time. Patient Language: Pashto Prescriptions: New polyethylene glycol 3350 [Miralax] 17 gram/dose powder 17 g PO BID Qty: 238 0RF cephalexin 500 mg capsule 500 mg PO Q12H 7 Days Qty: 14 0RF magnesium citrate Solution 150 ml PO DAILY PRN (Reason: constipation) Qty: 296 0RF No Action metformin [Glucophage] 500 mg Tablet 1,000 mg PO BID citalopram [Celexa] 10 mg Tablet 10 mg PO DAILY Rx Instructions: PM-Bedtime simvastatin 20 mg Tablet 20 mg PO DAILY Rx Instructions: PM-Bedtime Eliquis 5 mg tablet 5 mg PO Q12H aspirin 81 mg capsule 81 mg PO DAILY carboxymethylcellulose sodium [Refresh Tears] 0.5 % drops 1 drp EACH EYE BID nystatin 100,000 unit/gram powder 1 applic topical BID Patient Comments: apply to abd and under breast silver sulfadiazine [Silvadene] 1 % cream 1 applic topical BID PRN (Reason: rash) Patient Comments: apply to buttocks q shift Rx Instructions: apply a 1.5 mm thickness Orajel 4X Toothache-Gum 20-0.26-0.15 % cream 1 applic mucous membrane QID PRN (Reason: mouth sore) cefdinir 300 mg Capsule 300 mg PO Q12HR Qty: 10 0RF polyethylene glycol 3350 [Miralax] 17 gram/dose powder 17 g PO BID PRN (Reason: constipation) Qty: 238 0RF Rx Instructions: HOLD for loose stools bisacodyl [Dulcolax (bisacodyl)] 10 mg suppository 10 mg RECTAL DAILY PRN (Reason: constipation) Qty: 12 0RF oxybutynin chloride 5 mg Tablet 5 mg PO BID Follow-up/Referrals: Jack,KAM Simpson [Primary Care Provider, Family Practice] Stand Alone Forms: Intermediate Discharge Time of Disposition: 23:56
--- OUTSIDE RECORDS SUMMARY | 2025-09-01 20:04 | XMS_ITS ---
Author Organization [facility] Virtual Care Address [facility]ly [facility] [place] [address] Phone Care Team Providers Care [employer] Pathology Teacher Name Role Phone Denice Santiago Primary Care Provider + Active Problems Problem Noted Date Diagnosed Date Mild recurrent major depression 10/04/2022 01/11/2023 Urinary incontinence 10/02/2022 01/11/2023 Encounter for postoperative care 03/15/2022 Adenocarcinoma of endometrium 02/27/2022 Cancer Staging:Pathologic stage from 03/15/2022:FIGO Stage IB(pT1b, pN0, cM0) - Unsigned Postmenopausal bleeding 02/09/2022 Overview (02/09/2022): Added automatically from request for surgery [id number] Vaginal bleeding 02/09/2022 Overview (03/23/2022): Added automatically from request for surgery [id number] Edema of both lower extremities 08/17/2021 Assessment & Plan (08/17/2021 1:08 PM BOOKING OFFICER): Impression: Chronic lower extremity edema and associated [...] 08/17/2021 Assessment & Plan (08/17/2021 1:07 PM BOOKING OFFICER): Impression: Stable chronic hyperlipidemia. Plan: Medications reviewed [...]
--- OUTSIDE RECORDS SUMMARY | 2025-09-01 20:04 | XMS_ITS | Encounter Summary ---
Author Organization [facility] Address [address] [place] [address] Phone Care Team Providers Care Business Instructor Name Role Phone Denice Santiago Primary Care [...] on file documented as of this encounter Functional Status * Question Answer Date of Assessment Author BP Location Right arm 03/24/2022 11:41 PM CDT Sav Lee RN BP Method Automatic 03/24/2022 11:41 PM CDT Sav Lee RN MAP (mmHg) 58 03/24/2022 11:41 PM CDT Sav Lee RN * Evans Fall Risk Question Answer Date of Assessment Author History of Falling 0 03/24/2022 11:36 PM CD T Sav Nino RN Secondary Diagnosis 15 03/24/2022 11:36 PM C DT Sav Nino RN Ambulatory Aids 15 03/24/2022 11:36 PM CDT H Sav bauman RN Intravenous Therapy/Heparin/Saline Lock 20 03/24/2022 11:36 PM CDT Sav Nino RN Gait/Transferring 10 03/24/2022 11:36 PM CDT Sav Nino RN Mental Status 0 03/24/2022 11:36 PM CDT Galdino Sav kelley RN Evans Fall Risk Score (Score >= 45 places fall precaution order) 60 03/24/2022 11:36 PM CDT Sav Nino RN Prior Fall Event (Autopopulated from EMR) None found 03/24/2022 11:36 PM CDT Orlando Nino RN * Faizan Scale Question Answer Date of Assessment Author Sensory Perceptions 3 03/24/2022 8:00 PM CD T Ita Oleary RN Moisture 3 03/24/2022 8:00 PM CDT Ita Barun RN Activity 3 03/24/2022 8:00 PM CDT Ita Braun RN Mobility 3 03/24/2022 8:00 PM CDT Ita Braun RN Nutrition 3 03/24/2022 8:00 PM CDT Ita Braun RN Friction and Shear 3 03/24/2022 8:00 PM CDT Ita Oleary RN Faizan Scale Score 18 03/24/2022 8:00 PM MELODYT Ita Oleary RN * Fall Risk Interventions Question Answer Date of Assessment Author All Low Fall Interventions Applied Yes 03/24/2022 11:36 PM CDT Sav Nino RN All Moderate Fall Interventions Applied Yes 03/24/2022 11:36 PM CDT Sav Nino RN All High Fall Risk Interventions Applied No 03/24/2022 11:36 PM CDT Sav Nino RN All High Risk Interventions EXCEPT: Bed alarm;Chair alarm 03/24/2022 7:01 AM Carla Herron RN Additional Interventions Applied Exit bed on strong/preferred side;Over-bed table on non-exit side 03/24/2022 7:01 AM Carla Herron RN Reason For Exception(s) pt calls appropriately 0 03/24/2022 7:01 AM MELODYT Carla Epps RN * Question Answer Date of Assessment Author Protective Foam Dressing Location Coccyx 03/22/2022 7:00 PM MELODYT Kaylyn Tran RN * B.M.A.T. - Bedside Mobility Assessment Tool for Nurses Question Answer Date of Assessment Author Is patient able to participate in the BMAT? Yes 03/24/2022 11:36 PM Sav Bridges RN BMAT Level Level 3 - Yellow 03/24/2022 11:3 6 PM Sav Bridges RN Level 3 Equipment Use assistive device such as cane/walker 03/24/2022 11:36 PM Sav Bridges RN * Pressure Injury Prevention Question Answer Date of Assessment Author Pressure Ulcer Prevention Interventions Keep skin clean and dry (Sensory Perception/Moisture ) 03/24/2022 8:00 PM Ita Richardson RN * Integumentary Question Answer Date of Assessment Author Skin Color Appropriate for ethnicity 03/24/2022 8:00 PM Ita Richardson RN Skin Condition/Temp Warm;Dry 03/24/2022 8 :00 PM Ita Richadrson RN Skin Integrity Surgical incision;Bruising;Rash 03/24/2022 8:00 PM Ita Richardson RN Skin Turgor Non-tenting 03/24/2022 8:00 PM Ita Richardson RN Integumentary Additional Assessments Yes-Faizan 03/24/2022 8:00 PM Ita Richardson RN Integumentary (WDL) X 03/24/2022 8 :00 PM CDT Ita Oleary RN Skin Location abdomen, BLLE, generalized 03/24/2022 8:00 PM CDT Ita Oleary RN * Faizan Scale Question Answer Date of Assessment Author Faizan Scale Used Faizan 03/23/2022 4:03 PM CDT Sang Almeida, JONI * Question Answer Date of Assessment Author BP Location Right arm 03/24/2022 11:41 PM CDT Sav Lee RN BP Method Automatic 03/24/2022 11:41 PM CDT Sav Lee RN * Question Answer Date of Assessment Author RLE Edema +1 03/24/2022 8:00 PM CDT Ita Braun RN LLE Edema +1 03/24/2022 8:00 PM CDT Ita Braun RN Edema Left lower extremity ;Right lower extremity 03/24/2022 8:00 PM CDT Ita Oleary RN * Question Answer Date of Assessment Author Percent Meal Eaten (%) 100 03/24/2022 7:45 PM CDT Ita Oleary RN * Question Answer Date of Assessment Author Bed In Lowest Position Yes 03/24/2022 11:36 P M MELODYT Sav Nino RN Bed Wheels Locked Yes 03/24/2022 11:36 PM MELODYT Sav Nino RN * Fall Risk Interventions Question Answer Date of Assessment Author All Low Fall Interventions Applied Yes 03/24/2022 11:36 PM Sav Bridges RN All Moderate Fall Interventions Applied Yes 03/24/2022 11:36 PM CDT aSv Nino RN All High Fall Risk Interventions Applied No 03/24/2022 11:36 PM MELODYT Sav Nino RN All High Risk Interventions EXCEPT: Bed alarm;Chair alarm 03/24/2022 7:01 AM CDT Carla Epps, JONI Additional Interventions Applied Exit bed on strong/preferred side;Over-bed table on non-exit side 03/24/2022 7:01 AM CDT Carla Epps RN Reason For Exception(s) pt calls appropriately 0 03/24/2022 7:01 AM CDT Carla Epps RN * Question Answer Date of Assessment Author Hygiene Gown Changed 03/23/2022 9:22 AM CDT Berna Metz NP Toileting: Assistance with Bedside commode 03/23/2022 2:00 AM CDT Kaylyn Tran RN Reason not bathed/showered with chlorhexidine gluconate (CHG) Patient refused bath/shower with chlorhexidine gluconate (CHG) 03/22/2022 7:48 AM MELODYT Antoinette Kasper RN Toileting: Level of assistance Moderate 03/23/2022 2:00 AM MELODYT Kaylyn Tran RN Perineal Care Niesha Care 03/23/2022 12:52 PM CDT Berna Metz NP Linens Complete linen change 03/24/2022 6:35 PM CDT Cecilia Junior Bath Bathed/showered with chlorhexidine (CHG) 03/24/2022 6:35 PM CDT Cecilia Junior * Nutrition Question Answer Date of Assessment Author Feeding Level of Assistance Able to feed self 03/24/2022 7:00 PM MELODYT Ita Oleary RN Appetite Good 03/23/2022 7:00 PM CDT Sav Grimm nd, RN documented as of this encounter Mental Status * Question Answer Entry Date Author Level of Consciousness Alert;Awake 8:00 PM MELODYT Ita Oleary RN Orientation Oriented X4 (person, place, time, situation) 03/24/2022 8:00 PM MELODYT Ita Oleary RN Neuro ([facility]) [facility] 03/24/2022 8:00 PM CDT Ita Oleary RN Other Neuro Symptoms Fatigue 03/22/2022 9:10 AM CDT Antoinette Kasper RN * Question Answer Entry Date Author Neuro ([facility]) [facility] 03/23/2022 6:00 PM CDT Guest , Mary Ann Juliet, RN documented in this encounter Plan of Treatment [...] on filedocumented in this encounter Care Teams Business Instructor Relationship Specialty Start Date End Date Denice Santiago PA PCP - General Physician School Boat Driver 07/13/21 documented as of this encounter
--- OUTSIDE RECORDS SUMMARY | 2025-09-01 20:04 | XMS_ITS | Clinical Summary ---
Author Organization [facility] Virtual Care Address [facility] [place] [address] Phone Care Team Providers Care Table Setter Name Role Phone Denice Santiago Primary Care [...] times a day 60 capsule 3 03/26/20 Active Additional Information Patient not taking.Reported on 01/11/2023 oxyCODONE (ROXICODONE) 5 mg immediate release tabletIndications: Pain Take 1 tablet (5 mg total) by mouth every 4 (four) hours as needed for pain 15 tablet 03/26/20 Active Additional Information Patient not taking.Reported on 01/11/2023 furosemide (LASIX) 20 mg tablet 04/13/20 Active Januvia 100 mg tablet 04/13/20 Active Eliquis 5 mg tabletIndications: Pulmonary embolism, unspecified chronicity, unspecified pulmonary embolism type, unspecified whether acute cor pulmonale present (HCC) TAKE 1 TABLET BY MOUTH TWICE A DAY 60 tablet 11 04/12/20 25 Active Active Problems Problem Noted Date Diagnosed Date Mild recurrent major depression 10/04/2022 01/11/2023 Urinary incontinence 10/02/2022 01/11/2023 Encounter for postoperative care 03/15/2022 Adenocarcinoma of endometrium 02/27/2022 Cancer Staging:Pathologic stage from 03/15/2022:FIGO Stage IB(pT1b, pN0, cM0) - Unsigned Postmenopausal bleeding 02/09/2022 Overview (02/09/2022): Added automatically from request for surgery [id number] Vaginal bleeding 02/09/2022 Overview (03/23/2022): Added automatically from request for surgery [id number] Edema of both lower extremities 08/17/2021 Assessment & Plan (08/17/2021 1:08 PM LIABILITY CLAIMS REPRESENTATIVE): Impression: Chronic lower extremity edema and associated [...] 08/17/2021 Assessment & Plan (08/17/2021 1:07 PM LIABILITY CLAIMS REPRESENTATIVE): Impression: Stable chronic hyperlipidemia. Plan: Medications reviewed [...] Ectopic Multiple Livin g Live Births 1 1 1 1 Date Outcome GA Total Labor Labor/2nd/3rd [...] exists Fall Risk Assessment 05/15/2023 05/15/2022, 03/26/20 Osteoporosis Screening-Bone Density Scan 06/07/2024 06/07/2022 Covid-19 Vaccine (3 - 2024-2 6 season) 2025 02/02/2021, 01/25/2021 Influenza Vaccine (#1) 2025 07/11/2021, 2017 Pneumococcal vaccine 65+ Completed 10/20/2018, 08/16 Procedures Procedure Name Priority Date/Time Associated Diagnosis Comments EGFR Routine 03/25/2022 9:38 PM CDT POCT HEMOGLOBIN A1C Routine 02/23/2022 2 :29 PM CDT from Last 3 Months or Most Recently Relevant to Health Maintenance Results * (ABNORMAL) eGFR (03/25/2022 9:38 PM CDT) Pathologist [facility] eGFR 41(L) 90 - 130 mL/min/1. 73 m2 JAMILAH TALAVERA Comment: Interpretive Data Reference Interval Normal >/= [...] MD LAB BLOOD ORDERABLES Fi nal Result JAMILAH NORRIS [facility] Department [place] [address] * POCT hemoglobin A1c (02/23/2022 2:29 PM CDT) Hgb A1C, POC 5.6 4.0 - 5.6 % [facility] Est Average Gluc POC 114 mg/dL JAMILAH [facility] Comment: The ADA recommends reporting an estimated Average Glucose (eAG) with all Hemoglobin A1c results using the equation derived from a study of 507 normal and diabetic adults. Minority populations were underrepresented and children were not included. (Diabetes Care 31:3959-5003, 2008). The eAG is not equivalent to a fasting glucose. Blood 02/23/2022 2:29 PM CDT 02/23/2022 2:29 PM CDT us Notinfile Unknown POINT OF CARE TEST ORDERABLES Final Result [facility] Department [place] [address] from Last 3 Months or Most Recently Relevant to Health Maintenance Insurance [facility] Member Subscriber Plan / Payer (Ef fective 2021-Present) Name:Kimberly Rodriguez Relation to Subscriber:Self Name:Kimberly Rodriguez Payer ID:[id number] (NAIC) Group ID:Not on file Type:MEDICAID RISK OTHER Address: ATTN: CLAIMS DEPT [address] [place] [id number] IDPA [employer] MEDICARE GOLD IDPA A[employer]NA MEDICARE GOLD IDPA Advance Directives For more information, please contact: [phone] * Full Code (Latest Code Status on File) Date Activated Date Inactivated Comments 03/15/2022 7:47 PM 03/27/2022 3:43 AM Care Teams Table Setter Relationship Specialty Start Date End Date Denice Santiago PA PCP - General Physician Body Shop Mechanic 07/13/21
--- OUTSIDE RECORDS SUMMARY | 2025-09-01 20:04 | XMS_ITS | Patient Health Record ---
Author Organization [facility] Address [address] [place], [place] [id number] Care Team Providers Care Communications Instructor Name Role Phone MIRIAM Puga Unavailable [phone] Florian Li Unavailable Unavailable Reason For Referral No Information Social History Social History Additional Details Category Social Info Options Details Migrated Social History Migrated Social History History of tobacco use : , Smoking Status : Never used tobacco Plan Of Treatment No Information Insurance Providers Payer Name Payer Address Payer Phone Subscriber Number Group Number Insured Name Patient Relationship to Insured Coverage Start Date Coverage End Date [facility] [address] [place] [phone] [id number] CHLOÉ BLACKBURN Self - patient is the insured
--- OUTSIDE RECORDS SUMMARY | 2025-09-01 20:04 | XMS_ITS | Encounter Summary ---
Author Organization [facility] Address [address] [place] [address] Care Team Providers Care Guard Rail Installer Name Role Phone Denice Santiago Primary Care Provider + Encounter Details Date Type Department Care Team (Late st Contact Info) Description 06/12/2022 Completion of Therapy [facility] Advanced Medicine Radiation Oncology [facility] [place] [address] Brooklynn Torres MD [address] [facility] [id number] [place] [address] Social History Tobacco Use Types Packs/Day Years [...] PM CDT Radiation Oncologist: No care steam tender to display Primary Care Physician: Denice Santiago PA Medical Oncologist: No care steam tender to display Surgeon: No care steam tender to display Referring Provider: No ref. provider [...] patient's pain is currently being managed by WORKERS COMPENSATION COORDINATOR ONC. Tolerance to Treatment: Ms. Rodriguez tolerated the treatment well. Disposition: Follow up in clinic in 6 weeks. Post treatment skin care instructions given. Patient was instructed to call with any concerns prior to scheduled follow up visit. No care steam tender to display supervised the patient???s radiation treatment as summarized. Frank Anthony MD, PhD Radiation Oncology Resident 07/15/2022 7:15 PM Cosigned by Brooklynn Torres MD at 07/16/2022 12:06 PM CDT Associated attestation - Brooklynn Torrse MD - 07/16/2022 12:06 PM CDT Kimberly [...] on filedocumented in this encounter Care Teams Guard Rail Installer Relationship Specialty Start Date End Date Denice Santiago PA PCP - General Physician Cart Driver 07/13/21 documented as of this encounter
--- OUTSIDE RECORDS SUMMARY | 2025-09-01 20:04 | XMS_ITS | Patient Health Record ---
Author Organization [facility] Address [address] [place] [phone] Care Team Providers Care Forepart Rasper Name Role Phone DR. CHRISTIANO IBANEZ Primary Care Provider Anisha Mcneal Unavailable [phone] Allergies Allergen (clinical drug ingredient) Drug/Non Drug Allergy documented on EMR Reaction Allergy Type Onset Date Status Penicillin Unknown Drug Allergy Active Reason For Referral Reason Blurred vision in le ft eye Diagnosis 1 Vision blurred (H53. 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 Chemical Preparer Davis Plascencia Referral Priority Routine Referral Appointment Date 08/17/2025 Reason Skin Cancer to lower lip Diagnosis 1 Skin cancer (C44.90) Referral Organization [facility] Referring Provider First Name CHRISTIANO Referring Provider Last Name SHAMAR Referring Provider Speciality Internal M edicine Referred Organization [facility] Referred Address [address],[address], Referred Provider Specialty Dermatology General Notes Chelsea Rivers 09/2024 02:48:57 PM CDT >Appt scheduled 06/29/2025 Referral Priority Routine Medications Medication SIG (Take, Route, Frequency, Duration) Notes Start Date End Date Status oxyBUTYnin Chloride 5 MG Tablet 1 tablet Orally twice a day Active metFORMIN HCl 1000 MG Tablet 1 tablet wi th a meal Orally twice a day Active Nystatin - Powder as directed twice a day Active Citalopram Hydrobromide 10 MG Tablet 1 tablet Orally Once a day Active Eliquis 5 MG Tablet 1 tablet Orally twic e a day Active Lasix 20 MG Tablet 1 tablet Orally Once a day; Duration: 30 days 08/14/2025 Active Aspirin Adult Low Strength 81 MG Tablet Delayed Release 1 tablet Orally Once a day Active Melatonin 3 MG Tablet 1 tablet at bedtim e as needed Orally Once a day Active Acetaminophen 325 MG Tablet 1 tablet as needed Orally every 6 hrs Active Refresh Tears PF 0.5-0.9 % Solution 1 drop Ophthalmic twice a day Active Simvastatin 20 MG Tablet [...] Status Risk Notes Problem Tear film insufficiency (58796802) Dry eye syndrome of unspecified lacrimal gland (H04.129) Active confirmed Problem Essential hypertension (77112737) Essential (primary) hypertension (I10) Active confirmed Problem Gout (71455557) Gout, unspecifie d (M10.9) Active confirmed Problem Overactive bladder (485357425) Overactive bladder (N32.81) Active confirmed Problem Adult failure to thrive syndrome (692219391) Adult failure to thrive (R62.7) Active confirmed Problem Type II diabetes mellitus without complication (112506071) Type 2 diabetes mellitus without complication, unspecified whether prison insulin use (E11.9) Active confirmed Problem Pure hypercholesterolemia (806080745) Pure hypercholesterolemia (E78.00) Active confirmed Problem Skin cancer (483780921) Skin cancer (C44.90) Active confirmed Problem Major depression, single episode (28109544) Major depressive disorder with single episode, remission status unspecified (F32.9) Active confirmed Vital Signs Heart Rate 78 /min 08/10/2025 Temperature 96.9 degrees Fahrenheit 06/15/2025 Respiratory Rate 20 /min 06/15/2025 Oximetry 92 % 06/15/2025 Blood pressure diastolic 64 mm Hg 08/10/2025 Weight-kg 118.84 kg 05/14/2025 Blood pressure systolic 132 mm Hg 08/10/2025 Weight 262 lbs 05/14/2025 Encounters Encounter Location Date Provider Diagnosis [address] [address] 09/01/[address] [address] 03/05/2025 CHRISTIANO IBANEZ [address] [address] 03/09/2025 Anisha Fredis Physical decondition ing R53.81 ; Essential (primary) hypertension I10 ; Major depressive disorder with single episode, remission status unspecified F32.9 and Type 2 diabetes mellitus without complication, 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 insulin 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 E11.[address] [address] 03/11/2025 Anisha Fredis Physical decondition ing R53.81 ; Essential (primary) hypertension I10 ; Major depressive disorder with single episode, remission status unspecified F32.9 and Type 2 diabetes mellitus without complication, 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 insulin use E11.[address] [address] 03/16/2025 Anisha Fredis Physical decondition ing R53.81 ; Essential (primary) hypertension I10 ; Major depressive disorder with single episode, remission status unspecified F32.9 ; Type 2 diabetes mellitus without complication, 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 insulin use E11.9 and Bilateral lower extremity edema R60.[address] [address] 03/18/2025 Anisha Fredis Physical decondition ing R53.81 ; Essential (primary) hypertension I10 ; Major depressive disorder with single episode, remission status unspecified F32.9 ; Type 2 diabetes mellitus without complication, unspecified whether prison insulin use E11.9 and Bilateral lower extremity edema R60.[address] [address] 03/24/2025 Anisha Fredis Physical decondition ing R53.81 ; Essential (primary) hypertension I10 ; Major depressive disorder with single episode, remission status unspecified F32.9 ; Type 2 diabetes mellitus without complication, unspecified whether prison insulin use E11.9 and Bilateral lower extremity edema R60.[address] [address] 03/26/2025 Anisha Mcneal Physical decondition ing R53.81 ; Essential (primary) hypertension I10 ; Major depressive disorder with single episode, remission status unspecified F32.9 ; Type 2 diabetes mellitus without complication, 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 insulin use E11.9 ; Bilateral lower extremity edema R60.0 and Mouth pain K13.[address] [address] 03/30/2025 Anisha Mcneal Physical decondition ing R53.81 ; Essential (primary) hypertension I10 ; Major depressive disorder with single episode, remission status unspecified F32.9 ; Type 2 diabetes mellitus without complication, unspecified whether prison insulin use E11.9 ; Bilateral lower extremity edema R60.0 and Mouth pain K13.[address] [address] 04/01/2025 Anisha Mcenal Physical decondition ing R53.81 ; Essential (primary) hypertension I10 ; Major depressive disorder with single episode, remission status unspecified F32.9 ; Type 2 diabetes mellitus without complication, 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 [address] [address] 05/14/2025 [place] [address] 06/15/2025 Anisha Mcneal Essential (primary) hypertension I10 ; Major depressive disorder with single episode, remission status unspecified F32.9 ; Type 2 diabetes mellitus without complication, unspecified whether prison insulin use E11.9 and Bilateral lower extremity edema R60.0 [place] [address] [place] [address] 07/08/2025 CHRISTIANO [place] [address] [place] [address] 08/10/2025 Anisha Mcneal Essential (primary) hypertension I10 ; Major depressive disorder with single episode, remission status unspecified F32.9 ; Type 2 diabetes mellitus without complication, 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 insulin use E11.9 and Bilateral lower extremity edema R60.0 [place] [address] [place] [address] 03/05/2025 [place] [address] [place] [address] 03/05/2025 [place] [address] [place] [address] 03/05/2025 Anisha [place] [address] [place] [address] 03/06/2025 CHRISTIANO IBANEZ [place] [address] [place] [address] 03/08/2025 Anisha Davis [place] [address] [place] [address] 03/15/2025 Anisha Mcneal [place] [address] [place] [address] 03/16/2025 Anisha Mcneal [place] [address] [place] [address] 03/23/2025 Anisha [place] [address] [place] [address] 03/24/2025 CHRISTIANO IBANEZ [place] [address] [place] [address] 03/26/2025 CHRISTIANO IBANEZ [place] [address] [place] [address] 03/29/2025 CHRISTIANO [place] [address] [place] [address] 04/01/2025 CHRISTIANO [place] [address] [place] [address] 04/06/2025 CHRISTIANO [place] [address] [place] [address] 04/10/2025 CHRISTIANO [place] [address] [place] [address] 04/13/2025 [place] [address] [place] [address] 04/14/2025 CHRISTIANO IBANEZ [address] [address] 04/16/2025 CHRISTIANO IBANEZ [address] [address] 05/14/[address] [address] 05/16/[address] [address] 05/31/2025 CHRISTIANO IBANEZ [address] [address] 06/14/2025 CHRISTIANO IBANEZ [address] [address] 07/06/2025 CHRISTIANO IBANEZ [address] [address] 08/03/2025 CHRISTIANO IBANEZ [address] [address] 08/10/2025 CHRISTIANO IBANEZ Assessments Encounter Date Diagnosis (ICD [...] to therapy in order to get stronger. 04/16/2025 Acute pneumonia (ICD-10 - J18.9) Patient was admitted from 04/08/2025 to 04/13/2025 due to pneumonia. She was treated with IV antibiotics. Discharged on Cefdinir 300 mg b.i.d. x5 days. O2 at bedtime at 1 liter. 06/15/2025 Essential (primary) hypertension (ICD-10 - I10) Blood pressure is stable. Managed well on current medications. Continue treatment plan and monitoring. 06/15/2025 Major depressive disorder with single episode, remission status unspecified (ICD-10 - F32.9) Patient deniesany problems at this time. Not currently on any medications for depression atthis time. 08/10/2025 Essential (primary) hypertension (ICD-10 - I10) Blood pressure is stable. Managed well on current medications. Continue treatment plan and monitoring. 06/15/2025 Type 2 diabetes mellitus without complication, unspecified whether prison insulin use (ICD-10 - E11.9) On 03-05-25,A1c was 6.6%. Well managed on current medications. Continue current treatment plan and monitoring. 04/01/2025 Major depressive disorder with single episode, remission status unspecified (ICD-10 - F32.9) Patient deniesany problems at this time. Not currently on any medications for depression atthis time. 04/07/2025 Essential (primary) hypertension (ICD-10 - I10) Blood pressure is stable. Managed well on current medications. Continue treatment plan and monitoring. 08/10/2025 Major depressive disorder with single episode, remission [...] 2 diabetes mellitus without complication, unspecified whether prison insulin use (ICD-10 - E11.9) On 03-05-25,A1c was 6.6%. Well managed on current medications. Continue current treatment plan and monitoring. 03/16/2025 Type 2 diabetes mellitus without complication, unspecified whether prison insulin use (ICD-10 - E11.9) On 03-05-25,A1c was 6.6%. Well managed on current medications. Continue current treatment plan and monitoring. 03/26/2025 Type 2 diabetes mellitus without complication, unspecified whether prison insulin use (ICD-10 - E11.9) On 03-05-25,A1c [...] 2 diabetes mellitus without complication, unspecified whether prison insulin use (ICD-10 - E11.9) On 03-05-25,A1c [...] on any medications for depression atthis time. 06/15/2025 Bilateral lower extremity edema (ICD-10 - R60.0) Patient has chronic non-pitting edema to the bilateral lower extremities. No JUANIS wraps are in place, patient continue to spend a lot of her time in bed with her feet elevated to help with the swelling. Continue to monitor and update with any changes. 08/10/2025 Type 2 diabetes mellitus without complication, unspecified whether prison insulin use (ICD-10 - E11.9) On 03-05-25,A1c was 6.6%. Well managed on current medications. Continue current treatment plan and monitoring. 08/10/2025 Bilateral lower extremity edema (ICD-10 - R60.0) 3+ edema noted to the bilateral lower extremities. No JUANIS wraps in place. Order given to put JUANIS wraps on in the AM and take off in the PM. Order given for Lasix 20 mg daily, draw BMP on Saturday08/16/2025. Encouraged patient to elevate her legs as much as possible. 04/07/2025 Type 2 diabetes mellitus without complication, 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 insulin use (ICD-10 - E11.9) On 03-05-25,A1c [...] 2 diabetes mellitus without complication, 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 insulin use (ICD-10 - E11.9) On 03-05-25,A1c [...] 2 diabetes mellitus without complication, 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 insulin use (ICD-10 - E11.9) On 03-05-25,A1c [...] 2 diabetes mellitus without complication, unspecified whether prison insulin use (ICD-10 - E11.9) On 03-05-25,A1c was 6.6%. Well managed on current medications. Continue current treatment plan and monitoring. 03/11/2025 Type 2 diabetes mellitus without complication, unspecified whether prison insulin use (ICD-10 - E11.9) On 03-05-25,A1c [...] up in 1 week unless necessary sooner. 04/16/2025 Other Continue current treatment plan. Staff to continue to monitor and report any changes. Patient education provided and questions/concern s addressed. Follow up in 2-4 weeks unless necessary sooner. 06/15/2025 Other Continue current treatment plan. Staff to continue to monitor and report any changes. Patient education provided and questions/concern s addressed. Follow up in 2-4 weeks unless necessary sooner. 08/10/2025 Other Continue current treatment plan. Staff to continue to monitor and report any changes. Patient education provided and questions/concern s addressed. Follow up in 2-4 weeks unless necessary sooner. Plan Of Treatment Future Test Test Name Order Date Basic Metabolic Panel (8) 08/16/2025 Next Appt Details Provider Name:CHRISTIANO IBANEZ, 09/02/2025 03:14:00 AM, [address] [facility] [address], [place], [address], Insurance Providers Payer Name Payer Address Payer Phone Subscriber Number Group Number Insured Name Patient Relationship to Insured Coverage Start Date Coverage End Date [employer] of [place] [address] [address] [place], [place] [id number] Kimberly Bennett Self - patient is the insured [facility] [address] [address] [place] [address] [id number] Kimberly Bennett Self - patient is the insured Medical (General) History Medical History History ICD Code Urinary tract infection, site not specif ied N39.0 Type 2 diabetes mellitus wit hout complication, unspecified whether prison insulin use E11.9 Dry eye syndrome of [...]
[2025-09-01 20:38] LABS: Hematocrit 44.1 % (37.0-47.0); Hemoglobin 14.9 g/dL (12.0-15.0); Immature Granulocyte Percent A 0.8 % (0-0.5); Lymphocytes Absolute Auto 2.01 K/mm3 (0.9-3.2); Mean Corpuscular HGB Conc 33.8 g/dl (32-36); Mean Corpuscular Hemoglobin 33.3 pg (26-34); Mean Corpuscular Volume 98.4 fl (80-100); Nucleated Red Blood Cells Absolute Auto 0.000 K/mm3 (0.0-0.012); Nucleated Red Blood Cells Perc 0.0 % (0.0-0.2); Platelet Count Result 250 k/mm3 (150-375); Red Blood Count 4.48 M/mm3 (4.2-5.4); White Blood Count 6.1 K/mm3 (4.5-10.0)
[2025-09-01 20:40] VITALS: BP 134/78; PULSE 83; RESP 31; O2SAT 100
[2025-09-01] MEDS: MORPHINE SULFATE (*CRX) 4 MG/ML INJ IV PUSH ×2 (20:41→21:24)
[2025-09-01 20:46] LABS: Alanine Aminotransferase 24 U/L (6-35); Albumin Level 3.7 g/dL (3.5-5.1); Alkaline Phosphatase 75 U/L (38-126); Anion Gap 9 mmol/L (4-12); Aspartate Amino Transferase 35 U/L (14-36); Bilirubin,Total 0.3 mg/dL (0.2-1.3); Blood Urea Nitrogen 15 mg/dL (7-17); Calcium 8.4 mg/dL (8.4-10.2); Carbon Dioxide 30 mmol/L (22-30); Chloride 99 mmol/L (98-107); Estimated CRCL calculation 57 ml/min; Estimated Glomerular Filt Rate > 60; Glucose 166 mg/dL (65-110); Lipase 91 U/L (23-300); Potassium 2.9 mmol/L (3.4-5.0); Sodium 138 mmol/L (137-145); Total Protein 7.1 g/dL (6.3-8.2)
[2025-09-01 20:54] LABS: Add Urine Microscopic? YES; Appearance Urine Turbid (Clear); Glucose Urine UA Negative (Negative); Leukocyte Esterase Ur 3+ LEU/UL (Negative); Nitrate Urine Positive (Negative); Specific Grav Ur 1.014 (1.001-1.035)
--- NOTE | 2025-09-01 21:10 | PC.NURSE ---
Pt. did not tolerate CT d/t nausea and back pain when lying flat. Dr. Bush notified. Report given to Caroline Guerra RN.
[2025-09-01] MEDS: ONDANSETRON INJ 4 MG/2 ML VIAL IV PUSH (21:24)
[2025-09-01] MEDS: cefTRIAXone 2 GM in SODIUM CHLORIDE 0.9% IV 100 ML 200 ML IVPB (21:24)
[2025-09-01] MEDS: KCL 20 MEQ/SW 100 ML 100 ML 50 MEQ IVPB (22:05)
[2025-09-01] MEDS: POTASSIUM CHLORIDE 20 MEQ PACKET (FOR LIQUID) 40 MEQ PO (22:05)
[2025-09-01] MEDS: SODIUM CHLORIDE 0.9% IV 500 ML 30 ML (22:07)
[2025-09-01] MEDS: METOCLOPRAMIDE HCL INJ 10 MG/2 ML VIAL IV PUSH (22:14)
[2025-09-01 22:22] LABS: Influenza A QL RT-PCR Negative (Negative); Influenza B QL RT-PCR Negative (Negative); RSV RNA, RT-PCR Negative (Negative); SARS-CoV-2 RNA PCR Positive (Negative)
[2025-09-01 22:54] VITALS: BP 116/68; PULSE 79; RESP 20; O2SAT 98
[2025-09-01] MEDS: MAGNESIUM CITRATE 300 ML BTL 150 ML PO (22:55)
--- NOTE | 2025-09-02 00:18 | PC.NURSE ---
EMS checked pt puls o2 prior to exiting ED with pt. Pt was satting at 88% on RA with a good pleth. RN placed pt on 2L NC and was notified. states to take pt off oxygen and see how she does. RN took pt off o2 and pt began tokk remain from 95%-98% on RA. notified. states pt O2 dropped due to positional change and adminstration of morphine and that pt is good to go back to facility. states pt can go back on 2L PRN at her facility. Facility was called by this RN and updated on pt PRN orders and arrival time.
== END 2025-09-02 00:04 ==
PROVIDERS: Student in an Organized Health Care Education/Training Program; Emergency Provider Student in an Organized Health Care Education/Training Program; PCP Physician Assistant
DX: N39.0 Urinary tract infection, site not specified (principal); K56.7 Ileus, unspecified; U07.1 COVID-19; I10 Essential (primary) hypertension; E11.9 Type 2 diabetes mellitus without complications; E78.00 Pure hypercholesterolemia, unspecified; E66.01 Morbid (severe) obesity due to excess calories; Z68.42 Body mass index [BMI] 45.0-49.9, adult; F32.A Depression, unspecified; Z85.42 Personal history of malignant neoplasm of other parts of uterus; K80.20 Calculus of gallbladder without cholecystitis without obstruction; K76.0 Fatty (change of) liver, not elsewhere classified; R94.31 Abnormal electrocardiogram [ECG] [EKG]; Z79.82 Long term (current) use of aspirin; Z79.01 Long term (current) use of anticoagulants; Z79.899 Other long term (current) drug therapy; Z79.84 Long term (current) use of oral hypoglycemic drugs
CPT/HCPCS: 36415; 71045; 74177; 80053; 81001; 83690; 85025; 87077; 87086; 87186; 87637; 93005; 96365; 96366; 96367; 96375; 96376; 99284; A9270; J0696; J2270; J2405; J2765; J3480; J7040; Q9967